=== PATIENT | male | born 1975 | race African-American/Black ===

== ENCOUNTER 2019-10-25 16:29 | Emergency (ER) | payer OTHER ==
[2019-10-25 18:05] LABS: Albumin 3.9 g/dL (3.4-5.0); Bilirubin Total 0.4 mg/dL (0.2-1.0); Protein, Total 8.1 g/dL (6.4-8.2)
[2019-10-25 18:19] LABS: Potassium 2.6 mmol/L (3.5-5.1)
--- NOTE | 2019-10-25 18:22 | EDPHYS ---
Physician Documentation [facility] Name: Ana Paula Oviedo Age: 44 yrs Sex: Male : 1975 Arrival Date: 10/25/2019 Time: 16:34 Bed 20 Private MD: ED Physician Maren Marshall HPI: 10/25 16:51 This 44 yrs old Black Male presents to ER via Ambulatory with complaints of High Blood ma2 Pressure. 16:51 The patient has elevated blood pressure and discovered this at home. Onset: The ma2 symptoms/episode began/occurred gradually, 1 week(s) ago. Associated signs and symptoms: Pertinent negatives: dizziness, headache, lightheadedness, nausea. Severity of symptoms: At its worst the blood pressure was moderate, in the emergency department the blood pressure is unchanged. The patient has experienced similar episodes in the past. has htn, does not take his meds, went to pcp for regular check up no symptoms, sbp was 210, so advised to come here. However, before coming here, he went home and took his bp meds, now sbp 170, no sympotm s. Historical: - Allergies: 16:46 No Known Allergies; sv - PMHx: 16:46 Hypertension; Schizophrenia; sv - PSHx: 16:46 None; sv - Social history:: Patient/guardian denies using alcohol, street drugs, The patient lives with family. - Family history:: not pertinent. ROS: 16:51 Constitutional: Negative for fever, chills, and weight loss. ma2 16:51 All other systems are negative. Exam: 16:51 Constitutional: This is a well developed, well nourished patient who is awake, alert, ma2 and in no acute distress. Head/Face: Normocephalic, atraumatic. Eyes: Pupils equal round and reactive to light, extra-ocular motions intact. Lids and lashes normal. Conjunctiva and sclera are non-icteric and not injected. Cornea within normal limits. Periorbital areas with no swelling, redness, or edema. ENT: Nares patent. No nasal discharge, no septal abnormalities noted. Tympanic membranes are normal and external auditory canals are clear. Oropharynx with no redness, swelling, or masses, exudates, or evidence of obstruction, uvula midline. Mucous membranes moist. Neck: Trachea midline, no thyromegaly or masses palpated, and no cervical lymphadenopathy. Supple, full range of motion without nuchal rigidity, or vertebral point tenderness. No Meningismus. Chest/axilla: Normal chest wall appearance and motion. Nontender with no deformity. No lesions are appreciated. Cardiovascular: Regular rate and rhythm with a normal S1 and S2. No gallops, murmurs, or rubs. Normal PMI, no JVD. No pulse deficits. Respiratory: Lungs have equal breath sounds bilaterally, clear to auscultation and percussion. No rales, rhonchi or wheezes noted. No increased work of breathing, no retractions or nasal flaring. Abdomen/GI: Soft, non-tender, with normal bowel sounds. No distension or tympany. No guarding or rebound. No evidence of tenderness throughout. Skin: Warm, dry with normal turgor. Normal color with no rashes, no lesions, and no evidence of cellulitis. MS/ Extremity: Pulses equal, no cyanosis. Neurovascular intact. Full, normal range of motion. Neuro: Awake and alert, GCS 15, oriented to person, place, time, and situation. Cranial nerves II-XII grossly intact. Motor strength 5/5 in all extremities. Sensory grossly intact. Cerebellar exam normal. Normal gait. Vital Signs: 16:46 BP 174 / 99; Pulse 85; Resp 16; Temp 98.4; Pulse Ox 100% ; Weight 97.07 kg; Height 6 sv ft. 2 in. (187.96 cm); Pain 0/10; 16:46 Body Mass Index 27.48 (97.07 kg, 187.96 cm) sv MDM: 16:47 Patient medically screened. ma2 16:51 Differential diagnosis: hypertensive crisis, Malignant HTN. Data reviewed: vital signs, ma2 nurses notes. Counseling: I had a detailed discussion with the patient and/or guardian regarding: the historical points, exam findings, and any diagnostic results supporting the discharge/admit diagnosis, the presence of at least one elevated blood pressure reading (>120/80) during this emergency department visit, the need for outpatient follow up. Response to treatment: the patient's symptoms have markedly improved after treatment, map is already reduced to target 30% off 200, now at 170, . 10/25 16:51 Order name: [facility]; Complete Time: 18:19 ma2 Administered Medications: No medications were administered Disposition: 10/25/19 18:21 Discharged to Home. Impression: Essential (primary) hypertension, Hypokalemia. - Condition is Stable. - Discharge Instructions: Hypokalemia. - Prescriptions for Potassium Chloride 10 mEq Oral Tablet - take 1 tablet by ORAL route every 12 hours; 30 tablet. - Medication Reconciliation Form, Thank You Letter, Antibiotic Education, Prescription Opioid Use form. - Follow up: Private Physician; When: Tomorrow; Reason: Continuance of care. Signatures: Dispatcher [employer] Analy Lawler RN RN Navneet Polk RN RN sg Alzahri, Mohammad, MD MD ma2 Corrections: (The following items were deleted from the chart) 18:43 18:21 10/25/2019 18:21 Discharged to Home. Impression: Essential (primary) sg hypertension; Hypokalemia. Condition is Stable. Forms are Medication Reconciliation Form, Thank You Letter, Antibiotic Education, Prescription Opioid Use. Follow up: Private Physician; When: Tomorrow; Reason: Continuance of care. ma2
--- NOTE | 2019-10-25 18:22 | ER ---
Nurse's Notes [facility] Name: Ana Paula Oviedo Age: 44 yrs Sex: Male : 1975 Arrival Date: 10/25/2019 Time: 16:34 Bed 20 Private MD: Diagnosis: Essential (primary) hypertension;Hypokalemia Presentation: 10/25 16:44 Presenting complaint: Patient states: sent by PCP for HTN. States he has a hx of HTN. sv Denies SOB, dizziness, headache, CP. Transition of care: patient was not received from another setting of care. Onset of symptoms was October 25, 2019. Care prior to arrival: None. 16:44 Method Of Arrival: Ambulatory sv 16:47 Acuity: ALIRIO 4 sv Historical: - Allergies: 16:46 No Known Allergies; sv - PMHx: 16:46 Hypertension; Schizophrenia; sv - PSHx: 16:46 None; sv - Social history:: Patient/guardian denies using alcohol, street drugs, The patient lives with family. - Family history:: not pertinent. Screenin:00 Abuse screen: Denies threats or abuse. Denies injuries from another. Nutritional sg screening: No deficits noted. Tuberculosis screening: No symptoms or risk factors identified. Never had TB. Fall Risk None identified. Assessment: 17:00 General: Appears in no apparent distress. well groomed, well developed, well nourished, sg Behavior is calm, cooperative, appropriate for age. Pain: Denies pain. Neuro: Level of Consciousness is awake, alert, obeys commands, Oriented to person, place, time, Moves all extremities. Gait is steady, Speech is normal, Facial symmetry appears normal. Cardiovascular: Capillary refill is brisk in bilateral fingers Patient's skin is warm and dry. Chest pain is denied. Respiratory: Airway is patent Respiratory effort is even, unlabored, Respiratory pattern is regular, symmetrical. GI: Abdomen is round non-distended, Reports tolerance of fluids, tolerance of food. : No signs and/or symptoms were reported regarding the genitourinary system. EENT: No signs and/or symptoms were reported regarding the EENT system. Derm: Skin is intact, is healthy with good turgor, Skin is dry, Skin is normal, Skin temperature is warm. Musculoskeletal: Circulation, motion, and sensation intact. Range of motion: intact in all extremities. Vital Signs: 16:46 BP 174 / 99; Pulse 85; Resp 16; Temp 98.4; Pulse Ox 100% ; Weight 97.07 kg; Height 6 sv ft. 2 in. (187.96 cm); Pain 0/10; 16:46 Body Mass Index 27.48 (97.07 kg, 187.96 cm) sv ED Course: 16:34 Patient arrived in ED. mr 16:44 Arm band placed on. sv 16:47 Maren Marshall MD is Attending Physician. ma2 16:47 Triage completed. sv 17:00 No provider procedures requiring assistance completed. sg 17:31 Navneet Maher, RN is Primary Nurse. sg Administered Medications: No medications were administered Outcome: 18:21 Discharge ordered by . ma2 18:43 Patient left the ED. sg Signatures: Analy Lynch RN RN Navneet Maher, RN RN Emilie Barone mr Maren Marshall MD MD ma2 Corrections: (The following items were deleted from the chart) 16:47 16:46 Pulse 85bpm; Resp 16bpm; Pulse Ox 100%; Temp 98.4F; 97.07 kg; Height 6 ft. 2 in.; sv BMI: 27.4; Pain 0/10; sv
[2019-10-26 08:28] VITALS: BP 174/99; TEMP 98.4; O2SAT 100
== END 2019-10-25 18:43 | disposition home or self-care (01) ==
LOC: ER 16:29
DX: I10 Essential (primary) hypertension (principal); E87.6 Hypokalemia
CPT/HCPCS: 36415; 80053; 99281

== ENCOUNTER 2021-02-12 13:52 | Emergency (ER) | payer OTHER ==
--- OUTSIDE RECORDS SUMMARY | 2021-02-12 13:54 | XMS REPORT | Continuity of Care Document ---
:1975 Author Organization [facility] t Address [address] [place] [address] Care Team Providers Name Role Phone Lab, Fam Pob I Attending Clinician Unavailable Doctor Unassigned, Name Attending Clinician Unavailable Problems This patient has no known problems. Allergies, Adverse Reactions, Alerts This patient has no known allergies or adverse reactions. Medications This patient has no known medications. Procedures This patient has no known procedures. Encounters Start End Encounter Admission Attending Care Care Encounter Source Date/Time Date/Time Type Type Clinicians Facility Department ID 2020-05-31 2020-05-31 Laboratory Lab, [facility] [id number] 13:07:33 13:27:33 Only Fam Pob I Health [id number] [place] [id number] [place] [id number] [address] 2020-05-31 2020-05-31 Letter Doctor JUN [id number] 00:00:00 00:00:00 (Out) Unassigned, DANILO [id number] [place] [facility] [id number] [id number] Results This patient has no known results.
[2021-02-12 14:51] LABS: Absolute Lymphocytes (CBC) 2.5 K/uL (0.7-4.9); Basophils % 1.4 % (0-1.3); Hematocrit 37.8 % (39.6-49.0); Lymphocytes % 36.9 % (15.3-44.8); MPV 8.6 fL (7.6-11.3); RBC Red Blood Cell Count 4.63 M/uL (4.33-5.43)
[2021-02-12 14:58] LABS: Protime INR 1.06
--- NOTE | 2021-02-12 14:58 | RAD REPORT ---
EXAM DESCRIPTION: CT - Head Brain Wo Cont - 02/12/2021 2:42 pm CLINICAL HISTORY: elevated bp, [facility] COMPARISON: <Comparisons> TECHNIQUE: Axial 5 mm thick images of the head were obtained without IV contrast. All CT scans are performed using dose optimization technique as appropriate and may include automated exposure control or mA/KV adjustment according to patient size. FINDINGS: No intracranial hemorrhage, mass, edema or shift of mid-line structures. No acute infarcti on changes seen. No abnormal extra-axial fluid collections. Ventricles are normal. Physiologic calcif ications are present. There is a very minimal amount of soft tissue in the deep subcutaneous scalp le ft parietal convexity. Minimal hematoma is possible but no trauma history is indicated. This is possi ana cristina scarring from prior injury. Underlying bone is intact and this is not likely of any long-term sig nificance. Mastoid air cells and visualized portions of the paranasal sinuses are clear. No acute bony findings. IMPRESSION: As detailed above, no acute or significant CT Head finding identifiable.
[2021-02-12 15:18] LABS: ALT/SGPT 24 U/L (12-78); AST/SGOT 17 U/L (15-37); Albumin 3.8 g/dL (3.4-5.0); Alkaline Phosphatase 136 U/L (45-117); BUN Blood Urea Nitrogen 13 mg/dL (7-18); Bicarbonate 31 mmol/L (21-32); Bilirubin Direct 0.1 mg/dL (0-0.2); Bilirubin Total 0.5 mg/dL (0.2-1.0); Glucose Level 87 mg/dL (74-106); Magnesium 2.1 mg/dL (1.8-2.4); NT PRO-BNP 155 pg/mL (<125); Potassium 3.2 mmol/L (3.5-5.1); Protein, Total 7.7 g/dL (6.4-8.2); Sodium Level 142 mmol/L (136-145); Troponin (Emerg Dept Use Only) 0.02 ng/mL (0.0-0.045)
[2021-02-12] MEDS ORDERED: AMLODIPINE 10 MG TAB ONE (15:22)
[2021-02-12] MEDS ORDERED: HYDRALAZINE HCL 20 MG/ML VIAL ONE (17:24)
[2021-02-12] MEDS ORDERED: cloNIDine HCL 0.1 MG TAB ONE (19:07)
--- NOTE | 2021-02-12 20:05 | EDPHYS ---
Physician Documentation [facility] Name: Ana Paula Oviedo Age: 45 yrs Sex: Male : 1975 Arrival Date: 02/12/2021 Time: 13:55 Bed 17 Private MD: ED Physician Jayy Pablo HPI: 02/12 14:28 This 45 yrs old Black Male presents to ER via Ambulatory with complaints of High Blood jmm Pressure. 14:28 Onset: The symptoms/episode began/occurred today. Modifying factors: The symptoms are jmm aggravated by. Associated signs and symptoms: Pertinent positives: headache. The patient has not experienced similar symptoms in the past. Patient sent from clinic due to elevated blood pressure. complains of headache. denies chest pain, shortness of breath. Historical: - Allergies: 14:04 No Known Allergies; tw2 - Home Meds: 14:04 lisinopril-hydrochlorothiazide 20-25 mg oral tab 1 tab once daily [Active]; trazodone tw2 100 mg Oral tab 2 tabs 1 time daily [Active]; sertraline 50 mg oral tab 1 tab once daily [Active]; Wellbutrin XL 150 mg Oral Tb24 1 tab once daily [Active]; Invega 117 mg/0.75 ml IM once a month oral tr24 [Active]; amlodipine 10 mg tab 1 tab once daily [Active]; atorvastatin 40 mg oral tab 1 tab once daily [Active]; lisinopril 20 mg Oral tab 1 tab once daily [Active]; - PMHx: 14:04 Hypertension; Schizophrenia; Hyperlipidemia; Diabetes - IDDM; Depression; Anxiety; tw2 - Immunization history:: Adult Immunizations. - Social history:: Smoking status: Patient denies any tobacco usage or history of. ROS: 14:28 Constitutional: Negative for fever, chills, and weight loss, Cardiovascular: Negative jmm for chest pain, palpitations, and edema, Respiratory: Negative for shortness of breath, cough, wheezing, and pleuritic chest pain. 14:28 Neuro: Positive for headache. 14:28 All other systems are negative. Exam: 14:28 Constitutional: This is a well developed, well nourished patient who is awake, alert, jmm and in no acute distress. Head/Face: atraumatic. Eyes: EOMI, no conjunctival erythema appreciated ENT: Moist Mucus Membranes Neck: Trachea midline, Supple Chest/axilla: Normal chest wall appearance and motion. Cardiovascular: Regular rate and rhythm. No edema appreciated Respiratory: Normal respirations, no respiratory distress appreciated Abdomen/GI: Non distended, soft Back: Normal ROM Skin: General appearance color normal MS/ Extremity: Moves all extremities, no obvious deformities appreciated, no edema noted to the lower extremities Neuro: Awake and alert, normal gait Psych: Behavior is normal, Mood is normal, Patient is cooperative and pleasant Vital Signs: 13:58 BP 188 / 99; Pulse 70; Resp 17; Temp 97.9(TE); Pulse Ox 99% on R/A; Weight 113.85 kg tw2 (R); Height 6 ft. 2 in. (187.96 cm); 14:40 BP 195 / 110; Pulse 78; Resp 18; Pulse Ox 100% ; kg 18:06 BP 199 / 103; Pulse 63; Resp 18; Pulse Ox 100% ; tr6 18:45 BP 197 / 97; Pulse 66; Resp 18; Pulse Ox 100% ; tr6 19:04 BP 190 / 102; Pulse 61; Resp 18; Pulse Ox 97% ; tr6 20:26 BP 156 / 86; Pulse 71; Resp 16; Pulse Ox 99% on R/A; jm8 13:58 Body Mass Index 32.23 (113.85 kg, 187.96 cm) tw2 MDM: 14:28 Patient medically screened. [facility] 20:03 Data reviewed: vital signs, nurses notes. Counseling: I had a detailed discussion with [facility] the patient and/or guardian regarding: the historical points, exam findings, and any diagnostic results supporting the discharge/admit diagnosis, lab results, the need for outpatient follow up, to return to the emergency department if symptoms worsen or persist or if there are any questions or concerns that arise at home. 02/12 14:28 Order name: Basic Metabolic Panel [facility] 02/12 14:28 Order name: CBC with Diff [facility] 02/12 14:28 Order name: LFT's; Complete Time: 15:19 [facility] 02/12 14:28 Order name: Magnesium; Complete Time: 15:19 [facility] 02/12 14:28 Order name: NT PRO-BNP; Complete Time: 15:19 [facility] 02/12 14:28 Order name: PT-INR; Complete Time: 15:00 [facility] 02/12 14:28 Order name: Troponin (emerg Dept Use Only); Complete Time: 15:19 [facility] 02/12 14:28 Order name: CT Head Brain wo Cont; Complete Time: 15:00 [facility] 02/12 14:29 Order name: Basic Metabolic Panel; Complete Time: 15:19 [facility] 02/12 14:29 Order name: CBC with Automated Diff; Complete Time: 14:55 [facility] 02/12 14:28 Order name: EKG; Complete Time: 14:29 [facility] 02/12 14:28 Order name: Cardiac monitoring; Complete Time: 14:30 [facility] 02/12 14:28 Order name: EKG - Nurse/Tech; Complete Time: 15:30 [facility] 02/12 14:28 Order name: IV Saline Lock; Complete Time: 14:30 [facility] 02/12 14:28 Order name: Labs collected and sent; Complete Time: 14:41 [facility] 02/12 14:28 Order name: O2 Per Protocol; Complete Time: 14:41 [facility] 02/12 14:28 Order name: O2 Sat Monitoring; Complete Time: 14:42 [facility] Administered Medications: 15:05 Drug: amLODIPine 10 mg Route: PO; kg 16:37 Follow up: Response: No adverse reaction kg 17:07 Drug: hydrALAZINE 10 mg Route: IV; Rate: calculated rate; Site: right antecubital; tr6 17:53 CANCELLED (Duplicate Order): cloNIDine 0.1 mg PO once [facility] 18:54 Drug: cloNIDine 0.1 mg Route: PO; tr6 Disposition: 02/13 19:06 Co-signature as Attending Physician, Jayy Pablo MD. rn Disposition: 02/12/21 20:04 Discharged to Home. Impression: Elevated Blood Pressure. - Condition is Stable. - Discharge Instructions: Hypertension. - Medication Reconciliation Form, Thank You Letter, Antibiotic Education, Prescription Opioid Use form. - Follow up: Private Physician; When: 2 - 3 days; Reason: Recheck today's complaints, Continuance of care, Re-evaluation by your physician. Signatures: Dispatcher [employer] EDMS Dru Montez PA PA m Jayy Pablo MD MD rn Wise, Tara, RN RN 2 Aba Barreto RN RN jm8 Nemo Ponce RN RN tr6 Latoya Bryan kg Corrections: (The following items were deleted from the chart) 02/12 17:53 17:52 cloNIDine 0.1 mg PO once ordered. anatoliy cope 20:27 20:04 02/12/2021 20:04 Discharged to Home. Impression: Elevated Blood Pressure. jm8 Condition is Stable. Forms are Medication Reconciliation Form, Thank You Letter, Antibiotic Education, Prescription Opioid Use. Follow up: Private Physician; When: 2 - 3 days; Reason: Recheck today's complaints, Continuance of care, Re-evaluation by your physician. anatoliy
--- NOTE | 2021-02-12 20:05 | ER ---
Nurse's Notes [facility] Name: Ana Paula Oviedo Age: 45 yrs Sex: Male : 1975 Arrival Date: 02/12/2021 Time: 13:55 Bed 17 Private MD: Diagnosis: Elevated Blood Pressure Presentation: 02/12 13:58 Chief complaint: Patient states: i guess last night i got a headache, like a light tw2 headache. [facility] feeling and they told me my blood pressure was high. Coronavirus screen: At this time, the client does not indicate any symptoms associated with coronavirus-19. Ebola Screen: Patient denies travel to an Ebola-affected area in the 21 days before illness onset. Initial Sepsis Screen: Does the patient meet any 2 criteria? No. Patient's initial sepsis screen is negative. Does the patient have a suspected source of infection? No. Patient's initial sepsis screen is negative. Risk Assessment: Do you want to hurt yourself or someone else? Patient reports no desire to harm self or others. Onset of symptoms was February 12, 2021. 13:58 Method Of Arrival: Ambulatory tw2 13:58 Acuity: ALIRIO 3 tw2 Triage Assessment: 14:05 General: Appears in no apparent distress. well groomed, Behavior is calm, cooperative, tw2 appropriate for age. Pain: Complains of pain in left parietal area. Neuro: Reports headache. Historical: - Allergies: 14:04 No Known Allergies; tw2 - Home Meds: 14:04 lisinopril-hydrochlorothiazide 20-25 mg oral tab 1 tab once daily [Active]; trazodone tw2 100 mg Oral tab 2 tabs 1 time daily [Active]; sertraline 50 mg oral tab 1 tab once daily [Active]; Wellbutrin XL 150 mg Oral Tb24 1 tab once daily [Active]; Invega 117 mg/0.75 ml IM once a month oral tr24 [Active]; amlodipine 10 mg tab 1 tab once daily [Active]; atorvastatin 40 mg oral tab 1 tab once daily [Active]; lisinopril 20 mg Oral tab 1 tab once daily [Active]; - PMHx: 14:04 Hypertension; Schizophrenia; Hyperlipidemia; Diabetes - IDDM; Depression; Anxiety; tw2 - Immunization history:: Adult Immunizations. - Social history:: Smoking status: Patient denies any tobacco usage or history of. Screenin:41 Abuse screen: Denies threats or abuse. Denies injuries from another. Nutritional kg screening: No deficits noted. Tuberculosis screening: No symptoms or risk factors identified. Fall Risk None identified. Assessment: 14:42 Reassessment: pt transported to Ct via wheelchair. kg Vital Signs: 13:58 BP 188 / 99; Pulse 70; Resp 17; Temp 97.9(TE); Pulse Ox 99% on R/A; Weight 113.85 kg tw2 (R); Height 6 ft. 2 in. (187.96 cm); 14:40 BP 195 / 110; Pulse 78; Resp 18; Pulse Ox 100% ; kg 18:06 BP 199 / 103; Pulse 63; Resp 18; Pulse Ox 100% ; tr6 18:45 BP 197 / 97; Pulse 66; Resp 18; Pulse Ox 100% ; tr6 19:04 BP 190 / 102; Pulse 61; Resp 18; Pulse Ox 97% ; tr6 20:26 BP 156 / 86; Pulse 71; Resp 16; Pulse Ox 99% on R/A; jm8 13:58 Body Mass Index 32.23 (113.85 kg, 187.96 cm) tw2 ED Course: 13:55 Patient arrived in ED. mr 14:00 Triage completed. tw2 14:05 Arm band placed on. tw2 14:14 Dru Montez PA is PHCP. jmm 14:14 Jayy Pablo MD is Attending Physician. jmm 14:20 Latoya Bryan is Primary Nurse. kg 14:41 CT Head Brain wo Cont In Process Unspecified. EDMS 14:41 Patient has correct armband on for positive identification. Bed in low position. Call kg light in reach. Side rails up X 1. 15:06 No provider procedures requiring assistance completed. kg 20:26 IV discontinued, intact, bleeding controlled. jm8 Administered Medications: 15:05 Drug: amLODIPine 10 mg Route: PO; kg 16:37 Follow up: Response: No adverse reaction kg 17:07 Drug: hydrALAZINE 10 mg Route: IV; Rate: calculated rate; Site: right antecubital; tr6 17:53 CANCELLED (Duplicate Order): cloNIDine 0.1 mg PO once jmm 18:54 Drug: cloNIDine 0.1 mg Route: PO; tr6 Outcome: 20:04 Discharge ordered by . anatoliy 20:27 Discharged to home ambulatory. flaquita 20:27 Condition: good 20:27 Discharge instructions given to patient, Instructed on discharge instructions, follow up and referral plans. medication usage, Demonstrated understanding of instructions, follow-up care, medications. 20:27 Patient left the ED. flaquita Signatures: Dispatcher [employer] EDMS Dru Montez PA PA jmm Rivera, Mary mr Sadie Tomlin, RN RN tw2 Aba Barreto RN RN jm8 Nemo Ponce RN RN tr6 Latoya Bryan kg
[2021-02-12 20:39] VITALS: BP 156/86; O2SAT 99
[2021-02-12 20:50] VITALS: TEMP 98.2
--- NOTE | 2021-02-13 12:53 | EKG ---
Test Date: 2021-02-12 Test Time: 15:14:52 [employer] Tank: FERNANDO MEASUREMENT RESULTS: Intervals: Rate: 58 MD: 202 QRSD: 92 QT: 452 QTc: 443 [place]: P: 67 MD: 202 QRS: 36 T: 60 INTERPRETIVE STATEMENTS: Sinus bradycardia Possible Left atrial enlargement Borderline ECG No previous ECG available for comparison Electronically Signed On 02-13-21 12:51:43 CDT by Sebastien Daily
== END 2021-02-12 20:27 | disposition home or self-care (01) ==
LOC: ER 13:52
DX: I10 Essential (primary) hypertension (principal); E78.5 Hyperlipidemia, unspecified; E11.9 Type 2 diabetes mellitus without complications; F41.8 Other specified anxiety disorders
CPT/HCPCS: 93005; 85025; 80048; 36415; 83735; 85610; 80076; 84484; 83880; 70450; J0360; 96374; 99283

== ENCOUNTER 2023-03-29 10:32 | Emergency (ER) | payer OTHER ==
--- OUTSIDE RECORDS SUMMARY | 2023-03-29 10:46 | XMS REPORT | Continuity of Care Document ---
:1975 Author Organization [facility] t Address [address] [place] [address] [place] [id number] Care Team Providers Name Role Phone PCP, PATIENT DOES NOT HAVE A Primary Care Physician Unavaila ble Doctor Unassigned, [place] Attending Clinician Unavailable LUZ LE Attending Clinician Unavailable Zach Moffett DO Attending Clinician Luz Le MD Attending Clinician ELISEO MACK Attending Clinician Unavailable Eliseo Mack NP Attending Clinician Zoe DUNLAP Attending Clinician Unavailable Zoe Johnson Attending Clinician ADDIE PAT Attending Clinician Unavailable JANIE WERNER Attending Clinician Unavailable Janie Werner MD Attending Clinician Addie Boles Attending Clinician GARY CLARKE Attending Clinician Unavailable Gary Kraus Attending Clinician Nurse, Adc Pob Immunization Attending Clinician Unavailable Moustapha Vela DO Attending Clinician MOUSTAPHA VELA Attending Clinician Unavailable KRISTINA OSUNA Attending Clinician Unavailable Lab, Adc Fam Pob I Attending Clinician Unavailable Wilmer_A_AH Attending Clinician Unavailable Zoe DUNLAP Admitting Clinician Unavailable Wilmer_A_AH Admitting Clinician Unavailable Payers Payer Name Policy Type Policy Number Effective Date Expiration Date Sophie LOZANO [id number] 2013 00:00:00 [employer] [place] - [id number] [employer] (MEDICARE REPLACEMENT/ADVANTAG E - HMO) Problems Condition Condition Condition Status Onset Resolution Last Treating Co mments Source Name Details Category Date Date Treatment Clinician Date No known No known Disease Unive rs active active ity of problems problems [facility] Allergies, Adverse Reactions, Alerts Allergy Allergy Status Severity Reaction(s) Onset Inactive Treating Comm ents Source Name Type Date Date Clinician NO KNOWN Drug Active Univers ALLERGIE Class ity of S [facility] Social History Social Habit Start Date Stop Date Quantity Comments Source Exposure to 2022-04-04 2022-04-14 Not sure [facility]-CoV2 00:00:00 16:35:00 [facility] (event) [place] Tobacco use and 2021-11-06 2021-11-06 Smokeless tobacco Un iversity of exposure 00:00:00 00:00:00 non-user [facility] Sex Ass[birth year] At [birth year] Univers[facility] y of 00:00:00 00:00:00 [facility] Smoking Status Start Date Stop Date Source Never smoked tobacco [facility] Medications Ordered Filled Start Stop Current Ordering Indication Dosage Frequency Signature Comments Components Source Medication Medication Date Date Medication? Clinician (SIG) Name Name AMLODIPINE No BESYLATE 10 9-15 MG TABS 00:00: 00 &lt 2021-0 No 10 8-10 00:00: 00 TAKE 1 2021-0 No 500 TABLET BY 8-10 MOUTH TWICE 00:00: DAILY WITH 00 MEALS &lt 2021-0 No 50 8-10 00:00: 00 &lt 2021-0 No 500 8-10 00:00: 00 &lt 2021-0 No 1000 8-10 00:00: 00 &lt 2021-0 No 40 8-10 00:00: 00 TAKE 1 AND 2021-0 No 500 1/2 TABLETS 8-10 BY MOUTH 00:00: TWICE DAILY 00 WITH MEALS FOR 14 DAYS Dose 2022-0 No 117 Unknown 8-10 00:00: 00 &lt 2022-0 No 10 8-10 00:00: 00 Dose 2022-0 No 40 Unknown 8-10 00:00: 00 &lt 2022-0 No 20 8-10 00:00: 00 &lt 2022-0 No 100 8-10 00:00: 00 &lt 2022-0 No 50 8-10 00:00: 00 TAKE 1 AND 2022-0 No 500 1/2 TABLETS 8-10 BY MOUTH 00:00: TWICE DAILY 00 WITH MEALS FOR 14 DAYS Dose 2022-0 No 20 Unknown 8-10 00:00: 00 &lt 2022-0 No 10 8-10 00:00: 00 TAKE 1 2022-0 No 500 TABLET BY 8-10 MOUTH TWICE 00:00: DAILY WITH 00 MEALS &lt 2022-0 No 50 8-10 00:00: 00 &lt 2022-0 No 500 8-10 00:00: 00 &lt 2022-0 No 1000 8-10 00:00: 00 &lt 2022-0 No 40 8-10 00:00: 00 TAKE 1 AND 2022-0 No 500 1/2 TABLETS 8-10 BY MOUTH 00:00: TWICE DAILY 00 WITH MEALS FOR 14 DAYS Dose 2022-0 No 117 Unknown 8-10 00:00: 00 &lt 2022-0 No 10 8-10 00:00: 00 Dose 2022-0 No 40 Unknown 8-10 00:00: 00 &lt 2022-0 No 20 8-10 00:00: 00 &lt 2022-0 No 100 8-10 00:00: 00 &lt 2022-0 No 50 8-10 00:00: 00 TAKE 1 AND 2022-0 No 500 1/2 TABLETS 8-10 BY MOUTH 00:00: TWICE DAILY 00 WITH MEALS FOR 14 DAYS Dose 2022-0 No 20 Unknown 8 00:00: 00 &lt 2022-0 No 117 8 00:00: 00 &lt 2022-0 No 40 8 00:00: 00 &lt 2022-0 No 117 8 00:00: 00 &lt 2022-0 No 40 8 00:00: 00 &lt 2022-0 No 20 04-29 00:00: 00 &lt 2022-0 No 10 04-29 00:00: 00 &lt 2022-0 No 500 04-29 00:00: 00 &lt 2022-0 No 50 04-29 00:00: 00 &lt 2022-0 No 500 04-29 00:00: 00 &lt 2022-0 No 20 04-29 00:00: 00 &lt 2022-0 No 10 04-29 00:00: 00 &lt 2022-0 No 500 04-29 00:00: 00 &lt 2022-0 No 50 04-29 00:00: 00 &lt 2022-0 No 500 04-29 00:00: 00 &lt 2022-0 No 20 04-29 00:00: 00 &lt 2022-0 No 10 04-29 00:00: 00 &lt 2022-0 No 500 04-29 00:00: 00 &lt 2022-0 No 50 04-29 00:00: 00 &lt 2022-0 No 500 04-29 00:00: 00 &lt 2022-0 No 50 7 00:00: 00 &lt 2022-0 No 500 7 00:00: 00 &lt 2022-0 No 50 7 00:00: 00 &lt 2022-0 No 500 7 00:00: 00 &lt 2022-0 No 50 7 00:00: 00 &lt 2022-0 No 500 7 00:00: 00 &lt 2022-0 No 100 7-20 00:00: 00 &lt 2022-0 No 25 7-20 00:00: 00 &lt 2022-0 No 100 7-20 00:00: 00 &lt 2022-0 No 25 7-20 00:00: 00 &lt 2022-0 No 100 7- 00:00: 00 &lt 2022-0 No 25 7-20 00:00: 00 insulin 2021-0 2021- No 10U 10 Units, Univ ers regular 04-15 Subcutaneo ity o f human 01:42: 01:45 , [facility], [place] (HUMULIN R) 00 :00 1 dose, On Me dical injection Mon Branch 10 Units 04/14/22 at 2044, Routine insulin 2021-0 2022- No 5U 5 Units, Unive rs regular 7-12 07-12 Subcutaneo ity o f human 00:45: 00:47 us, ONCE, [place] (HUMULIN R) 00 :00 1 dose, On Me dical injection 5 Mon Branch Units 04/14/22 at 2000, Routine &lt 2021-0 No 150 7-12 00:00: 00 &lt 2021-0 No 150 7-12 00:00: 00 &lt 2021-0 No 150 7-12 00:00: 00 insulin 2021-0 2021- No 9U 9 Units, Unive rs regular 7- 07-11 Subcutaneo ity o f human 23:30: 22:25 us, ONCE, [place] (HUMULIN R) 00 :00 1 dose, On Me dical injection 9 Mon Branch Units 04/14/22 at 1830, Routine glipiZIDE 0 Yes [id number] 10mg Take 1 Un rustam 10 mg 7-11 tablet by ity of tablet 00:00: mouth in [place] 00 the Medical morning. Branch glipiZIDE 0 Yes [id number] 10mg Take 1 Un rustam 10 mg 7-11 tablet by ity of tablet 00:00: mouth in [place] 00 the Medical morning. Branch glipiZIDE 2021-0 Yes [id number] 10mg Take 1 Un rustam 10 mg 7-11 tablet by ity of tablet 00:00: mouth in [place] 00 the Medical morning. Branch &lt 2021-0 No 7-11 00:00: 00 &lt 2022-0 No 7-11 00:00: 00 Dose 2-0 No 20 Unknown 7-11 00:00: 00 &lt 2-0 No 500 7-11 00:00: 00 &lt 2-0 No 7-11 00:00: 00 &lt 2-0 No 7-11 00:00: 00 Dose 2-0 No 20 Unknown 7-11 00:00: 00 &lt 2-0 No 500 7-11 00:00: 00 &lt 2022-0 No 7-11 00:00: 00 &lt 2022-0 No 7-11 00:00: 00 Dose 2-0 No 20 Unknown 7-11 00:00: 00 &lt 2021-0 No 500 7-11 00:00: 00 &lt 2022-0 No 04-14 00:00: 00 &lt 2-0 No 04-14 00:00: 00 Dose 2-0 No 20 Unknown 04-14 00:00: 00 &lt 2-0 No 500 04-14 00:00: 00 metFORMIN 2021- No [id number] 1000mg Take 1 Univers 1,000 mg 04-14 tablet by ity o f tablet 00:00: 04:59 mouth in [place] 00 :00 the Medical morning Branch and 1 tablet in the evening. Take with meals. Do all this for 30 days. insulin 2021-2021- No .1U/kg 11.52 [facility] regular 04-12-09 Units (0.1 ity o f human 07:45: 06:47 Units/kg [place] (HUMULIN R) 00 :00 ?115.2 Medica l injection kg), Branch 11.52 Units Subcutaneo us, ONCE, 1 dose, On 04/12/22 at 0245, Routine NaCl 0.9% 2021- No 500mL at 999 Univ ers (NS) bolus 04-12-09 mL/hr, 500 it y of infusion 06:45: 08:49 mL, IV [place] 500 mL 00 :00 Infusion, Medical ONCE, 1 Branch dose, On 04/12/22 at 0145, STAT insulin 2021- No .1U/kg 11.52 [facility] regular 04-12-09 Units (0.1 ity o f human 05:30: 05:04 Units/kg [place] (HUMULIN R) 00 :00 ?115.2 Medica l injection kg), Branch 11.52 Units Subcutaneo us, ONCE, 1 dose, On 04/12/22 at 0030, Routine NaCl 0.9% 2021- No 1000mL at 999 Uni vers (NS) bolus 04-12 07-09 mL/hr, ity of infusion 05:30: 06:22 1,000 mL, [place] 1,000 mL 00 :00 IV Medical Infusion, Branch ONCE, 1 dose, On 04/12/22 at 0030, LAURE metFORMIN 2021- No [id number] 750mg Take 1.5 Univers 500 mg 04-12 tablets by ity of tablet 00:00: 04:59 mouth 2 [place] 00 :00 (two) Medical times Branch daily with meals for 14 days. metFORMIN 2021-0 2- No [id number] 750mg Take 1.5 Univers 500 mg 04-12 tablets by ity of tablet 00:00: 00:00 mouth 2 [place] 00 :00 (two) Medical times Branch daily with meals for 14 days. chlorthalid 2022-0 No 1mg one 50 mg 6-23 tablet 00:00: 00 lisinopril 2022-0 No 1mg 20 mg 6-23 tablet 00:00: 00 &lt 2022-0 No 6-23 00:00: 00 chlorthalid 2022-0 No 1mg one 50 mg 6-23 tablet 00:00: 00 lisinopril 2022-0 No 1mg 20 mg 6-23 tablet 00:00: 00 &lt 2022-0 No 6-23 00:00: 00 chlorthalid 2022-0 No 1mg one 50 mg 6-23 tablet 00:00: 00 lisinopril 2022-0 No 1mg 20 mg 6-23 tablet 00:00: 00 &lt 2022-0 No 6-23 00:00: 00 chlorthalid 2022-0 No 1mg one 50 mg 6-23 tablet 00:00: 00 lisinopril 2022-0 No 1mg 20 mg 6-23 tablet 00:00: 00 &lt 2022-0 No 6-23 00:00: 00 &lt 2022-0 No 6-22 00:00: 00 &lt 2022-0 No 6-22 00:00: 00 &lt 2022-0 No 6-22 00:00: 00 &lt 2022-0 No 6-22 00:00: 00 atorvastati 2022-0 No 1mg n 40 mg 5-02 tablet 00:00: 00 metformin 2022-0 No 1mg 500 mg 5-02 tablet 00:00: 00 atorvastati 2022-0 No 1mg n 40 mg 5-02 tablet 00:00: 00 metformin 2022-0 No 1mg 500 mg 5-02 tablet 00:00: 00 atorvastati 2022-0 No 1mg n 40 mg 5-02 tablet 00:00: 00 metformin 2021-0 No 1mg 500 mg 5-02 tablet 00:00: 00 atorvastati 2021-0 No 1mg n 40 mg 5-02 tablet 00:00: 00 metformin 2021-0 No 1mg 500 mg 5-02 tablet 00:00: 00 amLODIPine 2021- No 5mg 5 mg, Unive rs (NORVASC) 02-02 Oral, ity of tablet 5 mg 03:21: 03:26 [place]CE[place] dose, On Medical Sat Branch 02/01/22 at 2230, Routine hydroCHLORO 2021- No 25mg 25 mg, Uni vers thiazide 02-02 Oral, ity of (ESIDRIX) 03:21: 03:25 ONCE, 1 [place] tablet 25 00 :00 dose, On Medica l mg Sat Branch 02/01/22 at 2230, Routine lisinopriL 2021- No 20mg 20 mg, Univ ers (PRINIVIL,Z 02-02 Oral, ity of ESTRIL) 03:20: 03:25 ONCE, 1 [place] tablet 20 00 :00 dose, On Medica l mg Sat Branch 02/01/22 at 2230, Routine methocarbam 2021- No 500mg 500 mg, U nivers oL 02-02 Oral, ity of (ROBAXIN) 03:00: 02:07 ONCE, 1 [place] tablet 500 00 :00 dose, On Medic al mg Sat Branch 02/01/22 at 2200, Routine HYDROcodone 2021- No 1{tbl} 1 tablet, Univers -acetaminop 02-02 Oral, ity of [place] (NORCO) 03:00: 02:07 [place]CE[place] 10-325 mg 00 :00 dose, On Medica l tablet 1 Sat Branch tablet 02/01/22 at 2200, Routine naproxen Yes [id number] 500mg Take 1 U nivers (NAPROSYN) 4-30 tablet by ity of 500 mg 00:00: mouth 2 [place] tablet 00 (two) Medical times Branch daily with meals. methocarbam Yes [id number] 500mg Take 1 Univers oL 500 mg 4-30 tablet by ity o f tablet 00:00: mouth 4 (four) Medical times Branch daily. naproxen 2022-0 Yes [id number] 500mg Take 1 U nivers (NAPROSYN) 4-30 tablet by ity of 500 mg 00:00: mouth 2 [place] tablet 00 (two) Medical times Branch daily with meals. methocarbam 2022-0 Yes [id number] 500mg Take 1 Univers oL 500 mg 4-30 tablet by ity o f tablet 00:00: mouth 4 [place] 00 (four) Medical times Branch daily. naproxen 2022-0 Yes [id number] 500mg Take 1 U nivers (NAPROSYN) 4-30 tablet by ity of 500 mg 00:00: mouth 2 [place] tablet 00 (two) Medical times Branch daily with meals. methocarbam 2-0 Yes [id number] 500mg Take 1 Univers oL 500 mg 4-30 tablet by ity o f tablet 00:00: mouth 4 (four) Medical times Branch daily. naproxen 2-0 Yes [id number] 500mg Take 1 U nivers (NAPROSYN) 4-30 tablet by ity of 500 mg 00:00: mouth 2 [place] tablet 00 (two) Medical times Branch daily with meals. methocarbam 2-0 Yes [id number] 500mg Take 1 Univers oL 500 mg 4-30 tablet by ity o f tablet 00:00: mouth 4 (four) Medical times Branch daily. Dose 2-0 No Unknown 4-20 00:00: 00 Dose 2022-0 No Unknown 4-20 00:00: 00 Dose 2-0 No Unknown 4-20 00:00: 00 Dose 2-0 No Unknown 4-20 00:00: 00 amlodipine 2-0 No 1mg 10 mg 4-19 tablet 00:00: 00 Dose 2-0 No Unknown 4-19 00:00: 00 Dose 2-0 No Unknown 4-19 00:00: 00 amlodipine 2022-0 No 1mg 10 mg 4-19 tablet 00:00: 00 Dose 2-0 No Unknown 4-19 00:00: 00 Dose 2-0 No Unknown 4-19 00:00: 00 amlodipine 2022-0 No 1mg 10 mg 4-19 tablet 00:00: 00 Dose 2022-0 No Unknown 4-19 00:00: 00 Dose 2022-0 No Unknown 4-19 00:00: 00 amlodipine 2022-0 No 1mg 10 mg 4-19 tablet 00:00: 00 Dose 2022-0 No Unknown 4-19 00:00: 00 Dose 2022-0 No Unknown 4-19 00:00: 00 sertraline 2022-0 No 1mg 50 mg 3-16 tablet 00:00: 00 trazodone 2022-0 No 2mg 100 mg 3-16 tablet 00:00: 00 Dose 2022-0 No Unknown 3-16 00:00: 00 lisinopril 2022-0 No 1mg 20 mg 3-16 tablet 00:00: 00 Dose 2022-0 No Unknown 3-16 00:00: 00 Dose 2022-0 No Unknown 3-16 00:00: 00 Dose 2022-0 No Unknown 3-16 00:00: 00 sertraline 2022-0 No 1mg 50 mg 3-16 tablet 00:00: 00 trazodone 2022-0 No 2mg 100 mg 3-16 tablet 00:00: 00 Dose 2022-0 No Unknown 3-16 00:00: 00 lisinopril 2022-0 No 1mg 20 mg 3-16 tablet 00:00: 00 Dose 2022-0 No Unknown 3-16 00:00: 00 Dose 2022-0 No Unknown 3-16 00:00: 00 Dose 2022-0 No Unknown 3-16 00:00: 00 sertraline 2022-0 No 1mg 50 mg 3-16 tablet 00:00: 00 trazodone 2022-0 No 2mg 100 mg 3-16 tablet 00:00: 00 Dose 2022-0 No Unknown 3-16 00:00: 00 lisinopril 2022-0 No 1mg 20 mg 3-16 tablet 00:00: 00 Dose 2022-0 No Unknown 3-16 00:00: 00 Dose 2022-0 No Unknown 3-16 00:00: 00 Dose 2022-0 No Unknown 3-16 00:00: 00 sertraline 2022-0 No 1mg 50 mg 3-16 tablet 00:00: 00 trazodone 2022-0 No 2mg 100 mg 3-16 tablet 00:00: 00 Dose 2-0 No Unknown 3-16 00:00: 00 lisinopril 2-0 No 1mg 20 mg 3-16 tablet 00:00: 00 Dose 2021-0 No Unknown 3-16 00:00: 00 Dose 2021-0 No Unknown 3-16 00:00: 00 Dose 2021-0 No Unknown 3-16 00:00: 00 Dose 2021-0 No Unknown 2-03 00:00: 00 Dose 2021-0 No Unknown 2-03 00:00: 00 Invega 2021-0 No mg/0.75 [place] 2-03 mL 117 mg/0.75 00:00: mL 00 intramuscul ar syringe Dose 2021-0 No Unknown 2-03 00:00: 00 Dose 2021-0 No Unknown 2-03 00:00: 00 Invega 2021-0 No mg/0.75 [place] 2-03 mL 117 mg/0.75 00:00: 00 intramuscul ar syringe Dose 2021-0 No Unknown 2-03 00:00: 00 Dose 2021-0 No Unknown 2-03 00:00: 00 Invega 2021-0 No mg/0.75 [place] 2-03 mL 117 mg/0.75 00:00: 00 intramuscul ar syringe Dose 2021-0 No Unknown 2-03 00:00: 00 Dose 2021-0 No Unknown 2-03 00:00: 00 Invega 2021-0 No mg/0.75 [place] 2-03 mL 117 mg/0.75 00:00: 00 intramuscul ar syringe INVEGA 2021-0 Yes Univers SUSTENNA 1-17 ity of 117 mg/0.75 00:00: [place] mL syringe 00 Medical Branch SERTraline 0 Yes Univers 50 mg 1-17 ity of tablet 00:00: [place] [address] Medical Branch traZODone 0 Yes Univers 100 mg 1-17 ity of tablet 00:00: [place] [address] Medical Branch INVEGA 2021-0 Yes Univers SUSTENNA 1-17 ity of 117 mg/0.75 00:00: [place] mL syringe Medical Branch SERTraline 0 Yes Univers 50 mg 1-17 ity of tablet 00:00: [place] Medical Branch traZODone 0 Yes Univers 100 mg 1-17 ity of tablet 00:00: [place] [address] Medical Branch INVEGA 0 Yes Univers SUSTENNA 1-17 ity of 117 mg/0.75 00:00: [place] mL syringe Medical Branch SERTraline 0 Yes Univers 50 mg 1-17 ity of tablet 00:00: [place] Medical Branch traZODone 2021-0 Yes Univers 100 mg 1-17 ity of tablet 00:00: [place] [address] Medical Branch INVEGA 0 Yes Univers SUSTENNA 1-17 ity of 117 mg/0.75 00:00: [place] mL syringe Medical Branch SERTraline Yes Univers 50 mg 1-17 ity of tablet 00:00: [place] Medical Branch traZODone Yes Univers 100 mg 1-17 ity of tablet 00:00: [place] [address] Medical Branch INVEGA Yes Univers SUSTENNA 1-17 ity of 117 mg/0.75 00:00: [place] mL syringe Medical Branch SERTraline 2021- Yes Univers 50 mg 1-17 ity of tablet 00:00: [place] [address] Medical Branch traZODone Yes Univers 100 mg 1-17 ity of tablet 00:00: [place] [address] Medical Branch INVEGA Yes Univers SUSTENNA 1-17 ity of 117 mg/0.75 00:00: [place] mL syringe Medical Branch SERTraline 0 Yes Univers 50 mg 1-17 ity of tablet 00:00: [place] Medical Branch traZODone 2021-0 Yes Univers 100 mg 1-17 ity of tablet 00:00: [place] [address] Medical Branch INVEGA Yes Univers SUSTENNA 1-17 ity of 117 mg/0.75 00:00: [place] mL syringe Medical Branch SERTraline 2021-0 Yes Univers 50 mg 1-17 ity of tablet 00:00: [place] Medical Branch traZODone 2021-0 Yes Univers 100 mg 1-17 ity of tablet 00:00: [place] [address] Medical Branch INVEGA 2021-0 Yes Univers SUSTENNA 1-17 ity of 117 mg/0.75 00:00: [place] mL syringe Medical Branch SERTraline 2021-0 Yes Univers 50 mg 1-17 ity of tablet 00:00: [place] [address] Medical Branch traZODone 2021-0 Yes Univers 100 mg 1-17 ity of tablet 00:00: [place] [address] Medical Branch INVEGA 2021-0 Yes Univers SUSTENNA 1-17 ity of 117 mg/0.75 00:00: [place] mL syringe Medical Branch SERTraline 2021-0 Yes Univers 50 mg 1-17 ity of tablet 00:00: [place] [address] Medical Branch traZODone 2021-0 Yes Univers 100 mg 1-17 ity of tablet 00:00: [place] [address] Medical Branch INVEGA 2021-0 Yes Univers SUSTENNA 1-17 ity of 117 mg/0.75 00:00: [facility] syringe Medical Branch SERTraline 2021-0 Yes Univers 50 mg 1-17 ity of tablet 00:00: [place] [address] Medical Branch traZODone 2021-0 Yes Univers 100 mg 1-17 ity of tablet 00:00: [place] [address] Medical Branch INVEGA 2021-0 Yes Univers SUSTENNA 1-17 ity of 117 mg/0.75 00:00: [facility] syringe Medical Branch SERTraline 2021-0 Yes Univers 50 mg 1-17 ity of tablet 00:00: [place] [address] Medical Branch traZODone 2021-0 Yes Univers 100 mg 1-17 ity of tablet 00:00: [place] [address] Medical Branch trazodone 2021-0 No 2mg 100 mg 1-04 tablet 00:00: 00 sertraline 2-0 No 1mg 50 mg 1-04 tablet 00:00: 00 Inve[place] 2-0 No mg/0.75 [place] 1-04 mL 117 mg/0.75 00:00: 00 intramuscul ar syringe trazodone 2-0 No 2mg 100 mg 1-04 tablet 00:00: 00 sertraline 2-0 No 1mg 50 mg 1-04 tablet 00:00: 00 [place] 2-0 No mg/0.75 [place] 1-04 mL 117 mg/0.75 00:00: 00 intramuscul ar syringe trazodone 2-0 No 2mg 100 mg 1-04 tablet 00:00: 00 sertraline 2-0 No 1mg 50 mg 1-04 tablet 00:00: 00 [place] 2-0 No mg/0.75 [place] 1-04 mL 117 mg/0.75 00:00: mL 00 intramuscul ar syringe trazodone 0 No 2mg 100 mg 1-04 tablet 00:00: 00 sertraline 2021-0 No 1mg 50 mg 1-04 tablet 00:00: 00 Invega 0 No mg/0.75 [place] 1-04 mL 117 mg/0.75 00:00: mL 00 intramuscul ar syringe trazodone 2020-10 No 2mg 100 mg 2-01 tablet 00:00: 00 sertraline 2020-10 No 1mg 50 mg 2-01 tablet 00:00: 00 Inve[place] 2020-10 No mg/0.75 [place] 2-01 mL 117 mg/0.75 00:00: mL 00 intramuscul ar syringe trazodone 2020-10 No 2mg 100 mg 2-01 tablet 00:00: 00 sertraline 2020-10 No 1mg 50 mg 2-01 tablet 00:00: 00 Invega 2020-10 No mg/0.75 [place] 2-01 mL 117 mg/0.75 00:00: mL 00 intramuscul ar syringe trazodone 2020-10 No 2mg 100 mg 2-01 tablet 00:00: 00 sertraline 2020-10 No 1mg 50 mg 2-01 tablet 00:00: 00 Invega 2020-10 No mg/0.75 [place] 2-01 mL 117 mg/0.75 00:00: mL 00 intramuscul ar syringe trazodone 2020-10 No 2mg 100 mg 2-01 tablet 00:00: 00 sertraline 2020-10 No 1mg 50 mg 2-01 tablet 00:00: 00 Invega 2020-10 No mg/0.75 [place] 2-01 mL 117 mg/0.75 00:00: mL 00 intramuscul ar syringe metoprolol 2020-10 No 1mg succinate 1-24 ER 50 mg 00:00: tablet,exte 00 nded release 24 hr Dose 2020-10 No Unknown 1-24 00:00: 00 Dose 2020-10 No Unknown 1-24 00:00: 00 Dose 2020-10 No Unknown 1-24 00:00: 00 metoprolol 2021-1 No 1mg succinate 1-24 ER 50 mg 00:00: tablet,exte 00 nded release 24 hr Dose 2020- No Unknown 1-24 00:00: 00 Dose 2020- No Unknown 1-24 00:00: 00 Dose 2020- No Unknown 1-24 00:00: 00 metoprolol 2020- No 1mg succinate 1-24 ER 50 mg 00:00: tablet,exte 00 nded release 24 hr Dose 2020- No Unknown 1-24 00:00: 00 Dose 2020- No Unknown 1-24 00:00: 00 Dose 2020- No Unknown 1-24 00:00: 00 metoprolol 2020- No 1mg succinate 1-24 ER 50 mg 00:00: tablet,exte 00 nded release 24 hr Dose 2020-10 No Unknown 1-24 00:00: 00 Dose 2020- No Unknown 1- 00:00: 00 Dose 2020- No Unknown 1-24 00:00: 00 atorvastati 2020- No 1mg n 40 mg 1-18 tablet 00:00: 00 atorvastati 2020-10 No 1mg n 40 mg 1-18 tablet 00:00: 00 atorvastati 2020-1 No 1mg n 40 mg 1-18 tablet 00:00: 00 atorvastati 2020-10 No 1mg n 40 mg 1-18 tablet 00:00: 00 lisinopril 2020- No 1mg 20 1-12 mg-hydrochl 00:00: orothiazide 00 25 mg tablet lisinopril 2020- No 1mg 20 mg 1-12 tablet 00:00: 00 metformin 2020-1 No 1mg 500 mg 1-12 tablet 00:00: 00 lisinopril 2020-1 No 1mg 20 1-12 mg-hydrochl 00:00: orothiazide 00 25 mg tablet lisinopril 2020-1 No 1mg 20 mg 1-12 tablet 00:00: 00 metformin 2020-1 No 1mg 500 mg 1-12 tablet 00:00: 00 lisinopril 2020- No 1mg 20 1-12 mg-hydrochl 00:00: orothiazide 00 25 mg tablet lisinopril 2020- No 1mg 20 mg 1-12 tablet 00:00: 00 metformin 2020-1 No 1mg 500 mg 1-12 tablet 00:00: 00 lisinopril 2020- No 1mg 20 1-12 mg-hydrochl 00:00: orothiazide 00 25 mg tablet lisinopril 2020- No 1mg 20 mg 1-12 tablet 00:00: 00 metformin 2020-1 No 1mg 500 mg 1-12 tablet 00:00: 00 lisinopriL- 2020-10 Yes Univer s hydrochloro 1-12 ity of thiazide 00:00: [place] 20-25 mg 00 Medical per tablet Branch metFORMIN 2020- Yes Univers 500 mg 1-12 ity of tablet 00:00: [place] [facility] Branch lisinopriL- 2020-10 Yes Univer s hydrochloro 1-12 ity of thiazide 00:00: [place] 20-25 mg 00 Medical per tablet Branch metFORMIN 2020- Yes Univers 500 mg 1-12 ity of tablet 00:00: [place] [facility] Branch lisinopriL- 2020-10 Yes Univer s hydrochloro 1-12 ity of thiazide 00:00: [place] 20-25 mg 00 Medical per tablet Branch metFORMIN 2020- Yes Univers 500 mg 1-12 ity of tablet 00:00: [place] [facility] Branch lisinopriL- 2020-10 Yes Univer s hydrochloro 1-12 ity of thiazide 00:00: [place] 20-25 mg 00 Medical per tablet Branch metFORMIN 2020- Yes Univers 500 mg 1-12 ity of tablet 00:00: [place] [facility] Branch lisinopriL- 2020-10 Yes Univer s hydrochloro 1-12 ity of thiazide 00:00: [place] 20-25 mg 00 Medical per tablet Branch metFORMIN 2020- Yes Univers 500 mg 1-12 ity of tablet 00:00: [place] Medical Branch lisinopriL- 2020-10 Yes Univer s hydrochloro 1-12 ity of thiazide 00:00: [place] 20-25 mg 00 Medical per tablet Branch metFORMIN 2020- Yes Univers 500 mg 1-12 ity of tablet 00:00: [place] [facility] Branch lisinopriL- 2020-10 Yes Univer s hydrochloro 1-12 ity of thiazide 00:00: [place] 20-25 mg 00 Medical per tablet Branch metFORMIN 2020-10 Yes Univers 500 mg 1-12 ity of tablet 00:00: [place] 00 Medical Branch lisinopriL- 2020-10 Yes Univer s hydrochloro 1-12 ity of thiazide 00:00: [place] 20-25 mg 00 Medical per tablet Branch metFORMIN 2020- Yes Univers 500 mg 1-12 ity of tablet 00:00: [place] 00 Medical Branch lisinopriL- 2020-10 Yes Univer s hydrochloro 1-12 ity of thiazide 00:00: [place] 20-25 mg 00 Medical per tablet Branch lisinopriL- 2020-10 Yes Univer s hydrochloro 1-12 ity of thiazide 00:00: [place] 20-25 mg 00 Medical per tablet Branch lisinopriL- 2020-10 Yes Univer s hydrochloro 1-12 ity of thiazide 00:00: [place] 20-25 mg 00 Medical per tablet Branch metFORMIN 2020-102- No [facility] 500 mg 1-12 07-11 ity of tablet 00:00: 00:00 [place] 00 :00 [facility] sertraline 2020-10 No 1mg 50 mg 1-02 tablet 00:00: 00 Wellbutrin 2020-10 No 1mg XL 150 mg 1-02 24 hr 00:00: tablet, 00 extended release trazodone 2020-10 No 2mg 100 mg 1-02 tablet 00:00: 00 [place] 2020-10 No mg/0.75 [place] 1-02 mL 117 mg/0.75 00:00: mL 00 intramuscul ar syringe sertraline 2020-10 No 1mg 50 mg 1-02 tablet 00:00: 00 Wellbutrin 2020-10 No 1mg XL 150 mg 1-02 24 hr 00:00: tablet, 00 extended release trazodone 2020-10 No 2mg 100 mg 1-02 tablet 00:00: 00 [place] 2020-10 No mg/0.75 [place] 1-02 mL 117 mg/0.75 00:00: mL 00 intramuscul ar syringe sertraline 2020-10 No 1mg 50 mg 1-02 tablet 00:00: 00 Wellbutrin 2020-10 No 1mg XL 150 mg 1-02 24 hr 00:00: tablet, 00 extended release trazodone 2020-10 No 2mg 100 mg 1-02 tablet 00:00: 00 [place] 2020-10 No mg/0.75 [place] 1-02 mL 117 mg/0.75 00:00: mL 00 intramuscul ar syringe sertraline 2020-10 No 1mg 50 mg 1-02 tablet 00:00: 00 Wellbutrin 2020-10 No 1mg XL 150 mg 1-02 24 hr 00:00: tablet, 00 extended release trazodone 2020-10 No 2mg 100 mg 1-02 tablet 00:00: 00 [place] 2020-10 No mg/0.75 [place] 1-02 mL 117 mg/0.75 00:00: mL 00 intramuscul ar syringe trazodone 2020-10 No 2mg 100 mg 0-08 tablet 00:00: 00 Wellbutrin 2020-10 No 1mg XL 150 mg 0-08 24 hr 00:00: tablet, 00 extended release sertraline 2020-10 No 1mg 50 mg 0-08 tablet 00:00: 00 Invega 2020-10 No mg/0.75 [facility] 0-08 mL 117 mg/0.75 00:00: mL 00 intramuscul ar syringe trazodone 2020-10 No 2mg 100 mg 0-08 tablet 00:00: 00 Wellbutrin 2020-10 No 1mg XL 150 mg 0-08 24 hr 00:00: tablet, 00 extended release sertraline 2020-10 No 1mg 50 mg 0-08 tablet 00:00: 00 Invega 2020-10 No mg/0.75 [facility] 0-08 mL 117 mg/0.75 00:00: mL 00 intramuscul ar syringe trazodone 2020-10 No 2mg 100 mg 0-08 tablet 00:00: 00 Wellbutrin 2020-10 No 1mg XL 150 mg 0-08 24 hr 00:00: tablet, 00 extended release sertraline 2020-10 No 1mg 50 mg 0-08 tablet 00:00: 00 Invega 2020-10 No mg/0.75 [facility] 0-08 mL 117 mg/0.75 00:00: mL 00 intramuscul ar syringe trazodone 2020-10 No 2mg 100 mg 0-08 tablet 00:00: 00 Wellbutrin 2020-10 No 1mg XL 150 mg 0-08 24 hr 00:00: tablet, 00 extended release sertraline 2020-1 No 1mg 50 mg 0-08 tablet 00:00: 00 Invega 1-1 No mg/0.75 [facility] 0-08 mL 117 mg/0.75 00:00: mL 00 intramuscul ar syringe lisinopril 1-0 No 1mg 20 8-24 mg-hydrochl 00:00: orothiazide 00 12.5 mg tablet Dose 1-0 No Unknown 8-24 00:00: 00 amlodipine 1-0 No 1mg 10 mg 8-24 tablet 00:00: 00 lisinopril 1-0 No 1mg 20 8-24 mg-hydrochl 00:00: orothiazide 00 12.5 mg tablet Dose 1-0 No Unknown 8-24 00:00: 00 amlodipine 1-0 No 1mg 10 mg 8-24 tablet 00:00: 00 lisinopril 1-0 No 1mg 20 8-24 mg-hydrochl 00:00: orothiazide 00 12.5 mg tablet Dose 1-0 No Unknown 8-24 00:00: 00 amlodipine 1-0 No 1mg 10 mg 8-24 tablet 00:00: 00 lisinopril 1-0 No 1mg 20 8-24 mg-hydrochl 00:00: orothiazide 00 12.5 mg tablet Dose 1-0 No Unknown 8-24 00:00: 00 amlodipine 1-0 No 1mg 10 mg 8-24 tablet 00:00: 00 sertraline 1-0 No 1mg 50 mg 8-17 tablet 00:00: 00 Wellbutrin 1-0 No 1mg XL 150 mg 8-17 24 hr 00:00: tablet, 00 extended release trazodone 1-0 No 2mg 100 mg 8-17 tablet 00:00: 00 Invega 1-0 No mg/0.75 [facility] 8-17 mL 117 mg/0.75 00:00: mL 00 intramuscul ar syringe sertraline 1-0 No 1mg 50 mg 8-17 tablet 00:00: 00 Wellbutrin 1-0 No 1mg XL 150 mg 8-17 24 hr 00:00: tablet, 00 extended release trazodone 1-0 No 2mg 100 mg 8-17 tablet 00:00: 00 Invega 1-0 No mg/0.75 [facility] 8-17 mL 117 mg/0.75 00:00: mL 00 intramuscul ar syringe sertraline 1-0 No 1mg 50 mg 8-17 tablet 00:00: 00 Wellbutrin 1-0 No 1mg XL 150 mg 8-17 24 hr 00:00: tablet, 00 extended release trazodone 1-0 No 2mg 100 mg 8-17 tablet 00:00: 00 Invega 1-0 No mg/0.75 [facility] 8-17 mL 117 mg/0.75 00:00: mL 00 intramuscul ar syringe sertraline 1-0 No 1mg 50 mg 8-17 tablet 00:00: 00 Wellbutrin 1-0 No 1mg XL 150 mg 8-17 24 hr 00:00: tablet, 00 extended release trazodone 1-0 No 2mg 100 mg 8-17 tablet 00:00: 00 Invega 1-0 No mg/0.75 [facility] 8-17 mL 117 mg/0.75 00:00: mL 00 intramuscul ar syringe trazodone 1-0 No 2mg 100 mg 7-21 tablet 00:00: 00 Wellbutrin 1-0 No 1mg XL 150 mg 7-21 24 hr 00:00: tablet, 00 extended release sertraline 1-0 No 1mg 50 mg 7-21 tablet 00:00: 00 Viagra 50 1-0 No 1mg mg tablet 7-21 00:00: 00 Invega 1-0 No mg/0.75 [facility] 7-21 mL 117 mg/0.75 00:00: mL 00 intramuscul ar syringe trazodone 1-0 No 2mg 100 mg 7-21 tablet 00:00: 00 Wellbutrin 1-0 No 1mg XL 150 mg 7-21 24 hr 00:00: tablet, 00 extended release sertraline 1-0 No 1mg 50 mg 7-21 tablet 00:00: 00 Viagra 50 2021-0 No 1mg mg tablet 7-21 00:00: 00 Invega 2021-0 No mg/0.75 [facility] 7-21 mL 117 mg/0.75 00:00: mL 00 intramuscul ar syringe trazodone 1-0 No 2mg 100 mg 7-21 tablet 00:00: 00 Wellbutrin 1-0 No 1mg XL 150 mg 7-21 24 hr 00:00: tablet, 00 extended release sertraline 2021-0 No 1mg 50 mg 7-21 tablet 00:00: 00 Viagra 50 1-0 No 1mg mg tablet 7-21 00:00: 00 Invega 2021-0 No mg/0.75 [facility] 7-21 mL 117 mg/0.75 00:00: mL 00 intramuscul ar syringe trazodone 1-0 No 2mg 100 mg 7-21 tablet 00:00: 00 Wellbutrin 1-0 No 1mg XL 150 mg 7-21 24 hr 00:00: tablet, 00 extended release sertraline 1-0 No 1mg 50 mg 7-21 tablet 00:00: 00 Viagra 50 1-0 No 1mg mg tablet 7 00:00: 00 Invega 2021-0 No mg/0.75 [facility] 7-21 mL 117 mg/0.75 00:00: mL 00 intramuscul ar syringe Augmentin 1-0 No 1mg 875 mg-125 7-09 mg tablet 00:00: 00 Augmentin 2021-0 No 1mg 875 mg-125 7-09 mg tablet 00:00: 00 Augmentin 2021-0 No 1mg 875 mg-125 7-09 mg tablet 00:00: 00 Augmentin 2021-0 No 1mg 875 mg-125 7-09 mg tablet 00:00: 00 sertraline 2021-0 No 1mg 50 mg 6-23 tablet 00:00: 00 trazodone 2021-0 No 2mg 100 mg 6-23 tablet 00:00: 00 Wellbutrin 2021-0 No 1mg XL 150 mg 6-23 24 hr 00:00: tablet, 00 extended release Invega 2021-0 No mg/0.75 [facility] 6-23 mL 117 mg/0.75 00:00: mL 00 intramuscul ar syringe sertraline 2021-0 No 1mg 50 mg 6-23 tablet 00:00: 00 trazodone 2021-0 No 2mg 100 mg 6-23 tablet 00:00: 00 Wellbutrin 1-0 No 1mg XL 150 mg 6-23 24 hr 00:00: tablet, 00 extended release Invega 1-0 No mg/0.75 [facility] 6-23 mL 117 mg/0.75 00:00: mL 00 intramuscul ar syringe sertraline 1-0 No 1mg 50 mg 6-23 tablet 00:00: 00 trazodone 1-0 No 2mg 100 mg 6-23 tablet 00:00: 00 Wellbutrin 1-0 No 1mg XL 150 mg 6-23 24 hr 00:00: tablet, 00 extended release Invega 1-0 No mg/0.75 [facility] 6-23 mL 117 mg/0.75 00:00: mL 00 intramuscul ar syringe sertraline 2020-0 No 1mg 50 mg 6-23 tablet 00:00: 00 trazodone 1-0 No 2mg 100 mg 6-23 tablet 00:00: 00 Wellbutrin 1-0 No 1mg XL 150 mg 6-23 24 hr 00:00: tablet, 00 extended release Invega 1-0 No mg/0.75 [facility] 6-23 mL 117 mg/0.75 00:00: mL 00 intramuscul ar syringe sertraline 1-0 No 1mg 50 mg 6-01 tablet 00:00: 00 trazodone 1-0 No 2mg 100 mg 6-01 tablet 00:00: 00 Wellbutrin 1-0 No 1mg XL 150 mg 6-01 24 hr 00:00: tablet, 00 extended release Invega 1-0 No mg/0.75 [facility] 6-01 mL 117 mg/0.75 00:00: mL 00 intramuscul ar syringe sertraline 1-0 No 1mg 50 mg 6-01 tablet 00:00: 00 trazodone 1-0 No 2mg 100 mg 6-01 tablet 00:00: 00 Wellbutrin 1-0 No 1mg XL 150 mg 6-01 24 hr 00:00: tablet, 00 extended release Invega 1-0 No mg/0.75 [facility] 6-01 mL 117 mg/0.75 00:00: mL 00 intramuscul ar syringe sertraline 1-0 No 1mg 50 mg 6-01 tablet 00:00: 00 trazodone 2021-0 No 2mg 100 mg 6-01 tablet 00:00: 00 Wellbutrin 2021-0 No 1mg XL 150 mg 6- 24 hr 00:00: tablet, 00 extended release Invega 2021-0 No mg/0.75 [facility] 6-01 mL 117 mg/0.75 00:00: mL 00 intramuscul ar syringe sertraline 2021-0 No 1mg 50 mg 6-01 tablet 00:00: 00 trazodone 2021-0 No 2mg 100 mg 6-01 tablet 00:00: 00 Wellbutrin 2021-0 No 1mg XL 150 mg 6- 24 hr 00:00: tablet, 00 extended release Invega 1-0 No mg/0.75 [facility] 6-01 mL 117 mg/0.75 00:00: mL 00 intramuscul ar syringe amlodipine 1-0 No 1mg 10 mg 5-25 tablet 00:00: 00 lisinopril 2021-0 No 1mg 20 5-25 mg-hydrochl 00:00: orothiazide 00 12.5 mg tablet lisinopril 2021-0 No 1mg 20 mg 5-25 tablet 00:00: 00 amlodipine 2021-0 No 1mg 10 mg 5-25 tablet 00:00: 00 lisinopril 2021-0 No 1mg 20 5-25 mg-hydrochl 00:00: orothiazide 00 12.5 mg tablet lisinopril 2021-0 No 1mg 20 mg 5-25 tablet 00:00: 00 amlodipine 2021-0 No 1mg 10 mg 5-25 tablet 00:00: 00 lisinopril 2021-0 No 1mg 20 5-25 mg-hydrochl 00:00: orothiazide 00 12.5 mg tablet lisinopril 2021-0 No 1mg 20 mg 5-25 tablet 00:00: 00 amlodipine 2021-0 No 1mg 10 mg 5-25 tablet 00:00: 00 lisinopril 2021-0 No 1mg 20 5-25 mg-hydrochl 00:00: orothiazide 00 12.5 mg tablet lisinopril 2021-0 No 1mg 20 mg 5-25 tablet 00:00: 00 metformin 2021-0 No 1mg 500 mg 5-15 tablet 00:00: 00 metformin 2021-0 No 1mg 500 mg 5-15 tablet 00:00: 00 metformin 2021-0 No 1mg 500 mg 5-15 tablet 00:00: 00 metformin 2021-0 No 1mg 500 mg 5-15 tablet 00:00: 00 Wellbutrin 2021-0 No 1mg XL 150 mg 5-14 24 hr 00:00: tablet, 00 extended release trazodone 2021-0 No 2mg 100 mg 5-14 tablet 00:00: 00 sertraline 2021-0 No 1mg 50 mg 5-14 tablet 00:00: 00 amlodipine 2021-0 No 1mg 10 mg 5-14 tablet 00:00: 00 lisinopril 2021-0 No 1mg 20 5-14 mg-hydrochl 00:00: orothiazide 00 12.5 mg tablet lisinopril 1-0 No 1mg 20 mg 5-14 tablet 00:00: 00 Invega 2021-0 No mg/0.75 [facility] 5-14 mL 117 mg/0.75 00:00: mL 00 intramuscul ar syringe Wellbutrin 1-0 No 1mg XL 150 mg 5-14 24 hr 00:00: tablet, 00 extended release trazodone 1-0 No 2mg 100 mg 5-14 tablet 00:00: 00 sertraline 2021-0 No 1mg 50 mg 5-14 tablet 00:00: 00 amlodipine 2021-0 No 1mg 10 mg 5-14 tablet 00:00: 00 lisinopril 2021-0 No 1mg 20 5-14 mg-hydrochl 00:00: orothiazide 00 12.5 mg tablet lisinopril 2021-0 No 1mg 20 mg 5-14 tablet 00:00: 00 Invega 2021-0 No mg/0.75 [facility] 5-14 mL 117 mg/0.75 00:00: mL 00 intramuscul ar syringe Wellbutrin 2021-0 No 1mg XL 150 mg 5-14 24 hr 00:00: tablet, 00 extended release trazodone 2021-0 No 2mg 100 mg 5-14 tablet 00:00: 00 sertraline 2021-0 No 1mg 50 mg 5-14 tablet 00:00: 00 amlodipine 2021-0 No 1mg 10 mg 5-14 tablet 00:00: 00 lisinopril 2021-0 No 1mg 20 5-14 mg-hydrochl 00:00: orothiazide 00 12.5 mg tablet lisinopril 2021-0 No 1mg 20 mg 5-14 tablet 00:00: 00 Invega 2021-0 No mg/0.75 [facility] 5-14 mL 117 mg/0.75 00:00: mL 00 intramuscul ar syringe Wellbutrin 1-0 No 1mg XL 150 mg 5-14 24 hr 00:00: tablet, 00 extended release trazodone 2021-0 No 2mg 100 mg 5-14 tablet 00:00: 00 sertraline 2021-0 No 1mg 50 mg 5-14 tablet 00:00: 00 amlodipine 2021-0 No 1mg 10 mg 5-14 tablet 00:00: 00 lisinopril 2021-0 No 1mg 20 5-14 mg-hydrochl 00:00: orothiazide 00 12.5 mg tablet lisinopril 2021-0 No 1mg 20 mg 5-14 tablet 00:00: 00 Invega 2021-0 No mg/0.75 [facility] 5-14 mL 117 mg/0.75 00:00: mL 00 intramuscul ar syringe lisinopril 2021-0 No 1mg 20 5-11 mg-hydrochl 00:00: orothiazide 00 12.5 mg tablet lisinopril 2021-0 No 1mg 20 5-11 mg-hydrochl 00:00: orothiazide 00 25 mg tablet lisinopril 2021-0 No 1mg 20 5-11 mg-hydrochl 00:00: orothiazide 00 12.5 mg tablet lisinopril 2021-0 No 1mg 20 5-11 mg-hydrochl 00:00: orothiazide 00 25 mg tablet lisinopril 2021-0 No 1mg 20 5-11 mg-hydrochl 00:00: orothiazide 00 12.5 mg tablet lisinopril 2021-0 No 1mg 20 5-11 mg-hydrochl 00:00: orothiazide 00 25 mg tablet lisinopril 2021-0 No 1mg 20 5-11 mg-hydrochl 00:00: orothiazide 00 12.5 mg tablet lisinopril 1-0 No 1mg 20 5-11 mg-hydrochl 00:00: orothiazide 00 25 mg tablet trazodone 1-0 No 2mg 100 mg 4-16 tablet 00:00: 00 sertraline 1-0 No 1mg 50 mg 4-16 tablet 00:00: 00 Wellbutrin 1-0 No 1mg XL 150 mg 4-16 24 hr 00:00: tablet, 00 extended release Invega 1-0 No mg/0.75 [facility] 4-16 mL 117 mg/0.75 00:00: mL 00 intramuscul ar syringe trazodone 1-0 No 2mg 100 mg 4-16 tablet 00:00: 00 sertraline 1-0 No 1mg 50 mg 4-16 tablet 00:00: 00 Wellbutrin 1-0 No 1mg XL 150 mg 4-16 24 hr 00:00: tablet, 00 extended release Invega 1-0 No mg/0.75 [facility] 4-16 mL 117 mg/0.75 00:00: mL 00 intramuscul ar syringe trazodone 1-0 No 2mg 100 mg 4-16 tablet 00:00: 00 sertraline 1-0 No 1mg 50 mg 4-16 tablet 00:00: 00 Wellbutrin 1-0 No 1mg XL 150 mg 4-16 24 hr 00:00: tablet, 00 extended release Invega 1-0 No mg/0.75 [facility] 4-16 mL 117 mg/0.75 00:00: mL 00 intramuscul ar syringe trazodone 1-0 No 2mg 100 mg 4-16 tablet 00:00: 00 sertraline 1-0 No 1mg 50 mg 4-16 tablet 00:00: 00 Wellbutrin 1-0 No 1mg XL 150 mg 4-16 24 hr 00:00: tablet, 00 extended release Invega 1-0 No mg/0.75 [facility] 4-16 mL 117 mg/0.75 00:00: mL 00 intramuscul ar syringe trazodone 1-0 No 2mg 100 mg 3-19 tablet 00:00: 00 Wellbutrin 1-0 No 1mg XL 150 mg 3-19 24 hr 00:00: tablet, 00 extended release sertraline 1-0 No 1mg 50 mg 3-19 tablet 00:00: 00 Invega 1-0 No mg/0.75 [facility] 3-19 mL 117 mg/0.75 00:00: mL 00 intramuscul ar syringe trazodone 1-0 No 2mg 100 mg 3-19 tablet 00:00: 00 Wellbutrin 1-0 No 1mg XL 150 mg 3-19 24 hr 00:00: tablet, 00 extended release sertraline 1-0 No 1mg 50 mg 3-19 tablet 00:00: 00 Invega 1-0 No mg/0.75 [facility] 3-19 mL 117 mg/0.75 00:00: mL 00 intramuscul ar syringe trazodone 1-0 No 2mg 100 mg 3-19 tablet 00:00: 00 Wellbutrin 1-0 No 1mg XL 150 mg 3-19 24 hr 00:00: tablet, 00 extended release sertraline 1-0 No 1mg 50 mg 3-19 tablet 00:00: 00 Invega 1-0 No mg/0.75 [facility] 3-19 mL 117 mg/0.75 00:00: mL 00 intramuscul ar syringe trazodone 1-0 No 2mg 100 mg 3-19 tablet 00:00: 00 Wellbutrin 1-0 No 1mg XL 150 mg 3-19 24 hr 00:00: tablet, 00 extended release sertraline 1-0 No 1mg 50 mg 3-19 tablet 00:00: 00 Invega 1-0 No mg/0.75 [facility] 3-19 mL 117 mg/0.75 00:00: mL 00 intramuscul ar syringe azithromyci 1-0 No 2mg n 500 mg 3-01 tablet 00:00: 00 azithromyci 2021-0 No 2mg n 500 mg 3-01 tablet 00:00: 00 azithromyci 2021-0 No 2mg n 500 mg 3-01 tablet 00:00: 00 azithromyci 2021-0 No 2mg n 500 mg 3-01 tablet 00:00: 00 sertraline 1-0 No 1mg 50 mg 2-26 tablet 00:00: 00 trazodone 2021-0 No 2mg 100 mg 2-26 tablet 00:00: 00 Wellbutrin 1-0 No 1mg XL 150 mg 2-26 24 hr 00:00: tablet, 00 extended release Invega 1-0 No mg/0.75 [facility] 2-26 mL 117 mg/0.75 00:00: mL 00 intramuscul ar syringe sertraline 1-0 No 1mg 50 mg 2-26 tablet 00:00: 00 trazodone 2021-0 No 2mg 100 mg 2-26 tablet 00:00: 00 Wellbutrin 1-0 No 1mg XL 150 mg 2-26 24 hr 00:00: tablet, 00 extended release Invega 1-0 No mg/0.75 [facility] 2-26 mL 117 mg/0.75 00:00: mL 00 intramuscul ar syringe sertraline 1-0 No 1mg 50 mg 2-26 tablet 00:00: 00 trazodone 1-0 No 2mg 100 mg 2-26 tablet 00:00: 00 Wellbutrin 1-0 No 1mg XL 150 mg 2-26 24 hr 00:00: tablet, 00 extended release Invega 1-0 No mg/0.75 [facility] 2-26 mL 117 mg/0.75 00:00: mL 00 intramuscul ar syringe sertraline 1-0 No 1mg 50 mg 2-26 tablet 00:00: 00 trazodone 1-0 No 2mg 100 mg 2-26 tablet 00:00: 00 Wellbutrin 1-0 No 1mg XL 150 mg 2-26 24 hr 00:00: tablet, 00 extended release Invega 1-0 No mg/0.75 [facility] 2-26 mL 117 mg/0.75 00:00: mL 00 intramuscul ar syringe Cialis 2.5 1-0 No 1mg mg tablet 2-06 00:00: 00 Cialis 2.5 2021-0 No 1mg mg tablet 2- 00:00: 00 Cialis 2.5 1-0 No 1mg mg tablet 2-06 00:00: 00 Cialis 2.5 2021-0 No 1mg mg tablet 2-06 00:00: 00 trazodone 2021-0 No 2mg 100 mg 2-05 tablet 00:00: 00 trazodone 1-0 No 2mg 100 mg 2-05 tablet 00:00: 00 sertraline 1-0 No 1mg 50 mg 2-05 tablet 00:00: 00 sertraline 2021-0 No 1mg 50 mg 2-05 tablet 00:00: 00 Wellbutrin 1-0 No 1mg XL 150 mg 2-05 24 hr 00:00: tablet, 00 extended release Invega 1-0 No mg/0.75 [facility] 2-05 mL 117 mg/0.75 00:00: mL 00 intramuscul ar syringe Wellbutrin 1-0 No 1mg XL 150 mg 2-05 24 hr 00:00: tablet, 00 extended release Invega 1-0 No mg/0.75 [facility] 2-05 mL 117 mg/0.75 00:00: mL 00 intramuscul ar syringe trazodone 1-0 No 2mg 100 mg 2-05 tablet 00:00: 00 sertraline 1-0 No 1mg 50 mg 2-05 tablet 00:00: 00 Wellbutrin 1-0 No 1mg XL 150 mg 2-05 24 hr 00:00: tablet, 00 extended release Invega 1-0 No mg/0.75 [facility] 2-05 mL 117 mg/0.75 00:00: mL 00 intramuscul ar syringe trazodone 1-0 No 2mg 100 mg 2-05 tablet 00:00: 00 sertraline 1-0 No 1mg 50 mg 2-05 tablet 00:00: 00 Wellbutrin 1-0 No 1mg XL 150 mg 2-05 24 hr 00:00: tablet, 00 extended release Invega 1-0 No mg/0.75 [facility] 2-05 mL 117 mg/0.75 00:00: mL 00 intramuscul ar syringe trazodone 1-0 No 2mg 100 mg 1-05 tablet 00:00: 00 sertraline 2021-0 No 1mg 50 mg 1-05 tablet 00:00: 00 Wellbutrin 1-0 No 1mg XL 150 mg 1-05 24 hr 00:00: tablet, 00 extended release Invega 1-0 No mg/0.75 [facility] 1-05 mL 117 mg/0.75 00:00: mL 00 intramuscul ar syringe trazodone 1-0 No 2mg 100 mg 1-05 tablet 00:00: 00 sertraline 1-0 No 1mg 50 mg 1-05 tablet 00:00: 00 Wellbutrin 1-0 No 1mg XL 150 mg 1-05 24 hr 00:00: tablet, 00 extended release Invega 1-0 No mg/0.75 [facility] 1-05 mL 117 mg/0.75 00:00: mL 00 intramuscul ar syringe trazodone 1-0 No 2mg 100 mg 1-05 tablet 00:00: 00 sertraline 1-0 No 1mg 50 mg 1-05 tablet 00:00: 00 Wellbutrin 1-0 No 1mg XL 150 mg 1-05 24 hr 00:00: tablet, 00 extended release Invega 1-0 No mg/0.75 [facility] 1-05 mL 117 mg/0.75 00:00: mL 00 intramuscul ar syringe trazodone 1-0 No 2mg 100 mg 1-05 tablet 00:00: 00 sertraline 1-0 No 1mg 50 mg 1-05 tablet 00:00: 00 Wellbutrin 1-0 No 1mg XL 150 mg 1-05 24 hr 00:00: tablet, 00 extended release Invega 1-0 No mg/0.75 [facility] 1-05 mL 117 mg/0.75 00:00: mL 00 intramuscul ar syringe lisinopril 2019-1 No 1mg 20 2-16 mg-hydrochl 00:00: orothiazide 00 12.5 mg tablet amlodipine 2019-1 No 1mg 10 mg 2-16 tablet 00:00: 00 atorvastati 2019-1 No 1mg n 40 mg 2-16 tablet 00:00: 00 lisinopril 2020-1 No 1mg 20 mg 2-16 tablet 00:00: 00 lisinopril 2020-1 No 1mg 20 2-16 mg-hydrochl 00:00: orothiazide 00 12.5 mg tablet amlodipine 2019-1 No 1mg 10 mg 2-16 tablet 00:00: 00 atorvastati 2019-1 No 1mg n 40 mg 2-16 tablet 00:00: 00 lisinopril 2019-1 No 1mg 20 mg 2-16 tablet 00:00: 00 lisinopril 2019- No 1mg 20 2-16 mg-hydrochl 00:00: orothiazide 00 12.5 mg tablet amlodipine 2019- No 1mg 10 mg 2-16 tablet 00:00: 00 atorvastati 2019- No 1mg n 40 mg 2-16 tablet 00:00: 00 lisinopril 2019- No 1mg 20 mg 2-16 tablet 00:00: 00 lisinopril 2019- No 1mg 20 2-16 mg-hydrochl 00:00: orothiazide 00 12.5 mg tablet amlodipine 2019- No 1mg 10 mg 2-16 tablet 00:00: 00 atorvastati 2019- No 1mg n 40 mg 2-16 tablet 00:00: 00 lisinopril 2019- No 1mg 20 mg 2-16 tablet 00:00: 00 sertraline 2019- No 1mg 50 mg 1-23 tablet 00:00: 00 trazodone 2019- No 2mg 100 mg 1-23 tablet 00:00: 00 Wellbutrin 2019- No 1mg XL 150 mg 1-23 24 hr 00:00: tablet, 00 extended release Invega 2019- No mg/0.75 [facility] 1-23 mL 117 mg/0.75 00:00: mL 00 intramuscul ar syringe sertraline 2019- No 1mg 50 mg 1-23 tablet 00:00: 00 trazodone 2019- No 2mg 100 mg 1-23 tablet 00:00: 00 Wellbutrin 2019- No 1mg XL 150 mg 1-23 24 hr 00:00: tablet, 00 extended release Invega 2019- No mg/0.75 [facility] 1-23 mL 117 mg/0.75 00:00: mL 00 intramuscul ar syringe sertraline 2019- No 1mg 50 mg 1-23 tablet 00:00: 00 trazodone 2019- No 2mg 100 mg 1-23 tablet 00:00: 00 Wellbutrin 2019- No 1mg XL 150 mg 1-23 24 hr 00:00: tablet, 00 extended release Invega 2019- No mg/0.75 [facility] 1-23 mL 117 mg/0.75 00:00: mL 00 intramuscul ar syringe sertraline 2019- No 1mg 50 mg 1-23 tablet 00:00: 00 trazodone 2019- No 2mg 100 mg 1-23 tablet 00:00: 00 Wellbutrin 2019- No 1mg XL 150 mg 1-23 24 hr 00:00: tablet, 00 extended release Invega 2019-10 No mg/0.75 [facility] 1-23 mL 117 mg/0.75 00:00: mL 00 intramuscul ar syringe Wellbutrin 2019-10 No 1mg XL 150 mg 0-23 24 hr 00:00: tablet, 00 extended release sertraline 2019- No 1mg 50 mg 0-23 tablet 00:00: 00 trazodone 2019- No 2mg 100 mg 0-23 tablet 00:00: 00 Invega 2019- No mg/0.75 [facility] 0-23 mL 117 mg/0.75 00:00: mL 00 intramuscul ar syringe Wellbutrin 2019-10 No 1mg XL 150 mg 0-23 24 hr 00:00: tablet, 00 extended release sertraline 2019-10 No 1mg 50 mg 0-23 tablet 00:00: 00 trazodone 2019- No 2mg 100 mg 0-23 tablet 00:00: 00 Invega 2019- No mg/0.75 [facility] 0-23 mL 117 mg/0.75 00:00: mL 00 intramuscul ar syringe Wellbutrin 2019-10 No 1mg XL 150 mg 0-23 24 hr 00:00: tablet, 00 extended release sertraline 2019-10 No 1mg 50 mg 0-23 tablet 00:00: 00 trazodone 2019- No 2mg 100 mg 0-23 tablet 00:00: 00 Invega 2019- No mg/0.75 [facility] 0-23 mL 117 mg/0.75 00:00: mL 00 intramuscul ar syringe Wellbutrin 2019- No 1mg XL 150 mg 0-23 24 hr 00:00: tablet, 00 extended release sertraline 2019- No 1mg 50 mg 0-23 tablet 00:00: 00 trazodone 2019- No 2mg 100 mg 0-23 tablet 00:00: 00 Invega 2019- No mg/0.75 [facility] 0-23 mL 117 mg/0.75 00:00: mL 00 intramuscul ar syringe sertraline 2020-0 No 1mg 50 mg 9-28 tablet 00:00: 00 trazodone 2020-0 No 2mg 100 mg 9-28 tablet 00:00: 00 Wellbutrin 2020-0 No 1mg XL 150 mg 9-28 24 hr 00:00: tablet, 00 extended release Invega 2020-0 No mg/0.75 [facility] 9-28 mL 117 mg/0.75 00:00: mL 00 intramuscul ar syringe sertraline 2020-0 No 1mg 50 mg 9-28 tablet 00:00: 00 trazodone 2020-0 No 2mg 100 mg 9-28 tablet 00:00: 00 Wellbutrin 2020-0 No 1mg XL 150 mg 9-28 24 hr 00:00: tablet, 00 extended release Invega 2020-0 No mg/0.75 [facility] 9-28 mL 117 mg/0.75 00:00: mL 00 intramuscul ar syringe sertraline 2020-0 No 1mg 50 mg 9-28 tablet 00:00: 00 trazodone 2020-0 No 2mg 100 mg 9-28 tablet 00:00: 00 Wellbutrin 2020-0 No 1mg XL 150 mg 9-28 24 hr 00:00: tablet, 00 extended release Invega 2020-0 No mg/0.75 [facility] 9-28 mL 117 mg/0.75 00:00: mL 00 intramuscul ar syringe sertraline 2020-0 No 1mg 50 mg 9-28 tablet 00:00: 00 trazodone 2020-0 No 2mg 100 mg 9-28 tablet 00:00: 00 Wellbutrin 2020-0 No 1mg XL 150 mg 9-28 24 hr 00:00: tablet, 00 extended release Invega 2020-0 No mg/0.75 [facility] 9-28 mL 117 mg/0.75 00:00: mL 00 intramuscul ar syringe sertraline 2020-0 No 1mg 50 mg 9-14 tablet 00:00: 00 trazodone 2020-0 No 2mg 100 mg 9-14 tablet 00:00: 00 Wellbutrin 2020-0 No 1mg XL 150 mg 9-14 24 hr 00:00: tablet, 00 extended release Invega 2020-0 No mg/0.75 [facility] 9-14 mL 117 mg/0.75 00:00: mL 00 intramuscul ar syringe sertraline 2020-0 No 1mg 50 mg 9-14 tablet 00:00: 00 trazodone 2020-0 No 2mg 100 mg 9-14 tablet 00:00: 00 Wellbutrin 2020-0 No 1mg XL 150 mg 9-14 24 hr 00:00: tablet, 00 extended release Invega 2020-0 No mg/0.75 [facility] 9-14 mL 117 mg/0.75 00:00: mL 00 intramuscul ar syringe sertraline 2020-0 No 1mg 50 mg 9-14 tablet 00:00: 00 trazodone 2020-0 No 2mg 100 mg 9-14 tablet 00:00: 00 Wellbutrin 2020-0 No 1mg XL 150 mg 9-14 24 hr 00:00: tablet, 00 extended release Invega 2020-0 No mg/0.75 [facility] 9-14 mL 117 mg/0.75 00:00: mL 00 intramuscul ar syringe sertraline 2020-0 No 1mg 50 mg 9-14 tablet 00:00: 00 trazodone 2020-0 No 2mg 100 mg 9-14 tablet 00:00: 00 Wellbutrin 2020-0 No 1mg XL 150 mg 9-14 24 hr 00:00: tablet, 00 extended release Invega 2020-0 No mg/0.75 Sustenna 9-14 mL 117 mg/0.75 00:00: mL 00 intramuscul ar syringe sertraline 2020-0 No 1mg 50 mg 8-29 tablet 00:00: 00 trazodone 2020-0 No 2mg 100 mg 8-29 tablet 00:00: 00 Invega 2020-0 No mg/0.75 Sustenna 8-29 mL 117 mg/0.75 00:00: mL 00 intramuscul ar syringe sertraline 2020-0 No 1mg 50 mg 8-29 tablet 00:00: 00 trazodone 2020-0 No 2mg 100 mg 8-29 tablet 00:00: 00 Invega 2020-0 No mg/0.75 Sustenna 8-29 mL 117 mg/0.75 00:00: mL 00 intramuscul ar syringe sertraline 2020-0 No 1mg 50 mg 8-29 tablet 00:00: 00 trazodone 2020-0 No 2mg 100 mg 8-29 tablet 00:00: 00 Invega 2020-0 No mg/0.75 Sustenna 8-29 mL 117 mg/0.75 00:00: mL 00 intramuscul ar syringe sertraline 2020-0 No 1mg 50 mg 8-29 tablet 00:00: 00 trazodone 2020-0 No 2mg 100 mg 8-29 tablet 00:00: 00 Invega 2020-0 No mg/0.75 Sustenna 8-29 mL 117 mg/0.75 00:00: mL 00 intramuscul ar syringe hydroxyzine 2020-0 No 1mg HCl 25 mg 8-12 tablet 00:00: 00 lisinopril 2020-0 No 1mg 20 8-12 mg-hydrochl 00:00: orothiazide 00 12.5 mg tablet lisinopril 2020-0 No 1mg 20 mg 8-12 tablet 00:00: 00 atorvastati 2020-0 No 1mg n 40 mg 8-12 tablet 00:00: 00 amlodipine 2020-0 No 1mg 10 mg 8-12 tablet 00:00: 00 hydroxyzine 2020-0 No 1mg HCl 25 mg 8-12 tablet 00:00: 00 lisinopril 2020-0 No 1mg 20 8-12 mg-hydrochl 00:00: orothiazide 00 12.5 mg tablet lisinopril 2020-0 No 1mg 20 mg 8-12 tablet 00:00: 00 atorvastati 2020-0 No 1mg n 40 mg 8-12 tablet 00:00: 00 amlodipine 2020-0 No 1mg 10 mg 8-12 tablet 00:00: 00 hydroxyzine 2020-0 No 1mg HCl 25 mg 8-12 tablet 00:00: 00 lisinopril 2020-0 No 1mg 20 8-12 mg-hydrochl 00:00: orothiazide 00 12.5 mg tablet lisinopril 2020-0 No 1mg 20 mg 8-12 tablet 00:00: 00 atorvastati 2020-0 No 1mg n 40 mg 8-12 tablet 00:00: 00 amlodipine 2020-0 No 1mg 10 mg 8-12 tablet 00:00: 00 hydroxyzine 2020-0 No 1mg HCl 25 mg 8-12 tablet 00:00: 00 lisinopril 2020-0 No 1mg 20 8-12 mg-hydrochl 00:00: orothiazide 00 12.5 mg tablet lisinopril 2020-0 No 1mg 20 mg 8-12 tablet 00:00: 00 atorvastati 2020-0 No 1mg n 40 mg 8-12 tablet 00:00: 00 amlodipine 2020-0 No 1mg 10 mg 8-12 tablet 00:00: 00 atorvastati 2020-0 No 1mg n 40 mg 6-29 tablet 00:00: 00 amlodipine 2020-0 No 1mg 10 mg 6-29 tablet 00:00: 00 lisinopril 2020-0 No 1mg 20 6-29 mg-hydrochl 00:00: orothiazide 00 12.5 mg tablet lisinopril 2020-0 No 1mg 20 mg 6-29 tablet 00:00: 00 hydroxyzine 2020-0 No 1mg HCl 25 mg 6-29 tablet 00:00: 00 atorvastati 2020-0 No 1mg n 40 mg 6-29 tablet 00:00: 00 amlodipine 2020-0 No 1mg 10 mg 6-29 tablet 00:00: 00 lisinopril 2020-0 No 1mg 20 6-29 mg-hydrochl 00:00: orothiazide 00 12.5 mg tablet lisinopril 2020-0 No 1mg 20 mg 6-29 tablet 00:00: 00 hydroxyzine 2020-0 No 1mg HCl 25 mg 6-29 tablet 00:00: 00 atorvastati 2020-0 No 1mg n 40 mg 6-29 tablet 00:00: 00 amlodipine 2020-0 No 1mg 10 mg 6-29 tablet 00:00: 00 lisinopril 2020-0 No 1mg 20 6-29 mg-hydrochl 00:00: orothiazide 00 12.5 mg tablet lisinopril 2020-0 No 1mg 20 mg 6-29 tablet 00:00: 00 hydroxyzine 2020-0 No 1mg HCl 25 mg 6-29 tablet 00:00: 00 atorvastati 2020-0 No 1mg n 40 mg 6-29 tablet 00:00: 00 amlodipine 2020-0 No 1mg 10 mg 6-29 tablet 00:00: 00 lisinopril 2020-0 No 1mg 20 6-29 mg-hydrochl 00:00: orothiazide 00 12.5 mg tablet lisinopril 2020-0 No 1mg 20 mg 6-29 tablet 00:00: 00 hydroxyzine 2020-0 No 1mg HCl 25 mg 6-29 tablet 00:00: 00 atorvastati 2020-0 No 1mg n 40 mg 4-21 tablet 00:00: 00 amlodipine 2020-0 No 1mg 10 mg 4-21 tablet 00:00: 00 lisinopril 2020-0 No 1mg 20 mg 4-21 tablet 00:00: 00 lisinopril 2020-0 No 1mg 20 4-21 mg-hydrochl 00:00: orothiazide 00 12.5 mg tablet hydroxyzine 2020-0 No 1mg HCl 25 mg 4-21 tablet 00:00: 00 atorvastati 2020-0 No 1mg n 40 mg 4-21 tablet 00:00: 00 amlodipine 2020-0 No 1mg 10 mg 4-21 tablet 00:00: 00 lisinopril 2020-0 No 1mg 20 mg 4-21 tablet 00:00: 00 lisinopril 2020-0 No 1mg 20 4-21 mg-hydrochl 00:00: orothiazide 00 12.5 mg tablet hydroxyzine 2020-0 No 1mg HCl 25 mg 4-21 tablet 00:00: 00 atorvastati 2020-0 No 1mg n 40 mg 4-21 tablet 00:00: 00 amlodipine 2020-0 No 1mg 10 mg 4-21 tablet 00:00: 00 lisinopril 2020-0 No 1mg 20 mg 4-21 tablet 00:00: 00 lisinopril 2020-0 No 1mg 20 4-21 mg-hydrochl 00:00: orothiazide 00 12.5 mg tablet hydroxyzine 2020-0 No 1mg HCl 25 mg 4-21 tablet 00:00: 00 atorvastati 2020-0 No 1mg n 40 mg 4-21 tablet 00:00: 00 amlodipine 2020-0 No 1mg 10 mg 4-21 tablet 00:00: 00 lisinopril 2020-0 No 1mg 20 mg 4-21 tablet 00:00: 00 lisinopril 2020-0 No 1mg 20 4-21 mg-hydrochl 00:00: orothiazide 00 12.5 mg tablet hydroxyzine 2020-0 No 1mg HCl 25 mg 4-21 tablet 00:00: 00 lisinopril 2020-0 No 1mg 40 mg 2-24 tablet 00:00: 00 sertraline 2020-0 No 1mg 50 mg 2-24 tablet 00:00: 00 trazodone 2020-0 No 2mg 100 mg 2-24 tablet 00:00: 00 Invega 2020-0 No mg/0.75 Sustenna 2-24 mL 117 mg/0.75 00:00: mL 00 intramuscul ar syringe lisinopril 2020-0 No 1mg 40 mg 2-24 tablet 00:00: 00 sertraline 2020-0 No 1mg 50 mg 2-24 tablet 00:00: 00 trazodone 2020-0 No 2mg 100 mg 2-24 tablet 00:00: 00 Invega 2020-0 No mg/0.75 Sustenna 2-24 mL 117 mg/0.75 00:00: mL 00 intramuscul ar syringe lisinopril 2020-0 No 1mg 40 mg 2-24 tablet 00:00: 00 sertraline 2020-0 No 1mg 50 mg 2-24 tablet 00:00: 00 lisinopril 2020-0 No 1mg 40 mg 2-24 tablet 00:00: 00 sertraline 2020-0 No 1mg 50 mg 2-24 tablet 00:00: 00 trazodone 2020-0 No 2mg 100 mg 2-24 tablet 00:00: 00 Invega 2020-0 No mg/0.75 Sustenna 2-24 mL 117 mg/0.75 00:00: mL 00 intramuscul ar syringe trazodone 2020-0 No 2mg 100 mg 2-24 tablet 00:00: 00 Invega 2020-0 No mg/0.75 Sustenna 2-24 mL 117 mg/0.75 00:00: mL 00 intramuscul ar syringe atorvastati 2020-0 No 1mg n 40 mg 2-05 tablet 00:00: 00 amlodipine 2020-0 No 1mg 10 mg 2-05 tablet 00:00: 00 hydroxyzine 2020-0 No 1mg HCl 25 mg 2-05 tablet 00:00: 00 atorvastati 2020-0 No 1mg n 40 mg 2-05 tablet 00:00: 00 amlodipine 2020-0 No 1mg 10 mg 2-05 tablet 00:00: 00 hydroxyzine 2020-0 No 1mg HCl 25 mg 2-05 tablet 00:00: 00 atorvastati 2020-0 No 1mg n 40 mg 2-05 tablet 00:00: 00 amlodipine 2020-0 No 1mg 10 mg 2-05 tablet 00:00: 00 hydroxyzine 2020-0 No 1mg HCl 25 mg 2-05 tablet 00:00: 00 atorvastati 2020-0 No 1mg n 40 mg 2-05 tablet 00:00: 00 amlodipine 2020-0 No 1mg 10 mg 2-05 tablet 00:00: 00 hydroxyzine 2020-0 No 1mg HCl 25 mg 2-05 tablet 00:00: 00 trazodone 2020-0 No 2mg 100 mg 1-21 tablet 00:00: 00 sertraline 2020-0 No 1mg 50 mg 1-21 tablet 00:00: 00 Invega 2020-0 No mg/0.75 Sustenna 1-21 mL 117 mg/0.75 00:00: mL 00 intramuscul ar syringe trazodone 2020-0 No 2mg 100 mg 1-21 tablet 00:00: 00 sertraline 2020-0 No 1mg 50 mg 1-21 tablet 00:00: 00 Invega 2020-0 No mg/0.75 Sust[place] 1-21 mL 117 mg/0.75 00:00: mL 00 intramuscul ar syringe trazodone 2020-0 No 2mg 100 mg 1-21 tablet 00:00: 00 sertraline 2020-0 No 1mg 50 mg 1-21 tablet 00:00: 00 Invega 2020-0 No mg/0.75 S[place] 1-21 mL 117 mg/0.75 00:00: mL 00 intramuscul ar syringe trazodone 2020-0 No 2mg 100 mg 1-21 tablet 00:00: 00 sertraline 2020-0 No 1mg 50 mg 1-21 tablet 00:00: 00 Invega 2020-0 No mg/0.75 [place] 1-21 mL 117 mg/0.75 00:00: mL 00 intramuscul ar syringe Zeasorb AF 2019-1 No % 2 % topical 2-04 powder 00:00: 00 Zeasorb AF 2019-1 No % 2 % topical 2-04 powder 00:00: 00 Zeasorb AF 2019-1 No % 2 % topical 2-04 powder 00:00: 00 Zeasorb AF 2019-1 No % 2 % topical 2-04 powder 00:00: 00 clotrimazol 2019-1 No 1% e 1 % 2-03 topical 00:00: cream 00 clotrimazol 2018- No 1% e 1 % 2-03 topical 00:00: cream 00 clotrimazol 2018- No 1% e 1 % 2-03 topical 00:00: cream 00 clotrimazol 2018- No 1% e 1 % 2-03 topical 00:00: cream 00 Wellbutrin 2018- No 1mg XL 150 mg 1-26 24 hr 00:00: tablet, 00 extended release trazodone 2018- No 2mg 100 mg 1-26 tablet 00:00: 00 sertraline 2018- No 1mg 50 mg 1-26 tablet 00:00: 00 Wellbutrin 2018- No 1mg XL 150 mg 1-26 24 hr 00:00: tablet, 00 extended release trazodone 2018- No 2mg 100 mg 1-26 tablet 00:00: 00 sertraline 2018- No 1mg 50 mg 1-26 tablet 00:00: 00 Wellbutrin 2018- No 1mg XL 150 mg 1-26 24 hr 00:00: tablet, 00 extended release trazodone 2018- No 2mg 100 mg 1-26 tablet 00:00: 00 sertraline 2018- No 1mg 50 mg 1-26 tablet 00:00: 00 Wellbutrin 2018- No 1mg XL 150 mg 1-26 24 hr 00:00: tablet, 00 extended release trazodone 2018- No 2mg 100 mg 1-26 tablet 00:00: 00 sertraline 2018- No 1mg 50 mg 1-26 tablet 00:00: 00 atorvastati 2018- No 1mg n 40 mg 1-11 tablet 00:00: 00 amlodipine 2018- No 1mg 10 mg 1-11 tablet 00:00: 00 atorvastati 2018- No 1mg n 40 mg 1-11 tablet 00:00: 00 atorvastati 2018- No 1mg n 40 mg 1-11 tablet 00:00: 00 amlodipine 2018- No 1mg 10 mg 1-11 tablet 00:00: 00 atorvastati 2018- No 1mg n 40 mg 1-11 tablet 00:00: 00 atorvastati 2018- No 1mg n 40 mg 1-11 tablet 00:00: 00 amlodipine 2018- No 1mg 10 mg 1-11 tablet 00:00: 00 atorvastati 2018- No 1mg n 40 mg 1-11 tablet 00:00: 00 atorvastati 2018- No 1mg n 40 mg 1-11 tablet 00:00: 00 amlodipine 2018- No 1mg 10 mg 1-11 tablet 00:00: 00 atorvastati 2018- No 1mg n 40 mg 1-11 tablet 00:00: 00 sertraline 2018- No 1mg 50 mg 1-01 tablet 00:00: 00 trazodone 2018- No 2mg 100 mg 1-01 tablet 00:00: 00 Wellbutrin 2018- No 1mg XL 150 mg 1-01 24 hr 00:00: tablet, 00 extended release sertraline 2018- No 1mg 50 mg 1-01 tablet 00:00: 00 trazodone 2018- No 2mg 100 mg 1-01 tablet 00:00: 00 Wellbutrin 2018- No 1mg XL 150 mg 1-01 24 hr 00:00: tablet, 00 extended release sertraline 2018- No 1mg 50 mg 1- tablet 00:00: 00 trazodone 2018- No 2mg 100 mg 1-01 tablet 00:00: 00 Wellbutrin 2018- No 1mg XL 150 mg 1-01 24 hr 00:00: tablet, 00 extended release sertraline 2018- No 1mg 50 mg 1-01 tablet 00:00: 00 trazodone 2018- No 2mg 100 mg 1-01 tablet 00:00: 00 Wellbutrin 2018- No 1mg XL 150 mg 1-01 24 hr 00:00: tablet, 00 extended release Wellbutrin 2018-0 No 1mg XL 150 mg 9-24 24 hr 00:00: tablet, 00 extended release sertraline 2018-0 No 1mg 50 mg 9-24 tablet 00:00: 00 trazodone 2018-0 No 2mg 100 mg 9-24 tablet 00:00: 00 Wellbutrin 2018-0 No 1mg XL 150 mg 9-24 24 hr 00:00: tablet, 00 extended release sertraline 2018-0 No 1mg 50 mg 9-24 tablet 00:00: 00 trazodone 2018-0 No 2mg 100 mg 9-24 tablet 00:00: 00 Wellbutrin 2019-0 No 1mg XL 150 mg 9-24 24 hr 00:00: tablet, 00 extended release sertraline 2019-0 No 1mg 50 mg 9-24 tablet 00:00: 00 trazodone 2019-0 No 2mg 100 mg 9-24 tablet 00:00: 00 Wellbutrin 2019-0 No 1mg XL 150 mg 9-24 24 hr 00:00: tablet, 00 extended release sertraline 2019-0 No 1mg 50 mg 9-24 tablet 00:00: 00 trazodone 2019-0 No 2mg 100 mg 9-24 tablet 00:00: 00 Invega 6 mg 2019-0 No 1mg tablet,exte 9-10 nded 00:00: release 00 sertraline 2019-0 No 1mg 50 mg 9-10 tablet 00:00: 00 trazodone 2019-0 No 2mg 100 mg 9-10 tablet 00:00: 00 Wellbutrin 2019-0 No 1mg XL 150 mg 9-10 24 hr 00:00: tablet, 00 extended release hydroxyzine 2019-0 No 1mg HCl 25 mg 9-10 tablet 00:00: 00 Invega 6 mg 2019-0 No 1mg tablet,exte 9-10 nded 00:00: release 00 sertraline 2019-0 No 1mg 50 mg 9-10 tablet 00:00: 00 trazodone 2019-0 No 2mg 100 mg 9-10 tablet 00:00: 00 Wellbutrin 2019-0 No 1mg XL 150 mg 9-10 24 hr 00:00: tablet, 00 extended release hydroxyzine 2019-0 No 1mg HCl 25 mg 9-10 tablet 00:00: 00 Invega 6 mg 2019-0 No 1mg tablet,exte 9-10 nded 00:00: release 00 sertraline 2019-0 No 1mg 50 mg 9-10 tablet 00:00: 00 trazodone 2019-0 No 2mg 100 mg 9-10 tablet 00:00: 00 Wellbutrin 2019-0 No 1mg XL 150 mg 9-10 24 hr 00:00: tablet, 00 extended release hydroxyzine 2019-0 No 1mg HCl 25 mg 9-10 tablet 00:00: 00 Invega 6 mg 2019-0 No 1mg tablet,exte 9-10 nded 00:00: release 00 sertraline 2019-0 No 1mg 50 mg 9-10 tablet 00:00: 00 trazodone 2019-0 No 2mg 100 mg 9-10 tablet 00:00: 00 Wellbutrin 2019-0 No 1mg XL 150 mg 9-10 24 hr 00:00: tablet, 00 extended release hydroxyzine 2019-0 No 1mg HCl 25 mg 9-10 tablet 00:00: 00 clotrimazol 2019-0 No 1% e 1 % 5-08 topical 00:00: cream 00 bupropion 2019-0 No 1mg HCl SR 150 5-08 mg 00:00: tablet,12 00 hr sustained-r elease trazodone 2019-0 No 2mg 100 mg 5-08 tablet 00:00: 00 amlodipine 2019-0 No 1mg 10 mg 5-08 tablet 00:00: 00 sertraline 2019-0 No 1mg 50 mg 5-08 tablet 00:00: 00 hydroxyzine 2019-0 No 1mg HCl 25 mg 5-08 tablet 00:00: 00 lisinopril 2019-0 No 1mg 20 5-08 mg-hydrochl 00:00: orothiazide 00 12.5 mg tablet clotrimazol 2019-0 No 1% e 1 % 5-08 topical 00:00: cream 00 bupropion 2019-0 No 1mg HCl SR 150 5-08 mg 00:00: tablet,12 00 hr sustained-r elease trazodone 2019-0 No 2mg 100 mg 5-08 tablet 00:00: 00 amlodipine 2019-0 No 1mg 10 mg 5-08 tablet 00:00: 00 sertraline 2019-0 No 1mg 50 mg 5-08 tablet 00:00: 00 hydroxyzine 2019-0 No 1mg HCl 25 mg 5-08 tablet 00:00: 00 lisinopril 2019-0 No 1mg 20 5-08 mg-hydrochl 00:00: orothiazide 00 12.5 mg tablet clotrimazol 2019-0 No 1% e 1 % 5-08 topical 00:00: cream 00 bupropion 2019-0 No 1mg HCl SR 150 5-08 mg 00:00: tablet,12 00 hr sustained-r elease trazodone 2019-0 No 2mg 100 mg 5-08 tablet 00:00: 00 amlodipine 2019-0 No 1mg 10 mg 5-08 tablet 00:00: 00 sertraline 2019-0 No 1mg 50 mg 5-08 tablet 00:00: 00 hydroxyzine 2019-0 No 1mg HCl 25 mg 5-08 tablet 00:00: 00 lisinopril 2019-0 No 1mg 20 5-08 mg-hydrochl 00:00: orothiazide 00 12.5 mg tablet clotrimazol 2019-0 No 1% e 1 % 5-08 topical 00:00: cream 00 bupropion 2019-0 No 1mg HCl SR 150 5-08 mg 00:00: tablet,12 00 hr sustained-r elease trazodone 2019-0 No 2mg 100 mg 5-08 tablet 00:00: 00 amlodipine 2019-0 No 1mg 10 mg 5-08 tablet 00:00: 00 sertraline 2019-0 No 1mg 50 mg 5-08 tablet 00:00: 00 hydroxyzine 2019-0 No 1mg HCl 25 mg 5-08 tablet 00:00: 00 lisinopril 2019-0 No 1mg 20 5-08 mg-hydrochl 00:00: orothiazide 00 12.5 mg tablet hydroxyzine 2019-0 No 1mg HCl 25 mg 5-07 tablet 00:00: 00 hydroxyzine 2019-0 No 1mg HCl 25 mg 5-07 tablet 00:00: 00 hydroxyzine 2019-0 No 1mg HCl 25 mg 5-07 tablet 00:00: 00 hydroxyzine 2019-0 No 1mg HCl 25 mg 5-07 tablet 00:00: 00 amlodipine 2019-0 No 1mg 10 mg 4-29 tablet 00:00: 00 sertraline 2019-0 No 1mg 50 mg 4-29 tablet 00:00: 00 trazodone 2019-0 No 2mg 100 mg 4-29 tablet 00:00: 00 bupropion 2019-0 No 1mg HCl SR 150 4-29 mg 00:00: tablet,12 00 hr sustained-r elease lisinopril 2019-0 No 1mg 20 4-29 mg-hydrochl 00:00: orothiazide 00 12.5 mg tablet hydroxyzine 2019-0 No 1mg pamoate 25 4-29 mg capsule 00:00: 00 amlodipine 2019-0 No 1mg 10 mg 4-29 tablet 00:00: 00 sertraline 2019-0 No 1mg 50 mg 4-29 tablet 00:00: 00 amlodipine 2019-0 No 1mg 10 mg 4-29 tablet 00:00: 00 sertraline 2019-0 No 1mg 50 mg 4-29 tablet 00:00: 00 trazodone 2019-0 No 2mg 100 mg 4-29 tablet 00:00: 00 bupropion 2019-0 No 1mg HCl SR 150 4-29 mg 00:00: tablet,12 00 hr sustained-r elease lisinopril 2019-0 No 1mg 20 4-29 mg-hydrochl 00:00: orothiazide 00 12.5 mg tablet hydroxyzine 2019-0 No 1mg pamoate 25 4-29 mg capsule 00:00: 00 trazodone 2019-0 No 2mg 100 mg 4-29 tablet 00:00: 00 bupropion 2019-0 No 1mg HCl SR 150 4-29 mg 00:00: tablet,12 00 hr sustained-r elease lisinopril 2019-0 No 1mg 20 4-29 mg-hydrochl 00:00: orothiazide 00 12.5 mg tablet hydroxyzine 2019-0 No 1mg pamoate 25 4-29 mg capsule 00:00: 00 amlodipine 2019-0 No 1mg 10 mg 4-29 tablet 00:00: 00 sertraline 2019-0 No 1mg 50 mg 4-29 tablet 00:00: 00 trazodone 2019-0 No 2mg 100 mg 4-29 tablet 00:00: 00 bupropion 2019-0 No 1mg HCl SR 150 4-29 mg 00:00: tablet,12 00 hr sustained-r elease lisinopril 2019-0 No 1mg 20 4-29 mg-hydrochl 00:00: orothiazide 00 12.5 mg tablet hydroxyzine 2019-0 No 1mg pamoate 25 4-29 mg capsule 00:00: 00 bupropion 2019-0 No 1mg HCl SR 150 3-04 mg 00:00: tablet,12 00 hr sustained-r elease trazodone 2019-0 No 2mg 100 mg 3-04 tablet 00:00: 00 amlodipine 2019-0 No 1mg 10 mg 3-04 tablet 00:00: 00 sertraline 2019-0 No 1mg 50 mg 3-04 tablet 00:00: 00 lisinopril 2019-0 No 1mg 20 3-04 mg-hydrochl 00:00: orothiazide 00 12.5 mg tablet metformin 2019-0 No 1mg 1,000 mg 3-04 tablet 00:00: 00 hydroxyzine 2019-0 No 1mg pamoate 25 3-04 mg capsule 00:00: 00 bupropion 2019-0 No 1mg HCl SR 150 3-04 mg 00:00: tablet,12 00 hr sustained-r elease trazodone 2019-0 No 2mg 100 mg 3-04 tablet 00:00: 00 amlodipine 2019-0 No 1mg 10 mg 3-04 tablet 00:00: 00 sertraline 2019-0 No 1mg 50 mg 3-04 tablet 00:00: 00 lisinopril 2019-0 No 1mg 20 3-04 mg-hydrochl 00:00: orothiazide 00 12.5 mg tablet metformin 2019-0 No 1mg 1,000 mg 3-04 tablet 00:00: 00 hydroxyzine 2019-0 No 1mg pamoate 25 3-04 mg capsule 00:00: 00 bupropion 2019-0 No 1mg HCl SR 150 3-04 mg 00:00: tablet,12 00 hr sustained-r elease trazodone 2019-0 No 2mg 100 mg 3-04 tablet 00:00: 00 amlodipine 2019-0 No 1mg 10 mg 3-04 tablet 00:00: 00 sertraline 2019-0 No 1mg 50 mg 3-04 tablet 00:00: 00 lisinopril 2019-0 No 1mg 20 3-04 mg-hydrochl 00:00: orothiazide 00 12.5 mg tablet metformin 2019-0 No 1mg 1,000 mg 3-04 tablet 00:00: 00 hydroxyzine 2019-0 No 1mg pamoate 25 3-04 mg capsule 00:00: 00 bupropion 2019-0 No 1mg HCl SR 150 3-04 mg 00:00: tablet,12 00 hr sustained-r elease trazodone 2019-0 No 2mg 100 mg 3-04 tablet 00:00: 00 amlodipine 2019-0 No 1mg 10 mg 3-04 tablet 00:00: 00 sertraline 2019-0 No 1mg 50 mg 3-04 tablet 00:00: 00 lisinopril 2019-0 No 1mg 20 3-04 mg-hydrochl 00:00: orothiazide 00 12.5 mg tablet metformin 2019-0 No 1mg 1,000 mg 3-04 tablet 00:00: 00 hydroxyzine 2019-0 No 1mg pamoate 25 3-04 mg capsule 00:00: 00 metformin 2019-0 No 1mg 1,000 mg 1-02 tablet 00:00: 00 metformin 2019-0 No 1mg 1,000 mg 1-02 tablet 00:00: 00 metformin 2019-0 No 1mg 1,000 mg 1-02 tablet 00:00: 00 metformin 2019-0 No 1mg 1,000 mg 1-02 tablet 00:00: 00 bupropion 2018-1 No 1mg HCl SR 150 2-31 mg 00:00: tablet,12 00 hr sustained-r elease clonazepam 2017-1 No 1mg 0.5 mg 2-31 tablet 00:00: 00 sertraline 2018-1 No 1mg 50 mg 2-31 tablet 00:00: 00 simvastatin 2018-1 No 1mg 20 mg 2-31 tablet 00:00: 00 amlodipine 2018-1 No 1mg 10 mg 2-31 tablet 00:00: 00 amlodipine 2018-1 No 1mg 10 mg 2-31 tablet 00:00: 00 simvastatin 2018-1 No 1mg 20 mg 2-31 tablet 00:00: 00 bupropion 2018-1 No 1mg HCl SR 150 2-31 mg 00:00: tablet,12 00 hr sustained-r elease trazodone 2017-1 No 2mg 100 mg 2-31 tablet 00:00: 00 sertraline 2018-1 No 1mg 50 mg 2-31 tablet 00:00: 00 lisinopril 2017-1 No 1mg 20 2-31 mg-hydrochl 00:00: orothiazide 00 12.5 mg tablet trazodone 2017-1 No 1mg 100 mg 2-31 tablet 00:00: 00 lisinopril 2018-1 No 1mg 20 2-31 mg-hydrochl 00:00: orothiazide 00 12.5 mg tablet hydroxyzine 2017-1 No 1mg pamoate 25 2-31 mg capsule 00:00: 00 hydroxyzine 2017-1 No 1mg pamoate 25 2-31 mg capsule 00:00: 00 bupropion 2017-1 No 1mg HCl SR 150 2-31 mg 00:00: tablet,12 00 hr sustained-r elease clonazepam 2017- No 1mg 0.5 mg 2-31 tablet 00:00: 00 sertraline 2017- No 1mg 50 mg 2-31 tablet 00:00: 00 simvastatin 2017- No 1mg 20 mg 2-31 tablet 00:00: 00 amlodipine 2017- No 1mg 10 mg 2-31 tablet 00:00: 00 amlodipine 2017- No 1mg 10 mg 2-31 tablet 00:00: 00 simvastatin 2017- No 1mg 20 mg 2-31 tablet 00:00: 00 bupropion 2017- No 1mg HCl SR 150 2-31 mg 00:00: tablet,12 00 hr sustained-r elease trazodone 2017- No 2mg 100 mg 2-31 tablet 00:00: 00 sertraline 2017- No 1mg 50 mg 2-31 tablet 00:00: 00 lisinopril 2017- No 1mg 20 2-31 mg-hydrochl 00:00: orothiazide 00 12.5 mg tablet trazodone 2017- No 1mg 100 mg 2-31 tablet 00:00: 00 lisinopril 2017- No 1mg 20 2-31 mg-hydrochl 00:00: orothiazide 00 12.5 mg tablet hydroxyzine 2017- No 1mg pamoate 25 2-31 mg capsule 00:00: 00 hydroxyzine 2017- No 1mg pamoate 25 2-31 mg capsule 00:00: 00 bupropion 2017- No 1mg HCl SR 150 2-31 mg 00:00: tablet,12 00 hr sustained-r elease clonazepam 2017- No 1mg 0.5 mg 2-31 tablet 00:00: 00 sertraline 2017- No 1mg 50 mg 2-31 tablet 00:00: 00 simvastatin 2017- No 1mg 20 mg 2-31 tablet 00:00: 00 amlodipine 2017- No 1mg 10 mg 2-31 tablet 00:00: 00 amlodipine 2017- No 1mg 10 mg 2-31 tablet 00:00: 00 simvastatin 2017- No 1mg 20 mg 2-31 tablet 00:00: 00 bupropion 2017- No 1mg HCl SR 150 2-31 mg 00:00: tablet,12 00 hr sustained-r elease trazodone 2017- No 2mg 100 mg 2-31 tablet 00:00: 00 sertraline 2018- No 1mg 50 mg 2-31 tablet 00:00: 00 lisinopril 2017- No 1mg 20 2-31 mg-hydrochl 00:00: orothiazide 00 12.5 mg tablet trazodone 2017- No 1mg 100 mg 2-31 tablet 00:00: 00 lisinopril 2017- No 1mg 20 2-31 mg-hydrochl 00:00: orothiazide 00 12.5 mg tablet hydroxyzine 2017- No 1mg pamoate 25 2-31 mg capsule 00:00: 00 hydroxyzine 2017- No 1mg pamoate 25 2-31 mg capsule 00:00: 00 bupropion 2017- No 1mg HCl SR 150 2-31 mg 00:00: tablet,12 00 hr sustained-r elease clonazepam 2017- No 1mg 0.5 mg 2-31 tablet 00:00: 00 sertraline 2017- No 1mg 50 mg 2-31 tablet 00:00: 00 simvastatin 2017- No 1mg 20 mg 2-31 tablet 00:00: 00 amlodipine 2017- No 1mg 10 mg 2-31 tablet 00:00: 00 amlodipine 2017- No 1mg 10 mg 2-31 tablet 00:00: 00 simvastatin 2017-1 No 1mg 20 mg 2-31 tablet 00:00: 00 bupropion 2017- No 1mg HCl SR 150 2-31 mg 00:00: tablet,12 00 hr sustained-r elease trazodone 2017- No 2mg 100 mg 2-31 tablet 00:00: 00 sertraline 2017- No 1mg 50 mg 2-31 tablet 00:00: 00 lisinopril 2017- No 1mg 20 2-31 mg-hydrochl 00:00: orothiazide 00 12.5 mg tablet trazodone 2017- No 1mg 100 mg 2-31 tablet 00:00: 00 lisinopril 2017- No 1mg 20 2-31 mg-hydrochl 00:00: orothiazide 00 12.5 mg tablet hydroxyzine 2017-10 No 1mg pamoate 25 2-31 mg capsule 00:00: 00 hydroxyzine 2017-1 No 1mg pamoate 25 2-31 mg capsule 00:00: 00 lisinopril 2016-0 No 2mg 20 6-08 mg-hydrochl 00:00: orothiazide 00 12.5 mg tablet metformin 2016-0 No 1mg 500 mg 6-08 tablet 00:00: 00 simvastatin 2016-0 No 1mg 20 mg 6-08 tablet 00:00: 00 lisinopril 2016-0 No 2mg 20 6-08 mg-hydrochl 00:00: orothiazide 00 12.5 mg tablet metformin 2016-0 No 1mg 500 mg 6-08 tablet 00:00: 00 simvastatin 2016-0 No 1mg 20 mg 6-08 tablet 00:00: 00 lisinopril 2016-0 No 2mg 20 6-08 mg-hydrochl 00:00: orothiazide 00 12.5 mg tablet metformin 2016-0 No 1mg 500 mg 6-08 tablet 00:00: 00 simvastatin 2016-0 No 1mg 20 mg 6-08 tablet 00:00: 00 lisinopril 2016-0 No 2mg 20 6-08 mg-hydrochl 00:00: orothiazide 00 12.5 mg tablet metformin 2016-0 No 1mg 500 mg 6-08 tablet 00:00: 00 simvastatin 2016-0 No 1mg 20 mg 6-08 tablet 00:00: 00 lisinopril 2014-1 No 2mg 20 1-12 mg-hydrochl 00:00: orothiazide 00 12.5 mg tablet lisinopril 2014-1 No 2mg 20 1-12 mg-hydrochl 00:00: orothiazide 00 12.5 mg tablet lisinopril 2014-1 No 2mg 20 1-12 mg-hydrochl 00:00: orothiazide 00 12.5 mg tablet lisinopril 2014-1 No 2mg 20 1-12 mg-hydrochl 00:00: orothiazide 00 12.5 mg tablet naproxen 2015-0 No 1mg 500 mg 8-11 tablet 00:00: 00 naproxen 2015-0 No 1mg 500 mg 8-11 tablet 00:00: 00 naproxen 2015-0 No 1mg 500 mg 8-11 tablet 00:00: 00 naproxen 2014-0 No 1mg 500 mg 8-11 tablet 00:00: 00 predniSONE 2015-0 2022- No 40mg Take 2 [facility] (DELTASONE) 05-14 Tabs by [facility] of 20 mg 00:00: 00:00 mouth [place] tablet 00 :00 every Medical morning. [facility] traMADOL 2014-2021- No 50mg Take 1 Tab Un rustam (ULTRAM) 50 05-14 by mouth [facility] of mg tablet 00:00: 00:00 every 6 [place] 00 :[place] (six) Medical hours as [facility] needed for Pain unrelieved by non-narcot ic analgesics . simvastatin 2015-0 No 1mg 20 mg 8-07 tablet 00:00: 00 simvastatin 2015-0 No 1mg 20 mg 8-07 tablet 00:00: 00 simvastatin 2015-0 No 1mg 20 mg 8-07 tablet 00:00: 00 simvastatin 2015-0 No 1mg 20 mg 8-07 tablet 00:00: 00 amlodipine 2015-0 No 1mg 10 mg 7-29 tablet 00:00: 00 lisinopril 2014-0 No 2mg 20 7-29 mg-hydrochl 00:00: orothiazide 00 12.5 mg tablet amlodipine 2014-0 No 1mg 10 mg 7-29 tablet 00:00: 00 lisinopril 2014-0 No 2mg 20 7-29 mg-hydrochl 00:00: orothiazide 00 12.5 mg tablet amlodipine 2014-0 No 1mg 10 mg 7-29 tablet 00:00: 00 lisinopril 2014-0 No 2mg 20 7-29 mg-hydrochl 00:00: orothiazide 00 12.5 mg tablet amlodipine 2014-0 No 1mg 10 mg 7-29 tablet 00:00: 00 lisinopril 2014-0 No 2mg 20 7-29 mg-hydrochl 00:00: orothiazide 00 12.5 mg tablet lisinopril 2014-0 No 2mg 20 7-28 mg-hydrochl 00:00: orothiazide 00 12.5 mg tablet amlodipine 2015-0 No 1mg 10 mg 7-28 tablet 00:00: 00 lisinopril 2014-0 No 2mg 20 7-28 mg-hydrochl 00:00: orothiazide 00 12.5 mg tablet amlodipine 2014-0 No 1mg 10 mg 7-28 tablet 00:00: 00 lisinopril 2014-0 No 2mg 20 7-28 mg-hydrochl 00:00: orothiazide 00 12.5 mg tablet amlodipine 2015-0 No 1mg 10 mg 7-28 tablet 00:00: 00 lisinopril 2015-0 No 2mg 20 7-28 mg-hydrochl 00:00: orothiazide 00 12.5 mg tablet amlodipine 2015-0 No 1mg 10 mg 7-28 tablet 00:00: 00 bupropion 2015-0 No 1mg HCl XL 300 3-05 mg 24 hr 00:00: tablet, 00 extended release trazodone 2015-0 No 2mg 100 mg 3-05 tablet 00:00: 00 bupropion 2015-0 No 1mg HCl XL 300 3-05 mg 24 hr 00:00: tablet, 00 extended release trazodone 2015-0 No 2mg 100 mg 3-05 tablet 00:00: 00 bupropion 2015-0 No 1mg HCl XL 300 3-05 mg 24 hr 00:00: tablet, 00 extended release trazodone 2014-0 No 2mg 100 mg 3-05 tablet 00:00: 00 bupropion 2015-0 No 1mg HCl XL 300 3-05 mg 24 hr 00:00: tablet, 00 extended release trazodone 2015-0 No 2mg 100 mg 3-05 tablet 00:00: 00 lisinopril 2015-0 No 2mg 20 2-13 mg-hydrochl 00:00: orothiazide 00 12.5 mg tablet lisinopril 2015-0 No 2mg 20 2-13 mg-hydrochl 00:00: orothiazide 00 12.5 mg tablet cetirizine 2014-0 No 1mg 10 mg 2-13 tablet 00:00: 00 trazodone 2015-0 No 1mg 100 mg 2-13 tablet 00:00: 00 trazodone 2015-0 No 2mg 100 mg 2-13 tablet 00:00: 00 lisinopril 2015-0 No 2mg 20 2-13 mg-hydrochl 00:00: orothiazide 00 12.5 mg tablet lisinopril 2014-0 No 2mg 20 2-13 mg-hydrochl 00:00: orothiazide 00 12.5 mg tablet lisinopril 2014-0 No 2mg 20 2-13 mg-hydrochl 00:00: orothiazide 00 12.5 mg tablet lisinopril 2015-0 No 2mg 20 2-13 mg-hydrochl 00:00: orothiazide 00 12.5 mg tablet cetirizine 2015-0 No 1mg 10 mg 2-13 tablet 00:00: 00 trazodone 2015-0 No 1mg 100 mg 2-13 tablet 00:00: 00 trazodone 2015-0 No 2mg 100 mg 2-13 tablet 00:00: 00 cetirizine 2015-0 No 1mg 10 mg 2-13 tablet 00:00: 00 trazodone 2015-0 No 1mg 100 mg 2-13 tablet 00:00: 00 trazodone 2015-0 No 2mg 100 mg 2-13 tablet 00:00: 00 lisinopril 2015-0 No 2mg 20 2-13 mg-hydrochl 00:00: orothiazide 00 12.5 mg tablet lisinopril 2015-0 No 2mg 20 2-13 mg-hydrochl 00:00: orothiazide 00 12.5 mg tablet cetirizine 2015-0 No 1mg 10 mg 2-13 tablet 00:00: 00 trazodone 2015-0 No 1mg 100 mg 2-13 tablet 00:00: 00 trazodone 2015-0 No 2mg 100 mg 2-13 tablet 00:00: 00 Immunizations Ordered Filled Immunization Date Status Comments [facility] e Immunization Name Name SARS-COV-2 COVID-19 2021-10-09 Completed [facility] of [facility]/J&J VACCINE 00:00:00 [facility] SARS-COV-2 COVID-19 2021-10-09 Completed [facility]ive rs[facility] of NEVAEH/J&J VACCINE 00:00:00 [facility] SARS-COV-2 COVID-19 2021-10-09 Completed Unive rsity of NEVAEH/J&J VACCINE 00:00:00 [facility] SARS-COV-2 COVID-19 2021-10-09 Completed Unive rs[facility] of NEVAEH/J&J VACCINE 00:00:00 [facility] SARS-COV-2 COVID-19 2021-10-09 Completed [facility]ive rs[facility] of NEVAE[facility]/J&J VACCINE 00:00:00 [facility] SARS-COV-2 COVID-19 2021-10-09 Completed [facility]ive rs[facility] of NEVAEH/J&J VACCINE 00:00:00 [facility] SARS-COV-2 COVID-19 2021-10-09 Completed [facility]ive rs[facility] of NEVAEH/J&J VACCINE 00:00:00 [facility] SARS-COV-2 COVID-19 2021-10-09 Completed [facility]ive rsity of NEVAEH/J&J VACCINE 00:00:00 [facility] SARS-COV-2 COVID-19 2021-10-09 Completed Unive rs[facility] of NEVAEH/J&J VACCINE 00:00:00 [facility] SARS-COV-2 COVID-19 2021-10-09 Completed [facility] of NEVAEH/J&J VACCINE 00:00:00 [facility] SARS-COV-2 COVID-19 2021-10-09 Completed Unive rsity of NEVAEH/J&J VACCINE 00:00:00 [facility] Influenza, 2020-09-19 Completed seasonal, inj 00:00:00 Influenza, 2020-09-19 Completed seasonal, inj 00:00:00 Influenza, 2020-09-19 Completed seasonal, inj 00:00:00 Influenza, 2020-09-19 Completed seasonal, inj 00:00:00 Influenza, 2019-11-16 Completed seasonal, inj 00:00:00 Influenza, 2019-11-16 Completed seasonal, inj 00:00:00 Influenza, 2019-11-16 Completed seasonal, inj 00:00:00 Influenza, 2019-11-16 Completed seasonal, inj 00:00:00 Vital Signs Vital Name Observation Time Observation Value Comments Source Systolic blood 2022-04-15 02:00:00 132 mm[Hg] Univer sity of pressure [facility] Diastolic blood 2022-04-15 02:00:00 73 mm[Hg] Unive rsity of pressure [facility] Heart rate 2022-04-15 02:00:00 76 /min [facility] Respiratory rate 2022-04-15 02:00:00 16 /min [facility] Oxygen saturation in 2022-04-15 02:00:00 98 /min [facility] Arterial blood by [facility] Pulse oximetry [place] Body temperature 2022-04-14 21:43:00 36.94 Britany [facility] Body height 2022-04-14 21:42:00 188 cm [facility] Body weight 2022-04-14 21:42:00 116.121 kg [facility] BMI 2022-04-14 21:42:00 32.87 kg/m2 [facility] Systolic blood 2022-04-12 08:00:00 155 mm[Hg] Univer [facility] Diastolic blood 2022-04-12 08:00:00 97 mm[Hg] Unive rsity of [facility] Heart rate 2022-04-12 08:00:00 91 /min [facility] Respiratory rate 2022-04-12 08:00:00 17 /min [facility] Oxygen saturation in 2022-04-12 08:00:00 98 /min [facility] Arterial blood by [employer] Pulse oximetry [facility] Body temperature 2022-04-12 03:54:00 36.61 Britany [facility] Body height 2022-04-12 03:54:00 188 cm [facility] Body weight 2022-04-12 03:54:00 115.214 kg [facility] BMI 2022-04-12 03:54:00 32.61 kg/m2 [facility] Body temperature 2022-02-02 04:35:00 35.89 Britany [facility] Systolic blood 2022-02-02 04:00:00 153 mm[Hg] [facility] Diastolic blood 2022-02-02 04:00:00 84 mm[Hg] Unive rsity of [facility] Heart rate 2022-02-02 04:00:00 55 /min [facility] Respiratory rate 2022-02-02 04:00:00 12 /min [facility] Oxygen saturation in 2022-02-02 04:00:00 92 /min [facility] Arterial blood by [employer] Pulse oximetry [facility] Body height 2022-02-02 02:11:06 188 cm [facility] Body weight 2022-02-02 02:11:06 117.935 kg [facility] BMI 2022-02-02 02:11:06 33.38 kg/m2 [facility] Systolic blood 2021-11-06 14:41:00 168 mm[Hg] Univer sity of pressure [facility] Diastolic blood 2021-11-06 14:41:00 91 mm[Hg] Unive rsity of pressure [facility] Heart rate 2021-11-06 14:41:00 76 /min Universi ty of [facility] Body temperature 2021-11-06 14:40:00 36.17 Britany [facility] rate 2021-11-06 14:40:00 16 /min [facility] Body height 2021-11-06 14:40:00 188 cm Universi ty of [facility] Body weight 2021-11-06 14:40:00 118.207 kg Universi ty [facility] BMI 2021-11-06 14:40:00 33.46 kg/m2 Universi [facility] Oxygen saturation in 2021-11-06 14:40:00 97 /min University Arterial blood by [facility] Pulse oximetry [facility] BP Systolic 2022-09-09 14:25:00 183 mm[Hg] BP Diastolic 2022-09-09 14:25:00 96 mm[Hg] Weight Measured 2022-09-09 14:25:00 259.60 pounds Height Measured 2022-09-09 14:25:00 73.32 inches Body Temperature 2022-09-09 14:25:00 97.50 degrees Heart Rate 2022-09-09 14:25:00 72.00 /min Respiratory Rate 2022-09-09 14:25:00 25.00 /min BP Systolic 2022-09-09 14:07:00 183 mm[Hg] BP Diastolic 2022-09-09 14:07:00 96 mm[Hg] Weight Measured 2022-09-09 14:07:00 259.60 pounds Height Measured 2022-09-09 14:07:00 73.32 inches Body Temperature 2022-09-09 14:07:00 97.50 degrees Heart Rate 2022-09-09 14:07:00 72.00 /min Respiratory Rate 2022-09-09 14:07:00 25.00 /min BP Systolic 2022-05-14 08:32:00 122 mm[Hg] BP Diastolic 2022-05-14 08:32:00 74 mm[Hg] Weight Measured 2022-05-14 08:32:00 251.00 pounds Height Measured 2022-05-14 08:32:00 73.32 inches Body Temperature 2022-05-14 08:32:00 97.70 degrees Heart Rate 2022-05-14 08:32:00 86.00 /min Respiratory Rate 2022-05-14 08:32:00 24.00 /min BP Systolic 2022-04-29 11:57:00 110 mm[Hg] BP Diastolic 2022-04-29 11:57:00 72 mm[Hg] Weight Measured 2022-04-29 11:57:00 251.40 pounds Height Measured 2022-04-29 11:57:00 73.32 inches Body Temperature 2022-04-29 11:57:00 97.80 degrees Heart Rate 2022-04-29 11:57:00 91.00 /min Respiratory Rate 2022-04-29 11:57:00 21.00 /min BP Systolic 2022-04-14 15:38:00 115 mm[Hg] BP Diastolic 2022-04-14 15:38:00 72 mm[Hg] Weight Measured 2022-04-14 15:38:00 252.40 pounds Height Measured 2022-04-14 15:38:00 73.32 inches Body Temperature 2022-04-14 15:38:00 98.10 degrees Heart Rate 2022-04-14 15:38:00 82.00 /min Respiratory Rate 2022-04-14 15:38:00 18.00 /min BP Systolic 2022-03-27 12:04:00 137 mm[Hg] BP Diastolic 2022-03-27 12:04:00 87 mm[Hg] Weight Measured 2022-03-27 12:04:00 255.80 pounds Height Measured 2022-03-27 12:04:00 73.32 inches Body Temperature 2022-03-27 12:04:00 98.30 degrees Heart Rate 2022-03-27 12:04:00 94.00 /min Respiratory Rate 2022-03-27 12:04:00 18.00 /min BP Systolic 2022-02-03 09:10:00 169 mm[Hg] BP Diastolic 2022-02-03 09:10:00 107 mm[Hg] Weight Measured 2022-02-03 09:10:00 260.60 pounds Height Measured 2022-02-03 09:10:00 73.32 inches Body Temperature 2022-02-03 09:10:00 97.50 degrees Heart Rate 2022-02-03 09:10:00 70.00 /min Respiratory Rate 2022-02-03 09:10:00 BP Systolic 2022-01-21 15:58:00 182 mm[Hg] BP Diastolic 2022-01-21 15:58:00 113 mm[Hg] Weight Measured 2022-01-21 15:58:00 260.40 pounds Height Measured 2022-01-21 15:58:00 73.32 inches Body Temperature 2022-01-21 15:58:00 98.20 degrees Heart Rate 2022-01-21 15:58:00 80.00 /min Respiratory Rate 2022-01-21 15:58:00 16.00 /min BP Systolic 2021-08-28 09:46:00 189 mm[Hg] BP Diastolic 2021-08-28 09:46:00 115 mm[Hg] Weight Measured 2021-08-28 09:46:00 262.40 pounds Height Measured 2021-08-28 09:46:00 73.32 inches Body Temperature 2021-08-28 09:46:00 98.30 degrees Heart Rate 2021-08-28 09:46:00 89.00 /min Respiratory Rate 2021-08-28 09:46:00 16.00 /min BP Systolic 2021-08-16 08:31:00 182 mm[Hg] BP Diastolic 2021-08-16 08:31:00 114 mm[Hg] Weight Measured 2021-08-16 08:31:00 261.80 pounds Height Measured 2021-08-16 08:31:00 73.32 inches Body Temperature 2021-08-16 08:31:00 98.40 degrees Heart Rate 2021-08-16 08:31:00 76.00 /min Respiratory Rate 2021-08-16 08:31:00 BP Systolic 2021-05-28 13:21:00 128 mm[Hg] BP Diastolic 2021-05-28 13:21:00 86 mm[Hg] Weight Measured 2021-05-28 13:21:00 Height Measured 2021-05-28 13:21:00 Body Temperature 2021-05-28 13:21:00 Heart Rate 2021-05-28 13:21:00 Respiratory Rate 2021-05-28 13:21:00 BP Systolic 2021-04-24 16:09:00 160 mm[Hg] BP Diastolic 2021-04-24 16:09:00 91 mm[Hg] Weight Measured 2021-04-24 16:09:00 255.20 pounds Height Measured 2021-04-24 16:09:00 73.32 inches Body Temperature 2021-04-24 16:09:00 Heart Rate 2021-04-24 16:09:00 70.00 /min Respiratory Rate 2021-04-24 16:09:00 21.00 /min BP Systolic 2021-04-24 11:42:00 172 mm[Hg] BP Diastolic 2021-04-24 11:42:00 84 mm[Hg] Weight Measured 2021-04-24 11:42:00 255.60 pounds Height Measured 2021-04-24 11:42:00 73.32 inches Body Temperature 2021-04-24 11:42:00 98.70 degrees Heart Rate 2021-04-24 11:42:00 68.00 /min Respiratory Rate 2021-04-24 11:42:00 BP Systolic 2021-04-12 16:55:00 153 mm[Hg] BP Diastolic 2021-04-12 16:55:00 82 mm[Hg] Weight Measured 2021-04-12 16:55:00 258.60 pounds Height Measured 2021-04-12 16:55:00 73.32 inches Body Temperature 2021-04-12 16:55:00 98.90 degrees Heart Rate 2021-04-12 16:55:00 76.00 /min Respiratory Rate 2021-04-12 16:55:00 21.00 /min Procedures Procedure Date / Time Performing Clinician Source Performed AUTHORIZATION FOR RELEASE 2022-08-12 06:01:00 Doctor Unassigned, [facility] REFERRAL- 2022-05-15 05:01:00 [facility]RESPONSE [facility] POCT GLUCOSE (AUTOMATED) 2022-04-15 02:32:00 [facility] 2022-04-15 01:39:00 [facility] POCT GLUCOSE (AUTOMATED) 2022-04-15 00:42:00 [facility]SE (AUTOMATED) 2022-04-14 23:21:00 [facility] (AUTOMATED) 2022-04-14 21:42:00 Doctor Ximena, [facility] CONSENT/REFUSAL FOR 2022-04-14 21:35:48 Doctor Ximena [facility] PO[facility]UCOSE (AUTOMATED) 2022-04-12 07:46:00 Eliseo Mack iversity [facility] POCT GLUCOSE (AUTOMATED) 2022-04-12 06:20:00 Eliseo Mack iversity [facility] POCT GLUCOSE (AUTOMATED) 2022-04-12 05:03:00 [facility] COMP. METABOLIC PANEL 2022-04-12 04:45:00 Eliseo Mack [facility] ([id number]) [facility] CBC WITH DIFF 2022-04-12 04:45:00 Eliseo Mack [facility] GLYCOSYLATED HEMOGLOBIN 2022-04-12 04:45:00 Eliseo Mack [facility] (A1C) [facility] URINALYSIS 2022-04-12 04:45:00 Eliseo Mack [facility] ACUTE CARE VENOUS BLOOD 2022-04-12 04:44:00 Eliseo Mack [facility] GAS [facility] POCT GLUCOSE (AUTOMATED) 2022-04-12 03:59:00 [facility] NOTICE OF PRIVACY 2022-04-12 03:38:19 Doctor Ximena, [facility] PRACTICES [facility] [place] CONSENT/REFUSAL FOR 2022-04-12 03:37:44 Doctor Ximena [facility] AUTHORIZATION FOR RELEASE 2022-03-12 05:01:00 Doctor Unassigned, [facility] OF PHI [facility] [place] MEDICATION CORRESPONDENCE 2022-02-14 05:01:00 Doctor Unassigned, [facility] Name Medical [place] XR LUMBAR SPINE 2 VW 2022-02-02 03:04:02 Zoe Dunlap [facility] XR SPINE THORACIC 2 VW 2022-02-02 03:04:[address] [facility] XR CERVICAL SPINE 3 VW 2022-02-02 03:04:02 Zoe Dunlap [facility] POCT URINALYSIS AUTO 2021-11-06 14:39:00 Addie Pat [facility] Ekg 2018-10-04 00:00:00 Plan of Care Planned Activity Planned Date Details Comments Source Goal Plan of Care Note [code = 83926-8] Goal Plan of Care Note [code = 27725-4] Goal Plan of Care Note [code = 10760-4] Goal Plan of Care Note [code = 46680-0] Goal Plan of Care Note [code = 85644-5] Goal Plan of Care Note [code = 22058-9] Goal Plan of Care Note [code = 42321-8] Goal Plan of Care Note [code = 08331-3] Goal Plan of Care Note [code = 59518-3] Goal Plan of Care Note [code = 86780-1] Goal Plan of Care Note [code = 32704-1] Goal Plan of Care Note [code = 15358-1] Goal Plan of Care Note [code = 80349-7] Goal Plan of Care Note [code = 41409-3] Goal Plan of Care Note [code = 85941-3] Goal Plan of Care Note [code = 86701-7] Goal Plan of Care Note [code = 85996-2] Goal Plan of Care Note [code = 64494-2] Goal Plan of Care Note [code = 11969-8] Goal Plan of Care Note [code = 28386-4] Goal Plan of Care Note [code = 39326-0] Goal Plan of Care Note [code = 93599-3] Goal Plan of Care Note [code = 40849-3] Goal Plan of Care Note [code = 17489-6] Goal Plan of Care Note [code = 47169-4] Goal Plan of Care Note [code = 56275-7] Goal Plan of Care Note [code = 94932-0] Goal Plan of Care Note [code = 85945-6] Goal Plan of Care Note [code = 55187-6] Goal Plan of Care Note [code = 29465-3] Goal Plan of Care Note [code = 87886-9] Goal Plan of Care Note [code = 58026-0] Goal Plan of Care Note [code = 11724-0] Goal Plan of Care Note [code = 65526-2] Goal Plan of Care Note [code = 56213-9] Goal Plan of Care Note [code = 68872-7] Goal Plan of Care Note [code = 85642-9] Goal Plan of Care Note [code = 99872-5] Goal Plan of Care Note [code = 46290-0] Goal Plan of Care Note [code = 72079-1] Goal Plan of Care Note [code = 12213-5] Goal Plan of Care Note [code = 01840-3] Goal Plan of Care Note [code = 19011-9] Goal Plan of Care Note [code = 66177-9] Goal Plan of Care Note [code = 59471-6] Goal Plan of Care Note [code = 02154-5] Goal Plan of Care Note [code = 45211-2] Goal Plan of Care Note [code = 82754-5] Goal Plan of Care Note [code = 91416-4] Goal Plan of Care Note [code = 95650-9] Goal Plan of Care Note [code = 12587-9] Goal Plan of Care Note [code = 17012-2] Goal Plan of Care Note [code = 42665-8] Goal Plan of Care Note [code = 81451-4] Goal Plan of Care Note [code = 55770-1] Goal Plan of Care Note [code = 62550-9] Goal Plan of Care Note [code = 41992-2] Goal Plan of Care Note [code = 64447-7] Goal Plan of Care Note [code = 52278-1] Goal Plan of Care Note [code = 91313-0] Goal Plan of Care Note [code = 00953-9] Goal Plan of Care Note [code = 23553-8] Goal Plan of Care Note [code = 94420-5] Goal Plan of Care Note [code = 38071-0] Goal Plan of Care Note [code = 72867-9] Goal Plan of Care Note [code = 44723-8] Goal Plan of Care Note [code = 96850-7] Goal Plan of Care Note [code = 85883-5] Goal Plan of Care Note [code = 47798-4] Goal Plan of Care Note [code = 71854-1] Goal Plan of Care Note [code = 61001-2] Goal Plan of Care Note [code = 89455-3] Goal Plan of Care Note [code = 65899-3] Goal Plan of Care Note [code = 00369-3] Goal Plan of Care Note [code = 73464-0] Goal Plan of Care Note [code = 00483-9] Goal Plan of Care Note [code = 33394-5] Goal Plan of Care Note [code = 09775-0] Goal Plan of Care Note [code = 43329-0] Goal Plan of Care Note [code = 46052-5] Goal Plan of Care Note [code = 48110-8] Goal Plan of Care Note [code = 68396-0] Goal Plan of Care Note [code = 49393-8] Goal Plan of Care Note [code = 56870-3] Goal Plan of Care Note [code = 65420-9] Goal Plan of Care Note [code = 40241-2] Goal Plan of Care Note [code = 02189-5] Goal Plan of Care Note [code = 04353-0] Goal Plan of Care Note [code = 68186-5] Goal Plan of Care Note [code = 07159-9] Goal Plan of Care Note [code = 54767-3] Goal Plan of Care Note [code = 06332-4] Goal Plan of Care Note [code = 99424-4] Goal Plan of Care Note [code = 46512-6] Goal Plan of Care Note [code = 35598-8] Goal Plan of Care Note [code = 75355-2] Goal Plan of Care Note [code = 75716-3] Goal Plan of Care Note [code = 66979-0] Goal Plan of Care Note [code = 11937-8] Goal Plan of Care Note [code = 02598-6] Goal Plan of Care Note [code = 35823-2] Goal Plan of Care Note [code = 74078-4] Goal Plan of Care Note [code = 06099-1] Goal Plan of Care Note [code = 49087-2] Goal Plan of Care Note [code = 53217-5] Goal Plan of Care Note [code = 75445-2] Goal Plan of Care Note [code = 06522-9] Goal Plan of Care Note [code = 73129-5] Goal Plan of Care Note [code = 26695-7] Goal Plan of Care Note [code = 69291-3] Goal Plan of Care Note [code = 30438-1] Goal Plan of Care Note [code = 20311-6] Goal Plan of Care Note [code = 73772-9] Goal Plan of Care Note [code = 15690-0] Goal Plan of Care Note [code = 34308-5] Goal Plan of Care Note [code = 30099-5] Goal Plan of Care Note [code = 13477-8] Goal Plan of Care Note [code = 95133-8] Goal Plan of Care Note [code = 66119-9] Goal Plan of Care Note [code = 51367-1] Goal Plan of Care Note [code = 35776-5] Goal Plan of Care Note [code = 88799-3] Goal Plan of Care Note [code = 68046-6] Goal Plan of Care Note [code = 87636-2] Goal Plan of Care Note [code = 26078-1] Goal Plan of Care Note [code = 06451-9] Goal Plan of Care Note [code = 42771-4] Goal Plan of Care Note [code = 77637-5] Goal Plan of Care Note [code = 05641-9] Goal Plan of Care Note [code = 36672-0] Goal Plan of Care Note [code = 98002-3] Goal Plan of Care Note [code = 26516-2] Goal Plan of Care Note [code = 86919-5] Goal Plan of Care Note [code = 78700-5] Goal Plan of Care Note [code = 92854-9] Goal Plan of Care Note [code = 14177-0] Goal Plan of Care Note [code = 08393-6] Goal Plan of Care Note [code = 56461-3] Goal Plan of Care Note [code = 65499-0] Goal Plan of Care Note [code = 70533-6] Goal Plan of Care Note [code = 98045-5] Goal Plan of Care Note [code = 02876-3] Goal Plan of Care Note [code = 70523-3] Goal Plan of Care Note [code = 51416-9] Goal Plan of Care Note [code = 51566-3] Goal Plan of Care Note [code = 89736-0] Goal Plan of Care Note [code = 86463-4] Goal Plan of Care Note [code = 14868-5] Goal Plan of Care Note [code = 98267-7] Goal Plan of Care Note [code = 86714-2] Goal Plan of Care Note [code = 20430-7] Goal Plan of Care Note [code = 55214-2] Goal Plan of Care Note [code = 07151-1] Goal Plan of Care Note [code = 18566-2] Goal Plan of Care Note [code = 91439-0] Goal Plan of Care Note [code = 81410-0] Encounters Start End Encounter Admission Attending Care Care Encounter Source Date/Time Date/Time Type Type Clinicians Facility Department ID 2022-11-05 2022-11-05 Outpatient [facility] [id number] Sanjeev 10:35:42 10:35:42 0201 [facility] 2022-10-22 2022-10-22 Outpatient [facility] [id number] Sanjeev 16:38:30 16:38:30 0118 [facility] 2022-09-10 2022-09-10 Outpatient [facility] [id number] Sanjeev 13:24:47 13:24:47 1207 [facility] 2022-09-09 2022-09-09 Outpatient [facility] [id number] Sanjeev 14:06:35 14:06:35 1206 [facility] 2022-09-09 2022-09-09 Outpatient [id number] 00:00:00 00:00:00 Visit h57v-8c5r 47f-4f0a-b -n7f8-435 3u2-305li6 dt7h9axv8 d1afc2 2022-08-12 2022-08-12 [facility] 1.2.840.114 [id number] Univers 00:00:00 00:00:00 Only Unassigned, DANILO 350.1.13.10 ity of [facility] [id number] [place] as [id number] [address] 2022-05-15 2022-05-15 Orders Doctor JUN 1.2.840.114 [id number] Univers 00:00:00 00:00:00 Only Unassigned, DANILO 350.1.13.10 ity of [facility] 4.2.7.2.686 [place] [id number] [address] 2022-05-14 2022-05-14 Outpatient [id number] 00:00:00 00:00:00 Visit [id number] 432-4211-b -c66b-89x 52d-01ce8e s4tb1r549 y5h041 2022-04-29 2022-04-29 Outpatient [id number] 00:00:00 00:00:00 Visit 72q7-5y94 8b8-6d39-2 -4ot6-43s de8-81ac8a r7if29l8s b72a2d 2022-04-14 2022-04-14 Emergency X DONAL [facility] ERT [id number] Univers 16:43:00 21:51:00 LUZ frank [facility] 2022-04-14 2022-04-14 Emergency Zach Moffett [facility] 1.2.840. 114 [id number] Univers 16:43:00 21:51:00 Luz Le 350.1.13.10 ity [facility] 4.2.7.2.686 [place] [facility] [id number] [place] [id number] Branch 2022-04-14 2022-04-14 Outpatient [id number] 00:00:00 00:00:00 Visit hk9h-3h0g i8l-8z1j-j -vi9n-6q9 v2a-5f56p2 [id number] 10cf84 2022-04-11 2022-04-12 Emergency X MARTINA [facility] ERT [id number] Univers 23:02:00 03:55:00 ELISEO ity [facility] 2022-04-11 2022-04-12 Emergency MartinaRUST [id number] Univers 23:02:00 03:55:00 Eliseo COKER 350.1.13.10 ity of [place] 4.2.7.2.[address] [facility] [id number] [address] 2022-03-12 2022-03-12 Orders Doctor BARAHONA 1.2.840.114 [id number] Univers 00:00:00 00:00:00 Only Unassigned, DANILO 350.1.13.10 [place]y of [place] [facility] 4.2.7.2.686 [place] [id number] [address] 2022-02-14 2022-02-14 Orders Doctor BARAHONA 1.2.840.114 [id number] Univers 00:00:00 00:00:00 Only Unassigned, DANILO 350.1.13.10 [place]y of [place] [facility] 4.2.7.2.686 [place] [id number] [address] 2022-02-01 2022-02-01 Emergency X FABI K [facility] ERT [id number] Univers 21:02:00 23:47:00 ity [facility] 2022-02-01 2022-02-01 Emergency FabiZoe [facility] 1.2.840.114 [id number] Univers 21:02:00 23:47:00 Juany COKER 350.1.13.10 i ty of [place] 4.2.7.2.[address] [facility] [id number] 2021-12-04 2021-12-04 Outpatient R BI [facility] [id number] Univers 00:00:00 00:00:00 ADDIE [facility] 2021-12-02 2021-12-02 [facility] [id number] Univers 15:30:00 15:30:00 JANIE iteddie [facility] 2021-11-28 2021-11-28 Outpatient [facility] [id number] Univers 14:30:00 14:30:00 JANIE ity [facility] 2021-11-28 2021-11-28 Letter Doctor JUN 1.2.840.114 [id number] Univers 00:00:00 00:00:00 (Out) Unassigned, DANILO 350.1.13.10 [facility] 4.2.7.2.686 [place] [phone] [address] 2021-11-20 2021-11-20 Telephone JosegabibeckyRUST 1.2.840.114 [id number] Univers 00:00:00 00:00:00 Janie JOHN PAUL 350.1.13.10 i ty [facility] 4.2.7.[place] [phone] Nd dic[address] 2021-11-11 2021-11-11 Telephone BiRUST [id number] [id number] Univers 00:00:00 00:00:00 Addie COKER 350.1.13.10 it[place].2.[place] [id number] Nd dic[address] 2021-11-06 2021-11-06 [facility] [id number] Univers 08:00:00 08:53:05 ADDIE frank [facility] 2021-11-06 2021-11-06 [facility] [id number] Univers 08:00:00 08:53:05 ADDIE iteddie [facility] 2021-11-06 2021-11-06 Office BiRUST 1.2.840.114 [id number] Univers 08:00:00 08:53:05 Visit Addie COKER 350.1.13.10 ity [id number] [phone] [place] [address] 2021-10-29 2021-10-29 [facility] [id number] Univers 09:30:00 09:30:00 ADDIE iteddie [facility] 2021-10-29 2021-10-29 Outpatient Russell PAT [facility] [id number] Univers 09:30:00 09:30:00 ADDIE stevensoneddie [facility] 2021-10-26 2021-10-26 Emergency X TRICIA, [facility] ERT [id number] Univers 18:10:00 20:26:00 IRISMIGUEL frank [facility] 2021-10-26 2021-10-26 Emergency Osmarmercy [facility] [id number] Univers 18:10:00 20:26:00 Gary COKER [id number] ity [facility] [id number] [phone] [address] 2021-10-09 2021-10-09 Imm/Inj Nurse, [facility] Pob Immunization [facility] [id number] Univers 13:00:00 13:00:00 Visit Moustapha Vela [id number] .[id number] [phone] N[place] dical NAL [address] 2021-10-09 2021-10-09 Outpatient Russell [facility] [id number] 13:00:00 12:43:20 MOUSTAPHA frank [facility] 2021-10-09 2021-10-09 Outpatient Russell [facility] [id number] 13:00:00 12:43:20 MOUSTAPHA frank [facility] 2020-06-01 2020-06-01 Outpatient Russell [facility]SUNA [facility] [id number] 09:00:00 09:00:00 KRISTINA frank [facility] 2020-05-31 2020-05-31 Laboratory Lab, [facility] [id number] 13:07:33 13:27:33 Only Fam Pob I Health [id number] [place] 4.2.7.2.686 Professio [phone] [address]al [address] 2020-05-31 2020-05-31 Outpatient Russell [facility] [id number] [address] 13:20:00 13:20:00 KRISTINA stevensony of [facility] 2020-05-31 2020-05-31 Letter Doctor JUN [id number] 00:00:00 00:00:00 (Out) Unassigned, DANILO 350.1.13.10 [place] [facility] 4.2.7.2.686 [phone] [id number] 2020-01-04 2020-01-04 Outpatient Agatha-Mbayo [facility]FP [facility] [id number] [facility] 12:51:00 12:51:00 _A_AH 97885 Family Practic e 2020-01-04 2020-01-04 Outpatient Agatha-Mbayo VFP [facility] [phone] [facility] 12:51:00 12:51:00 _A_AH 12299 Family Practic e Results Test Description Test Time Test Comments Results Result Comments Source POCT GLUCOSE (AUTOMATED) 2022-04-15 02:34:32 Test Item Value Reference Range Interpretation Comme nts POCT GLU (test code = 1880256792) 380 mg/dL 70-110 H Lab Interpretation (test code = 01284-8) Abnormal General acute hospital GLUCOSE (AUTOMATED)2022-04-15 01:41:12 Test Item Value Reference Range Interpretation Comments POCT GLU (test code = 3522486936) 421 mg/dL 70-110 H Lab Interpretation (test code = Abnormal 07385-0) General acute hospital GLUCOSE (AUTOMATED)2022-04-15 00:44:10 Test Item Value Reference Range Interpretation Comments POCT GLU (test code = 7711314650) 412 mg/dL 70-110 H Lab Interpretation (test code = Abnormal 03973-2) General acute hospital GLUCOSE (AUTOMATED)2022-04-14 23:23:25 Test Item Value Reference Range Interpretation Comments POCT GLU (test code = 4377979843) 506 mg/dL 70-110 HH Lab Interpretation (test code = Abnormal 34271-7) General acute hospital GLUCOSE (AUTOMATED)2022-04-14 21:45:07 Test Item Value Reference Range Interpretation Comments POCT GLU (test code = 2567425831) 545 mg/dL 70-110 HH Lab Interpretation (test code = Abnormal 93043-9) General acute hospital GLUCOSE (AUTOMATED)2022-04-12 07:49:02 Test Item Value Reference Range Interpretation Comments POCT GLU (test code = 0558089190) 376 mg/dL 70-110 H Lab Interpretation (test code = Abnormal 49908-6) General acute hospital GLUCOSE (AUTOMATED)2022-04-12 06:22:59 Test Item Value Reference Range Interpretation Comments POCT GLU (test code = 7671445788) 445 mg/dL 70-110 H Lab Interpretation (test code = Abnormal 74743-0) General acute hospital GLUCOSE (AUTOMATED)2022-04-12 05:08:47 Test Item Value Reference Range Interpretation Comments POCT GLU (test code = 9557524551) 506 mg/dL 70-110 HH Lab Interpretation (test code = Abnormal 22572-2) [facility]12 05:08:27 Test Item Value Reference Range Interpretation Comments HGB A1C (test code = 13.6 % 4.0-5.7 H 4548-4) RANJITH (test code = RANJITH) Reference RangesNormal: <5.7%Prediabetes: 5.7 - 6.4%Diabetes: > 6.5% Lab Interpretation (test Abnormal code = 39380-9) [facility] (03637)2022-04-12 05:08:01 Test Item Value Reference Range Interpretation Comments NA (test code = 126 mmol/L 135-145 L 9195162805) K (test code = 3.7 mmol/L 3.5-5.0 9899576669) CL (test code = 79 mmol/L 98-108 L 7415630232) CO2 TOTAL (test code = 31 mmol/L 23-31 1895301682) AGAP (test code = 2-16 6601130621) BUN (test code = 20 mg/dL 7-23 7015416653) GLUCOSE (test code = 575 mg/dL 70-110 HH 9990466831) CREATININE (test code = 1.15 mg/dL 0.60-1.25 1547964159) TOTAL BILI (test code = 1.0 mg/dL 0.1-1.8 3179090538) CALCIUM (test code = 11.0 mg/dL 8.6-10.6 H 4833904682) T PROTEIN (test code = 7.9 g/dL 6.3-8.2 4424969661) ALBUMIN (test code = 4.7 g/dL 3.5-5.0 1651922410) ALK PHOS (test code = 286 U/L 34-122 H 3661552854) ALTv (test code = 40 U/L 5-50 1742-6) AST(SGOT) (test code = 45 U/L 13-40 H 9223590196) eGFR (test code = mL/min/1.73m2 4918430406) RANJITH (test code = RANJITH) Association of Glomerular Filtration Rate (GFR) and Staging of Kidney Disease* + --+ --+ ------+| GFR (mL/min/1.73 m2) ?| With Kidney Damage ?| ?Without Kidney Damage+ --------+ --------+ +| ?>90 ?| ?Stage one ?| ? Normal ?+ ---+ ---+ -------+| ?60-89 ?| ?Stage two ?| ? Decreased GFR ? + --+ --+ ------+| ?30-59 ?| ?Stage three ?| ? Stage three ? + --+ --+ ------+| ?15-29 ?| ?Stage four ? | ? Stage four ?+ ---+ ---+ -------+| ?<15 (or dialysis) ? ?| ?Stage five ? | ? Stage five ?+ ---+ ---+ -------+ *Each stage assumes the associated GFR level has been in effect for at least three months. ?Stages 1 to 5, with or without kidney disease, indicate chronic kidney disease. Notes: Determination of stages one and two (with eGFR >59mL/min/1.73 m2) requires estimation of kidney damage for at least three months as defined by structural or functional abnormalities of the kidney, manifested by either:Pathological abnormalities or Markers of kidney damage (including abnormalities in the composition of the blood or urine or abnormalities in imaging tests). Lab Interpretation Abnormal (test code = 37499-3) [facility] WITH [id number] 04:52:23 Test Item Value Reference Range Interpretation Comments WBC (test code = See_Comment [Automated 2190-2) message] The sy stem which generated this result transmitted reference range : 4.20 - 10.70 10*3/?L. The reference range was not used to interpret this result as normal/abnormal . RBC (test code = See_Comment [Automated 789-8) message] The sy stem which generated this result transmitted reference range : 4.26 - 5.52 10*6/?L. The reference range was not used to interpret this result as normal/abnormal . HGB (test code = 14.6 g/dL 12.2-16.4 718-7) HCT (test code = 43.0 % 38.4-49.3 4544-3) MCV (test code = 78.6 fL 81.7-95.6 L 787-2) MCH (test code = 26.7 pg 26.1-32.7 785-6) MCHC (test code = 34.0 g/dL 31.2-35.0 786-4) RDW-SD (test code = 39.4 fL 38.5-51.6 42858-6) RDW-CV (test code = 13.9 % 12.1-15.4 788-0) PLT (test code = See_Comment [Automated 777-3) message] The sy stem which generated this result transmitted reference range : 150 - 328 10*3/ ?L. The reference r red was not used to interpret this result as normal/abnormal . MPV (test code = 10.4 fL 9.8-13.0 97831-8) NRBC/100 WBC (test See_Comment [Automat ed code = 1105485561) message] The system which generated this result transmitted reference range : 0.0 - 10.0 /100 WBCs. The refer ence range was not u sed to interpret th is result as normal/abnormal . NRBC x10^3 (test code <0.01 See_Comment [Auto mated = 3543086145) message] The s ystem which generated this result transmitted reference range : 10*3/?L. The reference range was not used to interpret this result as normal/abnormal . GRAN MAT (NEUT) % 47.8 % (test code = 770-8) IMM GRAN % (test code 0.20 % = 6049841986) LYMPH % (test code = 41.8 % 736-9) MONO % (test code = 9.5 % 5905-5) EOS % (test code = 0.5 % 713-8) BASO % (test code = 0.2 % 706-2) GRAN MAT x10^3(ANC) 4.06 10*3/uL 1.99-6.95 (test code = 2776001177) IMM GRAN x10^3 (test <0.03 0.00-0.06 code = 8894454103) LYMPH x10^3 (test code 3.56 10*3/uL 1.09-3.23 H = 731-0) MONO x10^3 (test code 0.81 10*3/uL 0.36-1.02 = 742-7) EOS x10^3 (test code = 0.04 10*3/uL 0.06-0.53 L 711-2) BASO x10^3 (test code <0.03 0.01-0.09 = 704-7) Lab Interpretation Abnormal (test code = 26927-5) [facility] 04:04:52 Test Item Value Reference Range Interpretation Comments POCT GLU (test code = 4124667819) 560 mg/dL 70-110 HH Lab Interpretation (test code = Abnormal 44407-2) [facility] [id number] 04:06:50 Test Item Value Reference Range Interpretation Comments CHOLESTEROL (test 269 MG/DL <200 H code = 2210) TRIGLYCERIDES (test 237 MG/DL <150 H code = 2232) HDL CHOLESTEROL (test 49 MG/DL >39 code = 2220) CALC LDL CHOL (test 176 MG/DL <100 H NOTE: C ALCULATED LDL code = 2237) IS BASED ON JESSICA-CHAVEZ METHOD WHICHINCLUDES ADJUSTABLE TRIGLYCERIDE:VL DL CHOLESTEROL RAT IO.THIS FACTOR VARIES B Y MEASURED TRIGLY CERIDE AND NON-HDLCHOL ESTEROL CONCENTRATIONS WITH INCREASED CALCU LATED LDL SEENIN HIGH ER TRIGLYCERIDE OR LOWER NON-HDL SPECIME NS. FOR MOREINFORMATION , SEE CLIENT ANNOUNCE MENT AT [email or web address] RISK RATIO LDL/HDL 3.59 RATIO <3.55 H (test code = 2238) COMPREHENSIVE METABOLIC [id number] 04:06:50 Test Item Value Reference Range Interpretation Comments GLUCOSE (test code = 173 MG/DL 70-99 H 2216) BUN (test code = 14 MG/DL 6-20 2207) CREATININE (test 1.09 MG/DL 0.80-1.40 code = 221) eGFR (2020 CKD-EPI) 84 >60 (test code = 30309) ML/MIN/1.73 CALC BUN/CREAT (test 13 RATIO 6-28 code = 2235) SODIUM (test code = 139 MEQ/L 014-910 0233) POTASSIUM (test code 3.6 MEQ/L 3.5-5.4 = 2227) CHLORIDE (test code 92 MEQ/L 95-107 L = 2214) CARBON DIOXIDE (test 34 MEQ/L 19-31 H code = 220) CALCIUM (test code = 10.1 MG/DL 8.5-10.5 2208) PROTEIN, TOTAL (test 7.9 G/DL 6.1-8.3 code = 2228) ALBUMIN (test code = 4.7 G/DL 3.5-5.2 2200) CALC GLOBULIN (test 3.2 G/DL 1.9-3.7 code = 2240) CALC A/G RATIO (test 1.5 RATIO 1.0-2.6 code = 223) BILIRUBIN, TOTAL 0.4 MG/DL See_Comment [Automated message] (test code = 220) The syste m which generated this result transmitted ref erence range: <=1.2. T he reference range was not used to int erpret this result as normal/abnormal . ALKALINE PHOSPHATASE 186 U/L 40-118 H (test code = 2203) AST (test code = 17 U/L 9-50 2217) ALT (test code = 17 U/L 5-50 UNLESS OT HERWISE 2218) INDICATED, ALL TESTING PERFORM [facility], [place] [address] [place], [place] [id number] [place] [address] DIRECTOR: Jimena RODRÍGUEZIA NUMBER [id number] CAP ACCREDITATION N O. [id number] HEMOGLOBIN [id number] 03:47:07 Test Item Value Reference Range Interpretation Comments HEMOGLOBIN A1c (test 9.3 % 4.2-5.6 H AMERIC AN DIABETES code = 66192) ASSOCIATION IDELINES FOR HGB A1C: PREDIABETES/INC REASED RISK . . . . . . . 5.7 -6.4% DIAGNOSIS OF DI ABETES . . . . . . . . . >=6 .5% WITH CONFIRMATION OR APPROPRIATE SYMPTOMS NOTE: ASSAY MAY BE AFFECTED BY HEMOGLOBINOPATH IES (SICKLE CELL ANEMIA, S- C DISEASE, OTHERS) OR LEYDI FICIALLY LOWERED BY DECR EASED RED CELL SURVIVAL ( HEMOLYTIC ANEMIAS, BLOOD LOSS, ETC.). CONSIDER ALTERN ATE TESTING OR LABORATORY C ONSULTATION. HEMOGLOBIN [id number] 00:00:00 Test Item Value Reference Range Interpretation Comments HEMOGLOBIN A1c (test code = 17204) 9.3 % HEMOGLOBIN [id number] 00:00:00 Test Item Value Reference Range Interpretation Comments HEMOGLOBIN A1c (test code = 53929) 9.3 % HEMOGLOBIN [id number] 00:00:00 Test Item Value Reference Range Interpretation Comments HEMOGLOBIN A1c (test code = 66929) 9.3 % LIPID [id number] 00:00:00 Test Item Value Reference Range Interpretation Comments CHOLESTEROL (test code = 2210) 269 MG/DL TRIGLYCERIDES (test code = 2232) 237 MG/DL HDL CHOLESTEROL (test code = 2220) 49 MG/DL CALC LDL CHOL (test code = 2237) 176 MG/DL RISK RATIO LDL/HDL (test code = 3.59 RATIO 2238) LIPID [id number] 00:00:00 Test Item Value Reference Range Interpretation Comments CHOLESTEROL (test code = 2210) 269 MG/DL TRIGLYCERIDES (test code = 2232) 237 MG/DL HDL CHOLESTEROL (test code = 2220) 49 MG/DL CALC LDL CHOL (test code = 2237) 176 MG/DL RISK RATIO LDL/HDL (test code = 3.59 RATIO 2238) COMPREHENSIVE METABOLIC [id number] 00:00:00 Test Item Value Reference Range Interpretation Comments GLUCOSE (test code = 2217) 173 MG/DL BUN (test code = 2208) 14 MG/DL CREATININE (test code = 2214) 1.09 MG/DL eGFR (2020 CKD-EPI) (test code 84 ML/MIN/1.73 = 67368) CALC BUN/CREAT (test code = 13 RATIO 2235) SODIUM (test code = 2231) 139 MEQ/L POTASSIUM (test code = 2228) 3.6 MEQ/L CHLORIDE (test code = 2215) 92 MEQ/L CARBON DIOXIDE (test code = 34 MEQ/L 220) CALCIUM (test code = 2209) 10.1 MG/DL PROTEIN, TOTAL (test code = 7.9 G/DL 2228) ALBUMIN (test code = 2201) 4.7 G/DL CALC GLOBULIN (test code = 3.2 G/DL 2240) CALC A/G RATIO (test code = 1.5 RATIO 2234) BILIRUBIN, TOTAL (test code = 0.4 MG/DL 2206) ALKALINE PHOSPHATASE (test 186 U/L code = 2204) AST (test code = 2218) 17 U/L ALT (test code = 2219) 17 U/L COMPREHENSIVE METABOLIC [id number] 00:00:00 Test Item Value Reference Range Interpretation Comments GLUCOSE (test code = 2217) 173 MG/DL BUN (test code = 2208) 14 MG/DL CREATININE (test code = 2214) 1.09 MG/DL eGFR (2020 CKD-EPI) (test code 84 ML/MIN/1.73 = 71185) CALC BUN/CREAT (test code = 13 RATIO 2235) SODIUM (test code = 2231) 139 MEQ/L POTASSIUM (test code = 2228) 3.6 MEQ/L CHLORIDE (test code = 2215) 92 MEQ/L CARBON DIOXIDE (test code = 34 MEQ/L 6) CALCIUM (test code = 2209) 10.1 MG/DL PROTEIN, TOTAL (test code = 7.9 G/DL 2228) ALBUMIN (test code = 2201) 4.7 G/DL CALC GLOBULIN (test code = 3.2 G/DL 2240) CALC A/G RATIO (test code = 1.5 RATIO 2234) BILIRUBIN, TOTAL (test code = 0.4 MG/DL 2206) ALKALINE PHOSPHATASE (test 186 U/L code = 2204) AST (test code = 2218) 17 U/L ALT (test code = 2219) 17 U/L HEMOGLOBIN [id number] 00:00:00 Test Item Value Reference Range Interpretation Comments HEMOGLOBIN A1c (test code = 12710) 9.3 % HEMOGLOBIN [id number] 00:00:00 Test Item Value Reference Range Interpretation Comments HEMOGLOBIN A1c (test code = 16414) 9.3 % HEMOGLOBIN [id number] 00:00:00 Test Item Value Reference Range Interpretation Comments HEMOGLOBIN A1c (test code = 82323) 9.3 % LIPID [id number] 00:00:00 Test Item Value Reference Range Interpretation Comments CHOLESTEROL (test code = 2210) 269 MG/DL TRIGLYCERIDES (test code = 2232) 237 MG/DL HDL CHOLESTEROL (test code = 2220) 49 MG/DL CALC LDL CHOL (test code = 2237) 176 MG/DL RISK RATIO LDL/HDL (test code = 3.59 RATIO 2238) LIPID [id number] 00:00:00 Test Item Value Reference Range Interpretation Comments CHOLESTEROL (test code = 2210) 269 MG/DL TRIGLYCERIDES (test code = 2232) 237 MG/DL HDL CHOLESTEROL (test code = 2220) 49 MG/DL CALC LDL CHOL (test code = 2237) 176 MG/DL RISK RATIO LDL/HDL (test code = 3.59 RATIO 2238) COMPREHENSIVE METABOLIC [id number] 00:00:00 Test Item Value Reference Range Interpretation Comments GLUCOSE (test code = 2217) 173 MG/DL BUN (test code = 2208) 14 MG/DL CREATININE (test code = 2214) 1.09 MG/DL eGFR (2020 CKD-EPI) (test code 84 ML/MIN/1.73 = 05425) CALC BUN/CREAT (test code = 13 RATIO 2235) SODIUM (test code = 2231) 139 MEQ/L POTASSIUM (test code = 2228) 3.6 MEQ/L CHLORIDE (test code = 2215) 92 MEQ/L CARBON DIOXIDE (test code = 34 MEQ/L 2205) CALCIUM (test code = 2209) 10.1 MG/DL PROTEIN, TOTAL (test code = 7.9 G/DL 2228) ALBUMIN (test code = 2201) 4.7 G/DL CALC GLOBULIN (test code = 3.2 G/DL 2240) CALC A/G RATIO (test code = 1.5 RATIO 2234) BILIRUBIN, TOTAL (test code = 0.4 MG/DL 2206) ALKALINE PHOSPHATASE (test 186 U/L code = 2204) AST (test code = 2218) 17 U/L ALT (test code = 2219) 17 U/L COMPREHENSIVE METABOLIC [id number] 00:00:00 Test Item Value Reference Range Interpretation Comments GLUCOSE (test code = 2217) 173 MG/DL BUN (test code = 2208) 14 MG/DL CREATININE (test code = 2214) 1.09 MG/DL eGFR (2020 CKD-EPI) (test code 84 ML/MIN/1.73 = 37132) CALC BUN/CREAT (test code = 13 RATIO 2235) SODIUM (test code = 2231) 139 MEQ/L POTASSIUM (test code = 2228) 3.6 MEQ/L CHLORIDE (test code = 2215) 92 MEQ/L CARBON DIOXIDE (test code = 34 MEQ/L 2205) CALCIUM (test code = 2209) 10.1 MG/DL PROTEIN, TOTAL (test code = 7.9 G/DL 2228) ALBUMIN (test code = 2201) 4.7 G/DL CALC GLOBULIN (test code = 3.2 G/DL 2239) CALC A/G RATIO (test code = 1.5 RATIO 2233) BILIRUBIN, TOTAL (test code = 0.4 MG/DL 2206) ALKALINE PHOSPHATASE (test 186 U/L code = 2204) AST (test code = 2218) 17 U/L ALT (test code = 2219) 17 U/L HEMOGLOBIN [id number] 00:00:00 Test Item Value Reference Range Interpretation Comments HEMOGLOBIN A1c (test code = 11753) 9.3 % HEMOGLOBIN [id number] 00:00:00 Test Item Value Reference Range Interpretation Comments HEMOGLOBIN A1c (test code = 34450) 9.3 % LIPID [id number] 00:00:00 Test Item Value Reference Range Interpretation Comments CHOLESTEROL (test code = 2210) 269 MG/DL TRIGLYCERIDES (test code = 2232) 237 MG/DL HDL CHOLESTEROL (test code = 2220) 49 MG/DL CALC LDL CHOL (test code = 2237) 176 MG/DL RISK RATIO LDL/HDL (test code = 3.59 RATIO 2238) COMPREHENSIVE METABOLIC [id number] 00:00:00 Test Item Value Reference Range Interpretation Comments GLUCOSE (test code = 2217) 173 MG/DL BUN (test code = 2208) 14 MG/DL CREATININE (test code = 2214) 1.09 MG/DL eGFR (2020 CKD-EPI) (test code 84 ML/MIN/1.73 = 94095) CALC BUN/CREAT (test code = 13 RATIO 2235) SODIUM (test code = 2231) 139 MEQ/L POTASSIUM (test code = 2228) 3.6 MEQ/L CHLORIDE (test code = 2215) 92 MEQ/L CARBON DIOXIDE (test code = 34 MEQ/L 220) CALCIUM (test code = 2209) 10.1 MG/DL PROTEIN, TOTAL (test code = 7.9 G/DL 2228) ALBUMIN (test code = 2201) 4.7 G/DL CALC GLOBULIN (test code = 3.2 G/DL 2239) CALC A/G RATIO (test code = 1.5 RATIO 2233) BILIRUBIN, TOTAL (test code = 0.4 MG/DL 2206) ALKALINE PHOSPHATASE (test 186 U/L code = 2204) AST (test code = 2218) 17 U/L ALT (test code = 2219) 17 U/L HEMOGLOBIN [id number] 00:00:00 Test Item Value Reference Range Interpretation Comments HEMOGLOBIN A1c (test code = 17557) 9.3 % HEMOGLOBIN [id number] 00:00:00 Test Item Value Reference Range Interpretation Comments HEMOGLOBIN A1c (test code = 79644) 9.3 % LIPID [id number] 00:00:00 Test Item Value Reference Range Interpretation Comments CHOLESTEROL (test code = 2210) 269 MG/DL TRIGLYCERIDES (test code = 2232) 237 MG/DL HDL CHOLESTEROL (test code = 2220) 49 MG/DL CALC LDL CHOL (test code = 2237) 176 MG/DL RISK RATIO LDL/HDL (test code = 3.59 RATIO 2238) COMPREHENSIVE METABOLIC [id number] 00:00:00 Test Item Value Reference Range Interpretation Comments GLUCOSE (test code = 2217) 173 MG/DL BUN (test code = 2208) 14 MG/DL CREATININE (test code = 2214) 1.09 MG/DL eGFR (2020 CKD-EPI) (test code 84 ML/MIN/1.73 = 46395) CALC BUN/CREAT (test code = 13 RATIO 2235) SODIUM (test code = 2231) 139 MEQ/L POTASSIUM (test code = 2228) 3.6 MEQ/L CHLORIDE (test code = 2215) 92 MEQ/L CARBON DIOXIDE (test code = 34 MEQ/L 2205) CALCIUM (test code = 2209) 10.1 MG/DL PROTEIN, TOTAL (test code = 7.9 G/DL 2228) ALBUMIN (test code = 2201) 4.7 G/DL CALC GLOBULIN (test code = 3.2 G/DL 0) CALC A/G RATIO (test code = 1.5 RATIO 2234) BILIRUBIN, TOTAL (test code = 0.4 MG/DL 2206) ALKALINE PHOSPHATASE (test 186 U/L code = 2204) AST (test code = 2218) 17 U/L ALT (test code = 2219) 17 U/L POCT URINALYSIS, [id number] 14:39:00 Test Item Value Reference Range Interpretation Comments POCT U SP GRAV (test code = 1.030 mg/dl 1.005-1.025 A 3255) POCT PH U (test code = 3254) 6.0 mg/dl 5-8 POCT U LEUK EST (test code = Negative Negative - Negative 3263) POCT U NIT (test code = 3262) Negative Negative - Negative POCT U PROT (test code = Negative - Negative 3259) POCT U GLU (test code = 3256) Negative Negative - Negative POCT U KETONE (test code = Negative Negative - Negative 3258) POCT U UROBILI (test code = 1.0 mg/dl 0.2-1 3260) POCT U BILI (test code = Negative Negative - Negative 3261) POCT U BLD (test code = 3257) Negative Negative - Negative POCT U COLOR (test code = Yellow 3266) POCT U APPEAR (test code = Clear 3267) Lab Interpretation (test code Abnormal = 81496-1) [facility] [id number] 00:00:00 Test Item Value Reference Range Interpretation Comments GLUCOSE (test code = 2217) 154 MG/DL BUN (test code = 2208) 12 MG/DL CREATININE (test code = 2214) 1.01 MG/DL eGFR AMER. (test code 101 ML/MIN/1.73 = 20741) eGFR NON- AMER. (test 88 ML/MIN/1.73 code = 90907) CALC BUN/CREAT (test code = 12 RATIO 2235) SODIUM (test code = 2231) 143 MEQ/L POTASSIUM (test code = 2228) 3.8 MEQ/L CHLORIDE (test code = 2215) 103 MEQ/L CARBON DIOXIDE (test code = 29 MEQ/L 2206) CALCIUM (test code = 2209) 9.8 MG/DL PROTEIN, TOTAL (test code = 7.4 G/DL 2228) ALBUMIN (test code = 2201) 4.5 G/DL CALC GLOBULIN (test code = 2.9 G/DL 2240) CALC A/G RATIO (test code = 1.6 RATIO 2234) BILIRUBIN, TOTAL (test code = 0.3 MG/DL 2206) ALKALINE PHOSPHATASE (test 155 U/L code = 2204) AST (test code = 2218) 16 U/L ALT (test code = 2219) 14 U/L COMPREHENSIVE METABOLIC [id number] 00:00:00 Test Item Value Reference Range Interpretation Comments GLUCOSE (test code = 2217) 154 MG/DL BUN (test code = 2208) 12 MG/DL CREATININE (test code = 2214) 1.01 MG/DL eGFR AMER. (test code 101 ML/MIN/1.73 = 37983) eGFR NON- AMER. (test 88 ML/MIN/1.73 code = 83429) CALC BUN/CREAT (test code = 12 RATIO 2235) SODIUM (test code = 2231) 143 MEQ/L POTASSIUM (test code = 2228) 3.8 MEQ/L CHLORIDE (test code = 2215) 103 MEQ/L CARBON DIOXIDE (test code = 29 MEQ/L 2205) CALCIUM (test code = 2209) 9.8 MG/DL PROTEIN, TOTAL (test code = 7.4 G/DL 2228) ALBUMIN (test code = 2201) 4.5 G/DL CALC GLOBULIN (test code = 2.9 G/DL 2240) CALC A/G RATIO (test code = 1.6 RATIO 2234) BILIRUBIN, TOTAL (test code = 0.3 MG/DL 2206) ALKALINE PHOSPHATASE (test 155 U/L code = 2204) AST (test code = 2218) 16 U/L ALT (test code = 2219) 14 U/L LIPID [id number] 00:00:00 Test Item Value Reference Range Interpretation Comments CHOLESTEROL (test code = 2210) 250 MG/DL TRIGLYCERIDES (test code = 2232) 156 MG/DL HDL CHOLESTEROL (test code = 2220) 48 MG/DL CALC LDL CHOL (test code = 2237) 172 MG/DL RISK RATIO LDL/HDL (test code = 3.58 RATIO 2238) LIPID [id number] 00:00:00 Test Item Value Reference Range Interpretation Comments CHOLESTEROL (test code = 2210) 250 MG/DL TRIGLYCERIDES (test code = 2232) 156 MG/DL HDL CHOLESTEROL (test code = 2220) 48 MG/DL CALC LDL CHOL (test code = 2237) 172 MG/DL RISK RATIO LDL/HDL (test code = 3.58 RATIO 2238) HEMOGLOBIN [id number] 00:00:00 Test Item Value Reference Range Interpretation Comments HEMOGLOBIN A1c (test code = 80526) 7.6 % HEMOGLOBIN [id number] 00:00:00 Test Item Value Reference Range Interpretation Comments HEMOGLOBIN A1c (test code = 70609) 7.6 % HEMOGLOBIN [id number] 00:00:00 Test Item Value Reference Range Interpretation Comments HEMOGLOBIN A1c (test code = 28324) 7.6 % COMPREHENSIVE METABOLIC [id number] 00:00:00 Test Item Value Reference Range Interpretation Comments GLUCOSE (test code = 2217) 154 MG/DL BUN (test code = 2208) 12 MG/DL CREATININE (test code = 2214) 1.01 MG/DL eGFR AMER. (test code 101 ML/MIN/1.73 = 57488) eGFR NON- AMER. (test 88 ML/MIN/1.73 code = 24998) CALC BUN/CREAT (test code = 12 RATIO 2235) SODIUM (test code = 2231) 143 MEQ/L POTASSIUM (test code = 2228) 3.8 MEQ/L CHLORIDE (test code = 2215) 103 MEQ/L CARBON DIOXIDE (test code = 29 MEQ/L 2205) CALCIUM (test code = 2209) 9.8 MG/DL PROTEIN, TOTAL (test code = 7.4 G/DL 2228) ALBUMIN (test code = 2201) 4.5 G/DL CALC GLOBULIN (test code = 2.9 G/DL 2239) CALC A/G RATIO (test code = 1.6 RATIO 2234) BILIRUBIN, TOTAL (test code = 0.3 MG/DL 2206) ALKALINE PHOSPHATASE (test 155 U/L code = 2204) AST (test code = 2218) 16 U/L ALT (test code = 2219) 14 U/L COMPREHENSIVE METABOLIC [id number] 00:00:00 Test Item Value Reference Range Interpretation Comments GLUCOSE (test code = 2217) 154 MG/DL BUN (test code = 2208) 12 MG/DL CREATININE (test code = 2214) 1.01 MG/DL eGFR AMER. (test code 101 ML/MIN/1.73 = 83191) eGFR NON- AMER. (test 88 ML/MIN/1.73 code = 00207) CALC BUN/CREAT (test code = 12 RATIO 2235) SODIUM (test code = 2231) 143 MEQ/L POTASSIUM (test code = 2228) 3.8 MEQ/L CHLORIDE (test code = 2215) 103 MEQ/L CARBON DIOXIDE (test code = 29 MEQ/L 2205) CALCIUM (test code = 2209) 9.8 MG/DL PROTEIN, TOTAL (test code = 7.4 G/DL 2228) ALBUMIN (test code = 2201) 4.5 G/DL CALC GLOBULIN (test code = 2.9 G/DL 224) CALC A/G RATIO (test code = 1.6 RATIO 2234) BILIRUBIN, TOTAL (test code = 0.3 MG/DL 2206) ALKALINE PHOSPHATASE (test 155 U/L code = 2204) AST (test code = 2218) 16 U/L ALT (test code = 2219) 14 U/L LIPID [id number] 00:00:00 Test Item Value Reference Range Interpretation Comments CHOLESTEROL (test code = 2210) 250 MG/DL TRIGLYCERIDES (test code = 2232) 156 MG/DL HDL CHOLESTEROL (test code = 2220) 48 MG/DL CALC LDL CHOL (test code = 2237) 172 MG/DL RISK RATIO LDL/HDL (test code = 3.58 RATIO 2238) LIPID [id number] 00:00:00 Test Item Value Reference Range Interpretation Comments CHOLESTEROL (test code = 2210) 250 MG/DL TRIGLYCERIDES (test code = 2232) 156 MG/DL HDL CHOLESTEROL (test code = 2220) 48 MG/DL CALC LDL CHOL (test code = 2237) 172 MG/DL RISK RATIO LDL/HDL (test code = 3.58 RATIO 2238) HEMOGLOBIN [id number] 00:00:00 Test Item Value Reference Range Interpretation Comments HEMOGLOBIN A1c (test code = 15789) 7.6 % HEMOGLOBIN [id number] 00:00:00 Test Item Value Reference Range Interpretation Comments HEMOGLOBIN A1c (test code = 75168) 7.6 % HEMOGLOBIN [id number] 00:00:00 Test Item Value Reference Range Interpretation Comments HEMOGLOBIN A1c (test code = 32433) 7.6 % COMPREHENSIVE METABOLIC [id number] 00:00:00 Test Item Value Reference Range Interpretation Comments GLUCOSE (test code = 2217) 154 MG/DL BUN (test code = 2208) 12 MG/DL CREATININE (test code = 2214) 1.01 MG/DL eGFR AMER. (test code 101 ML/MIN/1.73 = 15816) eGFR NON- AMER. (test 88 ML/MIN/1.73 code = 77523) CALC BUN/CREAT (test code = 12 RATIO 2235) SODIUM (test code = 2231) 143 MEQ/L POTASSIUM (test code = 2228) 3.8 MEQ/L CHLORIDE (test code = 2215) 103 MEQ/L CARBON DIOXIDE (test code = 29 MEQ/L 2205) CALCIUM (test code = 2209) 9.8 MG/DL PROTEIN, TOTAL (test code = 7.4 G/DL 2228) ALBUMIN (test code = 2201) 4.5 G/DL CALC GLOBULIN (test code = 2.9 G/DL 2240) CALC A/G RATIO (test code = 1.6 RATIO 4) BILIRUBIN, TOTAL (test code = 0.3 MG/DL 2206) ALKALINE PHOSPHATASE (test 155 U/L code = 2204) AST (test code = 2218) 16 U/L ALT (test code = 2219) 14 U/L LIPID [id number] 00:00:00 Test Item Value Reference Range Interpretation Comments CHOLESTEROL (test code = 2210) 250 MG/DL TRIGLYCERIDES (test code = 2232) 156 MG/DL HDL CHOLESTEROL (test code = 2220) 48 MG/DL CALC LDL CHOL (test code = 2237) 172 MG/DL RISK RATIO LDL/HDL (test code = 3.58 RATIO 2238) HEMOGLOBIN [id number] 00:00:00 Test Item Value Reference Range Interpretation Comments HEMOGLOBIN A1c (test code = 59474) 7.6 % HEMOGLOBIN [id number] 00:00:00 Test Item Value Reference Range Interpretation Comments HEMOGLOBIN A1c (test code = 50735) 7.6 % COMPREHENSIVE METABOLIC [id number] 00:00:00 Test Item Value Reference Range Interpretation Comments GLUCOSE (test code = 2217) 154 MG/DL BUN (test code = 2208) 12 MG/DL CREATININE (test code = 2214) 1.01 MG/DL eGFR AMER. (test code 101 ML/MIN/1.73 = 49850) eGFR NON- AMER. (test 88 ML/MIN/1.73 code = 85688) CALC BUN/CREAT (test code = 12 RATIO 2235) SODIUM (test code = 2231) 143 MEQ/L POTASSIUM (test code = 2228) 3.8 MEQ/L CHLORIDE (test code = 2215) 103 MEQ/L CARBON DIOXIDE (test code = 29 MEQ/L 2205) CALCIUM (test code = 2209) 9.8 MG/DL PROTEIN, TOTAL (test code = 7.4 G/DL 2228) ALBUMIN (test code = 2201) 4.5 G/DL CALC GLOBULIN (test code = 2.9 G/DL 2240) CALC A/G RATIO (test code = 1.6 RATIO 2234) BILIRUBIN, TOTAL (test code = 0.3 MG/DL 2206) ALKALINE PHOSPHATASE (test 155 U/L code = 2204) AST (test code = 2218) 16 U/L ALT (test code = 2219) 14 U/L LIPID [id number] 00:00:00 Test Item Value Reference Range Interpretation Comments CHOLESTEROL (test code = 2210) 250 MG/DL TRIGLYCERIDES (test code = 2232) 156 MG/DL HDL CHOLESTEROL (test code = 2220) 48 MG/DL CALC LDL CHOL (test code = 2237) 172 MG/DL RISK RATIO LDL/HDL (test code = 3.58 RATIO 2238) HEMOGLOBIN [id number] 00:00:00 Test Item Value Reference Range Interpretation Comments HEMOGLOBIN A1c (test code = 06342) 7.6 % HEMOGLOBIN [id number] 00:00:00 Test Item Value Reference Range Interpretation Comments HEMOGLOBIN A1c (test code = 46207) 7.6 % FSH + LH [id number] 00:00:00 Test Item Value Reference Range Interpretation Comments FOLLICLE STIM HORMONE (test code = 3.5 IU/L 2700) LUTEINIZING HORMONE (test code = 4.8 IU/L 2776) FSH + LH [id number] 00:00:00 Test Item Value Reference Range Interpretation Comments FOLLICLE STIM HORMONE (test code = 3.5 IU/L 2700) LUTEINIZING HORMONE (test code = 4.8 IU/L 2776) PSA, [id number] 00:00:00 Test Item Value Reference Range Interpretation Comments PSA, TOTAL (test code = 2606) 0.49 NG/ML PSA, [id number] 00:00:00 Test Item Value Reference Range Interpretation Comments PSA, TOTAL (test code = 2606) 0.49 NG/ML PSA, [id number] 00:00:00 Test Item Value Reference Range Interpretation Comments PSA, TOTAL (test code = 2606) 0.49 NG/ML [id number] 00:00:00 Test Item Value Reference Range Interpretation Comments TESTOSTERONE (test code = 2830) 380 NG/DL [id number] 00:00:00 Test Item Value Reference Range Interpretation Comments TESTOSTERONE (test code = 2830) 380 NG/DL FSH + LH [id number] 00:00:00 Test Item Value Reference Range Interpretation Comments FOLLICLE STIM HORMONE (test code = 3.5 IU/L 2700) LUTEINIZING HORMONE (test code = 4.8 IU/L 2776) FSH + LH [id number] 00:00:00 Test Item Value Reference Range Interpretation Comments FOLLICLE STIM HORMONE (test code = 3.5 IU/L 2700) LUTEINIZING HORMONE (test code = 4.8 IU/L 2776) PSA, [id number] 00:00:00 Test Item Value Reference Range Interpretation Comments PSA, TOTAL (test code = 2606) 0.49 NG/ML PSA, [id number] 00:00:00 Test Item Value Reference Range Interpretation Comments PSA, TOTAL (test code = 2606) 0.49 NG/ML PSA, [id number] 00:00:00 Test Item Value Reference Range Interpretation Comments PSA, TOTAL (test code = 2606) 0.49 NG/ML [id number] 00:00:00 Test Item Value Reference Range Interpretation Comments TESTOSTERONE (test code = 2830) 380 NG/DL [id number] 00:00:00 Test Item Value Reference Range Interpretation Comments TESTOSTERONE (test code = 2830) 380 NG/DL FSH + LH [id number] 00:00:00 Test Item Value Reference Range Interpretation Comments FOLLICLE STIM HORMONE (test code = 3.5 IU/L 2700) LUTEINIZING HORMONE (test code = 4.8 IU/L 2776) PSA, [id number] 00:00:00 Test Item Value Reference Range Interpretation Comments PSA, TOTAL (test code = 2606) 0.49 NG/ML PSA, [id number] 00:00:00 Test Item Value Reference Range Interpretation Comments PSA, TOTAL (test code = 2606) 0.49 NG/ML [id number] 00:00:00 Test Item Value Reference Range Interpretation Comments TESTOSTERONE (test code = 2830) 380 NG/DL FSH + LH [id number] 00:00:00 Test Item Value Reference Range Interpretation Comments FOLLICLE STIM HORMONE (test code = 3.5 IU/L 2700) LUTEINIZING HORMONE (test code = 4.8 IU/L 2776) PSA, [id number] 00:00:00 Test Item Value Reference Range Interpretation Comments PSA, TOTAL (test code = 2606) 0.49 NG/ML PSA, [id number] 00:00:00 Test Item Value Reference Range Interpretation Comments PSA, TOTAL (test code = 2606) 0.49 NG/ML [id number] 00:00:00 Test Item Value Reference Range Interpretation Comments TESTOSTERONE (test code = 2830) 380 NG/DL [id number] 00:00:00 Test Item Value Reference Range Interpretation Comments TESTOSTERONE (test code = 2830) 139 NG/DL [id number] 00:00:00 Test Item Value Reference Range Interpretation Comments TESTOSTERONE (test code = 2830) 139 NG/DL CBC W/AUTO [id number] 00:00:00 Test Item Value Reference Range Interpretation Comments WBC (test code = 1001) 7.5 K/UL RBC (test code = 1002) 4.78 M/UL HEMOGLOBIN (test code = 1003) 12.8 G/DL HEMATOCRIT (test code = 1004) 37.8 % MCV (test code = 1005) 79.1 fL MCH (test code = 1006) 26.8 PG MCHC (test code = 1007) 33.9 G/DL RDW (test code = 1038) 14.6 % NEUTROPHILS (test code = 1008) 44.6 % LYMPHOCYTES (test code = 1010) 46.5 % MONOCYTES (test code = 1011) 7.0 % EOSINOPHILS (test code = 1012) 1.1 % BASOPHILS (test code = 1013) 0.3 % IMMATURE GRANULOCYTES (test 0.5 % code = 1036) NUCLEATED RBCS (test code = 0.0 /100WBC'S 1065) PLATELET COUNT (test code = 277 K/UL 1015) ABSOLUTE NEUTROPHILS (test code 3.35 K/UL = 1066) ABSOLUTE LYMPHOCYTES (test code 3.50 K/UL = 1067) ABSOLUTE MONOCYTES (test code = 0.53 K/UL 1068) ABSOLUTE EOSINOPHILS (test code 0.08 K/UL = 1040) ABSOLUTE BASOPHILS (test code = 0.02 K/UL 1069) ABS IMMATURE GRANULOCYTES (test 0.04 K/UL code = 1020) ABS NUCLEATED RBCS (test code = 0.00 K/UL 90436) CBC W/AUTO [id number] 00:00:00 Test Item Value Reference Range Interpretation Comments WBC (test code = 1001) 7.5 K/UL RBC (test code = 1002) 4.78 M/UL HEMOGLOBIN (test code = 1003) 12.8 G/DL HEMATOCRIT (test code = 1004) 37.8 % MCV (test code = 1005) 79.1 fL MCH (test code = 1006) 26.8 PG MCHC (test code = 1007) 33.9 G/DL RDW (test code = 1038) 14.6 % NEUTROPHILS (test code = 1008) 44.6 % LYMPHOCYTES (test code = 1010) 46.5 % MONOCYTES (test code = 1011) 7.0 % EOSINOPHILS (test code = 1012) 1.1 % BASOPHILS (test code = 1013) 0.3 % IMMATURE GRANULOCYTES (test 0.5 % code = 1036) NUCLEATED RBCS (test code = 0.0 /100WBC'S 1065) PLATELET COUNT (test code = 277 K/UL 1015) ABSOLUTE NEUTROPHILS (test code 3.35 K/UL = 1066) ABSOLUTE LYMPHOCYTES (test code 3.50 K/UL = 1067) ABSOLUTE MONOCYTES (test code = 0.53 K/UL 1068) ABSOLUTE EOSINOPHILS (test code 0.08 K/UL = 1040) ABSOLUTE BASOPHILS (test code = 0.02 K/UL 1069) ABS IMMATURE GRANULOCYTES (test 0.04 K/UL code = 1020) ABS NUCLEATED RBCS (test code = 0.00 K/UL 12113) CBC W/AUTO [id number] 00:00:00 Test Item Value Reference Range Interpretation Comments WBC (test code = 1001) 7.5 K/UL RBC (test code = 1002) 4.78 M/UL HEMOGLOBIN (test code = 1003) 12.8 G/DL HEMATOCRIT (test code = 1004) 37.8 % MCV (test code = 1005) 79.1 fL MCH (test code = 1006) 26.8 PG MCHC (test code = 1007) 33.9 G/DL RDW (test code = 1038) 14.6 % NEUTROPHILS (test code = 1008) 44.6 % LYMPHOCYTES (test code = 1010) 46.5 % MONOCYTES (test code = 1011) 7.0 % EOSINOPHILS (test code = 1012) 1.1 % BASOPHILS (test code = 1013) 0.3 % IMMATURE GRANULOCYTES (test 0.5 % code = 1036) NUCLEATED RBCS (test code = 0.0 /100WBC'S 1065) PLATELET COUNT (test code = 277 K/UL 1015) ABSOLUTE NEUTROPHILS (test code 3.35 K/UL = 1066) ABSOLUTE LYMPHOCYTES (test code 3.50 K/UL = 1067) ABSOLUTE MONOCYTES (test code = 0.53 K/UL 1068) ABSOLUTE EOSINOPHILS (test code 0.08 K/UL = 1040) ABSOLUTE BASOPHILS (test code = 0.02 K/UL 1069) ABS IMMATURE GRANULOCYTES (test 0.04 K/UL code = 1020) ABS NUCLEATED RBCS (test code = 0.00 K/UL 92098) [id number] 00:00:00 Test Item Value Reference Range Interpretation Comments TSH, THIRD GENERATION (test code 1.640 UIU/ML = 2821) [id number] 00:00:00 Test Item Value Reference Range Interpretation Comments TSH, THIRD GENERATION (test code 1.640 UIU/ML = 2821) [id number] 00:00:00 Test Item Value Reference Range Interpretation Comments TSH, THIRD GENERATION (test code 1.640 UIU/ML = 2821) [id number] 00:00:00 Test Item Value Reference Range Interpretation Comments PROLACTIN (test code = 2800) 20.1 NG/ML [id number] 00:00:00 Test Item Value Reference Range Interpretation Comments PROLACTIN (test code = 2800) 20.1 NG/ML [id number] 00:00:00 Test Item Value Reference Range Interpretation Comments TESTOSTERONE (test code = 2830) 139 NG/DL [id number] 00:00:00 Test Item Value Reference Range Interpretation Comments TESTOSTERONE (test code = 2830) 139 NG/DL CBC W/AUTO [id number] 00:00:00 Test Item Value Reference Range Interpretation Comments WBC (test code = 1001) 7.5 K/UL RBC (test code = 1002) 4.78 M/UL HEMOGLOBIN (test code = 1003) 12.8 G/DL HEMATOCRIT (test code = 1004) 37.8 % MCV (test code = 1005) 79.1 fL MCH (test code = 1006) 26.8 PG MCHC (test code = 1007) 33.9 G/DL RDW (test code = 1038) 14.6 % NEUTROPHILS (test code = 1008) 44.6 % LYMPHOCYTES (test code = 1010) 46.5 % MONOCYTES (test code = 1011) 7.0 % EOSINOPHILS (test code = 1012) 1.1 % BASOPHILS (test code = 1013) 0.3 % IMMATURE GRANULOCYTES (test 0.5 % code = 1036) NUCLEATED RBCS (test code = 0.0 /100WBC'S 1065) PLATELET COUNT (test code = 277 K/UL 1015) ABSOLUTE NEUTROPHILS (test code 3.35 K/UL = 1066) ABSOLUTE LYMPHOCYTES (test code 3.50 K/UL = 1067) ABSOLUTE MONOCYTES (test code = 0.53 K/UL 1068) ABSOLUTE EOSINOPHILS (test code 0.08 K/UL = 1040) ABSOLUTE BASOPHILS (test code = 0.02 K/UL 1069) ABS IMMATURE GRANULOCYTES (test 0.04 K/UL code = 1020) ABS NUCLEATED RBCS (test code = 0.00 K/UL 85119) CBC W/AUTO [id number] 00:00:00 Test Item Value Reference Range Interpretation Comments WBC (test code = 1001) 7.5 K/UL RBC (test code = 1002) 4.78 M/UL HEMOGLOBIN (test code = 1003) 12.8 G/DL HEMATOCRIT (test code = 1004) 37.8 % MCV (test code = 1005) 79.1 fL MCH (test code = 1006) 26.8 PG MCHC (test code = 1007) 33.9 G/DL RDW (test code = 1038) 14.6 % NEUTROPHILS (test code = 1008) 44.6 % LYMPHOCYTES (test code = 1010) 46.5 % MONOCYTES (test code = 1011) 7.0 % EOSINOPHILS (test code = 1012) 1.1 % BASOPHILS (test code = 1013) 0.3 % IMMATURE GRANULOCYTES (test 0.5 % code = 1036) NUCLEATED RBCS (test code = 0.0 /100WBC'S 1065) PLATELET COUNT (test code = 277 K/UL 1015) ABSOLUTE NEUTROPHILS (test code 3.35 K/UL = 1066) ABSOLUTE LYMPHOCYTES (test code 3.50 K/UL = 1067) ABSOLUTE MONOCYTES (test code = 0.53 K/UL 1068) ABSOLUTE EOSINOPHILS (test code 0.08 K/UL = 1040) ABSOLUTE BASOPHILS (test code = 0.02 K/UL 1069) ABS IMMATURE GRANULOCYTES (test 0.04 K/UL code = 1020) ABS NUCLEATED RBCS (test code = 0.00 K/UL 27202) CBC W/AUTO [id number] 00:00:00 Test Item Value Reference Range Interpretation Comments WBC (test code = 1001) 7.5 K/UL RBC (test code = 1002) 4.78 M/UL HEMOGLOBIN (test code = 1003) 12.8 G/DL HEMATOCRIT (test code = 1004) 37.8 % MCV (test code = 1005) 79.1 fL MCH (test code = 1006) 26.8 PG MCHC (test code = 1007) 33.9 G/DL RDW (test code = 1038) 14.6 % NEUTROPHILS (test code = 1008) 44.6 % LYMPHOCYTES (test code = 1010) 46.5 % MONOCYTES (test code = 1011) 7.0 % EOSINOPHILS (test code = 1012) 1.1 % BASOPHILS (test code = 1013) 0.3 % IMMATURE GRANULOCYTES (test 0.5 % code = 1036) NUCLEATED RBCS (test code = 0.0 /100WBC'S 1065) PLATELET COUNT (test code = 277 K/UL 1015) ABSOLUTE NEUTROPHILS (test code 3.35 K/UL = 1066) ABSOLUTE LYMPHOCYTES (test code 3.50 K/UL = 1067) ABSOLUTE MONOCYTES (test code = 0.53 K/UL 1068) ABSOLUTE EOSINOPHILS (test code 0.08 K/UL = 1040) ABSOLUTE BASOPHILS (test code = 0.02 K/UL 1069) ABS IMMATURE GRANULOCYTES (test 0.04 K/UL code = 1020) ABS NUCLEATED RBCS (test code = 0.00 K/UL 90278) [id number] 00:00:00 Test Item Value Reference Range Interpretation Comments TSH, THIRD GENERATION (test code 1.640 UIU/ML = 2821) [id number] 00:00:00 Test Item Value Reference Range Interpretation Comments TSH, THIRD GENERATION (test code 1.640 UIU/ML = 2821) [id number] 00:00:00 Test Item Value Reference Range Interpretation Comments TSH, THIRD GENERATION (test code 1.640 UIU/ML = 2821) [id number] 00:00:00 Test Item Value Reference Range Interpretation Comments PROLACTIN (test code = 2800) 20.1 NG/ML [id number] 00:00:00 Test Item Value Reference Range Interpretation Comments PROLACTIN (test code = 2800) 20.1 NG/ML [id number] 00:00:00 Test Item Value Reference Range Interpretation Comments TESTOSTERONE (test code = 2830) 139 NG/DL CBC W/AUTO [id number] 00:00:00 Test Item Value Reference Range Interpretation Comments WBC (test code = 1001) 7.5 K/UL RBC (test code = 1002) 4.78 M/UL HEMOGLOBIN (test code = 1003) 12.8 G/DL HEMATOCRIT (test code = 1004) 37.8 % MCV (test code = 1005) 79.1 fL MCH (test code = 1006) 26.8 PG MCHC (test code = 1007) 33.9 G/DL RDW (test code = 1038) 14.6 % NEUTROPHILS (test code = 1008) 44.6 % LYMPHOCYTES (test code = 1010) 46.5 % MONOCYTES (test code = 1011) 7.0 % EOSINOPHILS (test code = 1012) 1.1 % BASOPHILS (test code = 1013) 0.3 % IMMATURE GRANULOCYTES (test 0.5 % code = 1036) NUCLEATED RBCS (test code = 0.0 /100WBC'S 1065) PLATELET COUNT (test code = 277 K/UL 1015) ABSOLUTE NEUTROPHILS (test code 3.35 K/UL = 1066) ABSOLUTE LYMPHOCYTES (test code 3.50 K/UL = 1067) ABSOLUTE MONOCYTES (test code = 0.53 K/UL 1068) ABSOLUTE EOSINOPHILS (test code 0.08 K/UL = 1040) ABSOLUTE BASOPHILS (test code = 0.02 K/UL 1069) ABS IMMATURE GRANULOCYTES (test 0.04 K/UL code = 1020) ABS NUCLEATED RBCS (test code = 0.00 K/UL 17695) CBC W/AUTO [id number] 00:00:00 Test Item Value Reference Range Interpretation Comments WBC (test code = 1001) 7.5 K/UL RBC (test code = 1002) 4.78 M/UL HEMOGLOBIN (test code = 1003) 12.8 G/DL HEMATOCRIT (test code = 1004) 37.8 % MCV (test code = 1005) 79.1 fL MCH (test code = 1006) 26.8 PG MCHC (test code = 1007) 33.9 G/DL RDW (test code = 1038) 14.6 % NEUTROPHILS (test code = 1008) 44.6 % LYMPHOCYTES (test code = 1010) 46.5 % MONOCYTES (test code = 1011) 7.0 % EOSINOPHILS (test code = 1012) 1.1 % BASOPHILS (test code = 1013) 0.3 % IMMATURE GRANULOCYTES (test 0.5 % code = 1036) NUCLEATED RBCS (test code = 0.0 /100WBC'S 1065) PLATELET COUNT (test code = 277 K/UL 1015) ABSOLUTE NEUTROPHILS (test code 3.35 K/UL = 1066) ABSOLUTE LYMPHOCYTES (test code 3.50 K/UL = 1067) ABSOLUTE MONOCYTES (test code = 0.53 K/UL 1068) ABSOLUTE EOSINOPHILS (test code 0.08 K/UL = 1040) ABSOLUTE BASOPHILS (test code = 0.02 K/UL 1069) ABS IMMATURE GRANULOCYTES (test 0.04 K/UL code = 1020) ABS NUCLEATED RBCS (test code = 0.00 K/UL 61371) [id number] 00:00:00 Test Item Value Reference Range Interpretation Comments TSH, THIRD GENERATION (test code 1.640 UIU/ML = 2821) [id number] 00:00:00 Test Item Value Reference Range Interpretation Comments TSH, THIRD GENERATION (test code 1.640 UIU/ML = 2821) [id number] 00:00:00 Test Item Value Reference Range Interpretation Comments PROLACTIN (test code = 2800) 20.1 NG/ML [id number] 00:00:00 Test Item Value Reference Range Interpretation Comments TESTOSTERONE (test code = 2830) 139 NG/DL CBC W/AUTO [id number] 00:00:00 Test Item Value Reference Range Interpretation Comments WBC (test code = 1001) 7.5 K/UL RBC (test code = 1002) 4.78 M/UL HEMOGLOBIN (test code = 1003) 12.8 G/DL HEMATOCRIT (test code = 1004) 37.8 % MCV (test code = 1005) 79.1 fL MCH (test code = 1006) 26.8 PG MCHC (test code = 1007) 33.9 G/DL RDW (test code = 1038) 14.6 % NEUTROPHILS (test code = 1008) 44.6 % LYMPHOCYTES (test code = 1010) 46.5 % MONOCYTES (test code = 1011) 7.0 % EOSINOPHILS (test code = 1012) 1.1 % BASOPHILS (test code = 1013) 0.3 % IMMATURE GRANULOCYTES (test 0.5 % code = 1036) NUCLEATED RBCS (test code = 0.0 /100WBC'S 1065) PLATELET COUNT (test code = 277 K/UL 1015) ABSOLUTE NEUTROPHILS (test code 3.35 K/UL = 1066) ABSOLUTE LYMPHOCYTES (test code 3.50 K/UL = 1067) ABSOLUTE MONOCYTES (test code = 0.53 K/UL 1068) ABSOLUTE EOSINOPHILS (test code 0.08 K/UL = 1040) ABSOLUTE BASOPHILS (test code = 0.02 K/UL 1069) ABS IMMATURE GRANULOCYTES (test 0.04 K/UL code = 1020) ABS NUCLEATED RBCS (test code = 0.00 K/UL 39670) CBC W/AUTO [id number] 00:00:00 Test Item Value Reference Range Interpretation Comments WBC (test code = 1001) 7.5 K/UL RBC (test code = 1002) 4.78 M/UL HEMOGLOBIN (test code = 1003) 12.8 G/DL HEMATOCRIT (test code = 1004) 37.8 % MCV (test code = 1005) 79.1 fL MCH (test code = 1006) 26.8 PG MCHC (test code = 1007) 33.9 G/DL RDW (test code = 1038) 14.6 % NEUTROPHILS (test code = 1008) 44.6 % LYMPHOCYTES (test code = 1010) 46.5 % MONOCYTES (test code = 1011) 7.0 % EOSINOPHILS (test code = 1012) 1.1 % BASOPHILS (test code = 1013) 0.3 % IMMATURE GRANULOCYTES (test 0.5 % code = 1036) NUCLEATED RBCS (test code = 0.0 /100WBC'S 1065) PLATELET COUNT (test code = 277 K/UL 1015) ABSOLUTE NEUTROPHILS (test code 3.35 K/UL = 1066) ABSOLUTE LYMPHOCYTES (test code 3.50 K/UL = 1067) ABSOLUTE MONOCYTES (test code = 0.53 K/UL 1068) ABSOLUTE EOSINOPHILS (test code 0.08 K/UL = 1040) ABSOLUTE BASOPHILS (test code = 0.02 K/UL 1069) ABS IMMATURE GRANULOCYTES (test 0.04 K/UL code = 1020) ABS NUCLEATED RBCS (test code = 0.00 K/UL 27488) [id number] 00:00:00 Test Item Value Reference Range Interpretation Comments TSH, THIRD GENERATION (test code 1.640 UIU/ML = 2821) [id number] 00:00:00 Test Item Value Reference Range Interpretation Comments TSH, THIRD GENERATION (test code 1.640 UIU/ML = 2821) [id number] 00:00:00 Test Item Value Reference Range Interpretation Comments PROLACTIN (test code = 2800) 20.1 NG/ML GC, AMPLIFIED, [id number] 00:00:00 Test Item Value Reference Range Interpretation Comments GONORRHEA, NAAT (test code = 90150) NEGATIVE GC, AMPLIFIED, [id number] 00:00:00 Test Item Value Reference Range Interpretation Comments GONORRHEA, NAAT (test code = 60503) NEGATIVE GC, AMPLIFIED, [id number] 00:00:00 Test Item Value Reference Range Interpretation Comments GONORRHEA, NAAT (test code = 86987) NEGATIVE GC, AMPLIFIED, [id number] 00:00:00 Test Item Value Reference Range Interpretation Comments GONORRHEA, NAAT (test code = 66415) NEGATIVE GC, AMPLIFIED, [id number] 00:00:00 Test Item Value Reference Range Interpretation Comments GONORRHEA, NAAT (test code = 68560) NEGATIVE GC, AMPLIFIED, [id number] 00:00:00 Test Item Value Reference Range Interpretation Comments GONORRHEA, NAAT (test code = 46927) NEGATIVE HEMOGLOBIN [id number] 00:00:00 Test Item Value Reference Range Interpretation Comments HEMOGLOBIN A1c (test code = 74934) 6.2 % HEMOGLOBIN [id number] 00:00:00 Test Item Value Reference Range Interpretation Comments HEMOGLOBIN A1c (test code = 13282) 6.2 % HEMOGLOBIN [id number] 00:00:00 Test Item Value Reference Range Interpretation Comments HEMOGLOBIN A1c (test code = 01400) 6.2 % HEMOGLOBIN [id number] 00:00:00 Test Item Value Reference Range Interpretation Comments HEMOGLOBIN A1c (test code = 49652) 6.2 % HEMOGLOBIN [id number] 00:00:00 Test Item Value Reference Range Interpretation Comments HEMOGLOBIN A1c (test code = 40433) 6.2 % HEMOGLOBIN [id number] 00:00:00 Test Item Value Reference Range Interpretation Comments HEMOGLOBIN A1c (test code = 27537) 6.2 % HEMOGLOBIN [id number] 00:00:00 Test Item Value Reference Range Interpretation Comments HEMOGLOBIN A1c (test code = 19204) 6.2 % HEMOGLOBIN [id number] 00:00:00 Test Item Value Reference Range Interpretation Comments HEMOGLOBIN A1c (test code = 37348) 6.2 % HEMOGLOBIN [id number] 00:00:00 Test Item Value Reference Range Interpretation Comments HEMOGLOBIN A1c (test code = 10712) 6.2 % HEMOGLOBIN [id number] 00:00:00 Test Item Value Reference Range Interpretation Comments HEMOGLOBIN A1c (test code = 87940) 6.2 % CULTURE, URINE [ADDED]2020-12-01 00:00:00 Test Item Value Reference Range Interpretation Comments CULTURE, URINE (test SPECIMEN NUMBER: code = 84923) [id number] CULTURE, URINE [ADDED]2020-12-01 00:00:00 Test Item Value Reference Range Interpretation Comments CULTURE, URINE (test SPECIMEN NUMBER: code = 90697) [id number] CULTURE, URINE [ADDED]2020-12-01 00:00:00 Test Item Value Reference Range Interpretation Comments CULTURE, URINE (test SPECIMEN NUMBER: code = 79743) [id number] CULTURE, URINE [ADDED]2020-12-01 00:00:00 Test Item Value Reference Range Interpretation Comments CULTURE, URINE (test SPECIMEN NUMBER: code = 36427) [id number] CULTURE, URINE [ADDED]2020-12-01 00:00:00 Test Item Value Reference Range Interpretation Comments CULTURE, URINE (test SPECIMEN NUMBER: code = 88614) [id number] CULTURE, URINE [ADDED]2020-12-01 00:00:00 Test Item Value Reference Range Interpretation Comments CULTURE, URINE (test SPECIMEN NUMBER: code = 71461) [id number] GC AND CHLAMYDIA, AMPLIFIED, [id number] 00:00:00 Test Item Value Reference Range Interpretation Comments GONORRHEA, NAAT (test code = 21890) POSITIVE CHLAMYDIA, NAAT (test code = 21166) NEGATIVE GC AND CHLAMYDIA, AMPLIFIED, [id number] 00:00:00 Test Item Value Reference Range Interpretation Comments GONORRHEA, NAAT (test code = 12235) POSITIVE CHLAMYDIA, NAAT (test code = 33147) NEGATIVE HIV AB/AG COMBO RFLX [id number] 00:00:00 Test Item Value Reference Range Interpretation Comments HIV 1/2 4TH GEN, RFLX CONF (test NON-REACTIVE code = 3514) HIV AB/AG COMBO RFLX [id number] 00:00:00 Test Item Value Reference Range Interpretation Comments HIV 1/2 4TH GEN, RFLX CONF (test NON-REACTIVE code = 3514) RPR REFLEX TO [id number] 00:00:00 Test Item Value Reference Range Interpretation Comments RPR (test code = 60703) NON-REACTIVE RPR TITER (test code = 3500) NOT INDIC. TITER RPR REFLEX TO [id number] 00:00:00 Test Item Value Reference Range Interpretation Comments RPR (test code = 88178) NON-REACTIVE RPR TITER (test code = 3500) NOT INDIC. TITER HEPATITIS PROFILE (A,B,C)2020-11-30 00:00:00 Test Item Value Reference Range Interpretation Comments HEPATITIS A TOTAL AB (test code NON-REACTIVE = 2725) HEPATITIS B SURF AG (test code = NON-REACTIVE 2739) HEP B CORE TOTAL AB (test code = NON-REACTIVE 2729) HEPATITIS B SURFACE AB (test NON-REACTIVE code = 2737) HEPATITIS C ANTIBODY (test code NON-REACTIVE = 4675) INTERPRETATION HEPATITIS A: (NOTE) (test code = 2552) INTERPRETATION HEPATITIS B: (NOTE) (test code = 77361) INTERPRETATION HEPATITIS C: (NOTE) (test code = 42558) HEPATITIS PROFILE (A,B,C)2020-11-30 00:00:00 Test Item Value Reference Range Interpretation Comments HEPATITIS A TOTAL AB (test code NON-REACTIVE = 2725) HEPATITIS B SURF AG (test code = NON-REACTIVE 2739) HEP B CORE TOTAL AB (test code = NON-REACTIVE 2729) HEPATITIS B SURFACE AB (test NON-REACTIVE code = 2737) HEPATITIS C ANTIBODY (test code NON-REACTIVE = 4675) INTERPRETATION HEPATITIS A: (NOTE) (test code = 2552) INTERPRETATION HEPATITIS B: (NOTE) (test code = 50083) INTERPRETATION HEPATITIS C: (NOTE) (test code = 61218) GC AND CHLAMYDIA, AMPLIFIED, [id number] 00:00:00 Test Item Value Reference Range Interpretation Comments GONORRHEA, NAAT (test code = 01115) POSITIVE CHLAMYDIA, NAAT (test code = 89917) NEGATIVE GC AND CHLAMYDIA, AMPLIFIED, [id number] 00:00:00 Test Item Value Reference Range Interpretation Comments GONORRHEA, NAAT (test code = 39348) POSITIVE CHLAMYDIA, NAAT (test code = 95929) NEGATIVE HIV AB/AG COMBO RFLX [id number] 00:00:00 Test Item Value Reference Range Interpretation Comments HIV 1/2 4TH GEN, RFLX CONF (test NON-REACTIVE code = 3514) HIV AB/AG COMBO RFLX [id number] 00:00:00 Test Item Value Reference Range Interpretation Comments HIV 1/2 4TH GEN, RFLX CONF (test NON-REACTIVE code = 3514) RPR REFLEX TO [id number] 00:00:00 Test Item Value Reference Range Interpretation Comments RPR (test code = 90304) NON-REACTIVE RPR TITER (test code = 3500) NOT INDIC. TITER RPR REFLEX TO [id number] 00:00:00 Test Item Value Reference Range Interpretation Comments RPR (test code = 74340) NON-REACTIVE RPR TITER (test code = 3500) NOT INDIC. TITER HEPATITIS PROFILE (A,B,C)2020-11-30 00:00:00 Test Item Value Reference Range Interpretation Comments HEPATITIS A TOTAL AB (test code NON-REACTIVE = 2725) HEPATITIS B SURF AG (test code = NON-REACTIVE 2739) HEP B CORE TOTAL AB (test code = NON-REACTIVE 2729) HEPATITIS B SURFACE AB (test NON-REACTIVE code = 2737) HEPATITIS C ANTIBODY (test code NON-REACTIVE = 4675) INTERPRETATION HEPATITIS A: (NOTE) (test code = 2552) INTERPRETATION HEPATITIS B: (NOTE) (test code = 72755) INTERPRETATION HEPATITIS C: (NOTE) (test code = 04347) HEPATITIS PROFILE (A,B,C)2020-11-30 00:00:00 Test Item Value Reference Range Interpretation Comments HEPATITIS A TOTAL AB (test code NON-REACTIVE = 2725) HEPATITIS B SURF AG (test code = NON-REACTIVE 2739) HEP B CORE TOTAL AB (test code = NON-REACTIVE 2729) HEPATITIS B SURFACE AB (test NON-REACTIVE code = 2737) HEPATITIS C ANTIBODY (test code NON-REACTIVE = 4675) INTERPRETATION HEPATITIS A: (NOTE) (test code = 2552) INTERPRETATION HEPATITIS B: (NOTE) (test code = 30698) INTERPRETATION HEPATITIS C: (NOTE) (test code = 21861) GC AND CHLAMYDIA, AMPLIFIED, [id number] 00:00:00 Test Item Value Reference Range Interpretation Comments GONORRHEA, NAAT (test code = 93312) POSITIVE CHLAMYDIA, NAAT (test code = 41147) NEGATIVE HIV AB/AG COMBO RFLX [id number] 00:00:00 Test Item Value Reference Range Interpretation Comments HIV 1/2 4TH GEN, RFLX CONF (test NON-REACTIVE code = 3514) RPR REFLEX TO [id number] 00:00:00 Test Item Value Reference Range Interpretation Comments RPR (test code = 89218) NON-REACTIVE RPR TITER (test code = 3500) NOT INDIC. TITER HEPATITIS PROFILE (A,B,C)2020-11-30 00:00:00 Test Item Value Reference Range Interpretation Comments HEPATITIS A TOTAL AB (test code NON-REACTIVE = 2725) HEPATITIS B SURF AG (test code = NON-REACTIVE 2739) HEP B CORE TOTAL AB (test code = NON-REACTIVE 2729) HEPATITIS B SURFACE AB (test NON-REACTIVE code = 2737) HEPATITIS C ANTIBODY (test code NON-REACTIVE = 4675) INTERPRETATION HEPATITIS A: (NOTE) (test code = 2552) INTERPRETATION HEPATITIS B: (NOTE) (test code = 06399) INTERPRETATION HEPATITIS C: (NOTE) (test code = 52288) GC AND CHLAMYDIA, AMPLIFIED, [id number] 00:00:00 Test Item Value Reference Range Interpretation Comments GONORRHEA, NAAT (test code = 30855) POSITIVE CHLAMYDIA, NAAT (test code = 83123) NEGATIVE HIV AB/AG COMBO RFLX [id number] 00:00:00 Test Item Value Reference Range Interpretation Comments HIV 1/2 4TH GEN, RFLX CONF (test NON-REACTIVE code = 3514) RPR REFLEX TO [id number] 00:00:00 Test Item Value Reference Range Interpretation Comments RPR (test code = 46991) NON-REACTIVE RPR TITER (test code = 3500) NOT INDIC. TITER HEPATITIS PROFILE (A,B,C)2020-11-30 00:00:00 Test Item Value Reference Range Interpretation Comments HEPATITIS A TOTAL AB (test code NON-REACTIVE = 2725) HEPATITIS B SURF AG (test code = NON-REACTIVE 2739) HEP B CORE TOTAL AB (test code = NON-REACTIVE 2729) HEPATITIS B SURFACE AB (test NON-REACTIVE code = 2737) HEPATITIS C ANTIBODY (test code NON-REACTIVE = 4675) INTERPRETATION HEPATITIS A: (NOTE) (test code = 2552) INTERPRETATION HEPATITIS B: (NOTE) (test code = 80580) INTERPRETATION HEPATITIS C: (NOTE) (test code = 16970) COMPREHENSIVE METABOLIC [id number] 00:00:00 Test Item Value Reference Range Interpretation Comments GLUCOSE (test code = 2217) 99 MG/DL BUN (test code = 2208) 14 MG/DL CREATININE (test code = 2214) 1.10 MG/DL eGFR AMER. (test code 92 ML/MIN/1.73 = 67394) eGFR NON- AMER. (test 80 ML/MIN/1.73 code = 38408) CALC BUN/CREAT (test code = 13 RATIO 2235) SODIUM (test code = 2231) 145 MEQ/L POTASSIUM (test code = 2228) 3.2 MEQ/L CHLORIDE (test code = 2215) 100 MEQ/L CARBON DIOXIDE (test code = 33 MEQ/L 2206) CALCIUM (test code = 2209) 10.1 MG/DL PROTEIN, TOTAL (test code = 7.5 G/DL 2228) ALBUMIN (test code = 2201) 4.7 G/DL CALC GLOBULIN (test code = 2.8 G/DL 2240) CALC A/G RATIO (test code = 1.7 RATIO 2234) BILIRUBIN, TOTAL (test code = 0.6 MG/DL 2206) ALKALINE PHOSPHATASE (test 131 U/L code = 2204) AST (test code = 2218) 21 U/L ALT (test code = 2219) 21 U/L COMPREHENSIVE METABOLIC [id number] 00:00:00 Test Item Value Reference Range Interpretation Comments GLUCOSE (test code = 2217) 99 MG/DL BUN (test code = 2208) 14 MG/DL CREATININE (test code = 2214) 1.10 MG/DL eGFR AMER. (test code 92 ML/MIN/1.73 = 05385) eGFR NON- AMER. (test 80 ML/MIN/1.73 code = 74670) CALC BUN/CREAT (test code = 13 RATIO 2235) SODIUM (test code = 2231) 145 MEQ/L POTASSIUM (test code = 2228) 3.2 MEQ/L CHLORIDE (test code = 2215) 100 MEQ/L CARBON DIOXIDE (test code = 33 MEQ/L 2206) CALCIUM (test code = 2209) 10.1 MG/DL PROTEIN, TOTAL (test code = 7.5 G/DL 2228) ALBUMIN (test code = 2201) 4.7 G/DL CALC GLOBULIN (test code = 2.8 G/DL 2239) CALC A/G RATIO (test code = 1.7 RATIO 2234) BILIRUBIN, TOTAL (test code = 0.6 MG/DL 2206) ALKALINE PHOSPHATASE (test 131 U/L code = 2204) AST (test code = 2218) 21 U/L ALT (test code = 2219) 21 U/L LIPID [id number] 00:00:00 Test Item Value Reference Range Interpretation Comments CHOLESTEROL (test code = 2210) 138 MG/DL TRIGLYCERIDES (test code = 2232) 93 MG/DL HDL CHOLESTEROL (test code = 2220) 48 MG/DL CALC LDL CHOL (test code = 2237) 72 MG/DL RISK RATIO LDL/HDL (test code = 1.50 RATIO 2238) LIPID [id number] 00:00:00 Test Item Value Reference Range Interpretation Comments CHOLESTEROL (test code = 2210) 138 MG/DL TRIGLYCERIDES (test code = 2232) 93 MG/DL HDL CHOLESTEROL (test code = 2220) 48 MG/DL CALC LDL CHOL (test code = 2237) 72 MG/DL RISK RATIO LDL/HDL (test code = 1.50 RATIO 2238) HEMOGLOBIN [id number] 00:00:00 Test Item Value Reference Range Interpretation Comments HEMOGLOBIN A1c (test code = 06011) 5.5 % HEMOGLOBIN [id number] 00:00:00 Test Item Value Reference Range Interpretation Comments HEMOGLOBIN A1c (test code = 55690) 5.5 % HEMOGLOBIN [id number] 00:00:00 Test Item Value Reference Range Interpretation Comments HEMOGLOBIN A1c (test code = 90897) 5.5 % COMPREHENSIVE METABOLIC [id number] 00:00:00 Test Item Value Reference Range Interpretation Comments GLUCOSE (test code = 2217) 99 MG/DL BUN (test code = 2208) 14 MG/DL CREATININE (test code = 2214) 1.10 MG/DL eGFR AMER. (test code 92 ML/MIN/1.73 = 72011) eGFR NON- AMER. (test 80 ML/MIN/1.73 code = 80579) CALC BUN/CREAT (test code = 13 RATIO 2235) SODIUM (test code = 2231) 145 MEQ/L POTASSIUM (test code = 2228) 3.2 MEQ/L CHLORIDE (test code = 2215) 100 MEQ/L CARBON DIOXIDE (test code = 33 MEQ/L 220) CALCIUM (test code = 2209) 10.1 MG/DL PROTEIN, TOTAL (test code = 7.5 G/DL 2229) ALBUMIN (test code = 2201) 4.7 G/DL CALC GLOBULIN (test code = 2.8 G/DL 2240) CALC A/G RATIO (test code = 1.7 RATIO 2234) BILIRUBIN, TOTAL (test code = 0.6 MG/DL 2206) ALKALINE PHOSPHATASE (test 131 U/L code = 2204) AST (test code = 2218) 21 U/L ALT (test code = 2219) 21 U/L COMPREHENSIVE METABOLIC [id number] 00:00:00 Test Item Value Reference Range Interpretation Comments GLUCOSE (test code = 2217) 99 MG/DL BUN (test code = 2208) 14 MG/DL CREATININE (test code = 2214) 1.10 MG/DL eGFR AMER. (test code 92 ML/MIN/1.73 = 98386) eGFR NON- AMER. (test 80 ML/MIN/1.73 code = 29719) CALC BUN/CREAT (test code = 13 RATIO 2235) SODIUM (test code = 2231) 145 MEQ/L POTASSIUM (test code = 2228) 3.2 MEQ/L CHLORIDE (test code = 2215) 100 MEQ/L CARBON DIOXIDE (test code = 33 MEQ/L 2205) CALCIUM (test code = 2209) 10.1 MG/DL PROTEIN, TOTAL (test code = 7.5 G/DL 2229) ALBUMIN (test code = 2201) 4.7 G/DL CALC GLOBULIN (test code = 2.8 G/DL 2240) CALC A/G RATIO (test code = 1.7 RATIO 2234) BILIRUBIN, TOTAL (test code = 0.6 MG/DL 2206) ALKALINE PHOSPHATASE (test 131 U/L code = 2204) AST (test code = 2218) 21 U/L ALT (test code = 2219) 21 U/L LIPID [id number] 00:00:00 Test Item Value Reference Range Interpretation Comments CHOLESTEROL (test code = 2210) 138 MG/DL TRIGLYCERIDES (test code = 2232) 93 MG/DL HDL CHOLESTEROL (test code = 2220) 48 MG/DL CALC LDL CHOL (test code = 2237) 72 MG/DL RISK RATIO LDL/HDL (test code = 1.50 RATIO 2238) LIPID [id number] 00:00:00 Test Item Value Reference Range Interpretation Comments CHOLESTEROL (test code = 2210) 138 MG/DL TRIGLYCERIDES (test code = 2232) 93 MG/DL HDL CHOLESTEROL (test code = 2220) 48 MG/DL CALC LDL CHOL (test code = 2237) 72 MG/DL RISK RATIO LDL/HDL (test code = 1.50 RATIO 2238) HEMOGLOBIN [id number] 00:00:00 Test Item Value Reference Range Interpretation Comments HEMOGLOBIN A1c (test code = 59487) 5.5 % HEMOGLOBIN [id number] 00:00:00 Test Item Value Reference Range Interpretation Comments HEMOGLOBIN A1c (test code = 21325) 5.5 % HEMOGLOBIN [id number] 00:00:00 Test Item Value Reference Range Interpretation Comments HEMOGLOBIN A1c (test code = 23792) 5.5 % COMPREHENSIVE METABOLIC [id number] 00:00:00 Test Item Value Reference Range Interpretation Comments GLUCOSE (test code = 7) 99 MG/DL BUN (test code = 2208) 14 MG/DL CREATININE (test code = 2214) 1.10 MG/DL eGFR AMER. (test code 92 ML/MIN/1.73 = 99106) eGFR NON- AMER. (test 80 ML/MIN/1.73 code = 29030) CALC BUN/CREAT (test code = 13 RATIO 2235) SODIUM (test code = 2231) 145 MEQ/L POTASSIUM (test code = 2228) 3.2 MEQ/L CHLORIDE (test code = 2215) 100 MEQ/L CARBON DIOXIDE (test code = 33 MEQ/L 2205) CALCIUM (test code = 2209) 10.1 MG/DL PROTEIN, TOTAL (test code = 7.5 G/DL 2228) ALBUMIN (test code = 220) 4.7 G/DL CALC GLOBULIN (test code = 2.8 G/DL 2239) CALC A/G RATIO (test code = 1.7 RATIO 4) BILIRUBIN, TOTAL (test code = 0.6 MG/DL 2206) ALKALINE PHOSPHATASE (test 131 U/L code = 2204) AST (test code = 2218) 21 U/L ALT (test code = 2219) 21 U/L LIPID [id number] 00:00:00 Test Item Value Reference Range Interpretation Comments CHOLESTEROL (test code = 2210) 138 MG/DL TRIGLYCERIDES (test code = 2232) 93 MG/DL HDL CHOLESTEROL (test code = 2220) 48 MG/DL CALC LDL CHOL (test code = 2237) 72 MG/DL RISK RATIO LDL/HDL (test code = 1.50 RATIO 2238) HEMOGLOBIN [id number] 00:00:00 Test Item Value Reference Range Interpretation Comments HEMOGLOBIN A1c (test code = 09372) 5.5 % HEMOGLOBIN [id number] 00:00:00 Test Item Value Reference Range Interpretation Comments HEMOGLOBIN A1c (test code = 27381) 5.5 % COMPREHENSIVE METABOLIC [id number] 00:00:00 Test Item Value Reference Range Interpretation Comments GLUCOSE (test code = 2217) 99 MG/DL BUN (test code = 2208) 14 MG/DL CREATININE (test code = 2214) 1.10 MG/DL eGFR AMER. (test code 92 ML/MIN/1.73 = 96382) eGFR NON- AMER. (test 80 ML/MIN/1.73 code = 60199) CALC BUN/CREAT (test code = 13 RATIO 2235) SODIUM (test code = 2231) 145 MEQ/L POTASSIUM (test code = 2228) 3.2 MEQ/L CHLORIDE (test code = 2215) 100 MEQ/L CARBON DIOXIDE (test code = 33 MEQ/L 2205) CALCIUM (test code = 2209) 10.1 MG/DL PROTEIN, TOTAL (test code = 7.5 G/DL 2228) ALBUMIN (test code = 2201) 4.7 G/DL CALC GLOBULIN (test code = 2.8 G/DL 2239) CALC A/G RATIO (test code = 1.7 RATIO 2234) BILIRUBIN, TOTAL (test code = 0.6 MG/DL 2206) ALKALINE PHOSPHATASE (test 131 U/L code = 2204) AST (test code = 2218) 21 U/L ALT (test code = 2219) 21 U/L LIPID [id number] 00:00:00 Test Item Value Reference Range Interpretation Comments CHOLESTEROL (test code = 2210) 138 MG/DL TRIGLYCERIDES (test code = 2232) 93 MG/DL HDL CHOLESTEROL (test code = 2220) 48 MG/DL CALC LDL CHOL (test code = 2237) 72 MG/DL RISK RATIO LDL/HDL (test code = 1.50 RATIO 2238) HEMOGLOBIN [id number] 00:00:00 Test Item Value Reference Range Interpretation Comments HEMOGLOBIN A1c (test code = 54260) 5.5 % HEMOGLOBIN [id number] 00:00:00 Test Item Value Reference Range Interpretation Comments HEMOGLOBIN A1c (test code = 40157) 5.5 % LIPID [id number] 00:00:00 Test Item Value Reference Range Interpretation Comments CHOLESTEROL (test code = 2210) 209 MG/DL TRIGLYCERIDES (test code = 2232) 212 MG/DL HDL CHOLESTEROL (test code = 2220) 47 MG/DL CALC LDL CHOL (test code = 2237) 120 MG/DL RISK RATIO LDL/HDL (test code = 2.54 RATIO 2238) LIPID [id number] 00:00:00 Test Item Value Reference Range Interpretation Comments CHOLESTEROL (test code = 2210) 209 MG/DL TRIGLYCERIDES (test code = 2232) 212 MG/DL HDL CHOLESTEROL (test code = 2220) 47 MG/DL CALC LDL CHOL (test code = 2237) 120 MG/DL RISK RATIO LDL/HDL (test code = 2.54 RATIO 2238) HEMOGLOBIN [id number] 00:00:00 Test Item Value Reference Range Interpretation Comments HEMOGLOBIN A1c (test code = 05344) 5.9 % HEMOGLOBIN [id number] 00:00:00 Test Item Value Reference Range Interpretation Comments HEMOGLOBIN A1c (test code = 56409) 5.9 % HEMOGLOBIN [id number] 00:00:00 Test Item Value Reference Range Interpretation Comments HEMOGLOBIN A1c (test code = 28317) 5.9 % COMPREHENSIVE METABOLIC [id number] 00:00:00 Test Item Value Reference Range Interpretation Comments GLUCOSE (test code = 2217) 83 MG/DL BUN (test code = 2208) 12 MG/DL CREATININE (test code = 2214) 1.03 MG/DL eGFR AMER. (test code 100 ML/MIN/1.73 = 99552) eGFR NON- AMER. (test 87 ML/MIN/1.73 code = 79409) CALC BUN/CREAT (test code = 12 RATIO 2235) SODIUM (test code = 2231) 142 MEQ/L POTASSIUM (test code = 2228) 3.6 MEQ/L CHLORIDE (test code = 2215) 98 MEQ/L CARBON DIOXIDE (test code = 31 MEQ/L 2206) CALCIUM (test code = 2209) 10.1 MG/DL PROTEIN, TOTAL (test code = 7.7 G/DL 222) ALBUMIN (test code = 2201) 4.6 G/DL CALC GLOBULIN (test code = 3.1 G/DL 2240) CALC A/G RATIO (test code = 1.5 RATIO 2234) BILIRUBIN, TOTAL (test code = 0.3 MG/DL 2206) ALKALINE PHOSPHATASE (test 133 U/L code = 220) AST (test code = 2218) 17 U/L ALT (test code = 2219) 11 U/L COMPREHENSIVE METABOLIC [id number] 00:00:00 Test Item Value Reference Range Interpretation Comments GLUCOSE (test code = 2217) 83 MG/DL BUN (test code = 2208) 12 MG/DL CREATININE (test code = 2214) 1.03 MG/DL eGFR AMER. (test code 100 ML/MIN/1.73 = 44535) eGFR NON- AMER. (test 87 ML/MIN/1.73 code = 62783) CALC BUN/CREAT (test code = 12 RATIO 2235) SODIUM (test code = 2231) 142 MEQ/L POTASSIUM (test code = 2228) 3.6 MEQ/L CHLORIDE (test code = 2215) 98 MEQ/L CARBON DIOXIDE (test code = 31 MEQ/L 2206) CALCIUM (test code = 2209) 10.1 MG/DL PROTEIN, TOTAL (test code = 7.7 G/DL 2229) ALBUMIN (test code = 2201) 4.6 G/DL CALC GLOBULIN (test code = 3.1 G/DL 2240) CALC A/G RATIO (test code = 1.5 RATIO 2234) BILIRUBIN, TOTAL (test code = 0.3 MG/DL 2206) ALKALINE PHOSPHATASE (test 133 U/L code = 2204) AST (test code = 2218) 17 U/L ALT (test code = 2219) 11 U/L MICROALBUMIN/CREATININE, RANDOM AND [id number] 00:00:00 Test Item Value Reference Range Interpretation Comments CREATININE, URINE, CONC. (test 113.2 MG/DL code = 2072) ALBUMIN, URINE, RANDOM (test code 0.3 MG/DL = 35131) CALC ALBUMIN/CREAT, RND (test 3 MG/G code = 53413) MICROALBUMIN/CREATININE, RANDOM AND [id number] 00:00:00 Test Item Value Reference Range Interpretation Comments CREATININE, URINE, CONC. (test 113.2 MG/DL code = 2072) ALBUMIN, URINE, RANDOM (test code 0.3 MG/DL = 53484) CALC ALBUMIN/CREAT, RND (test 3 MG/G code = 53918) LIPID [id number] 00:00:00 Test Item Value Reference Range Interpretation Comments CHOLESTEROL (test code = 2210) 209 MG/DL TRIGLYCERIDES (test code = 2232) 212 MG/DL HDL CHOLESTEROL (test code = 2220) 47 MG/DL CALC LDL CHOL (test code = 2237) 120 MG/DL RISK RATIO LDL/HDL (test code = 2.54 RATIO 2238) LIPID [id number] 00:00:00 Test Item Value Reference Range Interpretation Comments CHOLESTEROL (test code = 2210) 209 MG/DL TRIGLYCERIDES (test code = 2232) 212 MG/DL HDL CHOLESTEROL (test code = 2220) 47 MG/DL CALC LDL CHOL (test code = 2237) 120 MG/DL RISK RATIO LDL/HDL (test code = 2.54 RATIO 2238) HEMOGLOBIN [id number] 00:00:00 Test Item Value Reference Range Interpretation Comments HEMOGLOBIN A1c (test code = 65135) 5.9 % HEMOGLOBIN [id number] 00:00:00 Test Item Value Reference Range Interpretation Comments HEMOGLOBIN A1c (test code = 93245) 5.9 % HEMOGLOBIN [id number] 00:00:00 Test Item Value Reference Range Interpretation Comments HEMOGLOBIN A1c (test code = 54692) 5.9 % COMPREHENSIVE METABOLIC [id number] 00:00:00 Test Item Value Reference Range Interpretation Comments GLUCOSE (test code = 2217) 83 MG/DL BUN (test code = 2208) 12 MG/DL CREATININE (test code = 2214) 1.03 MG/DL eGFR AMER. (test code 100 ML/MIN/1.73 = 94846) eGFR NON- AMER. (test 87 ML/MIN/1.73 code = 14048) CALC BUN/CREAT (test code = 12 RATIO 2235) SODIUM (test code = 2231) 142 MEQ/L POTASSIUM (test code = 2228) 3.6 MEQ/L CHLORIDE (test code = 2215) 98 MEQ/L CARBON DIOXIDE (test code = 31 MEQ/L 2206) CALCIUM (test code = 2209) 10.1 MG/DL PROTEIN, TOTAL (test code = 7.7 G/DL 2228) ALBUMIN (test code = 2201) 4.6 G/DL CALC GLOBULIN (test code = 3.1 G/DL 2240) CALC A/G RATIO (test code = 1.5 RATIO 2234) BILIRUBIN, TOTAL (test code = 0.3 MG/DL 2206) ALKALINE PHOSPHATASE (test 133 U/L code = 2204) AST (test code = 2218) 17 U/L ALT (test code = 2219) 11 U/L COMPREHENSIVE METABOLIC [id number] 00:00:00 Test Item Value Reference Range Interpretation Comments GLUCOSE (test code = 2217) 83 MG/DL BUN (test code = 2208) 12 MG/DL CREATININE (test code = 2214) 1.03 MG/DL eGFR AMER. (test code 100 ML/MIN/1.73 = 88964) eGFR NON- AMER. (test 87 ML/MIN/1.73 code = 17841) CALC BUN/CREAT (test code = 12 RATIO 2235) SODIUM (test code = 2231) 142 MEQ/L POTASSIUM (test code = 2228) 3.6 MEQ/L CHLORIDE (test code = 2215) 98 MEQ/L CARBON DIOXIDE (test code = 31 MEQ/L 2206) CALCIUM (test code = 2209) 10.1 MG/DL PROTEIN, TOTAL (test code = 7.7 G/DL 9) ALBUMIN (test code = 2201) 4.6 G/DL CALC GLOBULIN (test code = 3.1 G/DL 2240) CALC A/G RATIO (test code = 1.5 RATIO 2234) BILIRUBIN, TOTAL (test code = 0.3 MG/DL 2207) ALKALINE PHOSPHATASE (test 133 U/L code = 2204) AST (test code = 2218) 17 U/L ALT (test code = 2219) 11 U/L MICROALBUMIN/CREATININE, RANDOM AND [id number] 00:00:00 Test Item Value Reference Range Interpretation Comments CREATININE, URINE, CONC. (test 113.2 MG/DL code = 2072) ALBUMIN, URINE, RANDOM (test code 0.3 MG/DL = 43715) CALC ALBUMIN/CREAT, RND (test 3 MG/G code = 28899) MICROALBUMIN/CREATININE, RANDOM AND [id number] 00:00:00 Test Item Value Reference Range Interpretation Comments CREATININE, URINE, CONC. (test 113.2 MG/DL code = 2072) ALBUMIN, URINE, RANDOM (test code 0.3 MG/DL = 79806) CALC ALBUMIN/CREAT, RND (test 3 MG/G code = 04553) LIPID [id number] 00:00:00 Test Item Value Reference Range Interpretation Comments CHOLESTEROL (test code = 2210) 209 MG/DL TRIGLYCERIDES (test code = 2232) 212 MG/DL HDL CHOLESTEROL (test code = 2220) 47 MG/DL CALC LDL CHOL (test code = 2237) 120 MG/DL RISK RATIO LDL/HDL (test code = 2.54 RATIO 2238) HEMOGLOBIN [id number] 00:00:00 Test Item Value Reference Range Interpretation Comments HEMOGLOBIN A1c (test code = 85047) 5.9 % HEMOGLOBIN [id number] 00:00:00 Test Item Value Reference Range Interpretation Comments HEMOGLOBIN A1c (test code = 49816) 5.9 % COMPREHENSIVE METABOLIC [id number] 00:00:00 Test Item Value Reference Range Interpretation Comments GLUCOSE (test code = 2217) 83 MG/DL BUN (test code = 2208) 12 MG/DL CREATININE (test code = 2214) 1.03 MG/DL eGFR AMER. (test code 100 ML/MIN/1.73 = 23588) eGFR NON- AMER. (test 87 ML/MIN/1.73 code = 77035) CALC BUN/CREAT (test code = 12 RATIO 2235) SODIUM (test code = 2231) 142 MEQ/L POTASSIUM (test code = 2228) 3.6 MEQ/L CHLORIDE (test code = 2215) 98 MEQ/L CARBON DIOXIDE (test code = 31 MEQ/L 2205) CALCIUM (test code = 2209) 10.1 MG/DL PROTEIN, TOTAL (test code = 7.7 G/DL 2228) ALBUMIN (test code = 2201) 4.6 G/DL CALC GLOBULIN (test code = 3.1 G/DL 2239) CALC A/G RATIO (test code = 1.5 RATIO 223) BILIRUBIN, TOTAL (test code = 0.3 MG/DL 2206) ALKALINE PHOSPHATASE (test 133 U/L code = 2204) AST (test code = 2218) 17 U/L ALT (test code = 2219) 11 U/L MICROALBUMIN/CREATININE, RANDOM AND [id number] 00:00:00 Test Item Value Reference Range Interpretation Comments CREATININE, URINE, CONC. (test 113.2 MG/DL code = 207) ALBUMIN, URINE, RANDOM (test code 0.3 MG/DL = 37087) CALC ALBUMIN/CREAT, RND (test 3 MG/G code = 50962) LIPID [id number] 00:00:00 Test Item Value Reference Range Interpretation Comments CHOLESTEROL (test code = 2210) 209 MG/DL TRIGLYCERIDES (test code = 2232) 212 MG/DL HDL CHOLESTEROL (test code = 2220) 47 MG/DL CALC LDL CHOL (test code = 2237) 120 MG/DL RISK RATIO LDL/HDL (test code = 2.54 RATIO 2238) HEMOGLOBIN [id number] 00:00:00 Test Item Value Reference Range Interpretation Comments HEMOGLOBIN A1c (test code = 96005) 5.9 % HEMOGLOBIN [id number] 00:00:00 Test Item Value Reference Range Interpretation Comments HEMOGLOBIN A1c (test code = 43748) 5.9 % COMPREHENSIVE METABOLIC [id number] 00:00:00 Test Item Value Reference Range Interpretation Comments GLUCOSE (test code = 2217) 83 MG/DL BUN (test code = 2208) 12 MG/DL CREATININE (test code = 2214) 1.03 MG/DL eGFR AMER. (test code 100 ML/MIN/1.73 = 56319) eGFR NON- AMER. (test 87 ML/MIN/1.73 code = 29455) CALC BUN/CREAT (test code = 12 RATIO 2235) SODIUM (test code = 2231) 142 MEQ/L POTASSIUM (test code = 2228) 3.6 MEQ/L CHLORIDE (test code = 2215) 98 MEQ/L CARBON DIOXIDE (test code = 31 MEQ/L 2205) CALCIUM (test code = 2209) 10.1 MG/DL PROTEIN, TOTAL (test code = 7.7 G/DL 2228) ALBUMIN (test code = 2201) 4.6 G/DL CALC GLOBULIN (test code = 3.1 G/DL 2239) CALC A/G RATIO (test code = 1.5 RATIO 2233) BILIRUBIN, TOTAL (test code = 0.3 MG/DL 2206) ALKALINE PHOSPHATASE (test 133 U/L code = 220) AST (test code = 2218) 17 U/L ALT (test code = 2219) 11 U/L MICROALBUMIN/CREATININE, RANDOM AND [id number] 00:00:00 Test Item Value Reference Range Interpretation Comments CREATININE, URINE, CONC. (test 113.2 MG/DL code = 207) ALBUMIN, URINE, RANDOM (test code 0.3 MG/DL = 63574) CALC ALBUMIN/CREAT, RND (test 3 MG/G code = 05400) HEMOGLOBIN [id number] 00:00:00 Test Item Value Reference Range Interpretation Comments HEMOGLOBIN A1c (test code = 27403) 5.7 % HEMOGLOBIN [id number] 00:00:00 Test Item Value Reference Range Interpretation Comments HEMOGLOBIN A1c (test code = 96982) 5.7 % HEMOGLOBIN [id number] 00:00:00 Test Item Value Reference Range Interpretation Comments HEMOGLOBIN A1c (test code = 67247) 5.7 % HEMOGLOBIN [id number] 00:00:00 Test Item Value Reference Range Interpretation Comments HEMOGLOBIN A1c (test code = 67849) 5.7 % HEMOGLOBIN [id number] 00:00:00 Test Item Value Reference Range Interpretation Comments HEMOGLOBIN A1c (test code = 65073) 5.7 % HEMOGLOBIN [id number] 00:00:00 Test Item Value Reference Range Interpretation Comments HEMOGLOBIN A1c (test code = 75488) 5.7 % HEMOGLOBIN [id number] 00:00:00 Test Item Value Reference Range Interpretation Comments HEMOGLOBIN A1c (test code = 01333) 5.7 % HEMOGLOBIN [id number] 00:00:00 Test Item Value Reference Range Interpretation Comments HEMOGLOBIN A1c (test code = 62219) 5.7 % HEMOGLOBIN [id number] 00:00:00 Test Item Value Reference Range Interpretation Comments HEMOGLOBIN A1c (test code = 17714) 5.7 % HEMOGLOBIN [id number] 00:00:00 Test Item Value Reference Range Interpretation Comments HEMOGLOBIN A1c (test code = 46185) 5.7 % CBC W/AUTO [id number] 00:00:00 Test Item Value Reference Range Interpretation Comments WBC (test code = 1001) 6.0 K/UL RBC (test code = 1002) 5.02 M/UL HEMOGLOBIN (test code = 1003) 13.7 G/DL HEMATOCRIT (test code = 1004) 42.4 % MCV (test code = 1005) 84.5 fL MCH (test code = 1006) 27.3 PG MCHC (test code = 1007) 32.3 G/DL RDW (test code = 1038) 13.9 % NEUTROPHILS (test code = 1008) 37.9 % LYMPHOCYTES (test code = 1010) 51.7 % MONOCYTES (test code = 1011) 8.8 % EOSINOPHILS (test code = 1012) 1.3 % BASOPHILS (test code = 1013) 0.3 % PLATELET COUNT (test code = 1015) 231 K/UL CBC W/AUTO [id number] 00:00:00 Test Item Value Reference Range Interpretation Comments WBC (test code = 1001) 6.0 K/UL RBC (test code = 1002) 5.02 M/UL HEMOGLOBIN (test code = 1003) 13.7 G/DL HEMATOCRIT (test code = 1004) 42.4 % MCV (test code = 1005) 84.5 fL MCH (test code = 1006) 27.3 PG MCHC (test code = 1007) 32.3 G/DL RDW (test code = 1038) 13.9 % NEUTROPHILS (test code = 1008) 37.9 % LYMPHOCYTES (test code = 1010) 51.7 % MONOCYTES (test code = 1011) 8.8 % EOSINOPHILS (test code = 1012) 1.3 % BASOPHILS (test code = 1013) 0.3 % PLATELET COUNT (test code = 1015) 231 K/UL CBC W/AUTO [id number] 00:00:00 Test Item Value Reference Range Interpretation Comments WBC (test code = 1001) 6.0 K/UL RBC (test code = 1002) 5.02 M/UL HEMOGLOBIN (test code = 1003) 13.7 G/DL HEMATOCRIT (test code = 1004) 42.4 % MCV (test code = 1005) 84.5 fL MCH (test code = 1006) 27.3 PG MCHC (test code = 1007) 32.3 G/DL RDW (test code = 1038) 13.9 % NEUTROPHILS (test code = 1008) 37.9 % LYMPHOCYTES (test code = 1010) 51.7 % MONOCYTES (test code = 1011) 8.8 % EOSINOPHILS (test code = 1012) 1.3 % BASOPHILS (test code = 1013) 0.3 % PLATELET COUNT (test code = 1015) 231 K/UL LIPID [id number] 00:00:00 Test Item Value Reference Range Interpretation Comments CHOLESTEROL (test code = 2210) 242 MG/DL TRIGLYCERIDES (test code = 2232) 91 MG/DL HDL CHOLESTEROL (test code = 2220) 66 MG/DL CALC LDL CHOL (test code = 2237) 158 MG/DL RISK RATIO LDL/HDL (test code = 2.39 RATIO 2238) LIPID [id number] 00:00:00 Test Item Value Reference Range Interpretation Comments CHOLESTEROL (test code = 2210) 242 MG/DL TRIGLYCERIDES (test code = 2232) 91 MG/DL HDL CHOLESTEROL (test code = 2220) 66 MG/DL CALC LDL CHOL (test code = 2237) 158 MG/DL RISK RATIO LDL/HDL (test code = 2.39 RATIO 2238) MICROALBUMIN/CREATININE, RANDOM AND [id number] 00:00:00 Test Item Value Reference Range Interpretation Comments CREATININE, URINE, CONC. (test 74.8 MG/DL code = 2072) ALBUMIN, URINE, RANDOM (test code <0.2 MG/DL = 43156) CALC ALBUMIN/CREAT, RND (test code <3 MG/G = 84654) MICROALBUMIN/CREATININE, RANDOM AND [id number] 00:00:00 Test Item Value Reference Range Interpretation Comments CREATININE, URINE, CONC. (test 74.8 MG/DL code = 2072) ALBUMIN, URINE, RANDOM (test code <0.2 MG/DL = 48113) CALC ALBUMIN/CREAT, RND (test code <3 MG/G = 84910) COMPREHENSIVE METABOLIC [id number] 00:00:00 Test Item Value Reference Range Interpretation Comments GLUCOSE (test code = 2217) 76 MG/DL BUN (test code = 2208) 16 MG/DL CREATININE (test code = 2214) 1.06 MG/DL eGFR AMER. (test code 98 ML/MIN/1.73 = 42236) eGFR NON- AMER. (test 84 ML/MIN/1.73 code = 60821) CALC BUN/CREAT (test code = 15 RATIO 2235) SODIUM (test code = 2231) 143 MEQ/L POTASSIUM (test code = 2228) 4.1 MEQ/L CHLORIDE (test code = 2215) 98 MEQ/L CARBON DIOXIDE (test code = 33 MEQ/L 2206) CALCIUM (test code = 2209) 10.2 MG/DL PROTEIN, TOTAL (test code = 7.7 G/DL 2228) ALBUMIN (test code = 2201) 4.6 G/DL CALC GLOBULIN (test code = 3.1 G/DL 0) CALC A/G RATIO (test code = 1.5 RATIO 4) BILIRUBIN, TOTAL (test code = 0.7 MG/DL 2206) ALKALINE PHOSPHATASE (test 107 U/L code = 2204) AST (test code = 2218) 22 U/L ALT (test code = 2219) 19 U/L COMPREHENSIVE METABOLIC [id number] 00:00:00 Test Item Value Reference Range Interpretation Comments GLUCOSE (test code = 2217) 76 MG/DL BUN (test code = 2208) 16 MG/DL CREATININE (test code = 2214) 1.06 MG/DL eGFR AMER. (test code 98 ML/MIN/1.73 = 77332) eGFR NON- AMER. (test 84 ML/MIN/1.73 code = 73089) CALC BUN/CREAT (test code = 15 RATIO 2235) SODIUM (test code = 2231) 143 MEQ/L POTASSIUM (test code = 2228) 4.1 MEQ/L CHLORIDE (test code = 2215) 98 MEQ/L CARBON DIOXIDE (test code = 33 MEQ/L 2206) CALCIUM (test code = 2209) 10.2 MG/DL PROTEIN, TOTAL (test code = 7.7 G/DL 2229) ALBUMIN (test code = 2201) 4.6 G/DL CALC GLOBULIN (test code = 3.1 G/DL 2240) CALC A/G RATIO (test code = 1.5 RATIO 2234) BILIRUBIN, TOTAL (test code = 0.7 MG/DL 2206) ALKALINE PHOSPHATASE (test 107 U/L code = 2204) AST (test code = 2218) 22 U/L ALT (test code = 2219) 19 U/L HEMOGLOBIN [id number] 00:00:00 Test Item Value Reference Range Interpretation Comments HEMOGLOBIN A1c (test code = 78092) 5.6 % HEMOGLOBIN [id number] 00:00:00 Test Item Value Reference Range Interpretation Comments HEMOGLOBIN A1c (test code = 67832) 5.6 % HEMOGLOBIN [id number] 00:00:00 Test Item Value Reference Range Interpretation Comments HEMOGLOBIN A1c (test code = 75065) 5.6 % CBC W/AUTO [id number] 00:00:00 Test Item Value Reference Range Interpretation Comments WBC (test code = 1001) 6.0 K/UL RBC (test code = 1002) 5.02 M/UL HEMOGLOBIN (test code = 1003) 13.7 G/DL HEMATOCRIT (test code = 1004) 42.4 % MCV (test code = 1005) 84.5 fL MCH (test code = 1006) 27.3 PG MCHC (test code = 1007) 32.3 G/DL RDW (test code = 1038) 13.9 % NEUTROPHILS (test code = 1008) 37.9 % LYMPHOCYTES (test code = 1010) 51.7 % MONOCYTES (test code = 1011) 8.8 % EOSINOPHILS (test code = 1012) 1.3 % BASOPHILS (test code = 1013) 0.3 % PLATELET COUNT (test code = 1015) 231 K/UL CBC W/AUTO [id number] 00:00:00 Test Item Value Reference Range Interpretation Comments WBC (test code = 1001) 6.0 K/UL RBC (test code = 1002) 5.02 M/UL HEMOGLOBIN (test code = 1003) 13.7 G/DL HEMATOCRIT (test code = 1004) 42.4 % MCV (test code = 1005) 84.5 fL MCH (test code = 1006) 27.3 PG MCHC (test code = 1007) 32.3 G/DL RDW (test code = 1038) 13.9 % NEUTROPHILS (test code = 1008) 37.9 % LYMPHOCYTES (test code = 1010) 51.7 % MONOCYTES (test code = 1011) 8.8 % EOSINOPHILS (test code = 1012) 1.3 % BASOPHILS (test code = 1013) 0.3 % PLATELET COUNT (test code = 1015) 231 K/UL CBC W/AUTO [id number] 00:00:00 Test Item Value Reference Range Interpretation Comments WBC (test code = 1001) 6.0 K/UL RBC (test code = 1002) 5.02 M/UL HEMOGLOBIN (test code = 1003) 13.7 G/DL HEMATOCRIT (test code = 1004) 42.4 % MCV (test code = 1005) 84.5 fL MCH (test code = 1006) 27.3 PG MCHC (test code = 1007) 32.3 G/DL RDW (test code = 1038) 13.9 % NEUTROPHILS (test code = 1008) 37.9 % LYMPHOCYTES (test code = 1010) 51.7 % MONOCYTES (test code = 1011) 8.8 % EOSINOPHILS (test code = 1012) 1.3 % BASOPHILS (test code = 1013) 0.3 % PLATELET COUNT (test code = 1015) 231 K/UL LIPID [id number] 00:00:00 Test Item Value Reference Range Interpretation Comments CHOLESTEROL (test code = 2210) 242 MG/DL TRIGLYCERIDES (test code = 2232) 91 MG/DL HDL CHOLESTEROL (test code = 2220) 66 MG/DL CALC LDL CHOL (test code = 2237) 158 MG/DL RISK RATIO LDL/HDL (test code = 2.39 RATIO 2238) LIPID [id number] 00:00:00 Test Item Value Reference Range Interpretation Comments CHOLESTEROL (test code = 2210) 242 MG/DL TRIGLYCERIDES (test code = 2232) 91 MG/DL HDL CHOLESTEROL (test code = 2220) 66 MG/DL CALC LDL CHOL (test code = 2237) 158 MG/DL RISK RATIO LDL/HDL (test code = 2.39 RATIO 2238) MICROALBUMIN/CREATININE, RANDOM AND [id number] 00:00:00 Test Item Value Reference Range Interpretation Comments CREATININE, URINE, CONC. (test 74.8 MG/DL code = 2072) ALBUMIN, URINE, RANDOM (test code <0.2 MG/DL = 15782) CALC ALBUMIN/CREAT, RND (test code <3 MG/G = 49653) MICROALBUMIN/CREATININE, RANDOM AND [id number] 00:00:00 Test Item Value Reference Range Interpretation Comments CREATININE, URINE, CONC. (test 74.8 MG/DL code = 2072) ALBUMIN, URINE, RANDOM (test code <0.2 MG/DL = 85161) CALC ALBUMIN/CREAT, RND (test code <3 MG/G = 46796) COMPREHENSIVE METABOLIC [id number] 00:00:00 Test Item Value Reference Range Interpretation Comments GLUCOSE (test code = 2217) 76 MG/DL BUN (test code = 2208) 16 MG/DL CREATININE (test code = 2214) 1.06 MG/DL eGFR AMER. (test code 98 ML/MIN/1.73 = 38840) eGFR NON- AMER. (test 84 ML/MIN/1.73 code = 25320) CALC BUN/CREAT (test code = 15 RATIO 2235) SODIUM (test code = 2231) 143 MEQ/L POTASSIUM (test code = 2228) 4.1 MEQ/L CHLORIDE (test code = 2215) 98 MEQ/L CARBON DIOXIDE (test code = 33 MEQ/L 2206) CALCIUM (test code = 2209) 10.2 MG/DL PROTEIN, TOTAL (test code = 7.7 G/DL 2228) ALBUMIN (test code = 2201) 4.6 G/DL CALC GLOBULIN (test code = 3.1 G/DL 2240) CALC A/G RATIO (test code = 1.5 RATIO 2234) BILIRUBIN, TOTAL (test code = 0.7 MG/DL 2206) ALKALINE PHOSPHATASE (test 107 U/L code = 2204) AST (test code = 2218) 22 U/L ALT (test code = 2219) 19 U/L COMPREHENSIVE METABOLIC [id number] 00:00:00 Test Item Value Reference Range Interpretation Comments GLUCOSE (test code = 2217) 76 MG/DL BUN (test code = 2208) 16 MG/DL CREATININE (test code = 2214) 1.06 MG/DL eGFR AMER. (test code 98 ML/MIN/1.73 = 98426) eGFR NON- AMER. (test 84 ML/MIN/1.73 code = 76993) CALC BUN/CREAT (test code = 15 RATIO 2235) SODIUM (test code = 2231) 143 MEQ/L POTASSIUM (test code = 2228) 4.1 MEQ/L CHLORIDE (test code = 2215) 98 MEQ/L CARBON DIOXIDE (test code = 33 MEQ/L 2205) CALCIUM (test code = 2209) 10.2 MG/DL PROTEIN, TOTAL (test code = 7.7 G/DL 2228) ALBUMIN (test code = 2201) 4.6 G/DL CALC GLOBULIN (test code = 3.1 G/DL 2239) CALC A/G RATIO (test code = 1.5 RATIO 2233) BILIRUBIN, TOTAL (test code = 0.7 MG/DL 2206) ALKALINE PHOSPHATASE (test 107 U/L code = 2204) AST (test code = 2218) 22 U/L ALT (test code = 2219) 19 U/L HEMOGLOBIN [id number] 00:00:00 Test Item Value Reference Range Interpretation Comments HEMOGLOBIN A1c (test code = 22962) 5.6 % HEMOGLOBIN [id number] 00:00:00 Test Item Value Reference Range Interpretation Comments HEMOGLOBIN A1c (test code = 59582) 5.6 % HEMOGLOBIN [id number] 00:00:00 Test Item Value Reference Range Interpretation Comments HEMOGLOBIN A1c (test code = 77527) 5.6 % CBC W/AUTO [id number] 00:00:00 Test Item Value Reference Range Interpretation Comments WBC (test code = 1001) 6.0 K/UL RBC (test code = 1002) 5.02 M/UL HEMOGLOBIN (test code = 1003) 13.7 G/DL HEMATOCRIT (test code = 1004) 42.4 % MCV (test code = 1005) 84.5 fL MCH (test code = 1006) 27.3 PG MCHC (test code = 1007) 32.3 G/DL RDW (test code = 1038) 13.9 % NEUTROPHILS (test code = 1008) 37.9 % LYMPHOCYTES (test code = 1010) 51.7 % MONOCYTES (test code = 1011) 8.8 % EOSINOPHILS (test code = 1012) 1.3 % BASOPHILS (test code = 1013) 0.3 % PLATELET COUNT (test code = 1015) 231 K/UL CBC W/AUTO [id number] 00:00:00 Test Item Value Reference Range Interpretation Comments WBC (test code = 1001) 6.0 K/UL RBC (test code = 1002) 5.02 M/UL HEMOGLOBIN (test code = 1003) 13.7 G/DL HEMATOCRIT (test code = 1004) 42.4 % MCV (test code = 1005) 84.5 fL MCH (test code = 1006) 27.3 PG MCHC (test code = 1007) 32.3 G/DL RDW (test code = 1038) 13.9 % NEUTROPHILS (test code = 1008) 37.9 % LYMPHOCYTES (test code = 1010) 51.7 % MONOCYTES (test code = 1011) 8.8 % EOSINOPHILS (test code = 1012) 1.3 % BASOPHILS (test code = 1013) 0.3 % PLATELET COUNT (test code = 1015) 231 K/UL LIPID [id number] 00:00:00 Test Item Value Reference Range Interpretation Comments CHOLESTEROL (test code = 2210) 242 MG/DL TRIGLYCERIDES (test code = 2232) 91 MG/DL HDL CHOLESTEROL (test code = 2220) 66 MG/DL CALC LDL CHOL (test code = 2237) 158 MG/DL RISK RATIO LDL/HDL (test code = 2.39 RATIO 2238) MICROALBUMIN/CREATININE, RANDOM AND [id number] 00:00:00 Test Item Value Reference Range Interpretation Comments CREATININE, URINE, CONC. (test 74.8 MG/DL code = 2072) ALBUMIN, URINE, RANDOM (test code <0.2 MG/DL = 75799) CALC ALBUMIN/CREAT, RND (test code <3 MG/G = 07916) COMPREHENSIVE METABOLIC [id number] 00:00:00 Test Item Value Reference Range Interpretation Comments GLUCOSE (test code = 2217) 76 MG/DL BUN (test code = 2208) 16 MG/DL CREATININE (test code = 2214) 1.06 MG/DL eGFR AMER. (test code 98 ML/MIN/1.73 = 51991) eGFR NON- AMER. (test 84 ML/MIN/1.73 code = 21112) CALC BUN/CREAT (test code = 15 RATIO 2235) SODIUM (test code = 2231) 143 MEQ/L POTASSIUM (test code = 2228) 4.1 MEQ/L CHLORIDE (test code = 2215) 98 MEQ/L CARBON DIOXIDE (test code = 33 MEQ/L 2205) CALCIUM (test code = 2209) 10.2 MG/DL PROTEIN, TOTAL (test code = 7.7 G/DL 2228) ALBUMIN (test code = 2201) 4.6 G/DL CALC GLOBULIN (test code = 3.1 G/DL 2239) CALC A/G RATIO (test code = 1.5 RATIO 2233) BILIRUBIN, TOTAL (test code = 0.7 MG/DL 2206) ALKALINE PHOSPHATASE (test 107 U/L code = 2204) AST (test code = 2218) 22 U/L ALT (test code = 2219) 19 U/L HEMOGLOBIN [id number] 00:00:00 Test Item Value Reference Range Interpretation Comments HEMOGLOBIN A1c (test code = 20069) 5.6 % HEMOGLOBIN [id number] 00:00:00 Test Item Value Reference Range Interpretation Comments HEMOGLOBIN A1c (test code = 09501) 5.6 % CBC W/AUTO [id number] 00:00:00 Test Item Value Reference Range Interpretation Comments WBC (test code = 1001) 6.0 K/UL RBC (test code = 1002) 5.02 M/UL HEMOGLOBIN (test code = 1003) 13.7 G/DL HEMATOCRIT (test code = 1004) 42.4 % MCV (test code = 1005) 84.5 fL MCH (test code = 1006) 27.3 PG MCHC (test code = 1007) 32.3 G/DL RDW (test code = 1038) 13.9 % NEUTROPHILS (test code = 1008) 37.9 % LYMPHOCYTES (test code = 1010) 51.7 % MONOCYTES (test code = 1011) 8.8 % EOSINOPHILS (test code = 1012) 1.3 % BASOPHILS (test code = 1013) 0.3 % PLATELET COUNT (test code = 1015) 231 K/UL CBC W/AUTO [id number] 00:00:00 Test Item Value Reference Range Interpretation Comments WBC (test code = 1001) 6.0 K/UL RBC (test code = 1002) 5.02 M/UL HEMOGLOBIN (test code = 1003) 13.7 G/DL HEMATOCRIT (test code = 1004) 42.4 % MCV (test code = 1005) 84.5 fL MCH (test code = 1006) 27.3 PG MCHC (test code = 1007) 32.3 G/DL RDW (test code = 1038) 13.9 % NEUTROPHILS (test code = 1008) 37.9 % LYMPHOCYTES (test code = 1010) 51.7 % MONOCYTES (test code = 1011) 8.8 % EOSINOPHILS (test code = 1012) 1.3 % BASOPHILS (test code = 1013) 0.3 % PLATELET COUNT (test code = 1015) 231 K/UL LIPID [id number] 00:00:00 Test Item Value Reference Range Interpretation Comments CHOLESTEROL (test code = 2210) 242 MG/DL TRIGLYCERIDES (test code = 2232) 91 MG/DL HDL CHOLESTEROL (test code = 2220) 66 MG/DL CALC LDL CHOL (test code = 2237) 158 MG/DL RISK RATIO LDL/HDL (test code = 2.39 RATIO 2238) MICROALBUMIN/CREATININE, RANDOM AND [id number] 00:00:00 Test Item Value Reference Range Interpretation Comments CREATININE, URINE, CONC. (test 74.8 MG/DL code = 2072) ALBUMIN, URINE, RANDOM (test code <0.2 MG/DL = 40304) CALC ALBUMIN/CREAT, RND (test code <3 MG/G = 33145) COMPREHENSIVE METABOLIC [id number] 00:00:00 Test Item Value Reference Range Interpretation Comments GLUCOSE (test code = 2217) 76 MG/DL BUN (test code = 2208) 16 MG/DL CREATININE (test code = 2214) 1.06 MG/DL eGFR AMER. (test code 98 ML/MIN/1.73 = 75697) eGFR NON- AMER. (test 84 ML/MIN/1.73 code = 11291) CALC BUN/CREAT (test code = 15 RATIO 2235) SODIUM (test code = 2231) 143 MEQ/L POTASSIUM (test code = 2228) 4.1 MEQ/L CHLORIDE (test code = 2215) 98 MEQ/L CARBON DIOXIDE (test code = 33 MEQ/L 2205) CALCIUM (test code = 2209) 10.2 MG/DL PROTEIN, TOTAL (test code = 7.7 G/DL 2228) ALBUMIN (test code = 2201) 4.6 G/DL CALC GLOBULIN (test code = 3.1 G/DL 2240) CALC A/G RATIO (test code = 1.5 RATIO 2234) BILIRUBIN, TOTAL (test code = 0.7 MG/DL 2206) ALKALINE PHOSPHATASE (test 107 U/L code = 2204) AST (test code = 2218) 22 U/L ALT (test code = 2219) 19 U/L HEMOGLOBIN [id number] 00:00:00 Test Item Value Reference Range Interpretation Comments HEMOGLOBIN A1c (test code = 31852) 5.6 % HEMOGLOBIN [id number] 00:00:00 Test Item Value Reference Range Interpretation Comments HEMOGLOBIN A1c (test code = 07733) 5.6 % COMPREHENSIVE METABOLIC [id number] 00:00:00 Test Item Value Reference Range Interpretation Comments GLUCOSE (test code = 2217) 82 MG/DL BUN (test code = 2208) 13 MG/DL CREATININE (test code = 2214) 1.12 MG/DL eGFR AMER. (test code 93 ML/MIN/1.73 = 55429) eGFR NON- AMER. (test 80 ML/MIN/1.73 code = 80897) CALC BUN/CREAT (test code = 12 RATIO 2235) SODIUM (test code = 2231) 145 MEQ/L POTASSIUM (test code = 2228) 3.3 MEQ/L CHLORIDE (test code = 2215) 102 MEQ/L CARBON DIOXIDE (test code = 30 MEQ/L 2205) CALCIUM (test code = 2209) 9.7 MG/DL PROTEIN, TOTAL (test code = 6.7 G/DL 2228) ALBUMIN (test code = 2201) 4.4 G/DL CALC GLOBULIN (test code = 2.3 G/DL 2240) CALC A/G RATIO (test code = 1.9 RATIO 2234) BILIRUBIN, TOTAL (test code = 0.4 MG/DL 2206) ALKALINE PHOSPHATASE (test 90 U/L code = 2204) AST (test code = 2218) 14 U/L ALT (test code = 2219) 6 U/L COMPREHENSIVE METABOLIC [id number] 00:00:00 Test Item Value Reference Range Interpretation Comments GLUCOSE (test code = 2217) 82 MG/DL BUN (test code = 2208) 13 MG/DL CREATININE (test code = 2214) 1.12 MG/DL eGFR AMER. (test code 93 ML/MIN/1.73 = 71485) eGFR NON- AMER. (test 80 ML/MIN/1.73 code = 03815) CALC BUN/CREAT (test code = 12 RATIO 2235) SODIUM (test code = 2231) 145 MEQ/L POTASSIUM (test code = 2228) 3.3 MEQ/L CHLORIDE (test code = 2215) 102 MEQ/L CARBON DIOXIDE (test code = 30 MEQ/L 2205) CALCIUM (test code = 2209) 9.7 MG/DL PROTEIN, TOTAL (test code = 6.7 G/DL 2228) ALBUMIN (test code = 2201) 4.4 G/DL CALC GLOBULIN (test code = 2.3 G/DL 224) CALC A/G RATIO (test code = 1.9 RATIO 2234) BILIRUBIN, TOTAL (test code = 0.4 MG/DL 2206) ALKALINE PHOSPHATASE (test 90 U/L code = 2204) AST (test code = 2218) 14 U/L ALT (test code = 2219) 6 U/L LIPID [id number] 00:00:00 Test Item Value Reference Range Interpretation Comments CHOLESTEROL (test code = 2210) 144 MG/DL TRIGLYCERIDES (test code = 2232) 127 MG/DL HDL CHOLESTEROL (test code = 2220) 44 MG/DL CALC LDL CHOL (test code = 2237) 75 MG/DL RISK RATIO LDL/HDL (test code = 1.70 RATIO 2238) LIPID [id number] 00:00:00 Test Item Value Reference Range Interpretation Comments CHOLESTEROL (test code = 2210) 144 MG/DL TRIGLYCERIDES (test code = 2232) 127 MG/DL HDL CHOLESTEROL (test code = 2220) 44 MG/DL CALC LDL CHOL (test code = 2237) 75 MG/DL RISK RATIO LDL/HDL (test code = 1.70 RATIO 2238) CBC W/AUTO [id number] 00:00:00 Test Item Value Reference Range Interpretation Comments WBC (test code = 1001) 7.1 K/UL RBC (test code = 1002) 4.24 M/UL HEMOGLOBIN (test code = 1003) 11.7 G/DL HEMATOCRIT (test code = 1004) 35.3 % MCV (test code = 1005) 83.3 fL MCH (test code = 1006) 27.6 PG MCHC (test code = 1007) 33.1 G/DL RDW (test code = 1038) 16.0 % NEUTROPHILS (test code = 1008) 56 % LYMPHOCYTES (test code = 1010) 35 % MONOCYTES (test code = 1011) 8 % EOSINOPHILS (test code = 1012) 1 % BASOPHILS (test code = 1013) % PLATELET COUNT (test code = 1015) 241 K/UL CBC W/AUTO [id number] 00:00:00 Test Item Value Reference Range Interpretation Comments WBC (test code = 1001) 7.1 K/UL RBC (test code = 1002) 4.24 M/UL HEMOGLOBIN (test code = 1003) 11.7 G/DL HEMATOCRIT (test code = 1004) 35.3 % MCV (test code = 1005) 83.3 fL MCH (test code = 1006) 27.6 PG MCHC (test code = 1007) 33.1 G/DL RDW (test code = 1038) 16.0 % NEUTROPHILS (test code = 1008) 56 % LYMPHOCYTES (test code = 1010) 35 % MONOCYTES (test code = 1011) 8 % EOSINOPHILS (test code = 1012) 1 % BASOPHILS (test code = 1013) % PLATELET COUNT (test code = 1015) 241 K/UL CBC W/AUTO [id number] 00:00:00 Test Item Value Reference Range Interpretation Comments WBC (test code = 1001) 7.1 K/UL RBC (test code = 1002) 4.24 M/UL HEMOGLOBIN (test code = 1003) 11.7 G/DL HEMATOCRIT (test code = 1004) 35.3 % MCV (test code = 1005) 83.3 fL MCH (test code = 1006) 27.6 PG MCHC (test code = 1007) 33.1 G/DL RDW (test code = 1038) 16.0 % NEUTROPHILS (test code = 1008) 56 % LYMPHOCYTES (test code = 1010) 35 % MONOCYTES (test code = 1011) 8 % EOSINOPHILS (test code = 1012) 1 % BASOPHILS (test code = 1013) % PLATELET COUNT (test code = 1015) 241 K/UL HEMOGLOBIN [id number] 00:00:00 Test Item Value Reference Range Interpretation Comments HEMOGLOBIN A1c (test code = 65602) 6.7 % HEMOGLOBIN [id number] 00:00:00 Test Item Value Reference Range Interpretation Comments HEMOGLOBIN A1c (test code = 46387) 6.7 % HEMOGLOBIN [id number] 00:00:00 Test Item Value Reference Range Interpretation Comments HEMOGLOBIN A1c (test code = 72720) 6.7 % [id number] 00:00:00 Test Item Value Reference Range Interpretation Comments TSH (test code = 2821) 0.8 UIU/ML [id number] 00:00:00 Test Item Value Reference Range Interpretation Comments TSH (test code = 2821) 0.8 UIU/ML [id number] 00:00:00 Test Item Value Reference Range Interpretation Comments TSH (test code = 2821) 0.8 UIU/ML COMPREHENSIVE METABOLIC [id number] 00:00:00 Test Item Value Reference Range Interpretation Comments GLUCOSE (test code = 2217) 82 MG/DL BUN (test code = 2208) 13 MG/DL CREATININE (test code = 2214) 1.12 MG/DL eGFR AMER. (test code 93 ML/MIN/1.73 = 79875) eGFR NON- AMER. (test 80 ML/MIN/1.73 code = 56349) CALC BUN/CREAT (test code = 12 RATIO 2235) SODIUM (test code = 2231) 145 MEQ/L POTASSIUM (test code = 2228) 3.3 MEQ/L CHLORIDE (test code = 2215) 102 MEQ/L CARBON DIOXIDE (test code = 30 MEQ/L 2205) CALCIUM (test code = 2209) 9.7 MG/DL PROTEIN, TOTAL (test code = 6.7 G/DL 2228) ALBUMIN (test code = 2201) 4.4 G/DL CALC GLOBULIN (test code = 2.3 G/DL 0) CALC A/G RATIO (test code = 1.9 RATIO 223) BILIRUBIN, TOTAL (test code = 0.4 MG/DL 2206) ALKALINE PHOSPHATASE (test 90 U/L code = 2204) AST (test code = 2218) 14 U/L ALT (test code = 2219) 6 U/L COMPREHENSIVE METABOLIC [id number] 00:00:00 Test Item Value Reference Range Interpretation Comments GLUCOSE (test code = 2217) 82 MG/DL BUN (test code = 2208) 13 MG/DL CREATININE (test code = 2214) 1.12 MG/DL eGFR AMER. (test code 93 ML/MIN/1.73 = 72213) eGFR NON- AMER. (test 80 ML/MIN/1.73 code = 47798) CALC BUN/CREAT (test code = 12 RATIO 2235) SODIUM (test code = 2231) 145 MEQ/L POTASSIUM (test code = 2228) 3.3 MEQ/L CHLORIDE (test code = 2215) 102 MEQ/L CARBON DIOXIDE (test code = 30 MEQ/L 2205) CALCIUM (test code = 2209) 9.7 MG/DL PROTEIN, TOTAL (test code = 6.7 G/DL 2228) ALBUMIN (test code = 2201) 4.4 G/DL CALC GLOBULIN (test code = 2.3 G/DL 2240) CALC A/G RATIO (test code = 1.9 RATIO 2234) BILIRUBIN, TOTAL (test code = 0.4 MG/DL 2206) ALKALINE PHOSPHATASE (test 90 U/L code = 2204) AST (test code = 2218) 14 U/L ALT (test code = 2219) 6 U/L LIPID [id number] 00:00:00 Test Item Value Reference Range Interpretation Comments CHOLESTEROL (test code = 2210) 144 MG/DL TRIGLYCERIDES (test code = 2232) 127 MG/DL HDL CHOLESTEROL (test code = 2220) 44 MG/DL CALC LDL CHOL (test code = 2237) 75 MG/DL RISK RATIO LDL/HDL (test code = 1.70 RATIO 2238) LIPID [id number] 00:00:00 Test Item Value Reference Range Interpretation Comments CHOLESTEROL (test code = 2210) 144 MG/DL TRIGLYCERIDES (test code = 2232) 127 MG/DL HDL CHOLESTEROL (test code = 2220) 44 MG/DL CALC LDL CHOL (test code = 2237) 75 MG/DL RISK RATIO LDL/HDL (test code = 1.70 RATIO 2238) CBC W/AUTO [id number] 00:00:00 Test Item Value Reference Range Interpretation Comments WBC (test code = 1001) 7.1 K/UL RBC (test code = 1002) 4.24 M/UL HEMOGLOBIN (test code = 1003) 11.7 G/DL HEMATOCRIT (test code = 1004) 35.3 % MCV (test code = 1005) 83.3 fL MCH (test code = 1006) 27.6 PG MCHC (test code = 1007) 33.1 G/DL RDW (test code = 1038) 16.0 % NEUTROPHILS (test code = 1008) 56 % LYMPHOCYTES (test code = 1010) 35 % MONOCYTES (test code = 1011) 8 % EOSINOPHILS (test code = 1012) 1 % BASOPHILS (test code = 1013) % PLATELET COUNT (test code = 1015) 241 K/UL CBC W/AUTO [id number] 00:00:00 Test Item Value Reference Range Interpretation Comments WBC (test code = 1001) 7.1 K/UL RBC (test code = 1002) 4.24 M/UL HEMOGLOBIN (test code = 1003) 11.7 G/DL HEMATOCRIT (test code = 1004) 35.3 % MCV (test code = 1005) 83.3 fL MCH (test code = 1006) 27.6 PG MCHC (test code = 1007) 33.1 G/DL RDW (test code = 1038) 16.0 % NEUTROPHILS (test code = 1008) 56 % LYMPHOCYTES (test code = 1010) 35 % MONOCYTES (test code = 1011) 8 % EOSINOPHILS (test code = 1012) 1 % BASOPHILS (test code = 1013) % PLATELET COUNT (test code = 1015) 241 K/UL CBC W/AUTO [id number] 00:00:00 Test Item Value Reference Range Interpretation Comments WBC (test code = 1001) 7.1 K/UL RBC (test code = 1002) 4.24 M/UL HEMOGLOBIN (test code = 1003) 11.7 G/DL HEMATOCRIT (test code = 1004) 35.3 % MCV (test code = 1005) 83.3 fL MCH (test code = 1006) 27.6 PG MCHC (test code = 1007) 33.1 G/DL RDW (test code = 1038) 16.0 % NEUTROPHILS (test code = 1008) 56 % LYMPHOCYTES (test code = 1010) 35 % MONOCYTES (test code = 1011) 8 % EOSINOPHILS (test code = 1012) 1 % BASOPHILS (test code = 1013) % PLATELET COUNT (test code = 1015) 241 K/UL HEMOGLOBIN [id number] 00:00:00 Test Item Value Reference Range Interpretation Comments HEMOGLOBIN A1c (test code = 10595) 6.7 % HEMOGLOBIN [id number] 00:00:00 Test Item Value Reference Range Interpretation Comments HEMOGLOBIN A1c (test code = 91698) 6.7 % HEMOGLOBIN [id number] 00:00:00 Test Item Value Reference Range Interpretation Comments HEMOGLOBIN A1c (test code = 11764) 6.7 % [id number] 00:00:00 Test Item Value Reference Range Interpretation Comments TSH (test code = 2821) 0.8 UIU/ML [id number] 00:00:00 Test Item Value Reference Range Interpretation Comments TSH (test code = 2821) 0.8 UIU/ML [id number] 00:00:00 Test Item Value Reference Range Interpretation Comments TSH (test code = 2821) 0.8 UIU/ML COMPREHENSIVE METABOLIC [id number] 00:00:00 Test Item Value Reference Range Interpretation Comments GLUCOSE (test code = 2217) 82 MG/DL BUN (test code = 2208) 13 MG/DL CREATININE (test code = 2214) 1.12 MG/DL eGFR AMER. (test code 93 ML/MIN/1.73 = 76785) eGFR NON- AMER. (test 80 ML/MIN/1.73 code = 63285) CALC BUN/CREAT (test code = 12 RATIO 2235) SODIUM (test code = 2231) 145 MEQ/L POTASSIUM (test code = 2228) 3.3 MEQ/L CHLORIDE (test code = 2215) 102 MEQ/L CARBON DIOXIDE (test code = 30 MEQ/L 2205) CALCIUM (test code = 2209) 9.7 MG/DL PROTEIN, TOTAL (test code = 6.7 G/DL 2228) ALBUMIN (test code = 2201) 4.4 G/DL CALC GLOBULIN (test code = 2.3 G/DL 2240) CALC A/G RATIO (test code = 1.9 RATIO 2234) BILIRUBIN, TOTAL (test code = 0.4 MG/DL 7) ALKALINE PHOSPHATASE (test 90 U/L code = 2204) AST (test code = 2218) 14 U/L ALT (test code = 2219) 6 U/L LIPID [id number] 00:00:00 Test Item Value Reference Range Interpretation Comments CHOLESTEROL (test code = 2210) 144 MG/DL TRIGLYCERIDES (test code = 2232) 127 MG/DL HDL CHOLESTEROL (test code = 2220) 44 MG/DL CALC LDL CHOL (test code = 2237) 75 MG/DL RISK RATIO LDL/HDL (test code = 1.70 RATIO 2238) CBC W/AUTO [id number] 00:00:00 Test Item Value Reference Range Interpretation Comments WBC (test code = 1001) 7.1 K/UL RBC (test code = 1002) 4.24 M/UL HEMOGLOBIN (test code = 1003) 11.7 G/DL HEMATOCRIT (test code = 1004) 35.3 % MCV (test code = 1005) 83.3 fL MCH (test code = 1006) 27.6 PG MCHC (test code = 1007) 33.1 G/DL RDW (test code = 1038) 16.0 % NEUTROPHILS (test code = 1008) 56 % LYMPHOCYTES (test code = 1010) 35 % MONOCYTES (test code = 1011) 8 % EOSINOPHILS (test code = 1012) 1 % BASOPHILS (test code = 1013) % PLATELET COUNT (test code = 1015) 241 K/UL CBC W/AUTO [id number] 00:00:00 Test Item Value Reference Range Interpretation Comments WBC (test code = 1001) 7.1 K/UL RBC (test code = 1002) 4.24 M/UL HEMOGLOBIN (test code = 1003) 11.7 G/DL HEMATOCRIT (test code = 1004) 35.3 % MCV (test code = 1005) 83.3 fL MCH (test code = 1006) 27.6 PG MCHC (test code = 1007) 33.1 G/DL RDW (test code = 1038) 16.0 % NEUTROPHILS (test code = 1008) 56 % LYMPHOCYTES (test code = 1010) 35 % MONOCYTES (test code = 1011) 8 % EOSINOPHILS (test code = 1012) 1 % BASOPHILS (test code = 1013) % PLATELET COUNT (test code = 1015) 241 K/UL HEMOGLOBIN [id number] 00:00:00 Test Item Value Reference Range Interpretation Comments HEMOGLOBIN A1c (test code = 96868) 6.7 % HEMOGLOBIN [id number] 00:00:00 Test Item Value Reference Range Interpretation Comments HEMOGLOBIN A1c (test code = 96532) 6.7 % [id number] 00:00:00 Test Item Value Reference Range Interpretation Comments TSH (test code = 2821) 0.8 UIU/ML [id number] 00:00:00 Test Item Value Reference Range Interpretation Comments TSH (test code = 2821) 0.8 UIU/ML COMPREHENSIVE METABOLIC [id number] 00:00:00 Test Item Value Reference Range Interpretation Comments GLUCOSE (test code = 2217) 82 MG/DL BUN (test code = 2208) 13 MG/DL CREATININE (test code = 2214) 1.12 MG/DL eGFR AMER. (test code 93 ML/MIN/1.73 = 03489) eGFR NON- AMER. (test 80 ML/MIN/1.73 code = 59356) CALC BUN/CREAT (test code = 12 RATIO 2235) SODIUM (test code = 2231) 145 MEQ/L POTASSIUM (test code = 2228) 3.3 MEQ/L CHLORIDE (test code = 2215) 102 MEQ/L CARBON DIOXIDE (test code = 30 MEQ/L 2205) CALCIUM (test code = 2209) 9.7 MG/DL PROTEIN, TOTAL (test code = 6.7 G/DL 2228) ALBUMIN (test code = 2201) 4.4 G/DL CALC GLOBULIN (test code = 2.3 G/DL 2240) CALC A/G RATIO (test code = 1.9 RATIO 2234) BILIRUBIN, TOTAL (test code = 0.4 MG/DL 2206) ALKALINE PHOSPHATASE (test 90 U/L code = 2204) AST (test code = 2218) 14 U/L ALT (test code = 2219) 6 U/L LIPID [id number] 00:00:00 Test Item Value Reference Range Interpretation Comments CHOLESTEROL (test code = 2210) 144 MG/DL TRIGLYCERIDES (test code = 2232) 127 MG/DL HDL CHOLESTEROL (test code = 2220) 44 MG/DL CALC LDL CHOL (test code = 2237) 75 MG/DL RISK RATIO LDL/HDL (test code = 1.70 RATIO 2238) CBC W/AUTO [id number] 00:00:00 Test Item Value Reference Range Interpretation Comments WBC (test code = 1001) 7.1 K/UL RBC (test code = 1002) 4.24 M/UL HEMOGLOBIN (test code = 1003) 11.7 G/DL HEMATOCRIT (test code = 1004) 35.3 % MCV (test code = 1005) 83.3 fL MCH (test code = 1006) 27.6 PG MCHC (test code = 1007) 33.1 G/DL RDW (test code = 1038) 16.0 % NEUTROPHILS (test code = 1008) 56 % LYMPHOCYTES (test code = 1010) 35 % MONOCYTES (test code = 1011) 8 % EOSINOPHILS (test code = 1012) 1 % BASOPHILS (test code = 1013) % PLATELET COUNT (test code = 1015) 241 K/UL CBC W/AUTO [id number] 00:00:00 Test Item Value Reference Range Interpretation Comments WBC (test code = 1001) 7.1 K/UL RBC (test code = 1002) 4.24 M/UL HEMOGLOBIN (test code = 1003) 11.7 G/DL HEMATOCRIT (test code = 1004) 35.3 % MCV (test code = 1005) 83.3 fL MCH (test code = 1006) 27.6 PG MCHC (test code = 1007) 33.1 G/DL RDW (test code = 1038) 16.0 % NEUTROPHILS (test code = 1008) 56 % LYMPHOCYTES (test code = 1010) 35 % MONOCYTES (test code = 1011) 8 % EOSINOPHILS (test code = 1012) 1 % BASOPHILS (test code = 1013) % PLATELET COUNT (test code = 1015) 241 K/UL HEMOGLOBIN [id number] 00:00:00 Test Item Value Reference Range Interpretation Comments HEMOGLOBIN A1c (test code = 44192) 6.7 % HEMOGLOBIN [id number] 00:00:00 Test Item Value Reference Range Interpretation Comments HEMOGLOBIN A1c (test code = 27484) 6.7 % [id number] 00:00:00 Test Item Value Reference Range Interpretation Comments TSH (test code = 2821) 0.8 UIU/ML [id number] 00:00:00 Test Item Value Reference Range Interpretation Comments TSH (test code = 2821) 0.8 UIU/ML DRUG SCREEN, [id number] 00:00:00 Test Item Value Reference Range Interpretation Comments AMPHETAMINES (test code = 79907) Negative BARBITURATES (test code = 05391) Negative BENZODIAZEPINES (test code = 02167) Negative COCAINE METABOLITE (test code = Negative 58785) METHADONE (test code = 54031) Negative OPIATES (test code = 512038) Negative PHENCYCLIDINE (test code = 183088) Negative PROPOXYPHENE (test code = 400488) Negative THC (CANNABIS) (test code = 100983) Negative ETHANOL (test code = 044237) Negative DRUG SCREEN, [id number] 00:00:00 Test Item Value Reference Range Interpretation Comments AMPHETAMINES (test code = 23569) Negative BARBITURATES (test code = 33568) Negative BENZODIAZEPINES (test code = 40223) Negative COCAINE METABOLITE (test code = Negative 84656) METHADONE (test code = 65835) Negative OPIATES (test code = 116918) Negative PHENCYCLIDINE (test code = 108640) Negative PROPOXYPHENE (test code = 241923) Negative THC (CANNABIS) (test code = 548761) Negative ETHANOL (test code = 577884) Negative DRUG SCREEN, [id number] 00:00:00 Test Item Value Reference Range Interpretation Comments AMPHETAMINES (test code = 08413) Negative BARBITURATES (test code = 75106) Negative BENZODIAZEPINES (test code = 47306) Negative COCAINE METABOLITE (test code = Negative 68180) METHADONE (test code = 05052) Negative OPIATES (test code = 677607) Negative PHENCYCLIDINE (test code = 113340) Negative PROPOXYPHENE (test code = 756442) Negative THC (CANNABIS) (test code = 604975) Negative ETHANOL (test code = 057400) Negative DRUG SCREEN, [id number] 00:00:00 Test Item Value Reference Range Interpretation Comments AMPHETAMINES (test code = 30072) Negative BARBITURATES (test code = 36564) Negative BENZODIAZEPINES (test code = 45942) Negative COCAINE METABOLITE (test code = Negative 56564) METHADONE (test code = 03092) Negative OPIATES (test code = 126346) Negative PHENCYCLIDINE (test code = 555718) Negative PROPOXYPHENE (test code = 137424) Negative THC (CANNABIS) (test code = 911545) Negative ETHANOL (test code = 779870) Negative DRUG SCREEN, [id number] 00:00:00 Test Item Value Reference Range Interpretation Comments AMPHETAMINES (test code = 78469) Negative BARBITURATES (test code = 45977) Negative BENZODIAZEPINES (test code = 84800) Negative COCAINE METABOLITE (test code = Negative 14771) METHADONE (test code = 67723) Negative OPIATES (test code = 333003) Negative PHENCYCLIDINE (test code = 165698) Negative PROPOXYPHENE (test code = 009893) Negative THC (CANNABIS) (test code = 159549) Negative ETHANOL (test code = 832244) Negative DRUG SCREEN, [id number] 00:00:00 Test Item Value Reference Range Interpretation Comments AMPHETAMINES (test code = 45638) Negative BARBITURATES (test code = 64342) Negative BENZODIAZEPINES (test code = 08456) Negative COCAINE METABOLITE (test code = Negative 49862) METHADONE (test code = 07123) Negative OPIATES (test code = 525826) Negative PHENCYCLIDINE (test code = 559409) Negative PROPOXYPHENE (test code = 410765) Negative THC (CANNABIS) (test code = 988906) Negative ETHANOL (test code = 556124) Negative HEMOGLOBIN [id number] 00:00:00 Test Item Value Reference Range Interpretation Comments HEMOGLOBIN A1c (test code = 21232) 7.0 % HEMOGLOBIN [id number] 00:00:00 Test Item Value Reference Range Interpretation Comments HEMOGLOBIN A1c (test code = 60761) 7.0 % HEMOGLOBIN [id number] 00:00:00 Test Item Value Reference Range Interpretation Comments HEMOGLOBIN A1c (test code = 45491) 7.0 % THYROID II PROFILE (T3U, T4, T7, TSH)[id number] 00:00:00 Test Item Value Reference Range Interpretation Comments T3 UPTAKE (test code = 2817) 29.2 % T4 (THYROXINE) (test code = 2819) 6.0 UG/DL CALCULATED T7 (FTI) (test code = 1.75 2820) TSH (test code = 2821) 0.7 UIU/ML THYROID II PROFILE (T3U, T4, T7, TSH)[id number] 00:00:00 Test Item Value Reference Range Interpretation Comments T3 UPTAKE (test code = 2817) 29.2 % T4 (THYROXINE) (test code = 2819) 6.0 UG/DL CALCULATED T7 (FTI) (test code = 1.75 2820) TSH (test code = 2821) 0.7 UIU/ML COMPREHENSIVE METABOLIC [id number] 00:00:00 Test Item Value Reference Range Interpretation Comments GLUCOSE (test code = 2217) 110 MG/DL BUN (test code = 2208) 19 MG/DL CREATININE (test code = 2214) 1.13 MG/DL eGFR AMER. (test code 92 ML/MIN/1.73 = 21175) eGFR NON- AMER. (test 80 ML/MIN/1.73 code = 08950) CALCULATED BUN/CREAT (test 17 RATIO code = 2235) SODIUM (test code = 2231) 140 MEQ/L POTASSIUM (test code = 2228) 3.7 MEQ/L CHLORIDE (test code = 2215) 102 MEQ/L CARBON DIOXIDE (test code = 30 MEQ/L 2205) CALCIUM (test code = 2209) 9.4 MG/DL PROTEIN, TOTAL (test code = 7.1 G/DL 2228) ALBUMIN (test code = 2201) 4.3 G/DL CALCULATED GLOBULIN (test code 2.8 G/DL = 2240) CALCULATED A/G RATIO (test 1.5 RATIO code = 2234) BILIRUBIN, TOTAL (test code = 0.7 MG/DL 2206) ALKALINE PHOSPHATASE (test 97 U/L code = 2204) SGOT (AST) (test code = 2218) 24 U/L SGPT (ALT) (test code = 2219) 17 U/L COMPREHENSIVE METABOLIC [id number] 00:00:00 Test Item Value Reference Range Interpretation Comments GLUCOSE (test code = 2217) 110 MG/DL BUN (test code = 2208) 19 MG/DL CREATININE (test code = 2214) 1.13 MG/DL eGFR AMER. (test code 92 ML/MIN/1.73 = 26345) eGFR NON- AMER. (test 80 ML/MIN/1.73 code = 22915) CALCULATED BUN/CREAT (test 17 RATIO code = 2235) SODIUM (test code = 2231) 140 MEQ/L POTASSIUM (test code = 2228) 3.7 MEQ/L CHLORIDE (test code = 2215) 102 MEQ/L CARBON DIOXIDE (test code = 30 MEQ/L 2205) CALCIUM (test code = 2209) 9.4 MG/DL PROTEIN, TOTAL (test code = 7.1 G/DL 2228) ALBUMIN (test code = 2201) 4.3 G/DL CALCULATED GLOBULIN (test code 2.8 G/DL = 2240) CALCULATED A/G RATIO (test 1.5 RATIO code = 2234) BILIRUBIN, TOTAL (test code = 0.7 MG/DL 2206) ALKALINE PHOSPHATASE (test 97 U/L code = 2204) SGOT (AST) (test code = 2218) 24 U/L SGPT (ALT) (test code = 2219) 17 U/L LIPID [id number] 00:00:00 Test Item Value Reference Range Interpretation Comments CHOLESTEROL (test code = 2210) 193 MG/DL TRIGLYCERIDES (test code = 2232) 130 MG/DL HDL CHOLESTEROL (test code = 2220) 41 MG/DL CALCULATED LDL CHOL (test code = 126 MG/DL 2237) RISK RATIO LDL/HDL (test code = 3.07 RATIO 2238) LIPID [id number] 00:00:00 Test Item Value Reference Range Interpretation Comments CHOLESTEROL (test code = 2210) 193 MG/DL TRIGLYCERIDES (test code = 2232) 130 MG/DL HDL CHOLESTEROL (test code = 2220) 41 MG/DL CALCULATED LDL CHOL (test code = 126 MG/DL 2237) RISK RATIO LDL/HDL (test code = 3.07 RATIO 2238) CBC W/AUTO [id number] 00:00:00 Test Item Value Reference Range Interpretation Comments WBC (test code = 1001) 4.8 K/UL RBC (test code = 1002) 5.17 M/UL HEMOGLOBIN (test code = 1003) 13.3 G/DL HEMATOCRIT (test code = 1004) 40.5 % MCV (test code = 1005) 78.3 fL MCH (test code = 1006) 25.7 PG MCHC (test code = 1007) 32.8 G/DL RDW (test code = 1038) 16.4 % NEUTROPHILS (test code = 1008) 47 % LYMPHOCYTES (test code = 1010) 46 % MONOCYTES (test code = 1011) 6 % EOSINOPHILS (test code = 1012) 1 % BASOPHILS (test code = 1013) % PLATELET COUNT (test code = 1015) 258 K/UL CBC W/AUTO [id number] 00:00:00 Test Item Value Reference Range Interpretation Comments WBC (test code = 1001) 4.8 K/UL RBC (test code = 1002) 5.17 M/UL HEMOGLOBIN (test code = 1003) 13.3 G/DL HEMATOCRIT (test code = 1004) 40.5 % MCV (test code = 1005) 78.3 fL MCH (test code = 1006) 25.7 PG MCHC (test code = 1007) 32.8 G/DL RDW (test code = 1038) 16.4 % NEUTROPHILS (test code = 1008) 47 % LYMPHOCYTES (test code = 1010) 46 % MONOCYTES (test code = 1011) 6 % EOSINOPHILS (test code = 1012) 1 % BASOPHILS (test code = 1013) % PLATELET COUNT (test code = 1015) 258 K/UL CBC W/AUTO [id number] 00:00:00 Test Item Value Reference Range Interpretation Comments WBC (test code = 1001) 4.8 K/UL RBC (test code = 1002) 5.17 M/UL HEMOGLOBIN (test code = 1003) 13.3 G/DL HEMATOCRIT (test code = 1004) 40.5 % MCV (test code = 1005) 78.3 fL MCH (test code = 1006) 25.7 PG MCHC (test code = 1007) 32.8 G/DL RDW (test code = 1038) 16.4 % NEUTROPHILS (test code = 1008) 47 % LYMPHOCYTES (test code = 1010) 46 % MONOCYTES (test code = 1011) 6 % EOSINOPHILS (test code = 1012) 1 % BASOPHILS (test code = 1013) % PLATELET COUNT (test code = 1015) 258 K/UL HEMOGLOBIN [id number] 00:00:00 Test Item Value Reference Range Interpretation Comments HEMOGLOBIN A1c (test code = 68245) 7.0 % HEMOGLOBIN [id number] 00:00:00 Test Item Value Reference Range Interpretation Comments HEMOGLOBIN A1c (test code = 71452) 7.0 % HEMOGLOBIN [id number] 00:00:00 Test Item Value Reference Range Interpretation Comments HEMOGLOBIN A1c (test code = 91282) 7.0 % THYROID II PROFILE (T3U, T4, T7, TSH)[id number] 00:00:00 Test Item Value Reference Range Interpretation Comments T3 UPTAKE (test code = 2817) 29.2 % T4 (THYROXINE) (test code = 2819) 6.0 UG/DL CALCULATED T7 (FTI) (test code = 1.75 2820) TSH (test code = 2821) 0.7 UIU/ML THYROID II PROFILE (T3U, T4, T7, TSH)[id number] 00:00:00 Test Item Value Reference Range Interpretation Comments T3 UPTAKE (test code = 2817) 29.2 % T4 (THYROXINE) (test code = 2819) 6.0 UG/DL CALCULATED T7 (FTI) (test code = 1.75 2820) TSH (test code = 2821) 0.7 UIU/ML COMPREHENSIVE METABOLIC [id number] 00:00:00 Test Item Value Reference Range Interpretation Comments GLUCOSE (test code = 2217) 110 MG/DL BUN (test code = 2208) 19 MG/DL CREATININE (test code = 2214) 1.13 MG/DL eGFR AMER. (test code 92 ML/MIN/1.73 = 29487) eGFR NON- AMER. (test 80 ML/MIN/1.73 code = 88421) CALCULATED BUN/CREAT (test 17 RATIO code = 2235) SODIUM (test code = 2231) 140 MEQ/L POTASSIUM (test code = 2228) 3.7 MEQ/L CHLORIDE (test code = 2215) 102 MEQ/L CARBON DIOXIDE (test code = 30 MEQ/L 2205) CALCIUM (test code = 2209) 9.4 MG/DL PROTEIN, TOTAL (test code = 7.1 G/DL 2228) ALBUMIN (test code = 2201) 4.3 G/DL CALCULATED GLOBULIN (test code 2.8 G/DL = 2240) CALCULATED A/G RATIO (test 1.5 RATIO code = 2234) BILIRUBIN, TOTAL (test code = 0.7 MG/DL 2206) ALKALINE PHOSPHATASE (test 97 U/L code = 2204) SGOT (AST) (test code = 2218) 24 U/L SGPT (ALT) (test code = 2219) 17 U/L COMPREHENSIVE METABOLIC [id number] 00:00:00 Test Item Value Reference Range Interpretation Comments GLUCOSE (test code = 2217) 110 MG/DL BUN (test code = 2208) 19 MG/DL CREATININE (test code = 2214) 1.13 MG/DL eGFR AMER. (test code 92 ML/MIN/1.73 = 24597) eGFR NON- AMER. (test 80 ML/MIN/1.73 code = 47192) CALCULATED BUN/CREAT (test 17 RATIO code = 2235) SODIUM (test code = 2231) 140 MEQ/L POTASSIUM (test code = 2228) 3.7 MEQ/L CHLORIDE (test code = 2215) 102 MEQ/L CARBON DIOXIDE (test code = 30 MEQ/L 2205) CALCIUM (test code = 2209) 9.4 MG/DL PROTEIN, TOTAL (test code = 7.1 G/DL 2228) ALBUMIN (test code = 2201) 4.3 G/DL CALCULATED GLOBULIN (test code 2.8 G/DL = 2240) CALCULATED A/G RATIO (test 1.5 RATIO code = 2234) BILIRUBIN, TOTAL (test code = 0.7 MG/DL 2206) ALKALINE PHOSPHATASE (test 97 U/L code = 2204) SGOT (AST) (test code = 2218) 24 U/L SGPT (ALT) (test code = 2219) 17 U/L LIPID [id number] 00:00:00 Test Item Value Reference Range Interpretation Comments CHOLESTEROL (test code = 2210) 193 MG/DL TRIGLYCERIDES (test code = 2232) 130 MG/DL HDL CHOLESTEROL (test code = 2220) 41 MG/DL CALCULATED LDL CHOL (test code = 126 MG/DL 2236) RISK RATIO LDL/HDL (test code = 3.07 RATIO 2238) LIPID [id number] 00:00:00 Test Item Value Reference Range Interpretation Comments CHOLESTEROL (test code = 2210) 193 MG/DL TRIGLYCERIDES (test code = 2232) 130 MG/DL HDL CHOLESTEROL (test code = 2220) 41 MG/DL CALCULATED LDL CHOL (test code = 126 MG/DL 2236) RISK RATIO LDL/HDL (test code = 3.07 RATIO 8) CBC W/AUTO [id number] 00:00:00 Test Item Value Reference Range Interpretation Comments WBC (test code = 1001) 4.8 K/UL RBC (test code = 1002) 5.17 M/UL HEMOGLOBIN (test code = 1003) 13.3 G/DL HEMATOCRIT (test code = 1004) 40.5 % MCV (test code = 1005) 78.3 fL MCH (test code = 1006) 25.7 PG MCHC (test code = 1007) 32.8 G/DL RDW (test code = 1038) 16.4 % NEUTROPHILS (test code = 1008) 47 % LYMPHOCYTES (test code = 1010) 46 % MONOCYTES (test code = 1011) 6 % EOSINOPHILS (test code = 1012) 1 % BASOPHILS (test code = 1013) % PLATELET COUNT (test code = 1015) 258 K/UL CBC W/AUTO [id number] 00:00:00 Test Item Value Reference Range Interpretation Comments WBC (test code = 1001) 4.8 K/UL RBC (test code = 1002) 5.17 M/UL HEMOGLOBIN (test code = 1003) 13.3 G/DL HEMATOCRIT (test code = 1004) 40.5 % MCV (test code = 1005) 78.3 fL MCH (test code = 1006) 25.7 PG MCHC (test code = 1007) 32.8 G/DL RDW (test code = 1038) 16.4 % NEUTROPHILS (test code = 1008) 47 % LYMPHOCYTES (test code = 1010) 46 % MONOCYTES (test code = 1011) 6 % EOSINOPHILS (test code = 1012) 1 % BASOPHILS (test code = 1013) % PLATELET COUNT (test code = 1015) 258 K/UL CBC W/AUTO [id number] 00:00:00 Test Item Value Reference Range Interpretation Comments WBC (test code = 1001) 4.8 K/UL RBC (test code = 1002) 5.17 M/UL HEMOGLOBIN (test code = 1003) 13.3 G/DL HEMATOCRIT (test code = 1004) 40.5 % MCV (test code = 1005) 78.3 fL MCH (test code = 1006) 25.7 PG MCHC (test code = 1007) 32.8 G/DL RDW (test code = 1038) 16.4 % NEUTROPHILS (test code = 1008) 47 % LYMPHOCYTES (test code = 1010) 46 % MONOCYTES (test code = 1011) 6 % EOSINOPHILS (test code = 1012) 1 % BASOPHILS (test code = 1013) % PLATELET COUNT (test code = 1015) 258 K/UL HEMOGLOBIN [id number] 00:00:00 Test Item Value Reference Range Interpretation Comments HEMOGLOBIN A1c (test code = 14098) 7.0 % HEMOGLOBIN [id number] 00:00:00 Test Item Value Reference Range Interpretation Comments HEMOGLOBIN A1c (test code = 33617) 7.0 % THYROID II PROFILE (T3U, T4, T7, TSH)[id number] 00:00:00 Test Item Value Reference Range Interpretation Comments T3 UPTAKE (test code = 2817) 29.2 % T4 (THYROXINE) (test code = 2819) 6.0 UG/DL CALCULATED T7 (FTI) (test code = 1.75 2820) TSH (test code = 2821) 0.7 UIU/ML COMPREHENSIVE METABOLIC [id number] 00:00:00 Test Item Value Reference Range Interpretation Comments GLUCOSE (test code = 2217) 110 MG/DL BUN (test code = 2208) 19 MG/DL CREATININE (test code = 2214) 1.13 MG/DL eGFR AMER. (test code 92 ML/MIN/1.73 = 67051) eGFR NON- AMER. (test 80 ML/MIN/1.73 code = 95183) CALCULATED BUN/CREAT (test 17 RATIO code = 2235) SODIUM (test code = 2231) 140 MEQ/L POTASSIUM (test code = 2228) 3.7 MEQ/L CHLORIDE (test code = 2215) 102 MEQ/L CARBON DIOXIDE (test code = 30 MEQ/L 6) CALCIUM (test code = 2209) 9.4 MG/DL PROTEIN, TOTAL (test code = 7.1 G/DL 2228) ALBUMIN (test code = 2201) 4.3 G/DL CALCULATED GLOBULIN (test code 2.8 G/DL = 2240) CALCULATED A/G RATIO (test 1.5 RATIO code = 2234) BILIRUBIN, TOTAL (test code = 0.7 MG/DL 2206) ALKALINE PHOSPHATASE (test 97 U/L code = 2204) SGOT (AST) (test code = 2218) 24 U/L SGPT (ALT) (test code = 2219) 17 U/L LIPID [id number] 00:00:00 Test Item Value Reference Range Interpretation Comments CHOLESTEROL (test code = 2210) 193 MG/DL TRIGLYCERIDES (test code = 2232) 130 MG/DL HDL CHOLESTEROL (test code = 2220) 41 MG/DL CALCULATED LDL CHOL (test code = 126 MG/DL 2236) RISK RATIO LDL/HDL (test code = 3.07 RATIO 2237) CBC W/AUTO [id number] 00:00:00 Test Item Value Reference Range Interpretation Comments WBC (test code = 1001) 4.8 K/UL RBC (test code = 1002) 5.17 M/UL HEMOGLOBIN (test code = 1003) 13.3 G/DL HEMATOCRIT (test code = 1004) 40.5 % MCV (test code = 1005) 78.3 fL MCH (test code = 1006) 25.7 PG MCHC (test code = 1007) 32.8 G/DL RDW (test code = 1038) 16.4 % NEUTROPHILS (test code = 1008) 47 % LYMPHOCYTES (test code = 1010) 46 % MONOCYTES (test code = 1011) 6 % EOSINOPHILS (test code = 1012) 1 % BASOPHILS (test code = 1013) % PLATELET COUNT (test code = 1015) 258 K/UL CBC W/AUTO [id number] 00:00:00 Test Item Value Reference Range Interpretation Comments WBC (test code = 1001) 4.8 K/UL RBC (test code = 1002) 5.17 M/UL HEMOGLOBIN (test code = 1003) 13.3 G/DL HEMATOCRIT (test code = 1004) 40.5 % MCV (test code = 1005) 78.3 fL MCH (test code = 1006) 25.7 PG MCHC (test code = 1007) 32.8 G/DL RDW (test code = 1038) 16.4 % NEUTROPHILS (test code = 1008) 47 % LYMPHOCYTES (test code = 1010) 46 % MONOCYTES (test code = 1011) 6 % EOSINOPHILS (test code = 1012) 1 % BASOPHILS (test code = 1013) % PLATELET COUNT (test code = 1015) 258 K/UL HEMOGLOBIN [id number] 00:00:00 Test Item Value Reference Range Interpretation Comments HEMOGLOBIN A1c (test code = 06329) 7.0 % HEMOGLOBIN [id number] 00:00:00 Test Item Value Reference Range Interpretation Comments HEMOGLOBIN A1c (test code = 46050) 7.0 % THYROID II PROFILE (T3U, T4, T7, TSH)[id number] 00:00:00 Test Item Value Reference Range Interpretation Comments T3 UPTAKE (test code = 2817) 29.2 % T4 (THYROXINE) (test code = 2819) 6.0 UG/DL CALCULATED T7 (FTI) (test code = 1.75 2820) TSH (test code = 2821) 0.7 UIU/ML COMPREHENSIVE METABOLIC [id number] 00:00:00 Test Item Value Reference Range Interpretation Comments GLUCOSE (test code = 2217) 110 MG/DL BUN (test code = 2208) 19 MG/DL CREATININE (test code = 2214) 1.13 MG/DL eGFR AMER. (test code 92 ML/MIN/1.73 = 71802) eGFR NON- AMER. (test 80 ML/MIN/1.73 code = 54599) CALCULATED BUN/CREAT (test 17 RATIO code = 2235) SODIUM (test code = 2231) 140 MEQ/L POTASSIUM (test code = 2228) 3.7 MEQ/L CHLORIDE (test code = 2215) 102 MEQ/L CARBON DIOXIDE (test code = 30 MEQ/L 2205) CALCIUM (test code = 2209) 9.4 MG/DL PROTEIN, TOTAL (test code = 7.1 G/DL 2228) ALBUMIN (test code = 2201) 4.3 G/DL CALCULATED GLOBULIN (test code 2.8 G/DL = 2240) CALCULATED A/G RATIO (test 1.5 RATIO code = 2234) BILIRUBIN, TOTAL (test code = 0.7 MG/DL 2206) ALKALINE PHOSPHATASE (test 97 U/L code = 2204) SGOT (AST) (test code = 2218) 24 U/L SGPT (ALT) (test code = 2219) 17 U/L LIPID [id number] 00:00:00 Test Item Value Reference Range Interpretation Comments CHOLESTEROL (test code = 2210) 193 MG/DL TRIGLYCERIDES (test code = 2232) 130 MG/DL HDL CHOLESTEROL (test code = 2220) 41 MG/DL CALCULATED LDL CHOL (test code = 126 MG/DL 2236) RISK RATIO LDL/HDL (test code = 3.07 RATIO 2238) CBC W/AUTO [id number] 00:00:00 Test Item Value Reference Range Interpretation Comments WBC (test code = 1001) 4.8 K/UL RBC (test code = 1002) 5.17 M/UL HEMOGLOBIN (test code = 1003) 13.3 G/DL HEMATOCRIT (test code = 1004) 40.5 % MCV (test code = 1005) 78.3 fL MCH (test code = 1006) 25.7 PG MCHC (test code = 1007) 32.8 G/DL RDW (test code = 1038) 16.4 % NEUTROPHILS (test code = 1008) 47 % LYMPHOCYTES (test code = 1010) 46 % MONOCYTES (test code = 1011) 6 % EOSINOPHILS (test code = 1012) 1 % BASOPHILS (test code = 1013) % PLATELET COUNT (test code = 1015) 258 K/UL CBC W/AUTO [id number] 00:00:00 Test Item Value Reference Range Interpretation Comments WBC (test code = 1001) 4.8 K/UL RBC (test code = 1002) 5.17 M/UL HEMOGLOBIN (test code = 1003) 13.3 G/DL HEMATOCRIT (test code = 1004) 40.5 % MCV (test code = 1005) 78.3 fL MCH (test code = 1006) 25.7 PG MCHC (test code = 1007) 32.8 G/DL RDW (test code = 1038) 16.4 % NEUTROPHILS (test code = 1008) 47 % LYMPHOCYTES (test code = 1010) 46 % MONOCYTES (test code = 1011) 6 % EOSINOPHILS (test code = 1012) 1 % BASOPHILS (test code = 1013) % PLATELET COUNT (test code = 1015) 258 K/UL COMPREHENSIVE METABOLIC [id number] 00:00:00 Test Item Value Reference Range Interpretation Comments GLUCOSE (test code = 2217) 96 MG/DL BUN (test code = 2208) 14 MG/DL CREATININE (test code = 2214) 1.0 MG/DL eGFR AMER. (test code 99 ML/MIN/1.73 = 95457) eGFR NON- AMER. (test 82 ML/MIN/1.73 code = 46981) CALCULATED BUN/CREAT (test 14 RATIO code = 2235) SODIUM (test code = 2231) 137 MEQ/L POTASSIUM (test code = 2228) 4.1 MEQ/L CHLORIDE (test code = 2215) 105 MEQ/L CARBON DIOXIDE (test code = 25 MEQ/L 2205) CALCIUM (test code = 2209) 9.3 MG/DL PROTEIN, TOTAL (test code = 7.2 G/DL 2228) ALBUMIN (test code = 2201) 4.3 G/DL CALCULATED GLOBULIN (test code 2.9 G/DL = 2240) CALCULATED A/G RATIO (test 1.5 RATIO code = 2234) BILIRUBIN, TOTAL (test code = 0.7 MG/DL 2206) ALKALINE PHOSPHATASE (test 100 U/L code = 2204) SGOT (AST) (test code = 2218) 23 U/L SGPT (ALT) (test code = 2219) 17 U/L COMPREHENSIVE METABOLIC [id number] 00:00:00 Test Item Value Reference Range Interpretation Comments GLUCOSE (test code = 2217) 96 MG/DL BUN (test code = 2208) 14 MG/DL CREATININE (test code = 2214) 1.0 MG/DL eGFR AMER. (test code 99 ML/MIN/1.73 = 83856) eGFR NON- AMER. (test 82 ML/MIN/1.73 code = 32577) CALCULATED BUN/CREAT (test 14 RATIO code = 2235) SODIUM (test code = 2231) 137 MEQ/L POTASSIUM (test code = 2228) 4.1 MEQ/L CHLORIDE (test code = 2215) 105 MEQ/L CARBON DIOXIDE (test code = 25 MEQ/L 220) CALCIUM (test code = 2209) 9.3 MG/DL PROTEIN, TOTAL (test code = 7.2 G/DL 2228) ALBUMIN (test code = 2201) 4.3 G/DL CALCULATED GLOBULIN (test code 2.9 G/DL = 2240) CALCULATED A/G RATIO (test 1.5 RATIO code = 2234) BILIRUBIN, TOTAL (test code = 0.7 MG/DL 2206) ALKALINE PHOSPHATASE (test 100 U/L code = 2204) SGOT (AST) (test code = 2218) 23 U/L SGPT (ALT) (test code = 2219) 17 U/L LIPID [id number] 00:00:00 Test Item Value Reference Range Interpretation Comments CHOLESTEROL (test code = 2210) 254 MG/DL TRIGLYCERIDES (test code = 2232) 246 MG/DL HDL CHOLESTEROL (test code = 2220) 40 MG/DL CALCULATED LDL CHOL (test code = 165 MG/DL 2237) RISK RATIO LDL/HDL (test code = 4.12 RATIO 2238) LIPID [id number] 00:00:00 Test Item Value Reference Range Interpretation Comments CHOLESTEROL (test code = 2210) 254 MG/DL TRIGLYCERIDES (test code = 2232) 246 MG/DL HDL CHOLESTEROL (test code = 2220) 40 MG/DL CALCULATED LDL CHOL (test code = 165 MG/DL 2237) RISK RATIO LDL/HDL (test code = 4.12 RATIO 2238) CBC W/AUTO [id number] 00:00:00 Test Item Value Reference Range Interpretation Comments WBC (test code = 1001) 6.5 K/UL RBC (test code = 1002) 4.80 M/UL HEMOGLOBIN (test code = 1003) 12.9 G/DL HEMATOCRIT (test code = 1004) 39.8 % MCV (test code = 1005) 82.9 fL MCH (test code = 1006) 26.9 PG MCHC (test code = 1007) 32.4 G/DL RDW (test code = 1038) 15.3 % NEUTROPHILS (test code = 1008) 38 % LYMPHOCYTES (test code = 1010) 52 % MONOCYTES (test code = 1011) 8 % EOSINOPHILS (test code = 1012) 2 % BASOPHILS (test code = 1013) % PLATELET COUNT (test code = 1015) 278 K/UL CBC W/AUTO [id number] 00:00:00 Test Item Value Reference Range Interpretation Comments WBC (test code = 1001) 6.5 K/UL RBC (test code = 1002) 4.80 M/UL HEMOGLOBIN (test code = 1003) 12.9 G/DL HEMATOCRIT (test code = 1004) 39.8 % MCV (test code = 1005) 82.9 fL MCH (test code = 1006) 26.9 PG MCHC (test code = 1007) 32.4 G/DL RDW (test code = 1038) 15.3 % NEUTROPHILS (test code = 1008) 38 % LYMPHOCYTES (test code = 1010) 52 % MONOCYTES (test code = 1011) 8 % EOSINOPHILS (test code = 1012) 2 % BASOPHILS (test code = 1013) % PLATELET COUNT (test code = 1015) 278 K/UL CBC W/AUTO [id number] 00:00:00 Test Item Value Reference Range Interpretation Comments WBC (test code = 1001) 6.5 K/UL RBC (test code = 1002) 4.80 M/UL HEMOGLOBIN (test code = 1003) 12.9 G/DL HEMATOCRIT (test code = 1004) 39.8 % MCV (test code = 1005) 82.9 fL MCH (test code = 1006) 26.9 PG MCHC (test code = 1007) 32.4 G/DL RDW (test code = 1038) 15.3 % NEUTROPHILS (test code = 1008) 38 % LYMPHOCYTES (test code = 1010) 52 % MONOCYTES (test code = 1011) 8 % EOSINOPHILS (test code = 1012) 2 % BASOPHILS (test code = 1013) % PLATELET COUNT (test code = 1015) 278 K/UL THYROID II PROFILE (T3U, T4, T7, TSH)2015-05-03 00:00:00 Test Item Value Reference Range Interpretation Comments T3 UPTAKE (test code = 2817) 27.3 % T4 (THYROXINE) (test code = 2819) 5.4 UG/DL CALCULATED T7 (FTI) (test code = 1.47 2820) TSH (test code = 2821) 1.3 UIU/ML THYROID II PROFILE (T3U, T4, T7, TSH)2015-05-03 00:00:00 Test Item Value Reference Range Interpretation Comments T3 UPTAKE (test code = 2817) 27.3 % T4 (THYROXINE) (test code = 2819) 5.4 UG/DL CALCULATED T7 (FTI) (test code = 1.47 2820) TSH (test code = 2821) 1.3 UIU/ML COMPREHENSIVE METABOLIC [id number] 00:00:00 Test Item Value Reference Range Interpretation Comments GLUCOSE (test code = 2217) 96 MG/DL BUN (test code = 2208) 14 MG/DL CREATININE (test code = 2214) 1.0 MG/DL eGFR AMER. (test code 99 ML/MIN/1.73 = 37084) eGFR NON- AMER. (test 82 ML/MIN/1.73 code = 11965) CALCULATED BUN/CREAT (test 14 RATIO code = 2235) SODIUM (test code = 2231) 137 MEQ/L POTASSIUM (test code = 2228) 4.1 MEQ/L CHLORIDE (test code = 2215) 105 MEQ/L CARBON DIOXIDE (test code = 25 MEQ/L 220) CALCIUM (test code = 2209) 9.3 MG/DL PROTEIN, TOTAL (test code = 7.2 G/DL 2228) ALBUMIN (test code = 2201) 4.3 G/DL CALCULATED GLOBULIN (test code 2.9 G/DL = 2240) CALCULATED A/G RATIO (test 1.5 RATIO code = 2234) BILIRUBIN, TOTAL (test code = 0.7 MG/DL 2206) ALKALINE PHOSPHATASE (test 100 U/L code = 2204) SGOT (AST) (test code = 2218) 23 U/L SGPT (ALT) (test code = 2219) 17 U/L COMPREHENSIVE METABOLIC [id number] 00:00:00 Test Item Value Reference Range Interpretation Comments GLUCOSE (test code = 2217) 96 MG/DL BUN (test code = 2208) 14 MG/DL CREATININE (test code = 2214) 1.0 MG/DL eGFR AMER. (test code 99 ML/MIN/1.73 = 39180) eGFR NON- AMER. (test 82 ML/MIN/1.73 code = 14351) CALCULATED BUN/CREAT (test 14 RATIO code = 2235) SODIUM (test code = 2231) 137 MEQ/L POTASSIUM (test code = 2228) 4.1 MEQ/L CHLORIDE (test code = 2215) 105 MEQ/L CARBON DIOXIDE (test code = 25 MEQ/L 2206) CALCIUM (test code = 2209) 9.3 MG/DL PROTEIN, TOTAL (test code = 7.2 G/DL 2228) ALBUMIN (test code = 2201) 4.3 G/DL CALCULATED GLOBULIN (test code 2.9 G/DL = 2240) CALCULATED A/G RATIO (test 1.5 RATIO code = 2234) BILIRUBIN, TOTAL (test code = 0.7 MG/DL 7) ALKALINE PHOSPHATASE (test 100 U/L code = 2204) SGOT (AST) (test code = 2218) 23 U/L SGPT (ALT) (test code = 2219) 17 U/L LIPID [id number] 00:00:00 Test Item Value Reference Range Interpretation Comments CHOLESTEROL (test code = 2210) 254 MG/DL TRIGLYCERIDES (test code = 2232) 246 MG/DL HDL CHOLESTEROL (test code = 2220) 40 MG/DL CALCULATED LDL CHOL (test code = 165 MG/DL 2237) RISK RATIO LDL/HDL (test code = 4.12 RATIO 2238) LIPID [id number] 00:00:00 Test Item Value Reference Range Interpretation Comments CHOLESTEROL (test code = 2210) 254 MG/DL TRIGLYCERIDES (test code = 2232) 246 MG/DL HDL CHOLESTEROL (test code = 2220) 40 MG/DL CALCULATED LDL CHOL (test code = 165 MG/DL 2237) RISK RATIO LDL/HDL (test code = 4.12 RATIO 2238) CBC W/AUTO [id number] 00:00:00 Test Item Value Reference Range Interpretation Comments WBC (test code = 1001) 6.5 K/UL RBC (test code = 1002) 4.80 M/UL HEMOGLOBIN (test code = 1003) 12.9 G/DL HEMATOCRIT (test code = 1004) 39.8 % MCV (test code = 1005) 82.9 fL MCH (test code = 1006) 26.9 PG MCHC (test code = 1007) 32.4 G/DL RDW (test code = 1038) 15.3 % NEUTROPHILS (test code = 1008) 38 % LYMPHOCYTES (test code = 1010) 52 % MONOCYTES (test code = 1011) 8 % EOSINOPHILS (test code = 1012) 2 % BASOPHILS (test code = 1013) % PLATELET COUNT (test code = 1015) 278 K/UL CBC W/AUTO [id number] 00:00:00 Test Item Value Reference Range Interpretation Comments WBC (test code = 1001) 6.5 K/UL RBC (test code = 1002) 4.80 M/UL HEMOGLOBIN (test code = 1003) 12.9 G/DL HEMATOCRIT (test code = 1004) 39.8 % MCV (test code = 1005) 82.9 fL MCH (test code = 1006) 26.9 PG MCHC (test code = 1007) 32.4 G/DL RDW (test code = 1038) 15.3 % NEUTROPHILS (test code = 1008) 38 % LYMPHOCYTES (test code = 1010) 52 % MONOCYTES (test code = 1011) 8 % EOSINOPHILS (test code = 1012) 2 % BASOPHILS (test code = 1013) % PLATELET COUNT (test code = 1015) 278 K/UL CBC W/AUTO [id number] 00:00:00 Test Item Value Reference Range Interpretation Comments WBC (test code = 1001) 6.5 K/UL RBC (test code = 1002) 4.80 M/UL HEMOGLOBIN (test code = 1003) 12.9 G/DL HEMATOCRIT (test code = 1004) 39.8 % MCV (test code = 1005) 82.9 fL MCH (test code = 1006) 26.9 PG MCHC (test code = 1007) 32.4 G/DL RDW (test code = 1038) 15.3 % NEUTROPHILS (test code = 1008) 38 % LYMPHOCYTES (test code = 1010) 52 % MONOCYTES (test code = 1011) 8 % EOSINOPHILS (test code = 1012) 2 % BASOPHILS (test code = 1013) % PLATELET COUNT (test code = 1015) 278 K/UL THYROID II PROFILE (T3U, T4, T7, TSH)2015-05-03 00:00:00 Test Item Value Reference Range Interpretation Comments T3 UPTAKE (test code = 2817) 27.3 % T4 (THYROXINE) (test code = 2819) 5.4 UG/DL CALCULATED T7 (FTI) (test code = 1.47 2820) TSH (test code = 2821) 1.3 UIU/ML THYROID II PROFILE (T3U, T4, T7, TSH)2015-05-03 00:00:00 Test Item Value Reference Range Interpretation Comments T3 UPTAKE (test code = 2817) 27.3 % T4 (THYROXINE) (test code = 2819) 5.4 UG/DL CALCULATED T7 (FTI) (test code = 1.47 2820) TSH (test code = 2821) 1.3 UIU/ML COMPREHENSIVE METABOLIC [id number] 00:00:00 Test Item Value Reference Range Interpretation Comments GLUCOSE (test code = 2217) 96 MG/DL BUN (test code = 2208) 14 MG/DL CREATININE (test code = 2214) 1.0 MG/DL eGFR AMER. (test code 99 ML/MIN/1.73 = 04176) eGFR NON- AMER. (test 82 ML/MIN/1.73 code = 42347) CALCULATED BUN/CREAT (test 14 RATIO code = 2235) SODIUM (test code = 2231) 137 MEQ/L POTASSIUM (test code = 2228) 4.1 MEQ/L CHLORIDE (test code = 2215) 105 MEQ/L CARBON DIOXIDE (test code = 25 MEQ/L 2205) CALCIUM (test code = 2209) 9.3 MG/DL PROTEIN, TOTAL (test code = 7.2 G/DL 2228) ALBUMIN (test code = 2201) 4.3 G/DL CALCULATED GLOBULIN (test code 2.9 G/DL = 2240) CALCULATED A/G RATIO (test 1.5 RATIO code = 2234) BILIRUBIN, TOTAL (test code = 0.7 MG/DL 2206) ALKALINE PHOSPHATASE (test 100 U/L code = 2204) SGOT (AST) (test code = 2218) 23 U/L SGPT (ALT) (test code = 2219) 17 U/L LIPID [id number] 00:00:00 Test Item Value Reference Range Interpretation Comments CHOLESTEROL (test code = 2210) 254 MG/DL TRIGLYCERIDES (test code = 2232) 246 MG/DL HDL CHOLESTEROL (test code = 2220) 40 MG/DL CALCULATED LDL CHOL (test code = 165 MG/DL 2236) RISK RATIO LDL/HDL (test code = 4.12 RATIO 2238) CBC W/AUTO [id number] 00:00:00 Test Item Value Reference Range Interpretation Comments WBC (test code = 1001) 6.5 K/UL RBC (test code = 1002) 4.80 M/UL HEMOGLOBIN (test code = 1003) 12.9 G/DL HEMATOCRIT (test code = 1004) 39.8 % MCV (test code = 1005) 82.9 fL MCH (test code = 1006) 26.9 PG MCHC (test code = 1007) 32.4 G/DL RDW (test code = 1038) 15.3 % NEUTROPHILS (test code = 1008) 38 % LYMPHOCYTES (test code = 1010) 52 % MONOCYTES (test code = 1011) 8 % EOSINOPHILS (test code = 1012) 2 % BASOPHILS (test code = 1013) % PLATELET COUNT (test code = 1015) 278 K/UL CBC W/AUTO [id number] 00:00:00 Test Item Value Reference Range Interpretation Comments WBC (test code = 1001) 6.5 K/UL RBC (test code = 1002) 4.80 M/UL HEMOGLOBIN (test code = 1003) 12.9 G/DL HEMATOCRIT (test code = 1004) 39.8 % MCV (test code = 1005) 82.9 fL MCH (test code = 1006) 26.9 PG MCHC (test code = 1007) 32.4 G/DL RDW (test code = 1038) 15.3 % NEUTROPHILS (test code = 1008) 38 % LYMPHOCYTES (test code = 1010) 52 % MONOCYTES (test code = 1011) 8 % EOSINOPHILS (test code = 1012) 2 % BASOPHILS (test code = 1013) % PLATELET COUNT (test code = 1015) 278 K/UL THYROID II PROFILE (T3U, T4, T7, TSH)2015-05-03 00:00:00 Test Item Value Reference Range Interpretation Comments T3 UPTAKE (test code = 2817) 27.3 % T4 (THYROXINE) (test code = 2819) 5.4 UG/DL CALCULATED T7 (FTI) (test code = 1.47 2820) TSH (test code = 2821) 1.3 UIU/ML COMPREHENSIVE METABOLIC [id number] 00:00:00 Test Item Value Reference Range Interpretation Comments GLUCOSE (test code = 2217) 96 MG/DL BUN (test code = 2208) 14 MG/DL CREATININE (test code = 2214) 1.0 MG/DL eGFR AMER. (test code 99 ML/MIN/1.73 = 78992) eGFR NON- AMER. (test 82 ML/MIN/1.73 code = 88214) CALCULATED BUN/CREAT (test 14 RATIO code = 2235) SODIUM (test code = 2231) 137 MEQ/L POTASSIUM (test code = 2228) 4.1 MEQ/L CHLORIDE (test code = 2215) 105 MEQ/L CARBON DIOXIDE (test code = 25 MEQ/L 2205) CALCIUM (test code = 2209) 9.3 MG/DL PROTEIN, TOTAL (test code = 7.2 G/DL 2228) ALBUMIN (test code = 2201) 4.3 G/DL CALCULATED GLOBULIN (test code 2.9 G/DL = 2240) CALCULATED A/G RATIO (test 1.5 RATIO code = 2234) BILIRUBIN, TOTAL (test code = 0.7 MG/DL 2206) ALKALINE PHOSPHATASE (test 100 U/L code = 2204) SGOT (AST) (test code = 2218) 23 U/L SGPT (ALT) (test code = 2219) 17 U/L LIPID [id number] 00:00:00 Test Item Value Reference Range Interpretation Comments CHOLESTEROL (test code = 2210) 254 MG/DL TRIGLYCERIDES (test code = 2232) 246 MG/DL HDL CHOLESTEROL (test code = 2220) 40 MG/DL CALCULATED LDL CHOL (test code = 165 MG/DL 2236) RISK RATIO LDL/HDL (test code = 4.12 RATIO 8) CBC W/AUTO [id number] 00:00:00 Test Item Value Reference Range Interpretation Comments WBC (test code = 1001) 6.5 K/UL RBC (test code = 1002) 4.80 M/UL HEMOGLOBIN (test code = 1003) 12.9 G/DL HEMATOCRIT (test code = 1004) 39.8 % MCV (test code = 1005) 82.9 fL MCH (test code = 1006) 26.9 PG MCHC (test code = 1007) 32.4 G/DL RDW (test code = 1038) 15.3 % NEUTROPHILS (test code = 1008) 38 % LYMPHOCYTES (test code = 1010) 52 % MONOCYTES (test code = 1011) 8 % EOSINOPHILS (test code = 1012) 2 % BASOPHILS (test code = 1013) % PLATELET COUNT (test code = 1015) 278 K/UL CBC W/AUTO [id number] 00:00:00 Test Item Value Reference Range Interpretation Comments WBC (test code = 1001) 6.5 K/UL RBC (test code = 1002) 4.80 M/UL HEMOGLOBIN (test code = 1003) 12.9 G/DL HEMATOCRIT (test code = 1004) 39.8 % MCV (test code = 1005) 82.9 fL MCH (test code = 1006) 26.9 PG MCHC (test code = 1007) 32.4 G/DL RDW (test code = 1038) 15.3 % NEUTROPHILS (test code = 1008) 38 % LYMPHOCYTES (test code = 1010) 52 % MONOCYTES (test code = 1011) 8 % EOSINOPHILS (test code = 1012) 2 % BASOPHILS (test code = 1013) % PLATELET COUNT (test code = 1015) 278 K/UL THYROID II PROFILE (T3U, T4, T7, TSH)2015-05-03 00:00:00 Test Item Value Reference Range Interpretation Comments T3 UPTAKE (test code = 2817) 27.3 % T4 (THYROXINE) (test code = 2819) 5.4 UG/DL CALCULATED T7 (FTI) (test code = 1.47 0660) TSH (test code = 2821) 1.3 UIU/ML"
[2023-03-29 11:06] LABS: Absolute Lymphocytes (CBC) 2.9 K/uL (0.7-4.9); Lymphocytes % 41.9 % (15.3-44.8); MCV 80.4 fL (80-100); MPV 8.4 fL (7.6-11.3); RBC Red Blood Cell Count 4.98 M/uL (4.33-5.43)
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
[2023-03-29 11:23] LABS: ALT/SGPT 22 U/L (16-61); AST/SGOT 16 U/L (15-37); Albumin 3.7 g/dL (3.4-5.0); Alkaline Phosphatase 176 U/L (45-117); BUN Blood Urea Nitrogen 16 mg/dL (7-18); Bicarbonate 28 mEq/L (21-32); Bilirubin Total 0.5 mg/dL (0.2-1.0); Glomerular Filtration Rate 75 ml/min (=/>90); Glucose Level 228 mg/dL (74-106); Lipase 19 U/L (13-75); Potassium 3.6 mEq/L (3.5-5.1); Protein, Total 7.8 g/dL (6.4-8.2); Sodium Level 136 mEq/L (136-145)
[2023-03-29 11:29] LABS: Bilirubin Direct < 0.1 mg/dL (0-0.2); Bilirubin Indirect, Calculated ND mg/dL (0.2-0.8)
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
[2023-03-29 13:02] LABS: Specific Gravity > 1.030 (1.005-1.030); Urine Bacteria None Seen /HPF (<20); Urine Bilirubin NEGATIVE (Negative); Urine Blood Negative (Negative); Urine Clarity Clear (Clear); Urine Color Colorless (Yellow); Urine Glucose 3+ (Negative); Urine Protein TRACE (Negative); Urine RBC <5 /HPF (None Seen); Urine Urobilinogen Normal (Normal)
[2023-03-29 13:05] LABS: Barbiturates NEGATIVE (NEGATIVE); Benzodiazepines NEGATIVE (NEGATIVE); Cocaine NEGATIVE (NEGATIVE); METHAMPHETAM NEGATIVE (NEGATIVE); Methadone NEGATIVE (NEGATIVE); Opiates POSITIVE (NEGATIVE); Phencyclidine NEGATIVE (NEGATIVE); THC Cannibis NEGATIVE (NEGATIVE)
[2023-03-29 13:58] VITALS: TEMP 98
[2023-03-29 14:02] VITALS: BP 218/112; O2SAT 99
--- NOTE | 2023-03-30 17:13 | EKG ---
Test Date: 2023-03-29 Test Time: 10:44:46 Internal Revenue Agent: RASHI MEASUREMENT RESULTS: Intervals: Rate: 70 NC: 176 QRSD: 90 QT: 394 QTc: 425 [place]: P: 65 NC: 176 QRS: -15 T: 85 INTERPRETIVE STATEMENTS: Normal sinus rhythm Left ventricular hypertrophy with repolarization abnormality Abnormal ECG Compared to ECG 02/12/2021 15:14:52 Left ventricular hypertrophy now present Early repolarization now present Sinus bradycardia no longer present Electronically Signed On 03-30-23 17:10:41 CDT by Kali Post
== END 2023-03-29 13:36 | disposition home or self-care (01) ==
LOC: ER 10:32
DX: R10.812 Left upper quadrant abdominal tenderness (principal); E10.65 Type 1 diabetes mellitus with hyperglycemia; M54.50 Low back pain, unspecified; M54.2 Cervicalgia; I10 Essential (primary) hypertension; V48.6XXA Car passenger injured in noncollision transport accident in traffic accident, initial encounter; F20.9 Schizophrenia, unspecified
CPT/HCPCS: 96361; 93005; 85025; 81001; 80048; 36415; 86900; 86850; 86901; 80076; 83690; 80307; 70450; 72125; 71260; 74177; 71045; 96375; 96374; 99285; Q9967

== ENCOUNTER 2024-04-28 19:29 | Inpatient (IN) | payer OTHER ==
--- OUTSIDE RECORDS SUMMARY | 2024-04-28 19:34 | XMS REPORT | Continuity of Care Document ---
Author Name Unknown Address [address] [place] [address] [facility] Address 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 Name Role Phone KIRSTEN HONGJohn Primary Care Physician Unavailab DEMETRIA Banerjee Attending Clinician Unavailable DENILSON BOOTH Attending Clinician Unavailable KRISTINA PICKETT Attending Clinician Unavailab LUL Espino Attending Clinician Unanikos dunne Doctor Unassigned, Rawlings Attending Clinician U navailable LUZ LE Attending Clinician Unavailable Zach Moffett DO Attending Clinician [phone] Luz Le MD Attending Clinician [phone] ELISEO MACK Attending Clinician Unavailable Eliseo Mack NP Attending Clinician [phone] Zoe DUNLAP Attending Clinician Unavailable Zoe Johnson Attending Clinician [phone] ADDIE PAT Attending Clinician Unavailable JANIE WERNER Attending Clinician Unavailable Janie Werner MD Attending Clinician [phone] Addie Boles Attending Clinician [phone] GARY CLARKE Attending Clinician Unavaila Gary Hood Attending Clinician [phone] Nurse, Adc Pob Immunization Attending Clinician Unavailable Moustapha Vela DO Attending Clinician [phone] MOUSTAPHA VELA Attending Clinician Unavail able KRISTINA OSUNA Attending Clinician Unavailable Lab, Adc Fam Pob I Attending Clinician Unavailab le Agatha-Mbayo_A_AH Attending Clinician Unavailable Zoe DUNLAP Admitting Clinician Unavailable Agatha-Mbayo_A_AH Admitting Clinician Unavailable Payers Payer Name Policy Type Policy Number Effective Date Expirati on Date Source CIGNA II [id number] 2022 00:00:00 C[employer] 2 [id number] 2023 00:00:00 [facility] DUAL COMP HMO D SNP [id number] 2021 00:00:00 [employer]AGE [id number] 2013 00:00:00 [employer] (MEDICARE REPLACEMENT/ADVANTAG E - HMO) [id number] Problems Condition Name Condition Details Condition Category Status Onset Date Resolution Date Last Treatment Date Treating Clinician Comments Source No known active problems No known active problems Disease Univers [facility] Allergies, Adverse Reactions, Alerts Allergy Name Allergy Type Status Severity Reaction(s) Onset Date Inactive Date Treating Clinician Comments Source NO KNOWN ALLERGIE S Drug Class Active Univers [facility] Social History Social Habit Start Date Stop Date Quantity Comments Source [facility] Exposure to SARS-CoV-2 (event) 2022-04-04 00:00:00 2022-04-14 16:35:00 Not sure [facility] History of Social function 2021-11-06 00:00:00 2021-11-06 00:00:00 [facility] Tobacco use and exposure 2021-11-06 00:00:00 2021-11-06 00:00:00 Smokeless tobacco non-user [facility] Sex Assigned At 1975 00:00:00 1975 00:00:00 [facility] Smoking Status Start Date Stop Date Source Never smoked tobacco [facility] Medications Ordered Medication Name Filled Medication Name Start Date Stop Date Current Medication? Ordering Clinician Indication Dosage Frequency Signature (SIG) Comments Components Source insulin regular human (HUMULIN R) injection 10 Units 04-15 01:42: 00 04-15 01:45 :00 No 10U 10 Units, Subcutaneo us, ONCE, 1 dose, On Thu04/14/22 at 2045, Routine [facility] insulin regular human (HUMULIN R) injection 5 Units 04-15 00:45: 00 04-15 00:47 :00 No 5U 5 Units, Subcutaneo us, ONCE, 1 dose, On Thu04/14/22 at 2000, Routine [facility] insulin regular human (HUMULIN R) injection 9 Units 04-14 23:30: 00 04-14 22:25 :00 No 9U 9 Units, Subcutaneo us, ONCE, 1 dose, On Thu04/14/22 at 1830, Routine [facility] glipiZIDE 10 mg tablet 04-14 00:00: 00 Yes [id number] 10mg Take 1 tablet by mouth in the morning. [facility] metFORMIN 1,000 mg tablet 04-14 00:00: 00 05-15 04:59 :00 No [id number] 1000mg Take 1 tablet by mouth in the morning and 1 tablet in the evening. Take with meals. Do all this for 30 days. [facility] insulin regular human (HUMULIN R) injection 11.52 Units 04-12 07:45: 00 04-12 06:47 :00 No .1U/kg 11.52 Units (0.1 Units/kg ?115.2 kg), Subcutaneo us, ONCE, 1 dose, On 04/12/22 at 0245, Routine [facility] NaCl 0.9% (NS) bolus infusion 500 mL 04-12 06:45: 00 04-12 08:49 :00 No 500mL at 999 mL/hr, 500 mL, IV Infusion, ONCE, 1 dose, On 04/12/22 at 0145, STAT [facility] insulin regular human (HUMULIN R) injection 11.52 Units 04-12 05:30: 00 04-12 05:04 :00 No .1U/kg 11.52 Units (0.1 Units/kg ?115.2 kg), Subcutaneo us, ONCE, 1 dose, On 04/12/22 at 0030, Routine [facility] NaCl 0.9% (NS) bolus infusion 1,000 mL 04-12 05:30: 00 04-12 06:22 :00 No 1000mL at 999 mL/hr, 1,000 mL, IV Infusion, ONCE, 1 dose, On 04/12/22 at 0030, LAURE [facility] metFORMIN 500 mg tablet 04-12 00:00: 00 04-27 04:59 :00 No [id number] 750mg Take 1.5 tablets by mouth 2 (two) times daily with meals for 14 days. [facility] amLODIPine (NORVASC) tablet 5 mg 02-02 03:21: 00 02-02 03:26 :00 No 5mg 5 mg, Oral, ONCE, 1 dose, On 02/01/22 at 2230, Routine [facility] hydroCHLORO thiazide (ESIDRIX) tablet 25 mg 02-02 03:21: 00 02-02 03:25 :00 No 25mg 25 mg, Oral, ONCE, 1 dose, On 02/01/22 at 2230, Routine [facility] lisinopriL (PRINIVIL,Z ESTRIL) tablet 20 mg 02-02 03:20: 00 02-02 03:25 :00 No 20mg 20 mg, Oral, ONCE, 1 dose, On 02/01/22 at 2230, Routine [facility] methocarbam oL (ROBAXIN) tablet 500 mg 02-02 03:00: 00 02-02 02:07 :00 No 500mg 500 mg, Oral, ONCE, 1 dose, On 02/01/22 at 2200, Routine [facility] HYDROcodone -acetaminop hen (NORCO) 10-325 mg tablet 1 tablet - 03:00: 00 02-02 02:07 :00 No 1{tbl} 1 tablet, Oral, ONCE, 1 dose, On 02/01/22 at 2200, Routine [facility] naproxen (NAPROSYN) 500 mg tablet 02-01 00:00: 00 Yes [id number] 500mg Take 1 tablet by mouth 2 (two) times daily with meals. [facility] methocarbam oL 500 mg tablet 02-01 00:00: 00 Yes [id number] 500mg Take 1 tablet by mouth 4 (four) times daily. [facility] INVEGA SUSTENNA 117 mg/0.75 mL syringe 10-21 00:00: 00 Yes [facility] SERTraline 50 mg tablet 10-21 00:00: 00 Yes [facility] traZODone 100 mg tablet 10-21 00:00: 00 Yes [facility] lisinopriL- hydrochloro thiazide 20-25 mg per tablet 2020-10 00:00: 00 Yes [facility] metFORMIN 500 mg tablet 2020-10 00:00: 00 04-14 00:00 :00 No [facility] predniSONE (DELTASONE) 20 mg tablet 05-14 00:00: 00 11-06 00:00 :00 No 40mg Take 2 Tabs by mouth every morning. [facility] traMADOL (ULTRAM) 50 mg tablet 05-14 00:00: 00 11-06 00:00 :00 No 50mg Take 1 Tab by mouth every 6 (six) hours as needed for Pain unrelieved by non-narcot ic analgesics . [facility] Immunizations Ordered Immunization Name Filled Immunization Name Date Status Comments Source SARS-COV-2 COVID-19 NEVAEH/J&J VACCINE 2021-10-09 00:00:00 Completed [facility] SARS-COV-2 COVID-19 NEVAEH/J&J VACCINE 2021-10-09 00:00:00 Completed [facility] SARS-COV-2 COVID-19 NEVAEH/J&J VACCINE 2021-10-09 00:00:00 Completed [facility] SARS-COV-2 COVID-19 NEVAEH/J&J VACCINE 2021-10-09 00:00:00 Completed [facility] SARS-COV-2 COVID-19 NEVAEH/J&J VACCINE 2021-10-09 00:00:00 Completed [facility] SARS-COV-2 COVID-19 NEVAEH/J&J VACCINE 2021-10-09 00:00:00 Completed [facility] SARS-COV-2 COVID-19 NEVAEH/J&J VACCINE 2021-10-09 00:00:00 Completed [facility] SARS-COV-2 COVID-19 NEVAEH/J&J VACCINE 2021-10-09 00:00:00 Completed [facility] SARS-COV-2 COVID-19 NEVAEH/J&J VACCINE 2021-10-09 00:00:00 Completed [facility] SARS-COV-2 COVID-19 NEVAEH/J&J VACCINE 2021-10-09 00:00:00 Completed [facility] SARS-COV-2 COVID-19 NEVAEH/J&J VACCINE 2021-10-09 00:00:00 Completed [facility] SARS-COV-2 COVID-19 NEVAEH/J&J VACCINE Unknown Completed [facility] Vital Signs Vital Name Observation Time Observation Value Comments S ource Systolic blood pressure 2022-04-15 02:00:00 132 mm[Hg] [facility] Diastolic blood pressure 2022-04-15 02:00:00 73 mm[Hg] [facility] Heart rate 2022-04-15 02:00:00 76 /[facility] Respiratory rate 2022-04-15 02:00:00 16 /min [facility] Oxygen saturation in Arterial blood by Pulse oximetry 2022-04-15 02:00:00 98 /min [facility] Body temperature 2022-04-14 21:43:00 36.94 Britany [facility] Body height 2022-04-14 21:42:00 188 cm [facility] Body weight 2022-04-14 21:42:00 116.121 kg [facility] BMI 2022-04-14 21:42:00 32.87 kg/m2 [facility] Systolic blood pressure 2022-04-12 08:00:00 155 mm[Hg] [facility] Diastolic blood pressure 2022-04-12 08:00:00 97 mm[Hg] [facility] Heart rate 2022-04-12 08:00:00 91 /min [facility] Respiratory rate 2022-04-12 08:00:00 17 /min [facility] Oxygen saturation in Arterial blood by Pulse oximetry 2022-04-12 08:00:00 98 /min [facility] Body temperature 2022-04-12 03:54:00 36.61 Britany [facility] Body height 2022-04-12 03:54:00 188 cm [facility] Body weight 2022-04-12 03:54:00 115.214 kg [facility] BMI 2022-04-12 03:54:00 32.61 kg/m2 [facility] Body temperature 2022-02-02 04:35:00 35.89 Britany [facility] Systolic blood pressure 2022-02-02 04:00:00 153 mm[Hg] [facility] Diastolic blood pressure 2022-02-02 04:00:00 84 mm[Hg] [facility] Heart rate 2022-02-02 04:00:00 55 /min [facility] Respiratory rate 2022-02-02 04:00:00 12 /min [facility] Oxygen saturation in Arterial blood by Pulse oximetry 2022-02-02 04:00:00 92 /min [facility] Body height 2022-02-02 02:11:06 188 cm [facility] Body weight 2022-02-02 02:11:06 117.935 kg [facility] BMI 2022-02-02 02:11:06 33.38 kg/m2 [facility] Systolic blood pressure 2021-11-06 14:41:00 168 mm[Hg] [facility] Diastolic blood pressure 2021-11-06 14:41:00 91 mm[Hg] [facility] Heart rate 2021-11-06 14:41:00 76 /min [facility] Body temperature 2021-11-06 14:40:00 36.17 Britany [facility] Respiratory rate 2021-11-06 14:40:00 16 /min [facility] Body height 2021-11-06 14:40:00 188 cm [facility] Body weight 2021-11-06 14:40:00 118.207 kg [facility] BMI 2021-11-06 14:40:00 33.46 kg/m2 [facility] Oxygen saturation in Arterial blood by Pulse oximetry 2021-11-06 14:40:00 97 /min [facility] Procedures Procedure Date / Time Performed Performing Clinician Source REFERRAL- REQUEST/RESPONSE 2023-07-03 05:01:00 Doctor Unassigned, Rawlings [facility] AUTHORIZATION FOR RELEASE OF PHI 2022-08-12 06:01:00 Doctor Unassigned, Rawlings [facility] REFERRAL- REQUEST/RESPONSE 2022-05-15 05:01:00 Doctor Unassigned, Rawlings [facility] POCT GLUCOSE (AUTOMATED) 2022-04-15 02:32:00 Armani Moffett [facility] POCT GLUCOSE (AUTOMATED) 2022-04-15 01:39:00 Armani Moffett [facility] POCT GLUCOSE (AUTOMATED) 2022-04-15 00:42:00 Armani Moffett [facility] POCT GLUCOSE (AUTOMATED) 2022-04-14 23:21:00 Armani Moffett [facility] POCT GLUCOSE (AUTOMATED) 2022-04-14 21:42:00 Doc tor Unassigned, Rawlings [facility] CONSENT/REFUSAL FOR DIAGNOSIS AND TREATMENT 2022-04-14 21:35:48 Doctor Unassigned, Rawlings [facility] POCT GLUCOSE (AUTOMATED) 2022-04-12 07:46:00 Armani Mack [facility] POCT GLUCOSE (AUTOMATED) 2022-04-12 06:20:00 Armani Mack [facility] POCT GLUCOSE (AUTOMATED) 2022-04-12 05:03:00 Armani Mack [facility] COMP. METABOLIC PANEL ([id number]) 2022-04-12 04:45:00 Eliseo Mack [facility] CBC WITH DIFF 2022-04-12 04:45:00 Eliseo Mack [facility] GLYCOSYLATED HEMOGLOBIN (A1C) 2022-04-12 04:45:00 Eliseo Mack [facility] URINALYSIS 2022-04-12 04:45:00 Eliseo Mack [facility] ACUTE CARE VENOUS BLOOD GAS 2022-04-12 04:44:00 Eliseo Mack [facility] POCT GLUCOSE (AUTOMATED) 2022-04-12 03:59:00 Armani Mack [facility] NOTICE OF PRIVACY PRACTICES 2022-04-12 03:38:19 Doctor Unassigned, Rawlings [facility] CONSENT/REFUSAL FOR DIAGNOSIS AND TREATMENT 2022-04-12 03:37:44 Doctor Unassigned, Rawlings [facility] AUTHORIZATION FOR RELEASE OF PHI 2022-03-12 05:01:00 Doctor Unassigned, Rawlings [facility] MEDICATION CORRESPONDENCE 2022-02-14 05:01:00 Do ctor Unassigned, Rawlings [facility] XR LUMBAR SPINE 2 VW 2022-02-02 03:04:02 Zoe Dunlap [facility] XR SPINE THORACIC 2 VW 2022-02-02 03:04:02 Zoe Dunlap [facility] XR CERVICAL SPINE 3 VW 2022-02-02 03:04:02 Zoe Dunlap [facility] POCT URINALYSIS AUTO 2021-11-06 14:39:00 Addie Pat [facility] Encounters Start Date/Time End Date/Time Encounter Type Admission Type Attending Clinicians Care Facility Care Department Encounter ID Source 2023-11-13 09:00:00 2023-11-13 09:00:00 Outpatient R DEMETRIA YADAV [facility] [id number] [facility] 2023-10-29 11:00:00 2023-10-29 11:00:00 Outpatient R DEMETRIA YADAV [facility] [id number] [facility] 2023-10-14 13:30:00 2023-10-14 13:30:00 Outpatient EMMYDENILSON EDWARDS SAHNTA WALSH [id number] [facility] 2023-10-13 14:30:00 2023-10-13 14:30:00 Outpatient NIEVES KRISTINA SHANTA WALSH [id number] [facility] 2023-10-07 14:00:00 2023-10-07 14:00:00 Outpatient KRISTINA PICKETT SHANTA WALSH [id number] [facility] 2023-09-30 13:40:00 2023-09-30 13:40:00 [facility] [id number] 2023-09-16 15:20:00 2023-09-16 15:20:00 [facility] [id number] [facility] 2023-08-20 15:20:00 2023-08-20 15:20:00 [facility] [id number] [facility] 2023-08-03 17:27:56 2023-08-03 17:27:56 Outpatient SFA [facility] [id number] Sanjeev Helms 2023-07-23 14:40:00 2023-07-23 14:40:00 [facility] [id number] 2023-07-07 14:30:00 2023-07-07 14:30:00 Outpatient LUL KHAN [facility] [id number] [facility] 2023-07-03 00:00:00 2023-07-03 00:00:00 Orders Only Doctor Unassigned, Rawlings [facility] 1.2.840.114 350.1.13.10 4.2.7.2.686 [id number] [facility] 2023-07-02 17:18:19 2023-07-02 17:18:19 Outpatient [place] [id number] Sanjeev Regalado [place] 2023-05-29 17:30:03 2023-05-29 17:30:03 Outpatient [facility] [id number] Sanjeev Regalado Ter[place] 2023-05-27 17:16:01 2023-05-27 17:16:01 Outpatient [place] [id number] Sanjeev Regalado [place] 2023-05-19 17:23:37 2023-05-19 17:23:37 Outpatient [place] [id number] Sanjeev Regalado [place] 2022-11-05 10:35:42 2022-11-05 10:35:42 Outpatient [place] [id number] Sanjeev Regalado [place] 2022-10-22 16:38:30 2022-10-22 16:38:30 Outpatient [place] [id number] Sanjeev Regalado [place] 2022-09-10 13:24:47 2022-09-10 13:24:47 Outpatient [place] [id number] Sanjeev Regalado [place] 2022-09-09 14:06:35 2022-09-09 14:06:35 Outpatient [place] [id number] Sanjeev Regalado [place] 2022-08-12 00:00:00 2022-08-12 00:00:00 Orders Only Doctor Unassigned, Rawlings [facility] 1.2.840.114 350.1.13.10 4.2.7.2.686 [id number] [facility] 2022-05-15 00:00:00 2022-05-15 00:00:00 Orders Only Doctor Unassigned, Rawlings [facility] 1.2.840.114 350.1.13.10 4.2.7.2.686 [id number] [facility] 2022-04-14 16:43:00 2022-04-14 21:51:00 Emergency X LUZ LE [facility] ERT [id number] [facility] 2022-04-14 16:43:00 2022-04-14 21:51:00 Emergency Zach Moffett Donnell [facility] 1.2.840.114 350.1.13.10 4.2.7.2.686 [id number] [facility] 2022-04-11 23:02:00 2022-04-12 03:55:00 Emergency X ELISEO MACK [facility] ERT [id number] [facility] 2022-04-11 23:02:00 2022-04-12 03:55:00 Emergency Eliseo Mack [facility] 1.2.840.114 350.1.13.10 4.2.7.2.686 [id number] [facility] 2022-03-12 00:00:00 2022-03-12 00:00:00 Orders Only Doctor Unassigned, Rawlings [facility] 1.2.840.114 350.1.13.10 4.2.7.2.686 [id number] [facility] 2022-02-14 00:00:00 2022-02-14 00:00:00 Orders Only Doctor Unassigned, Rawlings [facility] 1.2.840.114 350.1.13.10 4.2.7.2.686 [id number] [facility] 2022-02-01 21:02:00 2022-02-01 23:47:00 Emergency X Zoe DUNLAP [facility] ERT [id number] [facility] 2022-02-01 21:02:00 2022-02-01 23:47:00 Emergency Zoe Dunlap [facility] 1.2.840.114 350.1.13.10 4.2.7.2.686 [id number] [facility] 2021-12-04 00:00:00 2021-12-04 00:00:00 Outpatient R ADDIE PAT [facility] [id number] [facility] 2021-12-02 15:30:00 2021-12-02 15:30:00 [id number] 2021-11-28 14:30:00 2021-11-28 14:30:00 [facility] [id number] [facility] 2021-11-28 00:00:00 2021-11-28 00:00:00 Letter (Out) Doctor Unassigned, Rawlings [facility] 1.2.840.114 350.1.13.10 4.2.7.2.686 [id number] [facility] 2021-11-20 00:00:00 2021-11-20 00:00:00 Telephone Janie Werner [facility] 1.2.840.114 350.1.13.10 4.2.7.2.686 [id number] [facility] 2021-11-11 00:00:00 2021-11-11 00:00:00 Telephone Addie Pat [facility] 1.2.840.114 350.1.13.10 4.2.7.2.686 [id number] [facility] 2021-11-06 08:00:00 2021-11-06 08:53:05 Outpatient R ADDIE PAT [facility] [id number] [facility] 2021-11-06 08:00:00 2021-11-06 08:53:05 Outpatient R ADDIE PAT [facility] [id number] [facility] 2021-11-06 08:00:00 2021-11-06 08:53:05 Office Visit Addie Pat [facility] 1..840.114 350.1.13.10 4.2.7.2.686 [id number] [facility] 2021-10-29 09:30:00 2021-10-29 09:30:00 Outpatient Russell ADDIE PAT [facility] [id number] [facility] 2021-10-29 09:30:00 2021-10-29 09:30:00 Outpatient Russell PATADDIE [facility] [id number] [facility] 2021-10-26 18:10:00 2021-10-26 20:26:00 Emergency X GARY CLARKE [facility] ERT [id number] [facility] 2021-10-26 18:10:00 2021-10-26 20:26:00 Emergency Randi Gary Regalado [facility] 1..840.114 350.1.13.10 4.2.7.2.686 [id number] [facility] 2021-10-09 13:00:00 2021-10-09 13:00:00 Imm/Inj Visit Nurse, Elias Barrera Immunizatio Moustapha Marinelli [facility] 1..840.114 350.1.13.10 4.2.7.2.686 [id number] [facility] 2021-10-09 13:00:00 2021-10-09 12:43:20 Outpatient MOUSTAPHA ROGEL [facility] [id number] [facility] 2021-10-09 13:00:00 2021-10-09 12:43:20 Outpatient MOUSTAPHA ROGEL [facility] [id number] [facility] 2020-06-01 09:00:00 2020-06-01 09:00:00 Outpatient KRISTINA HARRISON [facility] [id number] [facility] 2020-05-31 13:07:33 2020-05-31 13:27:33 Laboratory Only [facility], [facility] [address] 1..840.114 350.1.13.10 4.2.7.2.686 [id number] 2020-05-31 13:20:00 2020-05-31 13:20:00 Outpatient KRISTINA HARRISON [facility] [id number] James ity [facility] 2020-05-31 00:00:00 2020-05-31 00:00:00 Letter (Out) Doctor Unassigned, Rawlings [facility] 1..840.114 350.1.13.10 4.2.7.2.686 [id number] 2020-01-04 12:51:00 2020-01-04 12:51:00 Outpatient Agatha-Mbayo _A_AH VFP VFP [id number] [facility] 2020-01-04 12:51:00 2020-01-04 12:51:00 Outpatient Agatha-Mbayo _A_AH VFP VFP [id number] [facility] Results Test Description Test Time Test Comments Results Result Co mments Source [facility] GLUCOSE (AUTOMATED)2022-04-15 01:41:12* Test Item Value Reference Range Interpretation Comme nts POCT GLU (test code = 5079962302) 421 mg/dL 70-110 H Lab Interpretation (test cod e = 79859-0) Abnormal [facility] GLUCOSE (AUTOMATED)2022-04-15 00:44:10* Test Item Value Reference Range Interpretation Comme nts POCT GLU (test code = 8201856261) 412 mg/dL 70-110 H Lab Interpretation (test cod e = 77371-7) Abnormal [facility] GLUCOSE (AUTOMATED)2022-04-14 23:23:25* Test Item Value Reference Range Interpretation Comme nts POCT GLU (test code = 0214794626) 506 mg/dL 70-110 HH Lab Interpretation (test cod e = 22609-2) Abnormal [facility] GLUCOSE (AUTOMATED)2022-04-14 21:45:07* Test Item Value Reference Range Interpretation Comme nts POCT GLU (test code = 7001648997) 545 mg/dL 70-110 HH Lab Interpretation (test cod e = 10329-5) Abnormal [facility] GLUCOSE (AUTOMATED)2022-04-12 07:49:02* Test Item Value Reference Range Interpretation Comme nts POCT GLU (test code = 7018420794) 376 mg/dL 70-110 H Lab Interpretation (test cod e = 16064-2) Abnormal [facility] GLUCOSE (AUTOMATED)2022-04-12 06:22:59* Test Item Value Reference Range Interpretation Comme nts POCT GLU (test code = 9030031539) 445 mg/dL 70-110 H Lab Interpretation (test cod e = 52704-9) Abnormal [facility] GLUCOSE (AUTOMATED)2022-04-12 05:08:47* Test Item Value Reference Range Interpretation Comme nts POCT GLU (test code = 1560963267) 506 mg/dL 70-110 HH Lab Interpretation (test cod e = 96574-6) [facility]12 05:08:27* Test Item Value Reference Range Interpretation Comme nts HGB A1C (test code = 4548-4) 13.6 % 4.0-5.7 H RANJITH (test code = RANJITH) Reference RangesNormal: <5.7%Prediabetes: 5.7 - 6.4%Diabetes: > 6.5% Lab Interpretation (test code = 46958-8) Abnormal [facility]. METABOLIC PANEL (17471)2022-04-12 05:08:01* Test Item Value Reference Range Interpretation Comme nts NA (test code = 0536077880) 126 mmol/L 135-145 L K (test code = 9643812027) 3.7 mmol/L 3.5-5.0 CL (test code = 4826990357) 79 mmol/L 98-108 L CO2 TOTAL (test code = 6092227387) 31 mmol/L 23-31 AGAP (test code = 6163965677) 2-16 BUN (test code = 2068776359) 20 mg/dL 7-23 GLUCOSE (test code = 1148959535) 575 mg/dL 70-110 HH CREATININE (test code = 4973688648) 1.15 mg/dL 0.60-1.25 TOTAL BILI (test code = 6015914280) 1.0 mg/dL 0.1-1.1 CALCIUM (test code = 4620924404) 11.0 mg/dL 8.6-10.6 H T PROTEIN (test code = 1953932297) 7.9 g/dL 6.3-8.2 ALBUMIN (test code = 3156526015) 4.7 g/dL 3.5-5.0 ALK PHOS (test code = 7564920135) 286 U/L 34-122 H ALTv (test code = 1742-6) 40 U/L 5-50 AST(SGOT) (test code = 0290784233) 45 U/L 13-40 H eGFR (test code = 5517313946) mL/min/1.73m2 RANJITH (test code = RANJITH) Association of [...] or abnormalities in imaging tests). Lab Interpretation (test code = 84399-4) Abnormal [facility] WITH [id number] 04:52:23* Test Item Value Reference Range Interpretation Comme nts WBC (test code = 6690-2) See_Comment [Automated [employer]] The system which generated this result transmitted reference range: 4.20 - 10.70 10*3/?L. The reference range was not used to interpret this result as normal/abnormal. RBC (test code = 789-8) See_Comment [Automated [employer]] The system which generated this result transmitted reference range: 4.26 - 5.52 10*6/?L. The reference range was not used to interpret this result as normal/abnormal. HGB (test code = 718-7) 14.6 g/dL 12.2-16.4 HCT (test code = 4544-3) 43.0 % 38.4-49.3 MCV (test code = 787-2) 78.6 fL 81.7-95.6 L MCH (test code = 785-6) 26.7 pg 26.1-32.7 MCHC (test code = 786-4) 34.0 g/dL 31.2-35.0 RDW-SD (test code = 53636-9) 39.4 fL 38.5-51.6 RDW-CV (test code = 788-0) 13.9 % 12.1-15.4 PLT (test code = 777-3) See_Comment [Automated [employer]] The system which generated this result transmitted reference range: 150 - 328 10*3/?L. The reference range was not used to interpret this result as normal/abnormal. MPV (test code = 85991-3) 10.4 fL 9.8-13.0 NRBC/100 WBC (test code = 9342888696) See_Comment [Automated [employer]] The system which generated this result transmitted reference range: 0.0 - 10.0 /100 WBCs. The reference range was not used to interpret this result as normal/abnormal. NRBC x10^3 (test code = 5565707284) <0.01 See_Comment [Automated [employer]] The system which generated this result transmitted reference range: 10*3/?L. The reference range was not used to interpret this result as normal/abnormal. GRAN MAT (NEUT) % (test code = 770-8) 47.8 % IMM GRAN % (test code = 5719806272) 0.20 % LYMPH % (test code = 736-9) 41.8 % MONO % (test code = 5905-5) 9.5 % EOS % (test code = 713-8) 0.5 % BASO % (test code = 706-2) 0.2 % GRAN MAT x10^3(ANC) (test code = 9217149137) 4.06 10*3/uL 1.99-6.95 IMM GRAN x10^3 (test code = 4583445664) <0.03 0.00-0.06 LYMPH x10^3 (test code = 731-0) 3.56 10*3/uL 1.09-3.23 H MONO x10^3 (test code = 742-7) 0.81 10*3/uL 0.36-1.02 EOS x10^3 (test code = 711-2) 0.04 10*3/uL 0.06-0.53 L BASO x10^3 (test code = 704-7) <0.03 0.01-0.09 Lab Interpretation (test code = 61011-2) [facility] 04:04:52* Test Item Value Reference Range Interpretation Comme nts POCT GLU (test code = 8734960419) 560 mg/dL 70-110 HH Lab Interpretation (test cod e = 16068-7) [facility] [id number] 04:06:50* Test Item Value Reference Range Interpretation Comme nts CHOLESTEROL (test code = 2210) 269 MG/DL <200 H TRIGLYCERIDES (test code = 2232) 237 MG/DL <150 H HDL CHOLESTEROL (test code = 2220) 49 MG/DL >39 CALC LDL CHOL (test code = 2237) 176 MG/DL <100 H NOTE: CALCULATED LDL IS BASED ON JESSICA-CHAVEZ METHOD WHICHINCLUDES ADJUSTABLE TRIGLYCERIDE:VLDL CHOLESTEROL RATIO.THIS FACTOR VARIES BY MEASURED TRIGLYCERIDE AND NON-HDLCHOLESTEROL CONCENTRATIONS WITH INCREASED CALCULATED LDL SEENIN HIGHER TRIGLYCERIDE OR LOWER NON-HDL SPECIMENS. FOR MOREINFORMATION, SEE CLIENT ANNOUNCEMENT AT [email or web address] /[email or web address] RISK RATIO LDL/HDL (test code = 2237) 3.59 RATIO <3.55 H COMPREHENSIVE METABOLIC [id number] 04:06:50* Test Item Value Reference Range Interpretation Comme nts GLUCOSE (test code = 2216) 173 MG/DL 70-99 H BUN (test code = 2207) 14 MG/DL 6-20 CREATININE (test code = 2213) 1.09 MG/DL 0.80-1.40 eGFR (2020 CKD-EPI) (test code = 63922) 84 ML/MIN/1.73 >60 CALC BUN/CREAT (test code = 2234) 13 RATIO 6-28 SODIUM (test code = 2230) 139 MEQ/L 133-146 POTASSIUM (test code = 2227) 3.6 MEQ/L 3.5-5.4 CHLORIDE (test code = 2214) 92 MEQ/L 95-107 L CARBON DIOXIDE (test code = 2205) 34 MEQ/L 19-31 H CALCIUM (test code = 2208) 10.1 MG/DL 8.5-10.5 PROTEIN, TOTAL (test code = 2228) 7.9 G/DL 6.1-8.3 ALBUMIN (test code = 2200) 4.7 G/DL 3.5-5.2 CALC GLOBULIN (test code = 2240) 3.2 G/DL 1.9-3.7 CALC A/G RATIO (test code = 2233) 1.5 RATIO 1.0-2.6 BILIRUBIN, TOTAL (test code = 2206) 0.4 MG/DL See_Comment [Automated me ssage] The system which generated this result transmitted reference range: <=1.2. The reference range was not used to interpret this result as normal/abnormal. ALKALINE PHOSPHATASE (test code = 2203) 186 U/L 40-118 H AST (test code = 2218) 17 U/L 9-50 ALT (test code = 2219) 17 U/L 5-50 UNLESS OTHERWISE INDICATED, ALL TESTING PERFORMED [facility] [address] [place] [id number] [employer]ASH TRUCK DRIVER: GRIFFIN KERN M.D. CLIA NUMBER [id number] [facility] [place]. [id number] HEMOGLOBIN [id number] 03:47:07* Test Item Value Reference Range Interpretation Comme nts HEMOGLOBIN A1c (test code = 80547) 9.3 % 4.2-5.6 H [employer] GUIDELINES FOR HGB A1C: PREDIABETES/INCREASED RISK . . . . . . . 5.7-6.4% DIAGNOSIS OF DIABETES . . . . . . . . . >=6.5% WITH CONFIRMATION OR APPROPRIATE SYMPTOMS NOTE: ASSAY MAY BE AFFECTED BY HEMOGLOBINOPATHIES (SICKLE CELL ANEMIA, S-C DISEASE, OTHERS) OR ARTIFICIALLY LOWERED BY DECREASED RED CELL SURVIVAL (HEMOLYTIC ANEMIAS, BLOOD LOSS, ETC.). CONSIDER ALTERNATE TESTING OR LABORATORY CONSULTATION. POCT URINALYSIS, [id number] 14:39:00* Test Item Value Reference Range Interpretation Comme nts POCT U SP GRAV (test code = 3255) 1.030 mg/dl 1.005-1.025 A POCT PH U (test code = 3254) 6.0 mg/dl 5-8 POCT U LEUK EST (test code = 3263) Negative Negative - Negative POCT U NIT (test code = 3262) Negative Negative - Negati ve POCT U PROT (test code = 3259) Negative - Negative POCT U GLU (test code = 3256) Negative Negative - Negati ve POCT U KETONE (test code = 3258) Negative Negative - Negative POCT U UROBILI (test code = 3260) 1.0 mg/dl 0.2-1 POCT U BILI (test code = 3261) Negative Negative - Negative POCT U BLD (test code = 3257) Negative Negative - Negati ve POCT U COLOR (test code = 3266) Yellow POCT U APPEAR (test code = 3267) Clear Lab Interpretation (test cod e = 63182-6) Abnormal [facility]"
[2024-04-28] MEDS ORDERED: ONDANSETRON 4 MG/2 ML VIAL ONE (20:31)
[2024-04-28] MEDS ORDERED: DOXYCYCLINE 100 MG CAP PO ONE (20:31)
[2024-04-28] MEDS ORDERED: NYSTATIN 100MU/GM CREAM 15GM TOP ONE (20:31)
[2024-04-28] MEDS ORDERED: PIPERACIL/TAZO 3.375 GM VIAL IV ONE (20:32)
[2024-04-28] MEDS ORDERED: MORPHINE 4 MG/ML SYR ONE (20:32)
[2024-04-28] MEDS ORDERED: NA CHLORIDE 0.9% 100 ML ONE (20:32)
[2024-04-28 20:40] LABS: Absolute Eosinophils 0.1 K/uL (0-0.5); Absolute Lymphocytes (CBC) 2.7 K/uL (0.7-4.9); Absolute Monocytes 0.9 K/uL (0.1-1.3); Absolute Neutrophil 6.8 K/uL (1.8-8.0); Basophils % 0.4 % (0-1.3); Eosinophils % 0.9 % (0-4.4); Hematocrit 37.2 % (39.6-49.0); Hemoglobin 12.4 g/dL (13.6-17.9); Lymphocytes % 25.7 % (15.3-44.8); MCH 26.8 pg (27.0-35.0); MCHC 33.4 g/dL (32.0-36.0); MCV 80.4 fL (80-100); MPV 8.7 fL (7.6-11.3); Monocytes % 8.5 % (3.3-12.3); Neutrophils % 64.5 % (41.7-73.7); Nucleated Red Blood Cells % 0.3 % (0-0); Platelets 240 thou/uL (152-406); RBC Red Blood Cell Count 4.63 M/uL (4.33-5.43); Red Cell Distribution Width 14.6 % (12.1-15.2)
[2024-04-28 20:50] LABS: Specific Gravity > 1.030 (1.005-1.030); Urine Bilirubin NEGATIVE (Negative); Urine Blood Negative (Negative); Urine Clarity Clear (Clear); Urine Color Light-Yellow (Yellow); Urine Glucose 4+ (Over) (Negative); Urine Ketones NEGATIVE (Negative); Urine Microscopic Reflex YN NO UMIC; Urine Nitrite NEGATIVE (Negative); Urine Protein NEGATIVE (Negative); Urine Urobilinogen Normal (Normal); Urine pH 5.5 (5.0-7.0)
[2024-04-28 21:10] LABS: Albumin 3.5 g/dL (3.4-5.0); Albumin/Globulin Ratio 0.9 (1.1-1.8); Anion Gap 10.1 mEq/L (5.0-15.0); Bilirubin Total 0.5 mg/dL (0.2-1.0); Potassium 3.1 mEq/L (3.5-5.1); Protein, Total 7.5 g/dL (6.4-8.2)
[2024-04-28 21:15] LABS: Troponin High Sensitivity 141.4 pg/mL (<58.9)
--- NOTE | 2024-04-28 21:16 | RAD REPORT ---
EXAM DESCRIPTION: Gianfranco Single View04/28/2024 9:04 pm CLINICAL HISTORY: cough COMPARISON: 2022 FINDINGS: The lungs appear clear of acute infiltrate. The heart is mildly enlarged IMPRESSION: No acute abnormalities displayed
--- NOTE | 2024-04-28 21:20 | EDPHYS ---
Physician Documentation [facility] Name: Ana Paula Oviedo Age: 49 yrs Sex: Male : 1975 Arrival Date: 04/28/2024 Time: 19:29 Bed 4 Private MD: Andrey Chandler HPI: 04/28 20:18 This 49 yrs old Black Male presents to ER via Ambulatory with complaints of PT STATED vania HE IS HAVING A "UROLOGY PROBLEM" WOULD NOT DISCUSS FURTHER. 20:18 The patient presents with swelling, tenderness, that is moderate. Onset: The vania symptoms/episode began/occurred 3 day(s) ago. Modifying factors: The symptoms are alleviated by remaining still, the symptoms are aggravated by movement, pressure. Associated signs and symptoms: Pertinent positives: abdominal pain. The patient has experienced similar episodes in the past, a few times. Historical: - Allergies: 20:00 No Known Allergies; nj1 - PMHx: 20:00 Hypertension; Diabetes - IDDM; Depression; Anxiety; Hyperlipidemia; Schizophrenia; nj1 - PSHx: 20:00 None; nj1 - Immunization history:: Client reports having NOT received the Covid vaccine. - Infectious Disease History:: Denies. - Social history:: Smoking status: Patient denies any tobacco usage or history of. ROS: 20:19 Constitutional: Negative for fever, chills, and weight loss, Eyes: Negative for injury, vania pain, redness, and discharge, ENT: Negative for injury, pain, and discharge, Neck: Negative for injury, pain, and swelling, Cardiovascular: Negative for chest pain, palpitations, and edema, Respiratory: Negative for shortness of breath, cough, wheezing, and pleuritic chest pain, Abdomen/GI: Negative for abdominal pain, nausea, vomiting, diarrhea, and constipation, Back: Negative for injury and pain, MS/Extremity: Negative for injury and deformity, Neuro: Negative for headache, weakness, numbness, tingling, and seizure, Psych: Negative for depression, anxiety, suicide ideation, homicidal ideation, and hallucinations, Allergy/Immunology: Negative for hives, rash, and allergies, Endocrine: Negative for neck swelling, polydipsia, polyuria, polyphagia, and marked weight changes, Hematologic/Lymphatic: Negative for swollen nodes, abnormal bleeding, and unusual bruising, 20:19 : Positive for penile pain, of the pelvis, uncircumcised , glans infected, Exam: 20:19 Constitutional: This is a well developed, well nourished patient who is awake, alert, vania and in no acute distress. Head/Face: Normocephalic, atraumatic. Eyes: Pupils equal round and reactive to light, extra-ocular motions intact. Lids and lashes normal. Conjunctiva and sclera are non-icteric and not injected. Cornea within normal limits. Periorbital areas with no swelling, redness, or edema. ENT: Nares patent. No nasal discharge, no septal abnormalities noted. Tympanic membranes are normal and external auditory canals are clear. Oropharynx with no redness, swelling, or masses, exudates, or evidence of obstruction, uvula midline. Mucous membranes moist. Neck: Trachea midline, no thyromegaly or masses palpated, and no cervical lymphadenopathy. Supple, full range of motion without nuchal rigidity, or vertebral point tenderness. No Meningismus. Chest/axilla: Normal chest wall appearance and motion. Nontender with no deformity. No lesions are appreciated. Cardiovascular: Regular rate and rhythm with a normal S1 and S2. No gallops, murmurs, or rubs. Normal PMI, no JVD. No pulse deficits. Respiratory: Lungs have equal breath sounds bilaterally, clear to auscultation and percussion. No rales, rhonchi or wheezes noted. No increased work of breathing, no retractions or nasal flaring. Abdomen/GI: Soft, non-tender, with normal bowel sounds. No distension or tympany. No guarding or rebound. No evidence of tenderness throughout. Back: No spinal tenderness. No costovertebral tenderness. Full range of motion. MS/ Extremity: Pulses equal, no cyanosis. Neurovascular intact. Full, normal range of motion. Neuro: Awake and alert, GCS 15, oriented to person, place, time, and situation. Cranial nerves II-XII grossly intact. Motor strength 5/5 in all extremities. Sensory grossly intact. Cerebellar exam normal. Normal gait. Psych: Awake, alert, with orientation to person, place and time. Behavior, mood, and affect are within normal limits. 20:19 : Male external genitalia: swelling, is noted in the right inguinal area, that is moderate, tenderness, is palpated in the right inguinal area, that is moderate, Bladder: is normal, non-distended, non-tender, Sexual behavior: the patient is sexually active, and reports a single partner, 21:11 ECG was reviewed by the Attending Physician. vania Vital Signs: 19:56 BP 226 / 113; Pulse 97; Resp 18; Temp 98.6(O); Pulse Ox 94% ; Weight 112.49 kg; Height nj1 6 ft. 2 in. ; Pain 9/10; 20:10 BP 203 / 104; Pulse 101; Resp 18; Temp 98.3; Pulse Ox 100% on R/A; Pain 9/10; rg5 20:49 BP 194 / 105; Pulse 94; Resp 18; Pulse Ox 100% on R/A; Pain 8/10; rg5 22:30 BP 196 / 96; Pulse 94; Resp 17; Pulse Ox 99% ; vc1 23:30 BP 186 / 112; Pulse 85; Resp 16; Pulse Ox 99% ; vc1 04/29 00:30 BP 186 / 100; Pulse 82; Resp 18; Pulse Ox 97% on R/A; Pain 0/10; rg5 01:30 BP 171 / 97; Pulse 72; Resp 18; Pulse Ox 98% on R/A; rg5 02:28 BP 167 / 91; Pulse 81; Resp 17; Temp 98; Pulse Ox 97% on R/A; rg5 03:30 BP 136 / 66; Pulse 73; Resp 17; Pulse Ox 100% on R/A; Pain 0/10; rg5 04:30 BP 146 / 78; Pulse 71; Resp 18; Pulse Ox 100% on R/A; Pain 0/10; rg5 05:30 BP 150 / 78; Pulse 73; Resp 17; Pulse Ox 100% ; Pain 0/10; rg5 06:10 BP 139 / 65; Pulse 72; Resp 18; Temp 98; Pulse Ox 99% ; Pain 0/10; 5 04/28 19:56 Body Mass Index 31.84 (112.49 kg, 187.96 cm) [facility] 04/28 19:56 Pain Scale: Adult nj1 20:10 Pain Scale: Adult rg5 20:49 Pain Scale: Adult 5 04/29 00:30 Pain Scale: Adult rg5 03:30 Pain Scale: Adult rg5 04:30 Pain Scale: Adult rg5 05:30 Pain Scale: Adult rg5 06:10 Pain Scale: Adult rg5 Jimbo Coma Score: 04/28 20:15 Eye Response: spontaneous(4). Motor Response: obeys commands(6). Verbal Response: rg5 oriented(5). Total: 15. MDM: 20:05 Patient medically screened. [facility] 20:21 Differential diagnosis: abscess, cellulitis, nonspecific abdominal pain, UTI. Data [facility] reviewed: vital signs, nurses notes, lab test result(s), EKG, radiologic studies, CT scan, plain films, ultrasound. Consideration of Admission/Observation Escalation of care including admission/observation considered. I considered the following discharge prescriptions or medication management in the emergency department Medications were administered in the Emergency Department. See MAR. Independent interpretation of the following test(s) in the Emergency Department EKG: See my EKG interpretation above. Test considered but Not performed: MRI: no mri pelvis. Historians other than the Patient: pt well informed. Care significantly affected by the following chronic conditions: Diabetes, Hypertension, Obesity. Counseling: I had a detailed discussion with the patient and/or guardian regarding the historical points, exam findings, and any diagnostic results supporting the discharge/admit diagnosis, the presence of at least one elevated blood pressure reading (>120/80) during this emergency department visit, lab results. 04/28 20:16 Order name: CBC with Diff; Complete Time: 21:04 [facility] 04/28 20:16 Order name: Comprehensive Metabolic Panel; Complete Time: 21:17 [facility] 04/28 20:16 Order name: Troponin HS; Complete Time: 21:17 [facility] 04/28 20:16 Order name: BNP; Complete Time: 21:17 [facility] 04/28 20:16 Order name: Urinalysis w/ reflexes; Complete Time: 21:04 [facility] 04/28 22:32 Order name: CBC with Automated Diff [facility] 04/28 22:32 Order name: CBC with Automated Diff [facility] 04/28 22:32 Order name: Comprehensive Metabolic Panel [facility] 04/28 22:32 Order name: Comprehensive Metabolic Panel [facility] 04/28 22:32 Order name: Urinalysis w/ reflexes [facility] 04/28 22:35 Order name: Lipid Profile [facility] 04/28 22:35 Order name: Hemoglobin A1c [facility] 04/29 00:38 Order name: Glucose, Ancillary Testing [facility] 04/29 05:22 Order name: Lipid Profile [facility] 04/29 09:49 Order name: Glucose, Ancillary Testing [facility] 04/29 10:30 Order name: Troponin High Sensitivity 04/29 11:25 Order name: Troponin High Sensitivity [facility] 04/29 11:45 Order name: Glucose, Ancillary Testing [facility] 04/28 20:16 Order name: US Scrotum Testicles: right mons, ro abscess; Complete Time: 22:06 [facility] 04/28 20:16 Order name: CT Abd/Pelvis - IV Contrast Only: extend through hips; Complete Time: 22:06 [facility] 04/28 20:16 Order name: Chest Single View XRAY; Complete Time: 21:17 [facility] 04/28 22:32 Order name: CONS Physician Consult [facility] 04/28 20:16 Order name: EKG Strip; Complete Time: 23:53 [facility] 04/28 20:17 Order name: Blood Pressure Recheck; Complete Time: 20:46 [facility] EC:11 Rate is 94 beats/min. Rhythm is regular. QRS [place] is Normal. ID interval is normal. QRS vania interval is normal. QT interval is normal. No Q waves. T waves are Normal. No ST changes noted. Clinical impression: LVH and No evidence of ischemia. Interpreted by me. Reviewed by me. Administered Medications: 20:46 Drug: morphine IVP or IV 4 mg IVP once over 4 mins Route: IVP; Infused Over: 4 mins; rg5 Site: right antecubital; 22:23 Follow up: Response: Pain is decreased rg5 20:46 Drug: Ondansetron IVP 4 mg IVP once; over 2 minutes Route: IVP; Site: right antecubital;rg5 22:23 Follow up: Response: No adverse reaction rg5 20:47 Drug: Piperacillin-Tazobactam IVPB 3.375 grams IVPB once over 60 mins; (mix in NS 100 rg5 mL) Route: IVPB; Infused Over: 60 mins; Site: right antecubital; 04/29 02:37 Follow up: IV Status: Completed infusion [facility] 04/28 20:47 Drug: nystatin Topical Ointment 1 application Topical once; glans {Note: foreskin.} rg5 Route: Topical; Site: affected area; 20:47 Drug: Doxycycline PO 200 mg PO once Route: PO; rg5 22:23 Follow up: Response: No adverse reaction rg5 22:00 Drug: Insulin Regular Human IVP 8 units IVP once {Co-Signature: vc1 (Opal Cardoza RN).} Route: IVP; Site: right antecubital; 04/29 02:35 Follow up: Response: No adverse reaction [facility] 04/28 22:22 Drug: Amoxicillin-Clavulanate PO 875 mg PO once Route: PO; [facility] 04/29 02:36 Follow up: Response: No adverse reaction [facility] 04/28 22:22 Drug: Potassium PO Effervescent Tablet 50 mEq PO once; dissolve in 4 ounces of water or rg5 juice Route: PO; 04/29 02:35 Follow up: Response: No adverse reaction [facility] 04/28 22:22 Drug: Aspirin PO Chewable Tablet 162 mg PO once Route: PO; [facility] 04/29 02:35 Follow up: Response: No adverse reaction [facility] 04/28 22:23 Drug: Coreg PO 12.5 mg PO once; administer with food Route: PO; [facility] 04/29 02:36 Follow up: Response: Blood pressure is lowered [facility] 04/28 22:23 Drug: Norvasc PO 10 mg PO once Route: PO; [facility] 04/29 02:36 Follow up: Response: Blood pressure is lowered [facility] 04/28 22:23 Drug: Lisinopril PO 20 mg PO once Route: PO; [facility] 04/29 02:36 Follow up: Response: Blood pressure is lowered [facility] 04/28 22:40 Drug: Insulin Glargine Sub-Q 35 units Sub-Q once {Co-Signature: 1 (Opal Cardoza RN).} Route: Sub-Q; Site: right lower abdomen; 04/29 02:35 Follow up: Response: No adverse reaction [facility] Disposition Summary: 04/28/24 21:24 Hospitalization Ordered Notes: Hospitalization Status: Inpatient Admission vania Provider: Faisal Patiño vania Condition: Fair(04/28/24 21:24) vania Problem: new(04/28/24 21:24) vania Symptoms: have improved(04/28/24 21:24) vania Bed/Room Type: Standard vania Location: Telemetry/MedSurg (Inpatient)(04/29/24 11:27) eb Room Assignment: 218(04/29/24 11:27) eb Diagnosis - Type 1 diabetes mellitus with hyperglycemia(04/28/24 21:24) vania - Essential (primary) hypertension(04/28/24 21:24) vania - Non ST elevation [place] vania - Balanitis vania - Hypokalemia vania - Localized enlarged lymph nodes - LEFT MONS/GROIN(04/28/24 21:24) vania Forms: - Medication Reconciliation Form vania - SBAR form vania - Leadership Thank You Letter vania Signatures: Dispatcher [employer] EDMS Andrey Garcia MD MD cha Botello, Elizabeth eb Villegas, Rebecca rv1 Rosalinda Puente, RN RN nj1 Gregor Barahona RN RN rg5 Opal Cardoza RN vc1 Corrections: (The following items were deleted from the chart) 04/28 20:17 20:17 Abdomen Pelvis W Con+CT.RAD.BRZ ordered. EDMS EDMS 20:17 20:17 Chest Single View+RAD.RAD.BRZ ordered. EDMS EDMS 21:20 21:20 Home vania vania 21:20 21:20 new vania vania 21:20 21:20 have improved vania vania 21:20 21:20 Stable vania vania 21:20 21:20 Balanoposthitis vania vania 21:20 21:20 Candidal balanitis vania vania 21:20 21:20 Essential (primary) hypertension vania vania 21:20 21:20 Type 1 diabetes mellitus with hyperglycemia vania vania 21:20 21:20 Localized enlarged lymph nodes vania vania 21:20 21:20 Enlarged lymph nodes, unspecified vania vania 22:51 21:24 Telemetry/MedSurg (Inpatient) vania rv1 22:51 21:24 vania rv1 04/29 11:27 04/28 22:51 [facility] ER HOLD rv1 eb 04/29 11:27 04/28 22:51 ERHOLD- rv1 eb
--- NOTE | 2024-04-28 21:20 | ER ---
Nurse's Notes [facility] Name: Ana Paula Oviedo Age: 49 yrs Sex: Male : 1975 Arrival Date: 04/28/2024 Time: 19:29 Bed 4 Private MD: Diagnosis: Type 1 diabetes mellitus with hyperglycemia;Essential (primary) hypertension;Non ST elevation [place];Balanitis;Hypokalemia;Localized enlarged lymph nodes-LEFT MONS/GROIN Presentation: 04/28 19:56 Chief complaint: Patient states: Knot on groin, noticed about 3 days ago, has gotten nj1 worse. Penile problem over a year, painful at times when he pulls his foreskin "lines, cuts, like open flesh". Coronavirus screen: Vaccine status: Patient reports receiving the 2nd dose of the covid vaccine. Ebola Screen: Patient denies travel to an Ebola-affected area in the 21 days before illness onset. Initial Sepsis Screen: Does the patient meet any 2 criteria? HR > 90 bpm. No. Patient's initial sepsis screen is negative. Does the patient have a suspected source of infection? No. Patient's initial sepsis screen is negative. Risk Assessment: Do you want to hurt yourself or someone else? Patient reports no desire to harm self or others. 19:56 Method Of Arrival: Ambulatory [facility] 19:56 Acuity: ALIRIO 3 nj1 04/29 02:21 Onset of symptoms was April 28, 2024. rg5 Historical: - Allergies: 04/28 20:00 No Known Allergies; nj1 - PMHx: 20:00 Hypertension; Diabetes - IDDM; Depression; Anxiety; Hyperlipidemia; Schizophrenia; nj1 - PSHx: 20:00 None; nj1 - Immunization history:: Client reports having NOT received the Covid vaccine. - Infectious Disease History:: Denies. - Social history:: Smoking status: Patient denies any tobacco usage or history of. Screenin:15 [facility] ED Fall Risk Assessment (Adult) History of falling in the last 3 months, rg5 including since admission No falls in past 3 months (0 pts) Confusion or Disorientation No (0 pts) Intoxicated or Sedated No (0 pts) Impaired Gait No (0 pts) Mobility Assist Device Used No (0 pt) Altered Elimination No (0 pt) Score/Fall Risk Level 0 - 2 = Low Risk Oriented to surroundings, Maintained a safe environment, Hourly rounding (assess needs \\T\\ fall precautionary measures) done. Abuse screen: Denies threats or abuse. Nutritional screening: No deficits noted. Tuberculosis screening: No symptoms or risk factors identified. Assessment: 20:15 General: Appears in no apparent distress. comfortable, Behavior is calm, cooperative, rg5 appropriate for age. Pain: Complains of pain in groin and foreskin Pain currently is 9 out of 10 on a pain scale. Quality of pain is described as burning, aching, Pain began 2-3 days ago. Neuro: Level of Consciousness is awake, alert, obeys commands, Oriented to person, place, time. Cardiovascular: Denies chest pain, Capillary refill < 3 seconds. Respiratory: Airway is patent Trachea midline Respiratory effort is even, unlabored, Respiratory pattern is regular, symmetrical. GI: Abdomen is round non-distended, Abd is soft and non tender X 4 quads. : Lesions noted Reports burning with urination, pain. EENT: No deficits noted. Derm: Skin is intact, Skin is dry, Skin is pink, warm \\T\\ dry. Musculoskeletal: Range of motion: intact in all extremities. 23:54 Reassessment: Patient appears in no apparent distress at this time. No changes from vc1 previously documented assessment. Patient and/or family updated on plan of care and expected duration. Pain level reassessed. Patient is alert, oriented x 3, equal unlabored respirations, skin warm/dry/pink. 04/29 00:35 Reassessment: Patient and/or family updated on plan of care and expected duration. Pain rg5 level reassessed. Patient is alert, oriented x 3, equal unlabored respirations, skin warm/dry/pink. 01:30 Reassessment: Patient and/or family updated on plan of care and expected duration. Pain rg5 level reassessed. Patient is alert, oriented x 3, equal unlabored respirations, skin warm/dry/pink. 02:30 Reassessment: Patient and/or family updated on plan of care and expected duration. Pain rg5 level reassessed. Patient is alert, oriented x 3, equal unlabored respirations, skin warm/dry/pink. Patient states feeling better. 04:30 Reassessment: No changes from previously documented assessment. rg5 05:30 Reassessment: No changes from previously documented assessment. rg5 06:32 Reassessment: No changes from previously documented assessment. 5 Vital Signs: 04/28 19:56 BP 226 / 113; Pulse 97; Resp 18; Temp 98.6(O); Pulse Ox 94% ; Weight 112.49 kg; Height nj1 6 ft. 2 in. ; Pain 9/10; 20:10 BP 203 / 104; Pulse 101; Resp 18; Temp 98.3; Pulse Ox 100% on R/A; Pain 9/10; rg5 20:49 BP 194 / 105; Pulse 94; Resp 18; Pulse Ox 100% on R/A; Pain 8/10; rg5 22:30 BP 196 / 96; Pulse 94; Resp 17; Pulse Ox 99% ; vc1 23:30 BP 186 / 112; Pulse 85; Resp 16; Pulse Ox 99% ; vc1 04/29 00:30 BP 186 / 100; Pulse 82; Resp 18; Pulse Ox 97% on R/A; Pain 0/10; rg5 01:30 BP 171 / 97; Pulse 72; Resp 18; Pulse Ox 98% on R/A; rg5 02:28 BP 167 / 91; Pulse 81; Resp 17; Temp 98; Pulse Ox 97% on R/A; rg5 03:30 BP 136 / 66; Pulse 73; Resp 17; Pulse Ox 100% on R/A; Pain 0/10; rg5 04:30 BP 146 / 78; Pulse 71; Resp 18; Pulse Ox 100% on R/A; Pain 0/10; rg5 05:30 BP 150 / 78; Pulse 73; Resp 17; Pulse Ox 100% ; Pain 0/10; rg5 06:10 BP 139 / 65; Pulse 72; Resp 18; Temp 98; Pulse Ox 99% ; Pain 0/10; rg5 04/28 19:56 Body Mass Index 31.84 (112.49 kg, 187.96 cm) nj1 04/28 19:56 Pain Scale: Adult nj1 20:10 Pain Scale: Adult rg5 20:49 Pain Scale: Adult rg5 04/29 00:30 Pain Scale: Adult rg5 03:30 Pain Scale: Adult rg5 04:30 Pain Scale: Adult rg5 05:30 Pain Scale: Adult rg5 06:10 Pain Scale: Adult rg5 Jimbo Coma Score: 04/28 20:15 Eye Response: spontaneous(4). Motor Response: obeys commands(6). Verbal Response: rg5 oriented(5). Total: 15. ED Course: 19:34 Patient arrived in ED. jj6 20:00 Triage completed. nj1 20:01 Gregor Barahona, RN is Primary Nurse. rg5 20:01 Arm band placed on right wrist. nj1 20:05 Andrey Garcia MD is Attending Physician. vania 20:15 Placed in gown. Bed in low position. Call light in reach. Side rails up X 1. rg5 20:15 Inserted saline lock: 20 gauge in right antecubital area, using aseptic technique. rg5 Blood collected. Flushed with 10 mL NS. 21:02 US Scrotum Testicles: right mons, ro abscess In Process Unspecified. EDMS 21:05 Chest Single View XRAY In Process Unspecified. EDMS 21:20 Zev Chavez MD is Referral Physician. vania 21:22 Faisal Patiño MD is Hospitalizing Provider. vania 21:39 EKG done, by ED staff, reviewed by Andrey Garcia MD. kmf 21:44 CT Abd/Pelvis - IV Contrast Only: extend through hips In Process Unspecified. EDMS 23:45 Resting quietly. Awaiting bed assignment. rg5 23:51 Provided Education on: Fall safety. vc1 23:51 No provider procedures requiring assistance completed. Patient admitted, IV remains in vc1 place. 04/29 00:00 Door closed. Noise minimized. Warm blanket given. rg5 Administered Medications: 04/28 20:46 Drug: morphine IVP or IV 4 mg IVP once over 4 mins Route: IVP; Infused Over: 4 mins; rg5 Site: right antecubital; 22:23 Follow up: Response: Pain is decreased rg5 20:46 Drug: Ondansetron IVP 4 mg IVP once; over 2 minutes Route: IVP; Site: right antecubital;rg5 22:23 Follow up: Response: No adverse reaction rg5 20:47 Drug: Piperacillin-Tazobactam IVPB 3.375 grams IVPB once over 60 mins; (mix in NS 100 rg5 mL) Route: IVPB; Infused Over: 60 mins; Site: right antecubital; 04/29 02:37 Follow up: IV Status: Completed infusion 04/28 20:47 Drug: nystatin Topical Ointment 1 application Topical once; glans {Note: foreskin.} rg5 Route: Topical; Site: affected area; 20:47 Drug: Doxycycline PO 200 mg PO once Route: PO; rg 22:23 Follow up: Response: No adverse reaction [facility] 22:00 Drug: Insulin Regular Human IVP 8 units IVP once {Co-Signature: 1 (Opal Cardoza RN).} Route: IVP; Site: right antecubital; 04/29 02:35 Follow up: Response: No adverse reaction [facility] 04/28 22:22 Drug: Amoxicillin-Clavulanate PO 875 mg PO once Route: PO; 04/29 02:36 Follow up: Response: No adverse reaction [facility] 04/28 22:22 Drug: Potassium PO Effervescent Tablet 50 mEq PO once; dissolve in 4 ounces of water or rg5 juice Route: PO; 04/29 02:35 Follow up: Response: No adverse reaction [facility] 04/28 22:22 Drug: Aspirin PO Chewable Tablet 162 mg PO once Route: PO; 04/29 02:35 Follow up: Response: No adverse reaction [facility] 04/28 22:23 Drug: Coreg PO 12.5 mg PO once; administer with food Route: PO; 04/29 02:36 Follow up: Response: Blood pressure is lowered [facility] 04/28 22:23 Drug: Norvasc PO 10 mg PO once Route: PO; 04/29 02:36 Follow up: Response: Blood pressure is lowered [facility] 04/28 22:23 Drug: Lisinopril PO 20 mg PO once Route: PO; 04/29 02:36 Follow up: Response: Blood pressure is lowered [facility] 04/28 22:40 Drug: Insulin Glargine Sub-Q 35 units Sub-Q once {Co-Signature: vc1 (Opal Cardoza RN).} Route: Sub-Q; Site: right lower abdomen; 04/29 02:35 Follow up: Response: No adverse reaction [facility] Medication: 04/28 23:51 VIS not applicable for this client. vc1 Outcome: 21:20 Discharge ordered by MD. caro 21:24 Decision to Hospitalize by Provider. vania 23:51 Admitted to ER Hold. Please see [facility] for further documentation. vc1 23:51 Condition: good 23:51 Instructed on the need for admit, 04/29 12:36 Patient left the ED. jr12 Signatures: Dispatcher [employer] Andrey Dwyer MD MD cha Jeffries, Jennifer jj6 Opal Cardoza RN RN vc1 Rosalinda Puente RN RN [facility] Sissy Sol [facility] Shanta August [facility] Gregor Barahona RN RN rg5 Opal Cardoza RN vc1
--- NOTE | 2024-04-28 21:59 | RAD REPORT ---
EXAM DESCRIPTION: CT - Abdomen Pelvis W Contrast - 04/28/2024 9:43 pm CLINICAL HISTORY: Abdominal pain COMPARISON: none. TECHNIQUE: Computed axial tomography of the abdomen pelvis was obtained. 100 cc Isovue-300 was admin istered intravenously. Oral contrast was not requested which limits evaluation of bowel and appendix All CT scans are performed using dose optimization technique as appropriate and may include automated exposure control or mA/KV adjustment according to patient size. FINDINGS: The liver, spleen, pancreas, adrenal and kidneys appear unremarkable. There is no evidence of diverticulitis. Normal appendix Mild right inguinal lymphadenopathy. Stranding with small amount of ill-defined fluid is present within the fat of the upper right inguina l canal Cortical irregularity involves the vertebral endplates of L5 and S1 with subchondral sclerosis IMPRESSION: Stranding with small amount of ill-defined fluid within the fat of the right upper ingui nal canal probably indicating inflammation/infection. No abscess Mild right inguinal lymphadenopathy probably reactive in nature Cortical irregularity involves the vertebral endplates of L5 and S1 with subchondral sclerosis. This could be degenerative in nature. Inflammation can also result this appearance and should be correlate d clinically
--- NOTE | 2024-04-28 21:59 | RAD REPORT ---
EXAM DESCRIPTION: US - Scrotum Testicles - 04/28/2024 9:00 pm CLINICAL HISTORY: Testicular pain COMPARISON: None FINDINGS: Right testicle measures 4 x 2.3 x 3 centimeters. Echotexture is homogeneous. Microlithiasi s present. Normal blood flow Left testicle measures 4.2 x 2.3 x 3.2 centimeters. Echotexture is homogeneous. Normal blood flow. Mi crolithiasis is present The epididymides are normal in size and echotexture. Normal blood flow is seen. Several right inguinal lymph nodes. The largest 2.5 x 2 x 2.3 centimeters. It is relatively hypoechoi c IMPRESSION: Testicular microlithiasis. The patient has a mildly increased risk of testicular cancer. Yearly ultrasound recommended Right inguinal lymphadenopathy. This probably is reactive in nature
[2024-04-28] MEDS ORDERED: carvediloL 6.25 MG TAB ONE (22:14)
[2024-04-28] MEDS ORDERED: AMOX/K CLAV 875 MG TAB ONE (22:14)
[2024-04-28] MEDS ORDERED: AMLODIPINE 10 MG TAB ONE (22:14)
[2024-04-28] MEDS ORDERED: ASPIRIN 81 MG CHEWABLE TABLET ONE (22:14)
[2024-04-28] MEDS ORDERED: lisinopriL 20 MG TAB ONE (22:14)
[2024-04-28] MEDS ORDERED: POTASSIUM 25 MEQ EFFERV TAB ONE (22:15)
[2024-04-28] MEDS ORDERED: ONDANSETRON 4 MG/2 ML VIAL IV PRN (22:23)
[2024-04-28] MEDS ORDERED: INSULIN GLARGINE 100 UNIT/ML SQ ONE (22:26)
[2024-04-28] MEDS ORDERED: INSULIN REGULAR (HUMAN) 100 UNIT/ML ONE (22:27)
[2024-04-28] MEDS ORDERED: D50W 25 GM/50 ML SYRINGE IV PRN (22:32)
[2024-04-28] MEDS ORDERED: GLUCAGON 1 MG/VIAL IM PRN (22:32)
--- NOTE | 2024-04-28 22:38 | P.HP ---
Certification for Inpatient Patient admitted to: Inpatient With expected LOS: >2 Midnights Patient will require the following post-hospital care: None Practitioner: I am a practitioner with admitting privileges, knowledge of patient current condition, hospital course, and medical plan of care. 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 he has been complaining of increasing discharge from his penile area in addition to swelling and discomfort in his right groin not admit to any promiscuous sexual contact or history of urinary tract infection he has diabetes hypertension schizophrenia and depression - Past Medical/Surgical History -: Diabetes -: Hypertension -: Schizophrenia Past Surgical History: Reviewed- Non-Contributory Review of Systems 10-point ROS is otherwise unremarkable Physical Examination - Vital Signs Temperature: 98.3 F Blood Pressure: 203/104 Pulse: 101 Respirations: 18 Pulse Ox (%): 98 - Physical Exam General: Alert, In no apparent distress, Oriented x3, Cachectic Neck: Supple Respiratory: Clear to auscultation bilaterally Gastrointestinal: Normal bowel sounds, Soft and benign Musculoskeletal: No clubbing, No swelling Integumentary: No rashes, No breakdown Neurological: Normal speech Urinary: Other (Patient has obvious discharge of from his penis with right inguinal swelling tenderness) - Studies Laboratory Data (last 24 hrs) 04/28/24 04/28/24 20:25 20:25 WBC 10.50 Hgb 12.4 L Hct 37.2 L Plt Count 240 Sodium 139 Potassium 3.1 L BUN 12 Creatinine 1.31 H Glucose 337 H Total Bilirubin 0.5 AST 18 ALT 20 Alkaline Phosphatase 169 H Assessment and Plan - Problems (Diagnosis) (1) Balanitis Current Visit: Yes Status: Acute Plan: Patient is 49 years of age admitted with penile discharge with right inguinal adenopathyI CT scan and ultrasound reviewed he does have inguinal adenopathy plan to admit the patient cultured the secretions consult Dr. 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
[2024-04-29] MEDS: INSULIN GLARGINE 100 UNIT/ML SQ SCH (01:30)
[2024-04-29] MEDS: DOXYCYCLINE 100 MG CAP PO SCH (01:30)
[2024-04-29] MEDS: AMLODIPINE 10 MG TAB PO SCH (01:30)
[2024-04-29 04:59] LABS: Absolute Eosinophils 0.1 K/uL (0-0.5); Absolute Monocytes 0.8 K/uL (0.1-1.3); Absolute Neutrophil 4.6 K/uL (1.8-8.0); Basophils % 0.5 % (0-1.3); Eosinophils % 1.3 % (0-4.4); Hematocrit 34.4 % (39.6-49.0); Hemoglobin 11.4 g/dL (13.6-17.9); MCH 26.8 pg (27.0-35.0); MCHC 33.2 g/dL (32.0-36.0); MCV 80.6 fL (80-100); MPV 8.5 fL (7.6-11.3); Monocytes % 9.3 % (3.3-12.3); Neutrophils % 53.9 % (41.7-73.7); Nucleated Red Blood Cells % 0.2 % (0-0); Platelets 209 thou/uL (152-406); RBC Red Blood Cell Count 4.26 M/uL (4.33-5.43); Red Cell Distribution Width 14.6 % (12.1-15.2)
[2024-04-29] MEDS ORDERED: PIPER TAZO 3.375 GM in NA CHLORIDE 0.9% 100 ML IV ONE (05:00)
[2024-04-29 05:21] LABS: Anion Gap 7.1 mEq/L (5.0-15.0); Potassium 3.1 mEq/L (3.5-5.1)
[2024-04-29 05:22] LABS: Albumin 2.9 g/dL (3.4-5.0); Albumin/Globulin Ratio 0.8 (1.1-1.8); Bilirubin Total 0.4 mg/dL (0.2-1.0); Globulin 3.5 g/dL (2.3-3.5); Protein, Total 6.4 g/dL (6.4-8.2)
[2024-04-29] MEDS ORDERED: D10W 125 ML IV PRN (05:28)
[2024-04-29] MEDS: METFORMIN HCL 500 MG TAB PO SCH (08:00)
[2024-04-29] MEDS: NA CHLORIDE 0.9% 1,000 ML IV SCH (09:00)
[2024-04-29] MEDS: PIPER TAZO 3.375 GM in NA CHLORIDE 0.9% 100 ML IV SCH (09:00)
[2024-04-29] MEDS: FLUCONAZOLE 100 MG TAB PO SCH (09:00)
[2024-04-29] MEDS: INSULIN REGULAR (HUMAN) 100 UNIT/ML SQ SCH (09:30)
[2024-04-29] MEDS ORDERED: INSULIN REGULAR (HUMAN) 100 UNIT/ML ONE (09:42)
[2024-04-29] MEDS ORDERED: FLUCONAZOLE 100 MG TAB ONE (09:44)
[2024-04-29] MEDS ORDERED: AMLODIPINE 10 MG TAB ONE (09:44)
[2024-04-29] MEDS ORDERED: DOXYCYCLINE 100 MG CAP PO ONE (09:44)
[2024-04-29] MEDS ORDERED: INSULIN GLARGINE 100 UNIT/ML SQ ONE (09:44)
[2024-04-29] MEDS ORDERED: METFORMIN HCL 500 MG TAB ONE (09:44)
[2024-04-29] MEDS ORDERED: NA CHLORIDE 0.9% 1,000 ML ONE (09:45)
[2024-04-29] MEDS ORDERED: NA CHLORIDE 0.9% 100 ML ONE (09:45)
[2024-04-29] MEDS ORDERED: PIPERACIL/TAZO 3.375 GM VIAL IV ONE (09:45)
[2024-04-29 09:50] VITALS: BMI 31.6
[2024-04-29] MEDS: MORPHINE 2 MG/ML SYR IV PRN (12:57)
--- NOTE | 2024-04-29 15:11 | P.CNS ---
Date of Consult: 04/29/24 Chief Complaint: Pain and swelling in the right groin and penile discharge History of Present Illness: Patient with PMH of HTN, DM presented with right scrotal/groin are pain, cardiology was consulted for mild troponin leak and preoperative clearance, patient denies having chest pain, no palpitations, no syncope. although he report JACOBSON. no tobacco use, no drugs, occasional ETOH use. Allergies No Known Allergies Allergy (Unverified 04/29/24 03:19) Home medications list reviewed: Yes Home Medications: Amlodipine [Norvasc*] 10 mg PO ONCE 04/29/24 Atorvastatin Calcium 10 mg PO ONCE 04/29/24 Glipizide [Glipizide Xl] 10 mg PO ONCE 04/29/24 Lisinopril [Zestril] 30 mg PO ONCE 04/29/24 Loratadine [Claritin] 10 mg PO ONCE 04/29/24 Metformin ER [Glucophage ER*] 1,000 mg PO BID 04/29/24 - Past Medical/Surgical History Diabetic: Yes -: Diabetes -: Hypertension -: Schizophrenia - Social History Place of Residence: Home Review of Systems 10-point ROS is otherwise unremarkable Physical Examination Temp Pulse Resp BP Pulse Ox 97.8 F 74 16 165/95 H 98 04/29/24 13:21 04/29/24 13:21 04/29/24 13:21 04/29/24 13:21 04/29/24 13:21 General: Alert, In no apparent distress HEENT: Atraumatic, PERRLA, Mucous membr. moist/pink, EOMI, Sclerae nonicteric Neck: Supple, 2+ carotid pulse no bruit, No LAD, Without JVD or thyroid abnormality Respiratory: Clear to auscultation bilaterally, Normal air movement Cardiovascular: Regular rate/rhythm, Normal S1 S2 Gastrointestinal: Normal bowel sounds, No tenderness Musculoskeletal: No tenderness Integumentary: No rashes Neurological: Normal gait, Normal speech, Normal tone, Normal affect Lymphatics: No axilla or inguinal lymphadenopathy Laboratory Data (last 24 hrs) 04/28/24 04/28/24 20:25 20:25 WBC 10.50 Hgb 12.4 L Hct 37.2 L Plt Count 240 Sodium 139 Potassium 3.1 L BUN 12 Creatinine 1.31 H Glucose 337 H Total Bilirubin 0.5 AST 18 ALT 20 Alkaline Phosphatase 169 H - Problems (1) Preoperative clearance Current Visit: Yes Status: Acute Plan: Patient is active and denies chest pain, no SOB, no palpitations, no syncope. Patient is cleared as low cardiac risk for procedure. (2) Type 2 IA (myocardial infarction) Current Visit: Yes Status: Acute Plan: Troponin leak is mild and no significant delta, most likely type 2 IA from acute infection, hypertensive urgency and EULALIO continue to trend troponin x 3 sets. get echo (3) HTN (hypertension) Current Visit: Yes Status: Acute Plan: continue Norvasc 10 mg daily add Losartan 25 mg daily (may uptitrate if needed)
[2024-04-29] MEDS: ACETAMINOPHEN 500 MG TAB PO PRN (16:40)
--- NOTE | 2024-04-29 18:12 | CON ---
Date of Consultation: 04/29/2024 Diagnoses: Right groin abscess, cellulitis. History Of Present Illness: This is the case of a 49-year-old patient with multiple problems, admitt ed to the hospital with a right groin abscess. He stated that it started about 3 days ago, started w ith tenderness and got warm and eventually started to put purulent discharge. The patient was admitt ed to the hospital for IV antibiotics and a surgical consult was drawn for I and D. Allergies: INCLUDE NONE. Past Medical History: Hypertension, diabetes, depression, anxiety, hyperlipidemia, schizophrenia. Past Surgical History: None. Social History: He does not smoke. He does not drink alcohol. Family History: Noncontributory. Review of Systems: No shortness of breath. No chest pain. No fever. 10 points are otherwise unremarkable. See HPI. Tenderness of the right groin area with purulent discharge. Physical Examination: Vital Signs: Reviewed. General: The patient is awake, alert, oriented x3. HEENT: Pupils are equal and reactive. Anicteric. Neck: Supple. Chest: Clear. Heart: S1, S2. Abdomen: Soft and depressible. No guarding or rebound. No peritoneal signs. Skin: The right groin area and suprapubic and extending lateral to the scrotum and medial to the thi gh, patient has an abscess. It is a large area of cellulitis, which is about 12 x 3 cm at least. Th ere is a small open wound in the center with purulent discharge present consistent with abscess. Extremities: Good capillary refill. Laboratory Data: Blood work shows a WBC count of 8.6 with hemoglobin 11.4, platelets of 209. Potass ium 3.1. Total bilirubin of 0.4. There is good flow to abdomen and pelvis shows stranding with a sm all amount of ill-defined fluid on the right upper inguinal region canal, mild right inguinal lymphad enopathy. Assessment: This is a 49-year-old patient with abscess, need an incision and drainage. The benefits , alternatives, and risks were fully explained, which include, but not limited to infection, bleeding , damage to adjacent structures, anesthesia complication, recurrence, CA, and even . He also un derstands this may not relieve the symptoms. He might need more than one surgical intervention. I d iscussed the case with the primary doctor. I know the troponin is 1416. He is trying to figure out what that means on the medical standpoint. We suggest if anything within cardiac evaluation might be needed. He is trying to decide if that is the case or not. Still I believe we should do incision a nd drainage. Obviously the patient wants anesthesia because it is very tender area. MOLINA/NABEEL Voice ID: [id number] Report ID: [id number]
--- NOTE | 2024-04-29 18:41 | P.PN ---
Subjective Date of Service: 04/29/24 Chief Complaint: Pain and swelling in the right groin and penile discharge Patient reports pain in the left pubic area. He also has whitish discharge around the glans penis. He denies any fever. He also denies any shortness of breath or chest pain. Physical Examination - Vital Signs Temperature: 97.5 F Blood Pressure: 157/85 Pulse: 72 Respirations: 16 Pulse Ox (%): 96 - Physical Exam General: Alert, In no apparent distress, Oriented x3, Obese HEENT: Mucous membr. moist/pink, Sclerae nonicteric Neck: Supple, JVD not distended Respiratory: Clear to auscultation bilaterally, Normal air movement Cardiovascular: No edema, Regular rate/rhythm, Normal S1 S2 Gastrointestinal: Normal bowel sounds, Soft and benign, Non-distended, No tenderness Musculoskeletal: No swelling, No tenderness Integumentary: Other (Swelling-right pubic area, tender, rubbery, with purulent drainage from a small opening) Neurological: Normal speech, Normal strength at 5/5 x4 extr, Cranial nerves 3-12 intact - Studies Laboratory Data (last 24 hrs) 04/28/24 04/28/24 20:25 20:25 WBC 10.50 Hgb 12.4 L Hct 37.2 L Plt Count 240 Sodium 139 Potassium 3.1 L BUN 12 Creatinine 1.31 H Glucose 337 H Total Bilirubin 0.5 AST 18 ALT 20 Alkaline Phosphatase 169 H Assessment And Plan - Current Problems (Diagnosis) (1) Abscess of pubic region Current Visit: Yes Status: Acute (2) NSTEMI (non-ST elevated myocardial infarction) Current Visit: Yes Status: Acute (3) Balanitis Current Visit: Yes Status: Acute (4) Diabetes Current Visit: Yes Status: Acute Qualifiers: Diabetes mellitus type: type 2 Diabetes mellitus director long term care insulin use: [facility] intermediate use Diabetes mellitus complication status: without complication Qualified Code(s): E11.9 - Type 2 diabetes mellitus without complications (5) HTN (hypertension) Current Visit: Yes Status: Acute - Plan Pubic abscess IV Zosyn and doxycycline Analgesics as needed General surgery Dr. Woods consulted and he is considering I&D under general anesthesia. Deedee Gandara. Obtain Urethral smear/glans penis discharge Gram stain and culture. NSTEMI Troponin trended flat. Cardiology consult for preop clearance for I&D. Diabetes mellitus type 2 Aggressive blood sugar control Lantus insulin and insulin sliding scale. Hold metformin given IV contrast use. Essential hypertension Resume home antihypertensives. Hydralazine as needed for BP spikes. DVT prophylaxis: Heparin SQ
[2024-04-30] MEDS: MAGNES/ALUMIN/SIMET 30ML UCUP PO PRN (00:04)
[2024-04-30] MEDS: HYDRALAZINE HCL 20 MG/ML VIAL IV PRN (05:09)
[2024-04-30 06:30] LABS: Absolute Eosinophils 0.1 K/uL (0-0.5); Absolute Lymphocytes (CBC) 2.5 K/uL (0.7-4.9); Absolute Monocytes 0.6 K/uL (0.1-1.3); Absolute Neutrophil 3.8 K/uL (1.8-8.0); Basophils % 0.3 % (0-1.3); Eosinophils % 1.7 % (0-4.4); Hematocrit 37.3 % (39.6-49.0); Hemoglobin 12.2 g/dL (13.6-17.9); Lymphocytes % 35.5 % (15.3-44.8); MCH 26.5 pg (27.0-35.0); MCHC 32.8 g/dL (32.0-36.0); MCV 80.8 fL (80-100); MPV 8.8 fL (7.6-11.3); Monocytes % 8.3 % (3.3-12.3); Neutrophils % 54.2 % (41.7-73.7); Platelets 236 thou/uL (152-406); RBC Red Blood Cell Count 4.61 M/uL (4.33-5.43); Red Cell Distribution Width 14.5 % (12.1-15.2)
[2024-04-30 06:37] LABS: Anion Gap 8.2 mEq/L (5.0-15.0); Potassium 3.2 mEq/L (3.5-5.1)
[2024-04-30] MEDS ORDERED: LIDOCAINE 2% MPF 5 ML VIAL ONE (10:35)
[2024-04-30] MEDS ORDERED: propofoL 200 MG/20 ML VIAL IV ONE (10:35)
[2024-04-30] MEDS ORDERED: FENTANYL CITR 100 MCG/2 ML ONE (10:35)
[2024-04-30] MEDS ORDERED: MIDAZOLAM HCL 2 MG/2 ML INJ ONE (10:35)
[2024-04-30] MEDS ORDERED: ONDANSETRON 4 MG/2 ML VIAL ONE (10:53)
--- NOTE | 2024-04-30 10:58 | P.BOP ---
Preoperative diagnosis: right groin abscess Postoperative diagnosis: same Primary procedure: Incision and drainage of complex deep right groin abscess [id number] Estimated blood loss: <10cc Specimen: pus, tissue culture Findings: abscess with multiple loculations Anesthesia: General Complications: None Drain(s): Other (/" iodoform) Transferred to: Recovery Room Condition: Good
[2024-04-30] MEDS: NA CHLORIDE 0.9% 1,000 ML ONE (11:07)
--- NOTE | 2024-04-30 12:03 | OP ---
Date of Procedure: 04/30/2024 Surgeon: Nick Woods MD Preoperative Diagnoses: Right groin abscess and cellulitis. Postoperative Diagnoses: Right groin abscess and cellulitis and a right complex deep abscess. Procedure: Incision and drainage of complex deep right groin abscess, 4 x 3 x 2 cm. Estimated Blood Loss: Less than 10 cc. Specimen: Pus and tissue culture. Findings: Abscess with loculations. There was induration of the tissue in that area so that tissue was sent for biopsy. Anesthesia: General plus local. Complications: None. Packing: Iodoform quarter of an inch. Indications: This is a case of a 49-year-old patient, comes to us with a fluctuance and a cellulitis over the right groin region, diagnosed with cellulitis and abscess. The benefits, alternatives, and risks of incision and drainage fully explained, which include, but not limited to infection, bleedin g, damage to adjacent structures, anesthesia complication, recurrence, TN, and even . He also u nderstands this may not relieve any symptoms. He might need more than one surgical intervention. He understood, signed a consent. Procedure In Detail: The area of concern was marked by me and the patient in the holding room. The patient was brought to the operating room and placed in supine position. Anesthesia was done without complication. Right groin was prepped and draped in a sterile fashion. Local anesthesia was applie d after time-out and an incision was made in that area. Immediately, we noticed pus, but within this patient's abscess deeper and with multiple loculations. There was also induration of the tissue in that area, so we sent that piece of that tissue for biopsy. After that, we explored locul ations. The abscess was at least 4 x 3 x 2 cm. All the loculations were explored. Pus was cultured . The area was irrigated and hemostasis was obtained. Local anesthetic was applied once again and t hen the quarter of an inch iodoform was placed in that area after hemostasis was obtained. The patie nt tolerated the procedure well. Sterile gauze was placed in that area. The patient was sent [facility] in stable condition. MOLNIA/NABEEL Voice ID: [id number] Report ID: [id number]
[2024-04-30] MEDS: HYDROCODONE/APAP 5/325 MG TAB PO PRN (12:33)
--- NOTE | 2024-04-30 13:21 | P.PN ---
Subjective Date of Service: 04/30/24 Chief Complaint: Pain and swelling in the right groin and penile discharge No changes from yesterday. Patient has been afebrile. 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 Woods IV Zosyn and doxycycline Analgesics as needed Follow deep tissue culture. Balanitis Yassinelucan. Obtain Urethral smear/glans penis discharge Gram stain and culture if possible. NSTEMI Troponin trended flat. Elevated troponin likely secondary to demand ischemia. Cardiology input appreciated. Diabetes mellitus type 2 Aggressive blood sugar control Continue Lantus insulin and insulin sliding scale. Hold metformin given IV contrast use. Essential hypertension Continue home antihypertensives. Hydralazine as needed for BP spikes. DVT prophylaxis: Heparin SQ
[2024-04-30 22:48] VITALS: O2SAT 97
[2024-05-01 05:47] LABS: Absolute Eosinophils 0.1 K/uL (0-0.5); Absolute Lymphocytes (CBC) 2.4 K/uL (0.7-4.9); Absolute Monocytes 0.5 K/uL (0.1-1.3); Absolute Neutrophil 3.3 K/uL (1.8-8.0); Basophils % 0.5 % (0-1.3); Eosinophils % 1.9 % (0-4.4); Hematocrit 36.5 % (39.6-49.0); Hemoglobin 12.1 g/dL (13.6-17.9); Lymphocytes % 37.2 % (15.3-44.8); MCH 26.8 pg (27.0-35.0); MCHC 33.1 g/dL (32.0-36.0); MCV 81.1 fL (80-100); MPV 8.7 fL (7.6-11.3); Monocytes % 8.5 % (3.3-12.3); Neutrophils % 51.9 % (41.7-73.7); Nucleated Red Blood Cells % 0.1 % (0-0); Platelets 243 thou/uL (152-406); Red Cell Distribution Width 14.7 % (12.1-15.2)
[2024-05-01 06:02] LABS: Anion Gap 7.3 mEq/L (5.0-15.0); Potassium 3.3 mEq/L (3.5-5.1)
[2024-05-01] MEDS ORDERED: NYSTATIN OINT 15 GM TUBE TOP SCH (11:00)
--- NOTE | 2024-05-01 11:55 | P.DS ---
Admission Date: 04/28/24 Discharge Date: 05/01/24 Disposition: ROUTINE DISCHARGE Discharge Condition: FAIR Reason for Admission: Pain and swelling in the right groin and penile discharge - Problems (1) Abscess of pubic region Current Visit: Yes Status: Acute (2) NSTEMI (non-ST elevated myocardial infarction) Current Visit: Yes Status: Acute (3) Balanitis Current Visit: Yes Status: Acute (4) Diabetes Current Visit: Yes Status: Acute Qualifiers: Diabetes mellitus type: type 2 Diabetes mellitus terminal manager insulin use: without terminal manager use Diabetes mellitus complication status: without complication Qualified Code(s): E11.9 - Type 2 diabetes mellitus without c omplications (5) HTN (hypertension) Current Visit: Yes Status: Acute Brief History of Present Illness: 49-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 Patient also reported whitish discharge from his glans penis area with skin cracks, present for about 2 to 3 weeks. Patient denied any fever, he is sexually active but denies any promiscuous behavior. He also denied any history of urinary tract infection. Patient was assessed in the ED, there was concern for right groin abscess and balanitis. Patient was hospitalized for further management. Hospital Course: Pubic abscess Patient was admitted to the medical floor and started on IV Zosyn and doxycycline. Patient seen and evaluated by surgery Dr. Woods Status post I&D by Dr. Woods Deep tissue wound culture showing gram-negative rods. Patient deemed stable for discharge per Dr. Woods. Patient need coverage for chlamydia given a groin abscess and a penile discharge He is discharged with oral Augmentin and doxycycline Balanitis Treated with oral Diflucan and nystatin cream. NSTEMI Troponin trended flat. Patient seen by cardiology, elevated troponin deemed secondary to demand ischemia. No further intervention recommended by cardiology Diabetes mellitus type 2 Hemoglobin A1c of 10.9 Blood sugar was managed with insulin sliding scale and Lantus insulin. Continue Lantus insulin and insulin sliding scale. Home diabetes regimen resumed on discharge. Essential hypertension Continued home antihypertensives. Vital Signs/Physical Exam: Temp Pulse Resp BP Pulse Ox 97.8 F 78 22 H 167/84 H 96 05/01/24 08:00 05/01/24 08:00 05/01/24 08:00 05/01/24 08:00 05/01/24 08:00 General: Alert, In no apparent distress, Oriented x3 HEENT: Mucous membr. moist/pink Neck: Supple, JVD not distended Respiratory: Clear to auscultation bilaterally, Normal air movement Cardiovascular: No edema, Regular rate/rhythm, Normal S1 S2 Gastrointestinal: Normal bowel sounds, Soft and benign, Non-distended, No tenderness Musculoskeletal: No swelling, No tenderness Integumentary: Other (Right groin I&D wound looked clean and packed) Neurological: Normal strength at 5/5 x4 extr, Cranial nerves 3-12 intact Laboratory Data at Discharge: WBC 6.30 thou/uL (4.3-10.9) 05/01/24 04:48 Hgb 12.1 g/dL (13.6-17.9) L 05/01/24 04:48 Hct 36.5 % (39.6-49.0) L 05/01/24 04:48 Plt Count 243 thou/uL (152-406) 05/01/24 04:48 Sodium 136 mEq/L (136-145) 05/01/24 04:48 Potassium 3.3 mEq/L (3.5-5.1) L 05/01/24 04:48 BUN 13 mg/dL (7-18) 05/01/24 04:48 Creatinine 1.21 mg/dL (0.70-1.30) 05/01/24 04:48 Glucose 275 mg/dL (74-106) H 05/01/24 04:48 Total Bilirubin 0.4 mg/dL (0.2-1.0) 04/29/24 04:45 AST 11 U/L (15-37) L 04/29/24 04:45 ALT 16 U/L (16-61) 04/29/24 04:45 Alkaline Phosphatase 143 U/L (45-117) H 04/29/24 04:45 Triglycerides Cancelled 04/29/24 05:00 Cholesterol Cancelled 04/29/24 05:00 HDL Cholesterol Cancelled 04/29/24 05:00 Cholesterol/HDL Ratio Cancelled 04/29/24 05:00 Home Medications: Atorvastatin Calcium 10 mg PO ONCE 04/29/24 Glipizide [Glipizide Xl] 10 mg PO ONCE 04/29/24 Lisinopril [Zestril] 30 mg PO ONCE 04/29/24 Loratadine [Claritin] 10 mg PO ONCE 04/29/24 Metformin ER [Glucophage ER*] 1,000 mg PO BID 04/29/24 Amlodipine [Norvasc*] 10 mg PO DAILY #30 tab 05/01/24 Amox/Clavulanate [Augmentin 875-125 Tab] 1 each PO BID #20 tab 05/01/24 Doxycycline Hyclate 100 mg PO BID #20 cap 05/01/24 Fluconazole 200 mg PO DAILY #11 tab 05/01/24 Hydrocodone 5/APAP 325 [[place] 5/325*] 1 tab PO Q4H PRN #20 tab 05/01/24 Nystatin Oint [Mycostatin 100 Mu/Gm Oint*] 1 appl TOP BID #1 tube 05/01/24 New Medications: Amox/Clavulanate [Augmentin 875-125 Tab] 1 each PO BID #20 tab Doxycycline Hyclate 100 mg PO BID #20 cap Fluconazole 200 mg PO DAILY #11 tab Nystatin Oint [Mycostatin 100 Mu/Gm Oint*] 1 appl TOP BID #1 tube Hydrocodone 5/APAP 325 [[place] 5/325*] 1 tab PO Q4H PRN #20 tab PRN Reason: Pain Scale 5-7 (Moderate) Amlodipine [Norvasc*] 10 mg PO DAILY #30 tab Physician Discharge Instructions: Wound care: Clean wound with soap and water, pack with iodoform gauze daily. Diet: ADA Activity: Ad erasto Followup: Nick Woods MD [ACTIVE - CAN ADMIT] - (Next week Thursday05/04/2024 [facility]) Larry Troncoso PA [Primary Care Provider] - 1 Week Time spent managing pt's care (in minutes): 38
--- NOTE | 2024-05-01 13:14 | PN ---
Date of Progress Note: 05/01/2024 Reason For Service: Status post I and D of right groin abscess. Subjective: The patient is doing well. No complaint. No nausea. No vomiting. No fever. No short ness of breath. No chest pain. The patient is afebrile. Objective: Vital Signs: Reviewed. Chest: Clear. Abdomen: Soft and depressible. Extremities: Good capillary refill. Laboratory Data: Microbiology is still pending. Plan: From the surgical standpoint, iodoform packing once a day. [facility] here at [facility] and Thursday afternoon at [facility]. Whatever he prefer he has to call tomorrow for the appointment. Continue the antibiotics that will be prescribed by the primary docto r and also the pain medication. We will see him in the next 48 to 72 hours. MOLINA/NABEEL Voice ID: [id number] Report ID: [id number]
[2024-05-01 13:24] VITALS: BP 187/93; TEMP 97.7
--- NOTE | 2024-05-02 17:08 | EKG ---
Test Date: 2024-04-28 Test Time: 21:06:24 Generating Station Mechanic: YAHAIRA MEASUREMENT RESULTS: Intervals: Rate: 94 CT: 188 QRSD: 102 QT: 370 QTc: 462 [place]: P: 76 CT: 188 QRS: 30 T: 69 INTERPRETIVE STATEMENTS: Normal sinus rhythm Biatrial enlargement Cannot rule out Anterior infarct, age undetermined Abnormal ECG Compared to ECG 03/29/2023 10:44:46 Atrial abnormality now present Myocardial infarct finding now present Left ventricular hypertrophy no longer present Early repolarization no longer present Electronically Signed On 05-02-24 17:05:16 CDT by Kali Post
== END 2024-05-01 14:17 | disposition home or self-care (01) | DRG 602 ==
LOC: ER 19:29 → ERHOLD 22:23 → EEVIPCON 22:23 → 2ND 04-29 12:00
PROVIDERS: ADMIT Internal Medicine Sleep Medicine; ATTEND Internal Medicine
PROC: 0J9C0ZZ Drainage of Pelvic Region Subcutaneous Tissue and Fascia, Open Approach (ICD-10-PCS; principal; 2024-04-30 10:30)
DX: L02.214 Cutaneous abscess of groin (principal); I21.A1 Myocardial infarction type 2; R64 Cachexia; N17.9 Acute kidney failure, unspecified; L03.314 Cellulitis of groin; N48.1 Balanitis; I10 Essential (primary) hypertension; E78.5 Hyperlipidemia, unspecified; E87.6 Hypokalemia; I16.0 Hypertensive urgency; F20.9 Schizophrenia, unspecified; E11.65 Type 2 diabetes mellitus with hyperglycemia; E66.9 Obesity, unspecified; Z68.31 Body mass index [BMI] 31.0-31.9, adult; Z79.84 Long term (current) use of oral hypoglycemic drugs; Z28.310 Unvaccinated for COVID-19; Z79.899 Other long term (current) drug therapy
CPT/HCPCS: 36415; 71045; 74177; 76870; 80048; 80053; 80061; 81003; 82947; 83036; 83880; 84484; 85025; 87070; 87075; 87077; 87186; 87205; 88304; 93005; 94010; 96365; 96366; 96372; 96375; 99285; J0360; J2001; J2250; J2270; J2405; J2543; J2704; J3010; J7030; Q9967

== ENCOUNTER 2024-12-04 18:50 | Inpatient (IN) | payer OTHER ==
--- OUTSIDE RECORDS SUMMARY | 2024-12-04 18:57 | XMS REPORT | Continuity of Care Document ---
Author Name Unknown Address [address] [facility] [address] [place] [address] [facility] thconnect Address [address] [facility] 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 Name Role Phone HALKIRSTENJohn Primary Care Physician Unavailab DEMETRIA Banerjee Attending Clinician Unavailable DENILSON BOOTH Attending Clinician Unavailable KRISTINA PICKETT Attending Clinician Unavailab LUL Espino Attending Clinician Unanikos dunne Doctor Unassigned, [place] Attending Clinician U navailable LUZ LE Attending Clinician Unavailable Zach Moffett DO Attending Clinician [phone] Luz Le MD Attending Clinician [phone] ELISEO MACK Attending Clinician Unavailable Elisoe Mack NP Attending Clinician [phone] Zoe DUNLAP Attending Clinician Unavailable Zoe Johnson Attending Clinician [phone] ADDIE PAT Attending Clinician Unavailable JANIE WERNER Attending Clinician Unavailable Janie Werner MD Attending Clinician [phone] Addie Boles Attending Clinician [phone] GARY CLARKE Attending Clinician Unavaila ble Ibikunle ENGINEERING SURVEYOR, Folusho F Attending Clinician [phone] Nurse, Adc Pob Immunization Attending Clinician Unavailable Moustapha Vela DO Attending Clinician [phone] MOUSTAPHA VELA Attending Clinician Unavail able KRISTINA OSUNA Attending Clinician Unavailable Lab, Adc Fam Pob I Attending Clinician Unavailab le Agatha-Mbayo_A_AH Attending Clinician Unavailable Zoe DUNLAP Admitting Clinician Unavailable Agatha-Mbayo_A_AH Admitting Clinician Unavailable Payers Payer Name Policy Type Policy Number Effective Date Expirati on Date Source CIGNA II [id number] 2022 00:00:00 CIGNA 2 [id number] 2023 00:00:00 [facility] H[facility] D SNP [id number] 2021 00:00:00 AMERIVANTAGE [id number] 2013 00:00:00 [employer] (MEDICARE REPLACEMENT/ADVANTAG E - HMO) [id number] Problems Condition Name Condition Details Condition Category Status Onset Date Resolution Date Last Treatment Date Treating Clinician Comments Source No known active problems No known active problems Disease [facility] Allergies, Adverse Reactions, Alerts Allergy Name Allergy Type Status Severity Reaction(s) Onset Date Inactive Date Treating Clinician Comments Source NO KNOWN ALLERGIE S Drug Class Active [facility] Social History Social Habit Start Date Stop Date Quantity Comments Source [facility] Exposure to SARS-CoV-2 (event) 2022-04-04 00:00:00 2022-04-14 16:35:00 Not sure [facility] History of Social function 2021-11-06 00:00:00 2021-11-06 00:00:00 [facility] Tobacco use and exposure 2021-11-06 00:00:00 2021-11-06 00:00:00 Smokeless tobacco non-user [facility] Sex Assigned At 1975 00:00:00 1975 00:00:00 [facility] Smoking Status Start Date Stop Date Source Never smoked tobacco [facility] Medications Ordered Medication Name Filled Medication Name Start Date Stop Date Current Medication? Ordering Clinician Indication Dosage Frequency Signature (SIG) Comments Components Source sildenafil 100 mg tablet 2023-10 00:00: 00 Yes mg Sanjeev Helms telmisartan 80 mg tablet 2023-10 00:00: 00 Yes 1mg Sanjeev Helms metformin 1,000 mg tablet 2023-10 00:00: 00 Yes 1mg Sanjeev Helms sildenafil 100 mg tablet 2023-10 00:00: 00 Yes mg Sanjeev Helms amlodipine 10 mg tablet 06-22 00:00: 00 Yes 1mg Sanjeev Helms carvedilol 25 mg tablet 06-22 00:00: 00 Yes 1mg Sanjeev Helms sildenafil 100 mg tablet 05-25 00:00: 00 Yes mg Sanjeev Helms amlodipine 10 mg tablet 05-25 00:00: 00 Yes 1mg Sanjeev Helms telmisartan 80 mg tablet 05-25 00:00: 00 Yes 1mg Sanjeev Helms sildenafil 50 mg tablet 05-23 00:00: 00 Yes 1mg Sanjeev Helms glipizide 5 mg-metformi n 500 mg tablet 05-19 00:00: 00 Yes 2mg Sanjeev Helms TAKE 1 TABLET DAILY 1 HOUR BEFORE NEEDED 2022-10 00:00: 00 Yes 50 Sanjeev Helms TAKE 2 TABLETS BY MOUTH ONCE A DAY 2022-10 00:00: 00 02-04 00:00 :00 No 5500 Sanjeev Helms TAKE 1 TABLET DAILY. 07-02 00:00: 00 02-04 00:00 :00 No 40 Sanjeev Helms TAKE 2 TABLETS ONCE A DAY 07-02 00:00: 00 02-04 00:00 :00 No 5500 Sanjeev Helms TAKE 1 TABLET DAILY. 07-02 00:00: 00 02-04 00:00 :00 No 50 Sanjeev Helms TAKE 1 TABLET DAILY. 07-02 00:00: 00 02-04 00:00 :00 No 10 Sanjeev Helms TAKE 1 TABLET DAILY. 9-28 00:00: 00 02-04 00:00 :00 No 30 Sanjeevjay Helms TAKE 1 TABLET DAILY. 8-23 00:00: 00 02-04 00:00 :00 No 30 Sanjeev Helms TAKE 1 TABLET DAILY. 8- 00:00: 00 02-04 00:00 :00 No 10 Sanjeev Helms TAKE 1 TABLET DAILY. 8 00:00: 00 02-04 00:00 :00 No 50 Sanjeevjay Helms TAKE 1 TABLET DAILY. 8 00:00: 00 02-04 00:00 :00 No 30 Sanjeev Helms TAKE 1 TABLET DAILY. 8 00:00: 00 02-04 00:00 :00 No 40 Sanjeev Helms TAKE 1 TABLET DAILY 1 HOUR BEFORE NEEDED - 00:00: 00 02-04 00:00 :00 No 50 Sanjeev Helms TAKE 1 TABLET DAILY. 8 00:00: 00 02-04 00:00 :00 No 10 Sanjeevjay Helms TAKE 1 TABLET DAILY. 2- 00:00: 00 02-04 00:00 :00 No 150 Sanjeev Helms TAKE 1 TABLET DAILY 1 HOUR BEFORE NEEDED 2- 00:00: 00 02-04 00:00 :00 No 50 Sanjeev Sabine Scooter chlorthalid one 50 mg tablet 1-25 00:00: 00 02-04 00:00 :00 No Sanjeev [place]ooter amlodipine 10 mg tablet 1-25 00:00: 00 02-04 00:00 :00 No Sanjeev Helms 10 ML Q 4 TO 6 HOURS PRN COUGH FOR 5 DAYS 1-18 00:00: 00 02-04 00:00 :00 No [id number] Sanjeev Sabine Scooter TAKE 1 TABLET BY MOUTH FOUR TIMES DAILY 2021-10 2- 00:00: 00 Yes Sanjeev Helms NAPROXEN 500 MG TABS 2021-10 2-15 00:00: 00 Yes Sanjeev Helms BUPROPION HYDROCHLORI DE ER (XL) 150 MG TB24 2021-10 2-15 00:00: 00 Yes Sanjeev Helms Dose Unknown 2021-10 2-15 00:00: 00 Yes Sanjeev Helms Dose Unknown 2021-10 2-15 00:00: 00 Yes Sanjeev Helms LISINOPRIL/ HYDROCHLORO THIAZIDE 20-25 MG TABS 2021-10 2-15 00:00: 00 Yes Sanjeev Helms CHLORTHALID ONE 25 MG TABS 2021-10 2-15 00:00: 00 Yes Sanjeev Helms Dose Unknown 2021-10 2- 00:00: 00 Yes Sanjeev Helms Dose Unknown 2021-10 2 00:00: 00 Yes Sanjeev Helms Dose Unknown 2021-10 2 00:00: 00 Yes Sanjeev Helms CHLORTHALID ONE 50 MG TABS 2021-10 2- 00:00: 00 02-04 00:00 :00 No Sanjeev Helms ATORVASTATI N CALCIUM 40 MG TABS 2021-10 2-15 00:00: 00 02-04 00:00 :00 No Sanjeev Helms LISINOPRIL 20 MG TABS 2021-10 2-15 00:00: 00 02-04 00:00 :00 No Sanjeev Helms GLIPIZIDE 10 MG TABS 2021-10 2-15 00:00: 00 02-04 00:00 :00 No Sanjeev Helms Dose Unknown 2021-10 2- 00:00: 00 02-04 00:00 :00 No Sanjeev Helms Dose Unknown 2021-10 2-15 00:00: 00 02-04 00:00 :00 No Sanjeev Helms FLUCONAZOLE 150 MG TABS 2021-10 2- 00:00: 00 Yes Sanjeev Helms TAKE 1 TABLET TWICE DAILY. 2021-10 2- 00:00: 00 02-04 00:00 :00 No 1000arminda Helms APPLY SPARINGLY TO AFFECTED AREA(S) TWICE DAILY 2021-10 2- 00:00: 00 02-04 00:00 :00 No 1 Sanjeev Helms TAKE 1 TABLET DAILY 1 HOUR BEFORE NEEDED 2021-10 2 00:00: 00 02-04 00:00 :00 No 50 Sanjeev F Scooter TAKE 1 TABLET DAILY. 2021-10 00:00: 00 02-04 00:00 :00 No 50 Sanjeev F Scooter TAKE 1 TABLET DAILY. 2021-10 2 00:00: 00 02-04 00:00 :00 No 10 Sanjeev F Scooter TAKE 1 TABLET DAILY. 2021-10 00:00: 00 02-04 00:00 :00 No 20 Sanjeev F Scooter TAKE 1 TABLET DAILY. 2021-10 00:00: 00 02-04 00:00 :00 No 40 Sanjeev F Scooter TAKE 1 TABLET DAILY. 2021-10 00:00: 00 02-04 00:00 :00 No 10 Sanjeev F Scooter Dose Unknown 2021-0 9-15 00:00: 00 02-04 00:00 :00 No Sanjeev F Scooter TAKE 1 TABLET BY MOUTH TWICE DAILY WITH MEALS 2021-0 8-10 00:00: 00 Yes 500 Sanjeev F Scooter &lt 2022-0 8-10 00:00: 00 Yes 50 Sanjeev F Scooter &lt 2022-0 8-10 00:00: 00 Yes 1000 Sanjeev F Scooter &lt 2022-0 8-10 00:00: 00 Yes 40 Sanjeev F Scooter TAKE 1 AND 1/2 TABLETS BY MOUTH TWICE DAILY WITH MEALS FOR 14 DAYS 2021-0 8-10 00:00: 00 Yes 500 Sanjeev F Scooter Dose Unknown 2-0 8-10 00:00: 00 Yes 117 Sanjeev F Scooter &lt 2022-0 8-10 00:00: 00 Yes 10 Sanjeev F Scooter &lt 2022-0 8-10 00:00: 00 Yes 20 Sanjeev F Scooter &lt 2022-0 8-10 00:00: 00 Yes 100 Sanjeev F Scooter &lt 2022-0 8-09 00:00: 00 Yes 117 Sanjeev F Scooter &lt 2022-0 8-09 00:00: 00 Yes 40 Sanjeev F Scooter &lt 2022-0 7-26 00:00: 00 Yes 20 Sanjeev F Scooter &lt 2022-0 7-26 00:00: 00 Yes 10 Sanjeev Helms &lt 2021-0 04-29 00:00: 00 Yes 500 Sanjeev Helms &lt 0 04-29 00:00: 00 Yes 50 Sanjeev Helms &lt 2021-0 04-29 00:00: 00 Yes 500 Sanjeev Helms &lt 0 04-24 00:00: 00 Yes 50 Sanjeev Helms &lt 0 04-24 00:00: 00 Yes 500 Sanjeev Helms &lt 0 04-23 00:00: 00 Yes 100 Sanjeev Helms &lt 2021-0 04-23 00:00: 00 Yes 25 Sanjeev Helms insulin regular human (HUMULIN R) injection 10 Units 04-15 01:42: 00 04-15 01:45 :00 No 10U 10 Units, Subcutaneo us, ONCE, 1 dose, On Thu04/14/22 at 2045, Routine [facility] insulin regular human (HUMULIN R) injection 5 Units 04-15 00:45: 00 04-15 00:47 :00 No 5U 5 Units, Subcutaneo us, ONCE, 1 dose, On Thu04/14/22 at 2000, Routine [facility] &lt 04-15 00:00: 00 Yes 150 Sanjeev Helms insulin regular human (HUMULIN R) injection 9 Units 04-14 23:30: 00 04-14 22:25 :00 No 9U 9 Units, Subcutaneo us, ONCE, 1 dose, On Thu04/14/22 at 1830, Routine [facility] glipiZIDE 10 mg tablet 04-14 00:00: 00 Yes [id number] 10mg Take 1 tablet by mouth in the morning. [facility] &lt 0 04-14 00:00: 00 Yes Sanjeev Helms &lt 0 04-14 00:00: 00 Yes Sanjeev Helms Dose Unknown 04-14 00:00: 00 Yes 20 Sanjeev Helms &lt 0 04-14 00:00: 00 Yes 500 Sanjeev Helms metFORMIN 1,000 mg tablet 04-14 00:00: 00 05-15 04:59 :00 No [id number] 1000mg Take 1 tablet by mouth in the morning and 1 tablet in the evening. Take with meals. Do all this for 30 days. [facility] insulin regular human (HUMULIN R) injection 11.52 Units 04-12 07:45: 00 04-12 06:47 :00 No .1U/kg 11.52 Units (0.1 Units/kg ?115.2 kg), Subcutaneo us, ONCE, 1 dose, On 04/12/22 at 0245, Routine [facility] NaCl 0.9% (NS) bolus infusion 500 mL 04-12 06:45: 00 04-12 08:49 :00 No 500mL at 999 mL/hr, 500 mL, IV Infusion, ONCE, 1 dose, On 04/12/22 at 0145, STAT [facility] insulin regular human (HUMULIN R) injection 11.52 Units 04-12 05:30: 00 04-12 05:04 :00 No .1U/kg 11.52 Units (0.1 Units/kg ?115.2 kg), Subcutaneo us, ONCE, 1 dose, On 04/12/22 at 0030, Routine [facility] NaCl 0.9% (NS) bolus infusion 1,000 mL 04-12 05:30: 00 04-12 06:22 :00 No 1000mL at 999 mL/hr, 1,000 mL, IV Infusion, ONCE, 1 dose, On 04/12/22 at 0030, LAURE [facility] METFORMIN HYDROCHLORI DE 500 MG TABS 04-12 00:00: 00 Yes Sanjeev Helms metFORMIN 500 mg tablet 04-12 00:00: 00 04-27 04:59 :00 No [id number] 750mg Take 1.5 tablets by mouth 2 (two) times daily with meals for 14 days. [facility] chlorthalid one 50 mg tablet 03-27 00:00: 00 Yes 1mg Sanjeev Helms lisinopril 20 mg tablet 03-27 00:00: 00 Yes 1mg Sanjeev Helms &lt 03-27 00:00: 00 Yes Sanjeev Helms &lt 03-26 00:00: 00 Yes Sanjeev Helms atorvastati n 40 mg tablet 02-03 00:00: 00 Yes 1mg Sanjeev Helms metformin 500 mg tablet 02-03 00:00: 00 Yes 1mg Sanjeev Helms amLODIPine (NORVASC) tablet 5 mg 02-02 03:21: 00 02-02 03:26 :00 No 5mg 5 mg, Oral, ONCE, 1 dose, On 02/01/22 at 2230, Routine [facility] hydroCHLORO thiazide (ESIDRIX) tablet 25 mg 02-02 03:21: 00 02-02 03:25 :00 No 25mg 25 mg, Oral, ONCE, 1 dose, On 02/01/22 at 2230, Routine [facility] lisinopriL (PRINIVIL,Z ESTRIL) tablet 20 mg 02-02 03:20: 00 02-02 03:25 :00 No 20mg 20 mg, Oral, ONCE, 1 dose, On 02/01/22 at 2230, Routine [facility] methocarbam oL (ROBAXIN) tablet 500 mg 02-02 03:00: 00 02-02 02:07 :00 No 500mg 500 mg, Oral, ONCE, 1 dose, On 02/01/22 at 2200, Routine [facility] HYDROcodone -acetaminop hen (NORCO) 10-325 mg tablet 1 tablet 02-02 03:00: 00 02-02 02:07 :00 No 1{tbl} 1 tablet, Oral, ONCE, 1 dose, On 02/01/22 at 2200, Routine [facility] naproxen (NAPROSYN) 500 mg tablet 02-01 00:00: 00 Yes [id number] 500mg Take 1 tablet by mouth 2 (two) times daily with meals. [facility] mg tablet 2021-0 4-30 00:00: 00 Yes [id number] 500mg Take 1 tablet by mouth 4 (four) times daily. [facility] METHOCARBAM OL 500 MG TABS 2021-0 4-30 00:00: 00 Yes Sanjeev Helms Dose Unknown 0 4-20 00:00: 00 Yes Sanjeev Helms amlodipine 10 mg tablet 0 4-19 00:00: 00 Yes 1mg Sanjeev Helms Dose Unknown 0 4-19 00:00: 00 Yes Sanjeev Helms Dose Unknown 0 4-19 00:00: 00 Yes Sanjeev Helms sertraline 50 mg tablet 0 3-16 00:00: 00 Yes 1mg Sanjeev Helms trazodone 100 mg tablet 0 3-16 00:00: 00 Yes 2mg Sanjeev Helms Dose Unknown 0 3-16 00:00: 00 Yes Sanjeev Helms lisinopril 20 mg tablet 2021-0 3-16 00:00: 00 Yes 1mg Sanjeev Helms Dose Unknown 2021-0 3-16 00:00: 00 Yes Sanjeev Helms Dose Unknown 0 3-16 00:00: 00 Yes Sanjeev Helms Dose Unknown 2021-0 3-16 00:00: 00 Yes Sanjeev Helms LISINOPRIL/ HYDROCHLORO THIAZIDE 20-25 MG TABS 2021-0 3-16 00:00: 00 Yes Sanjeev Helms Dose Unknown 0 2-03 00:00: 00 Yes Sanjeev Helms Dose Unknown 0 2-03 00:00: 00 Yes Sanjeev Helms Invega Sustenna 117 mg/0.75 mL intramuscul ar syringe 2021-0 2-03 00:00: 00 Yes mg/0.75 mL Sanjeev Helms INVEGA SUSTENNA 117 mg/0.75 mL syringe 2021-0 1-17 00:00: 00 Yes [facility] SERTraline 50 mg tablet 2021-0 1-17 00:00: 00 Yes [facility] traZODone 100 mg tablet 10-21 00:00: 00 [facility] 10-08 00:00: 00 Yes 2mg Sanjeev Helms sertraline 50 mg tablet 10-08 00:00: 00 Yes 1mg Sanjeev Helms Invega Sustenna 117 mg/0.75 mL intramuscul ar syringe 10-08 00:00: 00 Yes mg/0.75 mL Sanjeev Helms trazodone 100 mg tablet 2020-10 00:00: 00 Yes 2mg Sanjeev Helms sertraline 50 mg tablet 2020-10 00:00: 00 Yes 1mg Sanjeev Helms Invega Sustenna 117 mg/0.75 mL intramuscul ar syringe 2020-10 00:00: 00 Yes mg/0.75 mL Sanjeev Helms Dose Unknown 2020-10 00:00: 00 Yes Sanjeev Helms metoprolol succinate ER 50 mg tablet,exte nded release 24 hr 2020-10 00:00: 00 Yes 1mg Sanjeev Helms Dose Unknown 2020-10 00:00: 00 Yes Sanjeev Helms Dose Unknown 2020-10 00:00: 00 Yes Sanjeev Helms atorvastati n 40 mg tablet 2020-10 00:00: 00 Yes 1mg Sanjeev Helms lisinopril 20 mg-hydrochl orothiazide 25 mg tablet 2020-10 00:00: 00 Yes 1mg Sanjeev Helms lisinopril 20 mg tablet 2020-10 00:00: 00 Yes 1mg Sanjeev Helms metformin 500 mg tablet 2020-10 00:00: 00 Yes 1mg Sanjeev Helms sertraline 50 mg tablet 2020-10 00:00: 00 Yes 1mg Sanjeev Helms Wellbutrin XL 150 mg 24 hr tablet, extended release 2020-10 00:00: 00 Yes 1mg Sanjeev Helms trazodone 100 mg tablet 2020-10 00:00: 00 Yes 2mg Sanjeev Helms Invega Sustenna 117 mg/0.75 mL intramuscul ar syringe 2020-10- 00:00: 00 Yes mg/0.75 mL Sanjeev Helms trazodone 100 mg tablet 2020-10 0-08 00:00: 00 Yes 2mg Sanjeev Helms Wellbutrin XL 150 mg 24 hr tablet, extended release 2020-10 0- 00:00: 00 Yes 1mg Sanjeev Helms sertraline 50 mg tablet 2020-10 0- 00:00: 00 Yes 1mg Sanjeev Helms Invega Sustenna 117 mg/0.75 mL intramuscul ar syringe 2020-10 00:00: 00 Yes mg/0.75 mL Sanjeev Helms lisinopril 20 mg-hydrochl orothiazide 12.5 mg tablet 05-28 00:00: 00 Yes 1mg Sanjeev Helms Dose Unknown 05-28 00:00: 00 Yes Sanjeev Helms amlodipine 10 mg tablet 8 00:00: 00 Yes 1mg Sanjeev Helms sertraline 50 mg tablet 8 00:00: 00 Yes 1mg Sanjeev Helms Wellbutrin XL 150 mg 24 hr tablet, extended release 8 00:00: 00 Yes 1mg Sanjeev Helms trazodone 100 mg tablet 05-21 00:00: 00 Yes 2mg Sanjeev Helms Invega Sustenna 117 mg/0.75 mL intramuscul ar syringe 05-21 00:00: 00 Yes mg/0.75 mL Sanjeev Helms trazodone 100 mg tablet 04-24 00:00: 00 Yes 2mg Sanjeev Helms Wellbutrin XL 150 mg 24 hr tablet, extended release 04-24 00:00: 00 Yes 1mg Sanjeev Helms sertraline 50 mg tablet 04-24 00:00: 00 Yes 1mg Sanjeev Helms Viagra 50 mg tablet 7- 00:00: 00 Yes 1mg Sanjeev Helms Invega Sustenna 117 mg/0.75 mL intramuscul ar syringe 7- 00:00: 00 Yes mg/0.75 mL Sanjeev Helms Augmentin 875 mg-125 mg tablet 04-12 00:00: 00 Yes 1mg Sanjeev Helms sertraline 50 mg tablet 03-27 00:00: 00 Yes 1mg Sanjeev Helms trazodone 100 mg tablet 03-27 00:00: 00 Yes 2mg Sanjeev Helms Wellbutrin XL 150 mg 24 hr tablet, extended release 03-27 00:00: 00 Yes 1mg Sanjeev Helms Invega Sustenna 117 mg/0.75 mL intramuscul ar syringe 03-27 00:00: 00 Yes mg/0.75 mL Sanjeev Helms sertraline 50 mg tablet 03-05 00:00: 00 Yes 1mg Sanjeev Helms trazodone 100 mg tablet 03-05 00:00: 00 Yes 2mg Sanjeev Helms Wellbutrin XL 150 mg 24 hr tablet, extended release 03-05 00:00: 00 Yes 1mg Sanjeev Helms Invega Sustenna 117 mg/0.75 mL intramuscul ar syringe 03-05 00:00: 00 Yes mg/0.75 mL Sanjeev Helms amlodipine 10 mg tablet 02-26 00:00: 00 Yes 1mg Sanjeev Helms lisinopril 20 mg-hydrochl orothiazide 12.5 mg tablet 02-26 00:00: 00 Yes 1mg Sanjeev Helms lisinopril 20 mg tablet 02-26 00:00: 00 Yes 1mg Sanjeev Helms metformin 500 mg tablet 02-16 00:00: 00 Yes 1mg Sanjeev Helms Wellbutrin XL 150 mg 24 hr tablet, extended release 02-15 00:00: 00 Yes 1mg Sanjeev Helms trazodone 100 mg tablet 02-15 00:00: 00 Yes 2mg Sanjeev Helms sertraline 50 mg tablet 02-15 00:00: 00 Yes 1mg Sanjeev Helms amlodipine 10 mg tablet 02-15 00:00: 00 Yes 1mg Sanjeev Helms lisinopril 20 mg-hydrochl orothiazide 12.5 mg tablet 2021-0 5-14 00:00: 00 Yes 1mg Sanjeev Helms lisinopril 20 mg tablet 0 -14 00:00: 00 Yes 1mg Sanjeev Helms Invega Sustenna 117 mg/0.75 mL intramuscul ar syringe 0 -14 00:00: 00 Yes mg/0.75 mL Sanjeev Helms lisinopril 20 mg-hydrochl orothiazide 12.5 mg tablet 0 - 00:00: 00 Yes 1mg Sanjeev Helms lisinopril 20 mg-hydrochl orothiazide 25 mg tablet 0 - 00:00: 00 Yes 1mg Sanjeev Helms trazodone 100 mg tablet 0 -16 00:00: 00 Yes 2mg Sanjeev Helms sertraline 50 mg tablet 0 -16 00:00: 00 Yes 1mg Sanjeev Helms Wellbutrin XL 150 mg 24 hr tablet, extended release -16 00:00: 00 Yes 1mg Sanjeev Helms Invega Sustenna 117 mg/0.75 mL intramuscul ar syringe 0 -16 00:00: 00 Yes mg/0.75 mL Sanjeev Helms trazodone 100 mg tablet 0 3-19 00:00: 00 Yes 2mg Sanjeev Helms Wellbutrin XL 150 mg 24 hr tablet, extended release 0 -19 00:00: 00 Yes 1mg Sanjeev Helms sertraline 50 mg tablet 0 3-19 00:00: 00 Yes 1mg Sanjeev Helms Invega Sustenna 117 mg/0.75 mL intramuscul ar syringe 0 -19 00:00: 00 Yes mg/0.75 mL Sanjeev Helms azithromyci n 500 mg tablet 0 3- 00:00: 00 Yes 2mg Sanjeev Helms sertraline 50 mg tablet 0 2- 00:00: 00 Yes 1mg Sanjeev Helms trazodone 100 mg tablet 0 2- 00:00: 00 Yes 2mg Sanjeev Helms Wellbutrin XL 150 mg 24 hr tablet, extended release 0 2- 00:00: 00 Yes 1mg Sanjeev Helms Invega Sustenna 117 mg/0.75 mL intramuscul ar syringe 2- 00:00: 00 Yes mg/0.75 mL Sanjeev Helms Cialis 2.5 mg tablet 2- 00:00: 00 Yes 1mg Sanjeev Helms trazodone 100 mg tablet 2- 00:00: 00 Yes 2mg Sanjeev Helms sertraline 50 mg tablet 2- 00:00: 00 Yes 1mg Sanjeev Helms Wellbutrin XL 150 mg 24 hr tablet, extended release 2- 00:00: 00 Yes 1mg Sanjeev Helms Invega Sustenna 117 mg/0.75 mL intramuscul ar syringe 2- 00:00: 00 Yes mg/0.75 mL Sanjeev Helms trazodone 100 mg tablet 1- 00:00: 00 Yes 2mg Sanjeev Helms sertraline 50 mg tablet 1- 00:00: 00 Yes 1mg Sanjeev Helms Wellbutrin XL 150 mg 24 hr tablet, extended release 1- 00:00: 00 Yes 1mg Sanjeev Helms Invega Sustenna 117 mg/0.75 mL intramuscul ar syringe 1- 00:00: 00 Yes mg/0.75 mL Sanjeev Helms lisinopril 20 mg-hydrochl orothiazide 12.5 mg tablet 2019-10 00:00: 00 Yes 1mg Sanjeev Helms amlodipine 10 mg tablet 2019-10 00:00: 00 Yes 1mg Sanjeev Helms atorvastati n 40 mg tablet 2019-10 00:00: 00 Yes 1mg Sanjeev Helms lisinopril 20 mg tablet 2019-10 00:00: 00 Yes 1mg Sanjeev Helms sertraline 50 mg tablet 2019-10 00:00: 00 Yes 1mg Sanjeev Helms trazodone 100 mg tablet 2019-10 00:00: 00 Yes 2mg Sanjeev Helms Wellbutrin XL 150 mg 24 hr tablet, extended release 2019-10 00:00: 00 Yes 1mg Sanjeev Helms Invega Sustenna 117 mg/0.75 mL intramuscul ar syringe 2019-10 00:00: 00 Yes mg/0.75 mL Sanjeev Helms Wellbutrin XL 150 mg 24 hr tablet, extended release 2019-10 00:00: 00 Yes 1mg Sanjeev Helms sertraline 50 mg tablet 2019-10 00:00: 00 Yes 1mg Sanjeev Helms trazodone 100 mg tablet 2019-10 00:00: 00 Yes 2mg Sanjeev Helms Invega Sustenna 117 mg/0.75 mL intramuscul ar syringe 2019-10 00:00: 00 Yes mg/0.75 mL Sanjeev Helms sertraline 50 mg tablet 07-02 00:00: 00 Yes 1mg Sanjeev Helms trazodone 100 mg tablet 07-02 00:00: 00 Yes 2mg Sanjeev Helms Wellbutrin XL 150 mg 24 hr tablet, extended release 07-02 00:00: 00 Yes 1mg Sanjeev Canasega Sustenna 117 mg/0.75 mL intramuscul ar syringe 07-02 00:00: 00 Yes mg/0.75 mL Sanjeev Helms sertraline 50 mg tablet 06-18 00:00: 00 Yes 1mg Sanjeev Helms trazodone 100 mg tablet 06-18 00:00: 00 Yes 2mg Sanjeev Helms Wellbutrin XL 150 mg 24 hr tablet, extended release 06-18 00:00: 00 Yes 1mg Sanjeev Helms Invega Sustenna 117 mg/0.75 mL intramuscul ar syringe 06-18 00:00: 00 Yes mg/0.75 mL Sanjeev Helms sertraline 50 mg tablet 06-02 00:00: 00 Yes 1mg Sanjeev Helms trazodone 100 mg tablet 06-02 00:00: 00 Yes 2mg Sanjeev Helms Invega Sustenna 117 mg/0.75 mL intramuscul ar syringe 06-02 00:00: 00 Yes mg/0.75 mL Sanjeev Helms lisinopril 20 mg-hydrochl orothiazide 12.5 mg tablet 2020-0 8-12 00:00: 00 Yes 1mg Sanjeev Helms lisinopril 20 mg tablet 2019-0 8-12 00:00: 00 Yes 1mg Sanjeev Helms atorvastati n 40 mg tablet 2019-0 8-12 00:00: 00 Yes 1mg Sanjeev Helms amlodipine 10 mg tablet 2019-0 8-12 00:00: 00 Yes 1mg Sanjeev Helms hydroxyzine HCl 25 mg tablet 2019-0 8-12 00:00: 00 Yes 1mg Sanjeev Helms atorvastati n 40 mg tablet 2019-0 6-29 00:00: 00 Yes 1mg Sanjeev Helms amlodipine 10 mg tablet 2019-0 6-29 00:00: 00 Yes 1mg Sanjeev Helms lisinopril 20 mg-hydrochl orothiazide 12.5 mg tablet 2019-0 6-29 00:00: 00 Yes 1mg Sanjeev Helms lisinopril 20 mg tablet 2019-0 6-29 00:00: 00 Yes 1mg Sanjeev Helms hydroxyzine HCl 25 mg tablet 2019-0 6-29 00:00: 00 Yes 1mg Sanjeev Helms atorvastati n 40 mg tablet 2019-0 4-21 00:00: 00 Yes 1mg Sanjeev Helms amlodipine 10 mg tablet 2019-0 4-21 00:00: 00 Yes 1mg Sanjeev Helms lisinopril 20 mg tablet 2019-0 4-21 00:00: 00 Yes 1mg Sanjeev Helms lisinopril 20 mg-hydrochl orothiazide 12.5 mg tablet 2019-0 4-21 00:00: 00 Yes 1mg Sanjeev Helms hydroxyzine HCl 25 mg tablet 2019-0 4-21 00:00: 00 Yes 1mg Sanjeev Helms lisinopril 40 mg tablet 2019-0 2-24 00:00: 00 Yes 1mg Sanjeev Helms sertraline 50 mg tablet 2019-0 2-24 00:00: 00 Yes 1mg Sanjeev Helms trazodone 100 mg tablet 2019-0 2-24 00:00: 00 Yes 2mg Sanjeev Helsm Invega Sustenna 117 mg/0.75 mL intramuscul ar syringe 2020-0 2-24 00:00: 00 Yes mg/0.75 mL Sanjeev Helms atorvastati n 40 mg tablet 2020-0 2-05 00:00: 00 Yes 1mg Sanjeev Helms amlodipine 10 mg tablet 11-09 00:00: 00 Yes 1mg Sanjeev Helms hydroxyzine HCl 25 mg tablet 11-09 00:00: 00 Yes 1mg Sanjeev Helms trazodone 100 mg tablet 10-25 00:00: 00 Yes 2mg Sanjeev Helms sertraline 50 mg tablet 10-25 00:00: 00 Yes 1mg Sanjeev Helms Invega Sustenna 117 mg/0.75 mL intramuscul ar syringe 10-25 00:00: 00 Yes mg/0.75 mL Sanjeev Helms Zeasorb AF 2 % topical powder 2018-10 00:00: 00 Yes % Sanjeev Helms clotrimazol e 1 % topical cream 2018-10 00:00: 00 Yes 1% Sanjeev Helms Wellbutrin XL 150 mg 24 hr tablet, extended release 2018-10 00:00: 00 Yes 1mg Sanjeev Helms trazodone 100 mg tablet 2018-10 00:00: 00 Yes 2mg Sanjeev Helms sertraline 50 mg tablet 2018-10 00:00: 00 Yes 1mg Sanjeev Helms atorvastati n 40 mg tablet 2018-10 00:00: 00 Yes 1mg Sanjeev Helms amlodipine 10 mg tablet 2018-10 00:00: 00 Yes 1mg Sanjeev Helms sertraline 50 mg tablet 2018-10 00:00: 00 Yes 1mg Sanjeev Helms trazodone 100 mg tablet 2018-10 00:00: 00 Yes 2mg Sanjeev Helms Wellbutrin XL 150 mg 24 hr tablet, extended release 2018-10 00:00: 00 Yes 1mg Sanjeev Helms Wellbutrin XL 150 mg 24 hr tablet, extended release 06-28 00:00: 00 Yes 1mg Sanjeev Helms sertraline 50 mg tablet 06-28 00:00: 00 Yes 1mg Sanjeev Helms trazodone 100 mg tablet 06-28 00:00: 00 Yes 2mg Sanjeev Helms Invega 6 mg tablet,exte nded release 06-14 00:00: 00 Yes 1mg Sanjeev Helms sertraline 50 mg tablet 06-14 00:00: 00 Yes 1mg Sanjeev Helms trazodone 100 mg tablet 06-14 00:00: 00 Yes 2mg Sanjeev Helms Wellbutrin XL 150 mg 24 hr tablet, extended release 06-14 00:00: 00 Yes 1mg Sanjeev Helms hydroxyzine HCl 25 mg tablet 06-14 00:00: 00 Yes 1mg Sanjeev Helms clotrimazol e 1 % topical cream 02-09 00:00: 00 Yes 1% Sanjeev Helms bupropion HCl SR 150 mg tablet,12 hr sustained-r elease 02-09 00:00: 00 Yes 1mg Sanjeev Helms trazodone 100 mg tablet 02-09 00:00: 00 Yes 2mg Sanjeev Helms amlodipine 10 mg tablet 02-09 00:00: 00 Yes 1mg Sanjeev Helms sertraline 50 mg tablet 02-09 00:00: 00 Yes 1mg Sanjeev Helms hydroxyzine HCl 25 mg tablet 02-09 00:00: 00 Yes 1mg Sanjeev Helms lisinopril 20 mg-hydrochl orothiazide 12.5 mg tablet 02-09 00:00: 00 Yes 1mg Sanjeev Helms hydroxyzine HCl 25 mg tablet 02-08 00:00: 00 Yes 1mg Sanjeev Helms amlodipine 10 mg tablet 01-31 00:00: 00 Yes 1mg Sanjeev Helms sertraline 50 mg tablet 01-31 00:00: 00 Yes 1mg Sanjeev Helms trazodone 100 mg tablet 01-31 00:00: 00 Yes 2mg Sanjeev Helms bupropion HCl SR 150 mg tablet,12 hr sustained-r elease 01-31 00:00: 00 Yes 1mg Sanjeev Helms lisinopril 20 mg-hydrochl orothiazide 12.5 mg tablet 01-31 00:00: 00 Yes 1mg Sanjeev Helms hydroxyzine pamoate 25 mg capsule 01-31 00:00: 00 Yes 1mg Sanjeev Helms bupropion HCl SR 150 mg tablet,12 hr sustained-r elease 12-06 00:00: 00 Yes 1mg Sanjeev Helms trazodone 100 mg tablet 12-06 00:00: 00 Yes 2mg Sanjeev Helms amlodipine 10 mg tablet 12-06 00:00: 00 Yes 1mg Sanjeev Helms sertraline 50 mg tablet 12-06 00:00: 00 Yes 1mg Sanjeev Helms lisinopril 20 mg-hydrochl orothiazide 12.5 mg tablet 12-06 00:00: 00 Yes 1mg Sanjeev Helms metformin 1,000 mg tablet 12-06 00:00: 00 Yes 1mg Sanjeev Helms hydroxyzine pamoate 25 mg capsule 12-06 00:00: 00 Yes 1mg Sanjeev Helms metformin 1,000 mg tablet 10-06 00:00: 00 Yes 1mg Sanjeev Helms bupropion HCl SR 150 mg tablet,12 hr sustained-r elease 2017-10 00:00: 00 Yes 1mg Sanjeev Helms clonazepam 0.5 mg tablet 2017-10 00:00: 00 Yes 1mg Sanjeev Helms sertraline 50 mg tablet 2017-10 00:00: 00 Yes 1mg Sanjeev Helms simvastatin 20 mg tablet 2017-10 00:00: 00 Yes 1mg Sanjeev Helms amlodipine 10 mg tablet 2017-10 00:00: 00 Yes 1mg Sanjeev Helms trazodone 100 mg tablet 2017-10 00:00: 00 Yes 2mg Sanjeev Helms lisinopril 20 mg-hydrochl orothiazide 12.5 mg tablet 2017-10 00:00: 00 Yes 1mg Sanjeev Helms hydroxyzine pamoate 25 mg capsule 2017-10 00:00: 00 Yes 1mg Sanjeev Helms lisinopril 20 mg-hydrochl orothiazide 12.5 mg tablet 03-12 00:00: 00 Yes 2mg Sanjeev Helms metformin 500 mg tablet 03-12 00:00: 00 Yes 1mg Sanjeev Helms simvastatin 20 mg tablet 03-12 00:00: 00 Yes 1mg Sanjeev Helms lisinopril 20 mg-hydrochl orothiazide 12.5 mg tablet 2014-10 00:00: 00 Yes 2mg Sanjeev Helms naproxen 500 mg tablet 05-15 00:00: 00 Yes 1mg Sanjeev Helms predniSONE (DELTASONE) 20 mg tablet 05-14 00:00: 00 11-06 00:00 :00 No 40mg Take 2 Tabs by mouth every morning. [facility] traMADOL (ULTRAM) 50 mg tablet 05-14 00:00: 00 11-06 00:00 :00 No 50mg Take 1 Tab by mouth every 6 (six) hours as needed for Pain unrelieved by non-narcot ic analgesics . [facility] simvastatin 20 mg tablet 05-11 00:00: 00 Yes 1mg Sanjeev Helms amlodipine 10 mg tablet 05-02 00:00: 00 Yes 1mg Sanjeev Helms lisinopril 20 mg-hydrochl orothiazide 12.5 mg tablet 05-02 00:00: 00 Yes 2mg Sanjeev Helms lisinopril 20 mg-hydrochl orothiazide 12.5 mg tablet 05-01 00:00: 00 Yes 2mg Sanjeev Helms amlodipine 10 mg tablet 05-01 00:00: 00 Yes 1mg Sanjeev Helms bupropion HCl XL 300 mg 24 hr tablet, extended release 12-07 00:00: 00 Yes 1mg Sanjeev Helms trazodone 100 mg tablet 12-07 00:00: 00 Yes 2mg Sanjeev Helms lisinopril 20 mg-hydrochl orothiazide 12.5 mg tablet 11-17 00:00: 00 Yes 2mg Sanjeev Helms cetirizine 10 mg tablet 11-17 00:00: 00 Yes 1mg Sanjeev Helms trazodone 100 mg tablet 11-17 00:00: 00 Yes 1mg Sanjeev Helms Immunizations Ordered Immunization Name Filled Immunization Name Date Status Comments Source Influenza, injectable, Madin Shiloh Canine Kidney, preservative-free, quadrivalent Influenza, injectable, Madin Sonya Canine Kidney, preservative-free, quadrivalent 2023-07-02 00:00:00 Completed Sanjeev Helms SARS-COV-2 COVID-19 NEVAEH/J&J VACCINE 2021-10-09 00:00:00 Completed [facility] SARS-COV-2 COVID-19 NEVAEH/J&J VACCINE 2021-10-09 00:00:00 Completed [facility] SARS-COV-2 COVID-19 NEVAEH/J&J VACCINE 2021-10-09 00:00:00 Completed [facility] SARS-COV-2 COVID-19 NEVAEH/J&J VACCINE 2021-10-09 00:00:00 Completed [facility] SARS-COV-2 COVID-19 NEVAEH/J&J VACCINE 2021-10-09 00:00:00 Completed [facility] SARS-COV-2 COVID-19 NEVAEH/J&J VACCINE 2021-10-09 00:00:00 Completed [facility] SARS-COV-2 COVID-19 NEVAEH/J&J VACCINE 2021-10-09 00:00:00 Completed [facility] SARS-COV-2 COVID-19 NEVAEH/J&J VACCINE 2021-10-09 00:00:00 Completed [facility] SARS-COV-2 COVID-19 NEVAEH/J&J VACCINE 2021-10-09 00:00:00 Completed [facility] SARS-COV-2 COVID-19 NEVAEH/J&J VACCINE 2021-10-09 00:00:00 Completed [facility] SARS-COV-2 COVID-19 NEVAEH/J&J VACCINE 2021-10-09 00:00:00 Completed [facility] Influenza, seasonal, inj Influenza, seasonal, inj 2020-09-19 00:00:00 Completed Sanjeev Helms Influenza, seasonal, inj Influenza, seasonal, inj 2019-11-16 00:00:00 Completed Sanjeev Helms SARS-COV-2 COVID-19 NEVAEH/J&J VACCINE Unknown Completed [facility] Vital Signs Vital Name Observation Time Observation Value Comments S ource Systolic blood pressure 2022-04-15 02:00:00 132 mm[Hg] Kenneth marquez [facility] Diastolic blood pressure 2022-04-15 02:00:00 73 mm[Hg] [facility] Heart rate 2022-04-15 02:00:00 76 /min Un[facility] Respiratory rate 2022-04-15 02:00:00 16 /min [facility] Oxygen saturation in Arterial blood by Pulse oximetry 2022-04-15 02:00:00 98 /min [facility] Body temperature 2022-04-14 21:43:00 36.94 Britany [facility] Body height 2022-04-14 21:42:00 188 [facility] Body weight 2022-04-14 21:42:00 116.121 [facility] BMI 2022-04-14 21:42:00 32.87 kg/m2 [facility] Systolic blood pressure 2022-04-12 08:00:00 155 mm[Hg] [facility] Diastolic blood pressure 2022-04-12 08:00:00 97 mm[Hg] [facility] Heart rate 2022-04-12 08:00:00 91 /min Unive [facility] Respiratory rate 2022-04-12 08:00:00 17 /min [facility] Oxygen saturation in Arterial blood by Pulse oximetry 2022-04-12 08:00:00 98 /min [facility] Body temperature 2022-04-12 03:54:00 36.61 Britany [facility] Body height 2022-04-12 03:54:00 188 cm [facility] Body weight 2022-04-12 03:54:00 115.214 kg [facility] BMI 2022-04-12 03:54:00 32.61 kg/m2 [facility] Body temperature 2022-02-02 04:35:00 35.89 Britany [facility] Systolic blood pressure 2022-02-02 04:00:00 153 mm[Hg] [facility] Diastolic blood pressure 2022-02-02 04:00:00 84 mm[Hg] [facility] Heart rate 2022-02-02 04:00:00 55 /min [facility] Respiratory rate 2022-02-02 04:00:00 12 /min [facility] Oxygen saturation in Arterial blood by Pulse oximetry 2022-02-02 04:00:00 92 /min [facility] Body height 2022-02-02 02:11:06 188 cm [facility] Body weight 2022-02-02 02:11:06 117.935 kg [facility] BMI 2022-02-02 02:11:06 33.38 kg/m2 [facility] Systolic blood pressure 2021-11-06 14:41:00 168 mm[Hg] [facility] Diastolic blood pressure 2021-11-06 14:41:00 91 mm[Hg] [facility] Heart rate 2021-11-06 14:41:00 76 /min [facility] Body temperature 2021-11-06 14:40:00 36.17 Britany [facility] Respiratory rate 2021-11-06 14:40:00 16 /min [facility] Body height 2021-11-06 14:40:00 188 cm [facility] Body weight 2021-11-06 14:40:00 118.207 kg [facility] BMI 2021-11-06 14:40:00 33.46 kg/m2 [facility] Oxygen saturation in Arterial blood by Pulse oximetry 2021-11-06 14:40:00 97 /min [facility] BP Systolic 2024-07-26 17:13:00 188 mm[Hg] Step hen F [facility] BP Diastolic 2024-07-26 17:13:00 113 mm[Hg] Yousif phen F [facility] Weight Measured 2024-07-26 17:13:00 236.60 pounds Sanjeev F [facility] Height Measured 2024-07-26 17:13:00 73.32 inches Sanjeev F [facility] Body Temperature 2024-07-26 17:13:00 Sanjeev F [facility] Heart Rate 2024-07-26 17:13:00 75.00 /min Paige en F [facility] Respiratory Rate 2024-07-26 17:13:00 16.00 /min Sanjeev F [facility] BP Systolic 2024-07-26 16:26:00 188 mm[Hg] Step hen F [facility] BP Diastolic 2024-07-26 16:26:00 113 mm[Hg] Yousif phen F [facility] Weight Measured 2024-07-26 16:26:00 236.60 pounds Sanjeev F [facility] Height Measured 2024-07-26 16:26:00 73.32 inches Sanjeev F [facility] Body Temperature 2024-07-26 16:26:00 Sanjeev F [facility]ooter Heart Rate 2024-07-26 16:26:00 75.00 /min Paige en F [facility] Respiratory Rate 2024-07-26 16:26:00 16.00 /min Sanjeev F Scooter BP Systolic 2024-06-22 18:12:00 205 mm[Hg] Step hen F Scooter BP Diastolic 2024-06-22 18:12:00 110 mm[Hg] Yousif phen F [facility] Weight Measured 2024-06-22 18:12:00 244.60 pounds Sanjeev F Scooter Height Measured 2024-06-22 18:12:00 73.32 inches Sanjeev F [facility] Body Temperature 2024-06-22 18:12:00 98.20 degrees Sanjeev F Scooetr Heart Rate 2024-06-22 18:12:00 89.00 /min Paige en F [facility] Respiratory Rate 2024-06-22 18:12:00 18.00 /min Sanjeev F Scooter BP Systolic 2024-05-25 10:33:00 173 mm[Hg] Step hen F Scooter BP Diastolic 2024-05-25 10:33:00 102 mm[Hg] Yousif phen F [facility] Weight Measured 2024-05-25 10:33:00 241.40 pounds Sanjeev F Scooter Height Measured 2024-05-25 10:33:00 73.32 inches Sanjeev F [facility] Body Temperature 2024-05-25 10:33:00 97.70 degrees Sanjeev F Scooter Heart Rate 2024-05-25 10:33:00 78.00 /min Paige en F [facility] Respiratory Rate 2024-05-25 10:33:00 20.00 /min Sanjeev F Scooter BP Systolic 2023-08-03 17:28:00 154 mm[Hg] Step hen F Scooter BP Diastolic 2023-08-03 17:28:00 97 mm[Hg] Yousif phen F [facility] Weight Measured 2023-08-03 17:28:00 237.80 pounds Sanjeev F Scooter Height Measured 2023-08-03 17:28:00 73.32 inches Sanjeev F Scooter Body Temperature 2023-08-03 17:28:00 97.40 degrees Sanjeev F Scooter Heart Rate 2023-08-03 17:28:00 95.00 /min Paige en F Sc[facility] Respiratory Rate 2023-08-03 17:28:00 Sanjeev F Scooter BP Systolic 2023-07-02 17:21:00 130 mm[Hg] Step hen F Scooter BP Diastolic 2023-07-02 17:21:00 84 mm[Hg] Yousif phen F [facility] Weight Measured 2023-07-02 17:21:00 240.60 pounds Sanjeev F Scooter Height Measured 2023-07-02 17:21:00 28.87 inches Sanjeev F Scooter Body Temperature 2023-07-02 17:21:00 97.40 degrees Sanjeev F Scooter Heart Rate 2023-07-02 17:21:00 92.00 /min Paige en F [facility] Respiratory Rate 2023-07-02 17:21:00 Sanjeev F Scooter BP Systolic 2023-05-27 17:16:00 143 mm[Hg] Step hen F Scooter BP Diastolic 2023-05-27 17:16:00 86 mm[Hg] Yousif phen F [facility] Weight Measured 2023-05-27 17:16:00 246.60 pounds Sanjeev F Scooter Height Measured 2023-05-27 17:16:00 73.32 inches Sanjeev F Scooter Body Temperature 2023-05-27 17:16:00 97.40 degrees Sanjeev F Scooter Heart Rate 2023-05-27 17:16:00 99.00 /min Paige en F Sc[facility] Respiratory Rate 2023-05-27 17:16:00 25.00 /min Sanjeev F Scooter BP Systolic 2023-05-19 17:27:00 189 mm[Hg] Step hen F Scooter BP Diastolic 2023-05-19 17:27:00 91 mm[Hg] Yousif phen F [facility] Weight Measured 2023-05-19 17:27:00 252.20 pounds Sanjeev F Scooter Height Measured 2023-05-19 17:27:00 73.32 inches Sanjeev F Scooter Body Temperature 2023-05-19 17:27:00 97.80 degrees Sanjeev F Scooter Heart Rate 2023-05-19 17:27:00 87.00 /min Paige en F Scooter Respiratory Rate 2023-05-19 17:27:00 Sanjeev F Scooter BP Systolic 2022-11-05 10:41:00 141 mm[Hg] Step hen F Scooter BP Diastolic 2022-11-05 10:41:00 92 mm[Hg] Yousif phen F [facility] Weight Measured 2022-11-05 10:41:00 252.80 pounds Sanjeev F Scooter Height Measured 2022-11-05 10:41:00 73.32 inches Sanjeev F Scooter Body Temperature 2022-11-05 10:41:00 97.70 degrees Sanjeev F Scooter Heart Rate 2022-11-05 10:41:00 73.00 /min Paige en F Scooter Respiratory Rate 2022-11-05 10:41:00 Sanjeev F Scooter BP Systolic 2022-10-22 16:43:00 142 mm[Hg] Step hen F Scooter BP Diastolic 2022-10-22 16:43:00 80 mm[Hg] Yousif phen F [facility] Weight Measured 2022-10-22 16:43:00 254.00 pounds Sanjeev F Scooter Height Measured 2022-10-22 16:43:00 73.32 inches Sanjeev F Scooter Body Temperature 2022-10-22 16:43:00 97.90 degrees Sanjeev F Scooter Heart Rate 2022-10-22 16:43:00 94.00 /min Paige en F Scooter Respiratory Rate 2022-10-22 16:43:00 18.00 /min Sanjeev F Scooter BP Systolic 2022-09-09 14:25:00 183 mm[Hg] Step hen F Scooter BP Diastolic 2022-09-09 14:25:00 96 mm[Hg] Yousif phen F [facility] Weight Measured 2022-09-09 14:25:00 259.60 pounds Sanjeev F Scooter Height Measured 2022-09-09 14:25:00 73.32 inches Sanjeev F Scooter Body Temperature 2022-09-09 14:25:00 97.50 degrees Sanjeev F Scooter Heart Rate 2022-09-09 14:25:00 72.00 /min Paige en F Scooter Respiratory Rate 2022-09-09 14:25:00 25.00 /min Sanjeev Helms BP Systolic 2022-09-09 14:07:00 183 mm[Hg] Jose Helms BP Diastolic 2022-09-09 14:07:00 96 mm[Hg] Yousif Helms Weight Measured 2022-09-09 14:07:00 259.60 pounds Sanjeev Helms Height Measured 2022-09-09 14:07:00 73.32 inches Sanjeev Helms Body Temperature 2022-09-09 14:07:00 97.50 degrees Sanjeev Helms Heart Rate 2022-09-09 14:07:00 72.00 /min Paige en Sabine Helms Respiratory Rate 2022-09-09 14:07:00 25.00 /min Sanjeev Helms Procedures Procedure Date / Time Performed Performing Clinician Source REFERRAL- REQUEST/RESPONSE 2023-07-03 05:01:00 Doctor Unassigned, [place] [facility] AUTHORIZATION FOR RELEASE OF PHI 2022-08-12 06:01:00 Doctor Unassigned, [place] [facility] REFERRAL- REQUEST/RESPONSE 2022-05-15 05:01:00 Doctor Unassigned, [place] [facility] POCT GLUCOSE (AUTOMATED) 2022-04-15 02:32:00 Armani Moffett [facility] POCT GLUCOSE (AUTOMATED) 2022-04-15 01:39:00 Armani Moffett [facility] POCT GLUCOSE (AUTOMATED) 2022-04-15 00:42:00 Armani Moffett [facility] POCT GLUCOSE (AUTOMATED) 2022-04-14 23:21:00 Armani Moffett [facility] POCT GLUCOSE (AUTOMATED) 2022-04-14 21:42:00 Doc tor Unassigned, [place] [facility] CONSENT/REFUSAL FOR DIAGNOSIS AND TREATMENT 2022-04-14 21:35:48 Doctor Unassigned, [place] [facility] POCT GLUCOSE (AUTOMATED) 2022-04-12 07:46:00 Armani Mack [facility] POCT GLUCOSE (AUTOMATED) 2022-04-12 06:20:00 Armani Mack [facility] POCT GLUCOSE (AUTOMATED) 2022-04-12 05:03:00 Armani Mack [facility] COMP. METABOLIC PANEL (82708) 2022-04-12 04:45:00 Eliseo Mack [facility] CBC WITH DIFF 2022-04-12 04:45:00 Eliseo Mack [facility] GLYCOSYLATED HEMOGLOBIN (A1C) 2022-04-12 04:45:00 Eliseo Mack [facility] URINALYSIS 2022-04-12 04:45:00 Eliseo [facility] ACUTE CARE VENOUS BLOOD GAS 2022-04-12 04:44:00 Eliseo Mack [facility] POCT GLUCOSE (AUTOMATED) 2022-04-12 03:59:00 Armani Mack [facility] NOTICE OF PRIVACY PRACTICES 2022-04-12 03:38:19 Doctor Unassigned, [place] [facility] CONSENT/REFUSAL FOR DIAGNOSIS AND TREATMENT 2022-04-12 03:37:44 Doctor Unassigned, [place] [facility] AUTHORIZATION FOR RELEASE OF PHI 2022-03-12 05:01:00 Doctor Unassigned, [place] [facility] MEDICATION CORRESPONDENCE 2022-02-14 05:01:00 Do ctor Unassigned, [place] [facility] XR LUMBAR SPINE 2 2022-02-02 03:04:02 Zoe Dunlap [facility] XR SPINE THORACIC 2 2022-02-02 03:04:02 Zoe Dunlap [facility] XR CERVICAL SPINE 3 2022-02-02 03:04:02 Zoe Dunlap [facility] POCT URINALYSIS AUTO 2021-11-06 14:39:00 Addie Pat [facility] Ekg 2018-10-04 00:00:00 Sanjeev Helms Encounters Start Date/Time End Date/Time Encounter Type Admission Type Attending [facility] Care Facility Care Department Encounter ID Source 2024-07-26 16:15:56 2024-07-26 16:15:56 Outpatient SFA [facility] [id number] Sanjeev Helms 2024-07-26 00:00:00 2024-07-26 00:00:00 Outpatient Visit [facility] [id number] Sanjeev Helms 2024-06-22 18:04:56 2024-06-22 18:04:56 Outpatient SFA [facility] [id number] Sanjeev Helms 2024-06-22 00:00:00 2024-06-22 00:00:00 Outpatient Visit [facility] [id number] Sanjeev Helms 2024-05-25 10:29:12 2024-05-25 10:29:12 Outpatient SFA [facility] [id number] Sanjeev Helms 2023-11-13 09:00:00 2023-11-13 09:00:00 Outpatient [facility] [id number] [facility] 2023-10-29 11:00:00 2023-10-29 11:00:00 Outpatient [facility] [id number] [facility] 2023-10-14 13:30:00 2023-10-14 13:30:00 Outpatient DENILSON BOOTH [id number] [facility] 2023-10-13 14:30:00 2023-10-13 14:30:00 Outpatient KRISTINA PICKETT [id number] [facility] 2023-10-07 14:00:00 2023-10-07 14:00:00 Outpatient KRISTINA PICKETT [id number] [facility] 2023-09-30 13:40:00 2023-09-30 13:40:00 [facility] [id number] 2023-09-16 15:20:00 2023-09-16 15:20:00 Outpatient [facility] [id number] [facility] 2023-08-20 15:20:00 2023-08-20 15:20:00 Outpatient R DEMETRIA YADAV [facility] [id number] [facility] 2023-08-03 17:27:56 2023-08-03 17:27:56 Outpatient SFA [facility] [id number] Sanjeev Helms 2023-07-23 14:40:00 2023-07-23 14:40:00 Outpatient DEMETRIA HUMPHREYS [facility] [id number] [facility] 2023-07-07 14:30:00 2023-07-07 14:30:00 Outpatient R LUL BURNETTE [facility] [id number] [facility] 2023-07-03 00:00:00 2023-07-03 00:00:00 Orders Only Doctor Unassigned, [place] [facility] [id number] 350.1.13.10 4.2.7.2.686 [id number] [facility] 2023-07-02 17:18:19 2023-07-02 17:18:19 Outpatient SFA [facility] [id number] Sanjeev Regalado Scooter 2023-05-29 17:30:03 2023-05-29 17:30:03 Outpatient SFA [facility] [id number] Sanjeev Regalado Scooter 2023-05-27 17:16:01 2023-05-27 17:16:01 Outpatient SFA [facility] [id number] Sanjeev Helms 2023-05-19 17:23:37 2023-05-19 17:23:37 Outpatient SFA [facility] [id number] Sanjeev Helms 2022-11-05 10:35:42 2022-11-05 10:35:42 Outpatient SFA [facility] [id number] Sanjeev Helms 2022-10-22 16:38:30 2022-10-22 16:38:30 Outpatient SFA [facility] [id number] Sanjeev Helms 2022-09-10 13:24:47 2022-09-10 13:24:47 Outpatient SFA [facility] [id number] Sanjeev Helms 2022-09-09 14:06:35 2022-09-09 14:06:35 Outpatient [facility] [id number] Sanjeev Helms 2022-08-12 00:00:00 2022-08-12 00:00:00 Orders Only Doctor Unassigned, [place] [facility] [id number] 350.1.13.10 4.2.7.2.686 [id number] [facility] 2022-05-15 00:00:00 2022-05-15 00:00:00 Orders Only Doctor Unassigned, [place] [facility] [id number] 350.1.13.10 4.2.7.2.686 [id number] [facility] 2022-04-14 16:43:00 2022-04-14 21:51:00 Emergency X LUZ LE [facility] ERT [id number] [facility] 2022-04-14 16:43:00 2022-04-14 21:51:00 Emergency Zach Moffett Donnell [facility] [id number] 350.1.13.10 4.2.7.2.686 [id number] [facility] 2022-04-11 23:02:00 2022-04-12 03:55:00 Emergency ELISEO BARRIOS [facility] ERT [id number] [facility] 2022-04-11 23:02:00 2022-04-12 03:55:00 Emergency Eliseo Mack [facility] [id number] 350.1.13.10 4.2.7.2.686 [id number] [facility] 2022-03-12 00:00:00 2022-03-12 00:00:00 Orders Only Doctor Unassigned, [place] [facility] [id number] 350.1.13.10 4.2.7.2.686 [id number] [facility] 2022-02-14 00:00:00 2022-02-14 00:00:00 Orders Only Doctor Unassigned, [place] [facility] 1.84.114 350.1.13.10 4.2.7.2.686 [id number] [facility] 2022-02-01 21:02:00 2022-02-01 23:47:00 Emergency X FABI Zoe [facility] [id number] [facility] 2022-02-01 21:02:00 2022-02-01 23:47:00 Emergency Zoe Dunlap Juany [facility] 1.840.114 350.1.13.10 4.2.7.2.686 [id number] [facility] 2021-12-04 00:00:00 2021-12-04 00:00:00 Outpatient R ADDIE PAT [facility] [id number] [facility] 2021-12-02 15:30:00 2021-12-02 15:30:00 [facility] [id number] 2021-11-28 14:30:00 2021-11-28 14:30:00 Outpatient R ALPHONSO [facility] [id number] [facility] 2021-11-28 00:00:00 2021-11-28 00:00:00 Letter (Out) Doctor Unassigned, [place] [facility] 1..114 350.1.13.10 4.2.7.2.686 [id number] [facility] 2021-11-20 00:00:00 2021-11-20 00:00:00 Telephone Alphonso [facility] 1.84.114 350.1.13.10 4.2.7.2.686 [id number] [facility] 2021-11-11 00:00:00 2021-11-11 00:00:00 Telephone Addie Pat [facility] 1.2.840.114 350.1.13.10 4.2.7.2.686 [id number] [facility] 2021-11-06 08:00:00 2021-11-06 08:53:05 Outpatient R ADDIE PAT [facility] [id number] [facility] 2021-11-06 08:00:00 2021-11-06 08:53:05 Outpatient R ADDIE PAT [facility] [id number] [facility] 2021-11-06 08:00:00 2021-11-06 08:53:05 Office Visit Addie Pat [facility] 1..840.114 350.1.13.10 4.2.7.2.686 [id number] [facility] 2021-10-29 09:30:00 2021-10-29 09:30:00 Outpatient R ADDIE PAT [facility] [id number] [facility] 2021-10-29 09:30:00 2021-10-29 09:30:00 Outpatient R ADDIE PAT [facility] [id number] [facility] 2021-10-26 18:10:00 2021-10-26 20:26:00 Emergency X GARY CL[facility]KE [facility] E[facility] [id number] [facility] 2021-10-26 18:10:00 2021-10-26 20:26:00 Emergency Gary Clarke [facility] 1..840.114 350.1.13.10 4.2.7.2.686 [id number] [facility] 2021-10-09 13:00:00 2021-10-09 13:00:00 Imm/Inj Visit Nurse, Elias Poscott ImmunizatiMoustapha Fisher [facility] 1.2.840.114 350.1.13.10 4.2.7.2.686 [id number] [facility] [id number] [facility] 2021-10-09 13:00:00 2021-10-09 12:43:20 Outpatient MOUSTAPHA ROGEL [facility] [id number] [facility] 2021-10-09 13:00:00 2021-10-09 12:43:20 [id number] 2020-06-01 09:00:00 2020-06-01 09:00:00 Outpatient KRISTINA HARRISON [facility] [id number] [facility] 2020-05-31 13:07:33 2020-05-31 13:27:33 Laboratory Only Lab, [facility] I [facility] Office Building One [id number] [id number] [id number] [id number] 2020-05-31 13:20:00 2020-05-31 13:20:00 Outpatient KRISTINA HARRISON [facility] [id number] [facility] 2020-05-31 00:00:00 2020-05-31 00:00:00 Letter (Out) Doctor Unassigned, [place] [facility] 1..840.114 350.1.13.10 [id number] [id number] 2020-01-04 12:51:00 2020-01-04 12:51:00 Outpatient Agatha-Mbayo _A_AH VFP VFP [id number] [facility] 2020-01-04 12:51:00 2020-01-04 12:51:00 Outpatient Agatha-Mbayo _A_AH VFP VFP [id number] [facility] Results Test Description Test Time Test Comments Results Result Co mments Source Sanjeev HelmsNOTE: [ADDED]2024-06-30 00:00:00* Test Item Value Reference Range Interpretation Comme nts NOTE: (test code = 998) (NOTE) Sanjeev HelmsHEMOGLOBIN A1c [ADDED]2024-06-29 00:00:00* Test Item Value Reference Range Interpretation Comme nts HEMOGLOBIN A1c (test code = 34727) 11.1 % Sanjeev HelsmHEMOGLOBIN A1c [ADDED]2024-06-29 00:00:00* Test Item Value Reference Range Interpretation Comme nts HEMOGLOBIN A1c (test code = 46153) 11.1 % Sanjeev Regalado AustinVITAMIN D, 25 [id number] 00:00:00* Test Item Value Reference Range Interpretation Comme nts VITAMIN D, 25 OH (test code = 4958) 16 NG/ML Sanjeev Regalado AustinHEMOGLOBIN [id number] 00:00:00* Test Item Value Reference Range Interpretation Comme nts HEMOGLOBIN A1c (test code = 48719) 8.7 % Sanjeev HelmsINTACT [id number] 00:00:00* Test Item Value Reference Range Interpretation Comme nts INTACT PTH (test code = 5005) 47 PG/ML Sanjeev Regalado [id number] 00:00:00* Test Item Value Reference Range Interpretation Comme nts GGT (test code = 2216) 19 U/L Sanjeev HelmsLIPID [id number] 00:00:00* Test Item Value Reference Range Interpretation Comme nts CHOLESTEROL (test code = 2210) 229 MG/DL TRIGLYCERIDES (test code = 2232) 220 MG/DL HDL CHOLESTEROL (test code = 2220) 38 MG/DL CALC LDL CHOL (test code = 2237) 152 MG/DL RISK RATIO LDL/HDL (test cod e = 2238) 4.00 RATIO Sanjeev HelmsVITAMIN D, 25 [id number] 00:00:00* Test Item Value Reference Range Interpretation Comme nts VITAMIN D, 25 OH (test code = 4958) 16 NG/ML Sanjeev Regalado AustinHEMOGLOBIN [id number] 00:00:00* Test Item Value Reference Range Interpretation Comme nts HEMOGLOBIN A1c (test code = 67204) 8.7 % Sanjeev HelmsINTACT [id number] 00:00:00* Test Item Value Reference Range Interpretation Comme nts INTACT PTH (test code = 5005) 47 PG/ML Sanjeev Regalado [id number] 00:00:00* Test Item Value Reference Range Interpretation Comme nts GGT (test code = 2216) 19 U/L Sanjeev HelmsLIPID [id number] 00:00:00* Test Item Value Reference Range Interpretation Comme nts CHOLESTEROL (test code = 2210) 229 MG/DL TRIGLYCERIDES (test code = 2232) 220 MG/DL HDL CHOLESTEROL (test code = 2220) 38 MG/DL CALC LDL CHOL (test code = 2237) 152 MG/DL RISK RATIO LDL/HDL (test cod e = 2238) 4.00 RATIO Sanjeev Regalado NalcrestPOCT GLUCOSE (AUTOMATED)2022-04-15 02:34:32* Test Item Value Reference Range Interpretation Comme nts POCT GLU (test code = 3434932606) 380 mg/dL 70-110 H Lab Interpretation (test cod e = 62283-4) Abnormal [facility] GLUCOSE (AUTOMATED)2022-04-15 01:41:12* Test Item Value Reference Range Interpretation Comme nts POCT GLU (test code = 4572141513) 421 mg/dL 70-110 H Lab Interpretation (test cod e = 64331-8) Abnormal [facility] GLUCOSE (AUTOMATED)2022-04-15 00:44:10* Test Item Value Reference Range Interpretation Comme nts POCT GLU (test code = 3707305705) 412 mg/dL 70-110 H Lab Interpretation (test cod e = 32066-2) Abnormal [facility] GLUCOSE (AUTOMATED)2022-04-14 23:23:25* Test Item Value Reference Range Interpretation Comme nts POCT GLU (test code = 9336323232) 506 mg/dL 70-110 HH Lab Interpretation (test cod e = 54604-0) Abnormal [facility] GLUCOSE (AUTOMATED)2022-04-14 21:45:07* Test Item Value Reference Range Interpretation Comme nts POCT GLU (test code = 8862056672) 545 mg/dL 70-110 HH Lab Interpretation (test cod e = 69569-2) Abnormal [facility] GLUCOSE (AUTOMATED)2022-04-12 07:49:02* Test Item Value Reference Range Interpretation Comme nts POCT GLU (test code = 3885868693) 376 mg/dL 70-110 H Lab Interpretation (test cod e = 53199-8) Abnormal [facility] GLUCOSE (AUTOMATED)2022-04-12 06:22:59* Test Item Value Reference Range Interpretation Comme [facility] POCT GLU (test code = 2833970617) 445 mg/dL 70-110 H Lab Interpretation (test cod e = 75553-9) Abnormal [facility] GLUCOSE (AUTOMATED)2022-04-12 05:08:47* Test Item Value Reference Range Interpretation Comme [facility] POCT GLU (test code = 2080227472) 506 mg/dL 70-110 HH Lab Interpretation (test cod e = 24644-1) [facility]-12 05:08:27* Test Item Value Reference Range Interpretation Comme [facility] HGB A1C (test code = 4548-4) 13.6 % 4.0-5.7 H RANJITH (test code = RANJITH) Reference RangesNormal: <5.7%Prediabetes: 5.7 - 6.4%Diabetes: > 6.5% Lab Interpretation (test code = 85539-4) Abnormal [facility]. METABOLIC PANEL (98243)2022-04-12 05:08:01* Test Item Value Reference Range Interpretation Comme [facility] NA (test code = 9330746570) 126 mmol/L 135-145 L K (test code = 1320927907) 3.7 mmol/L 3.5-5.0 CL (test code = 3653727628) 79 mmol/L 98-108 L CO2 TOTAL (test code = 3608277490) 31 mmol/L 23-31 AGAP (test code = 7075682748) 2-16 BUN (test code = 5080329841) 20 mg/dL 7-23 GLUCOSE (test code = 9546130137) 575 mg/dL 70-110 HH CREATININE (test code = 8991473773) 1.15 mg/dL 0.60-1.25 TOTAL BILI (test code = 6093442534) 1.0 mg/dL 0.1-1.1 CALCIUM (test code = 3312942266) 11.0 mg/dL 8.6-10.6 H T PROTEIN (test code = 2986278759) 7.9 g/dL 6.3-8.2 ALBUMIN (test code = 1452367754) 4.7 g/dL 3.5-5.0 ALK PHOS (test code = 2363510119) 286 U/L 34-122 H ALTv (test code = 1742-6) 40 U/L 5-50 AST(SGOT) (test code = 0930346250) 45 U/L 13-40 H eGFR (test code = 6674801822) mL/min/1.73m2 RANJITH (test code = RANJITH) Association [...] imaging tests). Lab Interpretation (test code = 23562-5) Abnormal [facility] WITH [id number] 04:52:23* Test Item Value Reference Range Interpretation Comme nts WBC (test code = 6690-2) See_Comment [Automated [employer]] The system which generated this result transmitted reference range: 4.20 - 10.70 10*3/?L. The reference range was not used to interpret this result as normal/abnormal. RBC (test code = 789-8) See_Comment [Automated Novavax ABa ge] The system which generated this result [...] 34.0 g/dL 31.2-35.0 RDW-SD (test code = 94886-4) 39.4 fL 38.5-51.6 RDW-CV (test code = 788-0) 13.9 % 12.1-15.4 PLT (test code = 777-3) See_Comment [Automated Novavax ABa ge] The system which generated this result transmitted reference range: 150 - 328 10*3/?L. The reference range was not used to interpret this result as normal/abnormal. MPV (test code = 69709-5) 10.4 fL 9.8-13.0 NRBC/100 WBC (test code = 5329139726) See_Comment [Automated [employer] ssage] The system which generated this result transmitted reference range: 0.0 - 10.0 /100 WBCs. The reference range was not used to interpret this result as normal/abnormal. NRBC x10^3 (test code = 0006224552) <0.01 See_Comment [Automated messa ge] The system which generated this result transmitted reference range: 10*3/?L. The reference range was not used to interpret this result as normal/abnormal. GRAN MAT (NEUT) % (test code = 770-8) 47.8 % IMM GRAN % (test code = 8334542481) 0.20 % LYMPH % (test code = 736-9) 41.8 % MONO % (test code = 5905-5) 9.5 % EOS % (test code = 713-8) 0.5 % BASO % (test code = 706-2) 0.2 % GRAN MAT x10^3(ANC) (test code = 2356871220) 4.06 10*3/uL 1.99-6.95 IMM GRAN x10^3 (test code = 3528637489) <0.03 0.00-0.06 LYMPH x10^3 (test code = 731-0) 3.56 10*3/uL 1.09-3.23 H MONO x10^3 (test code = 742-7) 0.81 10*3/uL 0.36-1.02 EOS x10^3 (test code = 711-2) 0.04 10*3/uL 0.06-0.53 L BASO x10^3 (test code = 704-7) <0.03 0.01-0.09 Lab Interpretation (test code = 35398-1) [facility] 04:04:52* Test Item Value Reference Range Interpretation Comme nts POCT GLU (test code = 9396680096) 560 mg/dL 70-110 HH Lab Interpretation (test cod e = 02942-7) [facility]normal [facility] [id number] 04:06:50* Test Item Value Reference Range Interpretation [...] SPECIMENS. FOR MOREINFORMATION, SEE CLIENT ANNOUNCEMENT AT [email or web address] RISK RATIO LDL/HDL (test code = 2238) 3.59 RATIO <3.55 H COMPREHENSIVE METABOLIC [id number] 04:06:50* Test Item Value Reference Range Interpretation Comme nts GLUCOSE (test code = 2217) 173 MG/DL 70-99 H BUN (test code = 2207) 14 MG/DL 6-20 CREATININE (test code = 2213) 1.09 MG/DL 0.80-1.40 eGFR (2020 CKD-EPI) (test code = 83744) 84 ML/MIN/1.73 >60 CALC BUN/CREAT (test code [...] G/DL 3.5-5.2 CALC GLOBULIN (test code = 2239) 3.2 G/DL 1.9-3.7 CALC A/G RATIO (test code = 2233) 1.5 RATIO 1.0-2.6 BILIRUBIN, TOTAL (test code = 2206) 0.4 MG/DL See_Comment [Automated me ssage] The system which generated this result transmitted reference range: <=1.2. The reference range was not used to interpret this result as normal/abnormal. ALKALINE PHOSPHATASE (test code = 2203) 186 U/L 40-118 H AST (test code = 2217) 17 U/L 9-50 ALT (test code = 9) 17 U/L 5-50 UNLESS OTHERWISE INDICATED, ALL TESTING PERFORMED [employer] [address] [place] [id number] DIE ATTACHING MACHINE TENDER: GRIFFIN KERN M.D. CLIA NUMBER [id number] [facility]. [id number] HEMOGLOBIN [id number] 03:47:07* Test Item Value Reference Range Interpretation Comme nts HEMOGLOBIN A1c (test code = 76533) 9.3 % 4.2-5.6 H [employer] GUIDELINES FOR HGB A1C: [...] ETC.). CONSIDER ALTERNATE TESTING OR LABORATORY CONSULTATION. HEMOGLOBIN [id number] 00:00:00* Test Item Value Reference Range Interpretation Comme [facility] HEMOGLOBIN A1c (test code = 84164) 9.3 % Sanjeev HelmsLIPID [id number] 00:00:00* Test Item Value Reference Range Interpretation Comme nts CHOLESTEROL (test code = 2210) 269 MG/DL TRIGLYCERIDES (test code = 2232) 237 MG/DL HDL CHOLESTEROL (test code = 2220) 49 MG/DL CALC LDL CHOL (test code = 2237) 176 MG/DL RISK RATIO LDL/HDL (test cod e = 2238) 3.59 RATIO Sanjeev HelmsCOMPREHENSIVE METABOLIC [id number] 00:00:00* Test Item Value Reference Range Interpretation Comme nts GLUCOSE (test code = 2217) 173 MG/DL BUN (test code = 2208) 14 MG/DL CREATININE (test code = 2214) 1.09 MG/DL eGFR (2020 CKD-EPI) (test co de = 78359) 84 ML/MIN/1.73 CALC BUN/CREAT (test code = 2235) 13 RATIO SODIUM (test code = 2231) 139 MEQ/L POTASSIUM (test code = 2228) 3.6 MEQ/L CHLORIDE (test code = 2215) 92 MEQ/L CARBON DIOXIDE (test code = 2206) 34 MEQ/L CALCIUM (test code = 2209) 10.1 MG/DL PROTEIN, TOTAL (test code = 2229) 7.9 G/DL ALBUMIN (test code = 2201) 4.7 G/DL CALC GLOBULIN (test code = 2240) 3.2 G/DL CALC A/G RATIO (test code = 2234) 1.5 RATIO BILIRUBIN, TOTAL (test code = 2207) 0.4 MG/DL ALKALINE PHOSPHATASE (test code = 2204) 186 U/L AST (test code = 2218) 17 U/L ALT (test code = 2219) 17 U/L Sanjeev HelmsHEMOGLOBIN [id number] 00:00:00* Test Item Value Reference Range Interpretation Comme nts HEMOGLOBIN A1c (test code = 96649) 9.3 % Sanjeev HelmsLIPID [id number] 00:00:00* Test Item Value Reference Range Interpretation Comme nts CHOLESTEROL (test code = 2210) 269 MG/DL TRIGLYCERIDES (test code = 2232) 237 MG/DL HDL CHOLESTEROL (test code = 2220) 49 MG/DL CALC LDL CHOL (test code = 2237) 176 MG/DL RISK RATIO LDL/HDL (test cod e = 2238) 3.59 RATIO Sanjeev HelmsCOMPREHENSIVE METABOLIC [id number] 00:00:00* Test Item Value Reference Range Interpretation Comme nts GLUCOSE (test code = 2217) 173 MG/DL BUN (test code = 2208) 14 MG/DL CREATININE (test code = 2214) 1.09 MG/DL eGFR (2020 CKD-EPI) (test co de = 45903) 84 ML/MIN/1.73 CALC BUN/CREAT (test code = 2235) 13 RATIO SODIUM (test code = 2231) 139 MEQ/L POTASSIUM (test code = 2228) 3.6 MEQ/L CHLORIDE (test code = 2215) 92 MEQ/L CARBON DIOXIDE (test code = 2206) 34 MEQ/L CALCIUM (test code = 2209) 10.1 MG/DL PROTEIN, TOTAL (test code = 2229) 7.9 G/DL ALBUMIN (test code = 2201) 4.7 G/DL CALC GLOBULIN (test code = 2240) 3.2 G/DL CALC A/G RATIO (test code = 2234) 1.5 RATIO BILIRUBIN, TOTAL (test code = 2207) 0.4 MG/DL ALKALINE PHOSPHATASE (test code = 2204) 186 U/L AST (test code = 2218) 17 U/L ALT (test code = 2219) 17 U/L Sanjeev HelmsPOCT URINALYSIS, [id number] 14:39:00* Test Item Value Reference Range Interpretation [...] Clear Lab Interpretation (test cod e = 46934-3) Abnormal [facility] [id number] 00:00:00* Test Item Value Reference Range Interpretation Comme nts GLUCOSE (test code = 2217) 154 MG/DL BUN (test code = 2208) 12 MG/DL CREATININE (test code = 2214) 1.01 MG/DL eGFR AMER. (test cod e = 21328) 101 ML/MIN/1.73 eGFR NON- AMER. (test code = 48852) 88 ML/MIN/1.73 CALC BUN/CREAT (test code = 2235) 12 RATIO SODIUM (test code = 2231) 143 MEQ/L POTASSIUM (test code = 2228) 3.8 MEQ/L CHLORIDE (test code = 2215) 103 MEQ/L CARBON DIOXIDE (test code = 2206) 29 MEQ/L CALCIUM (test code = 2209) 9.8 MG/DL PROTEIN, TOTAL (test code = 2229) 7.4 G/DL ALBUMIN (test code = 2201) 4.5 G/DL CALC GLOBULIN (test code = 2240) 2.9 G/DL CALC A/G RATIO (test code = 2234) 1.6 RATIO BILIRUBIN, TOTAL (test code = 2207) 0.3 MG/DL ALKALINE PHOSPHATASE (test code = 2204) 155 U/L AST (test code = 2218) 16 U/L ALT (test code = 2219) 14 U/L Sanjeev F AustinLIPID [id number] 00:00:00* Test Item Value Reference Range Interpretation Comme nts CHOLESTEROL (test code = 2210) 250 MG/DL TRIGLYCERIDES (test code = 2232) 156 MG/DL HDL CHOLESTEROL (test code = 2220) 48 MG/DL CALC LDL CHOL (test code = 2237) 172 MG/DL RISK RATIO LDL/HDL (test cod e = 2238) 3.58 RATIO Sanjeev HelmsHEMOGLOBIN [id number] 00:00:00* Test Item Value Reference Range Interpretation Comme nts HEMOGLOBIN A1c (test code = 17586) 7.6 % Sanjeev HelmsCOMPREHENSIVE METABOLIC [id number] 00:00:00* Test Item Value Reference Range Interpretation Comme nts GLUCOSE (test code = 2217) 154 MG/DL BUN (test code = 2208) 12 MG/DL CREATININE (test code = 2214) 1.01 MG/DL eGFR AMER. (test cod e = 74024) 101 ML/MIN/1.73 eGFR NON- AMER. (test code = 27732) 88 ML/MIN/1.73 CALC BUN/CREAT (test code = 2235) 12 RATIO SODIUM (test code = 2231) 143 MEQ/L POTASSIUM (test code = 2228) 3.8 MEQ/L CHLORIDE (test code = 2215) 103 MEQ/L CARBON DIOXIDE (test code = 2206) 29 MEQ/L CALCIUM (test code = 2209) 9.8 MG/DL PROTEIN, TOTAL (test code = 2229) 7.4 G/DL ALBUMIN (test code = 2201) 4.5 G/DL CALC GLOBULIN (test code = 2240) 2.9 G/DL CALC A/G RATIO (test code = 2234) 1.6 RATIO BILIRUBIN, TOTAL (test code = 2207) 0.3 MG/DL ALKALINE PHOSPHATASE (test code = 2204) 155 U/L AST (test code = 2218) 16 U/L ALT (test code = 2219) 14 U/L Sanjeev HelmsLIPID [id number] 00:00:00* Test Item Value Reference Range Interpretation Comme nts CHOLESTEROL (test code = 2210) 250 MG/DL TRIGLYCERIDES (test code = 2232) 156 MG/DL HDL CHOLESTEROL (test code = 2220) 48 MG/DL CALC LDL CHOL (test code = 2237) 172 MG/DL RISK RATIO LDL/HDL (test cod e = 2238) 3.58 RATIO Sanjeev HelmsHEMOGLOBIN [id number] 00:00:00* Test Item Value Reference Range Interpretation Comme nts HEMOGLOBIN A1c (test code = 71954) 7.6 % Sanjeev HelmsFSH + LH [id number] 00:00:00* Test Item Value Reference Range Interpretation Comme nts FOLLICLE STIM HORMONE (test code = 2700) 3.5 IU/L LUTEINIZING HORMONE (test co de = 2776) 4.8 IU/L Sanjeev HelmsPSA, [id number] 00:00:00* Test Item Value Reference Range Interpretation Comme nts PSA, TOTAL (test code = 2606) 0.49 NG/ML Sanjeev Regalado [id number] 00:00:00* Test Item Value Reference Range Interpretation Comme nts TESTOSTERONE (test code = 2830) 380 NG/DL Sanjeev HelmsFSH + LH [id number] 00:00:00* Test Item Value Reference Range Interpretation Comme nts FOLLICLE STIM HORMONE (test code = 2700) 3.5 IU/L LUTEINIZING HORMONE (test co de = 2776) 4.8 IU/L Sanjeev HelmsPSA, [id number] 00:00:00* Test Item Value Reference Range Interpretation Comme nts PSA, TOTAL (test code = 2606) 0.49 NG/ML Sanjeev Regalado [id number] 00:00:00* Test Item Value Reference Range Interpretation Comme nts TESTOSTERONE (test code = 2830) 380 NG/DL Sanjeev Regalado [id number] 00:00:00* Test Item Value Reference Range Interpretation Comme nts PROLACTIN (test code = 2800) 20.1 NG/ML Sanjeev Regalado [id number] 00:00:00* Test Item Value Reference Range Interpretation Comme nts TESTOSTERONE (test code = 2830) 139 NG/DL Sanjeev HelmsCBC W/AUTO [id number] 00:00:00* Test Item Value Reference Range Interpretation Comme nts WBC (test code = 1001) 7.5 K/UL [...] = 1013) 0.3 % IMMATURE GRANULOCYTES (test code = 1036) 0.5 % NUCLEATED RBCS (test code = 1065) 0.0 /100WBC'S PLATELET COUNT (test code = 1015) 277 K/UL ABSOLUTE NEUTROPHILS (test c ode = 1066) 3.35 K/UL ABSOLUTE LYMPHOCYTES (test c ode = 1067) 3.50 K/UL ABSOLUTE MONOCYTES (test cod e = 1068) 0.53 K/UL ABSOLUTE EOSINOPHILS (test c ode = 1040) 0.08 K/UL ABSOLUTE BASOPHILS (test cod e = 1069) 0.02 K/UL ABS IMMATURE GRANULOCYTES (t est code = 1020) 0.04 K/UL ABS NUCLEATED RBCS (test cod e = 20421) 0.00 K/UL Sanjeev [id number] 00:00:00* Test Item Value Reference Range Interpretation Comme nts TSH, THIRD GENERATION (test code = 2821) 1.640 UIU/ML Sanjeev [id number] 00:00:00* Test Item Value Reference Range Interpretation Comme nts PROLACTIN (test code = 2800) 20.1 NG/ML Sanjeev [id number] 00:00:00* Test Item Value Reference Range Interpretation Comme nts TESTOSTERONE (test code = 2830) 139 NG/DL Sanjeev HelmsCBC W/AUTO [id number] 00:00:00* Test Item Value Reference Range Interpretation Comme nts WBC (test code = 1001) 7.5 K/UL [...] = 1013) 0.3 % IMMATURE GRANULOCYTES (test code = 1036) 0.5 % NUCLEATED RBCS (test code = 1065) 0.0 /100WBC'S PLATELET COUNT (test code = 1015) 277 K/UL ABSOLUTE NEUTROPHILS (test c ode = 1066) 3.35 K/UL ABSOLUTE LYMPHOCYTES (test c ode = 1067) 3.50 K/UL ABSOLUTE MONOCYTES (test cod e = 1068) 0.53 K/UL ABSOLUTE EOSINOPHILS (test c ode = 1040) 0.08 K/UL ABSOLUTE BASOPHILS (test cod e = 1069) 0.02 K/UL ABS IMMATURE GRANULOCYTES (t est code = 1020) 0.04 K/UL ABS NUCLEATED RBCS (test cod e = 70682) 0.00 K/UL Sanjeev [id number] 00:00:00* Test Item Value Reference Range Interpretation Comme nts TSH, THIRD GENERATION (test code = 2821) 1.640 UIU/ML Sanjeev HelmsGC, AMPLIFIED, [id number] 00:00:00* Test Item Value Reference Range Interpretation Comme nts GONORRHEA, NAAT (test code = 71076) NEGATIVE Sanjeev HelmsGC, AMPLIFIED, [id number] 00:00:00* Test Item Value Reference Range Interpretation Comme nts GONORRHEA, NAAT (test code = 47476) NEGATIVE Sanjeev HelmsHEMOGLOBIN [id number] 00:00:00* Test Item Value Reference Range Interpretation Comme nts HEMOGLOBIN A1c (test code = 87485) 6.2 % Sanjeev HelmsHEMOGLOBIN [id number] 00:00:00* Test Item Value Reference Range Interpretation Comme nts HEMOGLOBIN A1c (test code = 97898) 6.2 % Sanjeev Regalado ScooterCULTURE, URINE [ADDED]2020-12-01 00:00:00* Test Item Value Reference Range Interpretation Comme nts CULTURE, URINE (test code = 33148) SPECIMEN NUMBER: [id number] Sanjeev HelmsCULTURE, URINE [ADDED]2020-12-01 00:00:00* Test Item Value Reference Range Interpretation Comme nts CULTURE, URINE (test code = 35892) SPECIMEN NUMBER: [id number] Sanjeev HelmsHEPATITIS PROFILE (A,B,C)2020-11-30 00:00:00* Test Item Value Reference Range Interpretation Comme nts HEPATITIS A TOTAL AB (test c ode = 2725) NON-REACTIVE HEPATITIS B SURF AG (test co de = 2739) NON-REACTIVE HEP B CORE TOTAL AB (test co de = 2729) NON-REACTIVE HEPATITIS B SURFACE AB (test code = 2737) NON-REACTIVE HEPATITIS C ANTIBODY (test c ode = 4675) NON-REACTIVE INTERPRETATION HEPATITIS A: (test code = 2552) (NOTE) INTERPRETATION HEPATITIS B: (test code = 37822) (NOTE) INTERPRETATION HEPATITIS C: (test code = 27623) (NOTE) Sanjeev HelmsGC AND CHLAMYDIA, AMPLIFIED, [id number] 00:00:00* Test Item Value Reference Range Interpretation Comme nts GONORRHEA, NAAT (test code = 70857) POSITIVE CHLAMYDIA, NAAT (test code = 86373) NEGATIVE Sanjeev HelmsHIV AB/AG COMBO RFLX [id number] 00:00:00* Test Item Value Reference Range Interpretation Comme nts HIV 1/2 4TH GEN, RFLX CONF ( test code = 3514) NON-REACTIVE Sanjeev Regalado ScooterRPR REFLEX TO [id number] 00:00:00* Test Item Value Reference Range Interpretation Comme nts RPR (test code = 77807) NON-REACTIVE RPR TITER (test code = 3500) NOT INDIC. TITER Sanjeev HelmsHEPATITIS PROFILE (A,B,C)2020-11-30 00:00:00* Test Item Value Reference Range Interpretation Comme nts HEPATITIS A TOTAL AB (test c ode = 2725) NON-REACTIVE HEPATITIS B SURF AG (test co de = 2739) NON-REACTIVE HEP B CORE TOTAL AB (test co de = 2729) NON-REACTIVE HEPATITIS B SURFACE AB (test code = 2737) NON-REACTIVE HEPATITIS C ANTIBODY (test c ode = 4675) NON-REACTIVE INTERPRETATION HEPATITIS A: (test code = 2552) (NOTE) INTERPRETATION HEPATITIS B: (test code = 36294) (NOTE) INTERPRETATION HEPATITIS C: (test code = 74077) (NOTE) Sanjeev Pate AND CHLAMYDIA, AMPLIFIED, [id number] 00:00:00* Test Item Value Reference Range Interpretation Comme nts GONORRHEA, NAAT (test code = 08144) POSITIVE CHLAMYDIA, NAAT (test code = 92384) NEGATIVE Sanjeev HelmsHIV AB/AG COMBO RFLX [id number] 00:00:00* Test Item Value Reference Range Interpretation Comme nts HIV 1/2 4TH GEN, RFLX CONF ( test code = 3514) NON-REACTIVE Sanjeev HelmsRPR REFLEX TO [id number] 00:00:00* Test Item Value Reference Range Interpretation Comme nts RPR (test code = 96341) NON-REACTIVE RPR TITER (test code = 3500) NOT INDIC. TITER Sanjeev HelmsCOMPREHENSIVE METABOLIC [id number] 00:00:00* Test Item Value Reference Range Interpretation Comme nts GLUCOSE (test code = 2217) 99 MG/DL BUN (test code = 2208) 14 MG/DL CREATININE (test code = 2214) 1.10 MG/DL eGFR AMER. (test cod e = 72270) 92 ML/MIN/1.73 eGFR NON- AMER. (test code = 09587) 80 ML/MIN/1.73 CALC BUN/CREAT (test code = 2235) 13 RATIO SODIUM (test code = 2231) 145 MEQ/L POTASSIUM (test code = 2228) 3.2 MEQ/L CHLORIDE (test code = 2215) 100 MEQ/L CARBON DIOXIDE (test code = 2206) 33 MEQ/L CALCIUM (test code = 2209) 10.1 MG/DL PROTEIN, TOTAL (test code = 2229) 7.5 G/DL ALBUMIN (test code = 2201) 4.7 G/DL CALC GLOBULIN (test code = 2240) 2.8 G/DL CALC A/G RATIO (test code = 2234) 1.7 RATIO BILIRUBIN, TOTAL (test code = 2207) 0.6 MG/DL ALKALINE PHOSPHATASE (test code = 2204) 131 U/L AST (test code = 2218) 21 U/L ALT (test code = 2219) 21 U/L Sanjeev Regalado AustinLIPID [id number] 00:00:00* Test Item Value Reference Range Interpretation Comme nts CHOLESTEROL (test code = 2210) 138 MG/DL TRIGLYCERIDES (test code = 2232) 93 MG/DL HDL CHOLESTEROL (test code = 2220) 48 MG/DL CALC LDL CHOL (test code = 2237) 72 MG/DL RISK RATIO LDL/HDL (test cod e = 2238) 1.50 RATIO Sanjeev Regalado AustinHEMOGLOBIN [id number] 00:00:00* Test Item Value Reference Range Interpretation Comme nts HEMOGLOBIN A1c (test code = 84441) 5.5 % Sanjeev Regalado AustinCOMPREHENSIVE METABOLIC [id number] 00:00:00* Test Item Value Reference Range Interpretation Comme nts GLUCOSE (test code = 2217) 99 MG/DL BUN (test code = 2208) 14 MG/DL CREATININE (test code = 2214) 1.10 MG/DL eGFR AMER. (test cod e = 04937) 92 ML/MIN/1.73 eGFR NON- AMER. (test code = 63556) 80 ML/MIN/1.73 CALC BUN/CREAT (test code = 2235) 13 RATIO SODIUM (test code = 2231) 145 MEQ/L POTASSIUM (test code = 2228) 3.2 MEQ/L CHLORIDE (test code = 2215) 100 MEQ/L CARBON DIOXIDE (test code = 2206) 33 MEQ/L CALCIUM (test code = 2209) 10.1 MG/DL PROTEIN, TOTAL (test code = 2229) 7.5 G/DL ALBUMIN (test code = 2201) 4.7 G/DL CALC GLOBULIN (test code = 2240) 2.8 G/DL CALC A/G RATIO (test code = 2234) 1.7 RATIO BILIRUBIN, TOTAL (test code = 2207) 0.6 MG/DL ALKALINE PHOSPHATASE (test code = 2204) 131 U/L AST (test code = 2218) 21 U/L ALT (test code = 2219) 21 U/L Sanjeev Regalado AustinLIPID [id number] 00:00:00* Test Item Value Reference Range Interpretation Comme nts CHOLESTEROL (test code = 2210) 138 MG/DL TRIGLYCERIDES (test code = 2232) 93 MG/DL HDL CHOLESTEROL (test code = 2220) 48 MG/DL CALC LDL CHOL (test code = 2237) 72 MG/DL RISK RATIO LDL/HDL (test cod e = 2238) 1.50 RATIO Sanjeev HelmsHEMOGLOBIN [id number] 00:00:00* Test Item Value Reference Range Interpretation Comme nts HEMOGLOBIN A1c (test code = 87770) 5.5 % Sanjeev Regalado AustinMICROALBUMIN/CREATININE, RANDOM AND [id number] 00:00:00* Test Item Value Reference Range Interpretation Comme nts CREATININE, URINE, CONC. (te st code = 2072) 113.2 MG/DL ALBUMIN, URINE, RANDOM (test code = 04212) 0.3 MG/DL CALC ALBUMIN/CREAT, RND (angie t code = 03730) 3 MG/G Sanjeev Regalado AustinLIPID [id number] 00:00:00* Test Item Value Reference Range Interpretation Comme nts CHOLESTEROL (test code = 2210) 209 MG/DL TRIGLYCERIDES (test code = 2232) 212 MG/DL HDL CHOLESTEROL (test code = 2220) 47 MG/DL CALC LDL CHOL (test code = 2237) 120 MG/DL RISK RATIO LDL/HDL (test cod e = 2238) 2.54 RATIO Sanjeev HelmsHEMOGLOBIN [id number] 00:00:00* Test Item Value Reference Range Interpretation Comme nts HEMOGLOBIN A1c (test code = 75335) 5.9 % Sanjeev HelmsCOMPREHENSIVE METABOLIC [id number] 00:00:00* Test Item Value Reference Range Interpretation Comme nts GLUCOSE (test code = 2217) 83 MG/DL BUN (test code = 2208) 12 MG/DL CREATININE (test code = 2214) 1.03 MG/DL eGFR AMER. (test cod e = 42251) 100 ML/MIN/1.73 eGFR NON- AMER. (test code = 58585) 87 ML/MIN/1.73 CALC BUN/CREAT (test code = 2235) 12 RATIO SODIUM (test code = 2231) 142 MEQ/L POTASSIUM (test code = 2228) 3.6 MEQ/L CHLORIDE (test code = 2215) 98 MEQ/L CARBON DIOXIDE (test code = 2206) 31 MEQ/L CALCIUM (test code = 2209) 10.1 MG/DL PROTEIN, TOTAL (test code = 2229) 7.7 G/DL ALBUMIN (test code = 2201) 4.6 G/DL CALC GLOBULIN (test code = 2240) 3.1 G/DL CALC A/G RATIO (test code = 2234) 1.5 RATIO BILIRUBIN, TOTAL (test code = 2207) 0.3 MG/DL ALKALINE PHOSPHATASE (test code = 2204) 133 U/L AST (test code = 2218) 17 U/L ALT (test code = 2219) 11 U/L Sanjeev Regalado AustinMICROALBUMIN/CREATININE, RANDOM AND [id number] 00:00:00* Test Item Value Reference Range Interpretation Comme nts CREATININE, URINE, CONC. (te st code = 2072) 113.2 MG/DL ALBUMIN, URINE, RANDOM (test code = 72743) 0.3 MG/DL CALC ALBUMIN/CREAT, RND (angie t code = 88722) 3 MG/G Sanjeev HelmsLIPID [id number] 00:00:00* Test Item Value Reference Range Interpretation Comme nts CHOLESTEROL (test code = 2210) 209 MG/DL TRIGLYCERIDES (test code = 2232) 212 MG/DL HDL CHOLESTEROL (test code = 2220) 47 MG/DL CALC LDL CHOL (test code = 2237) 120 MG/DL RISK RATIO LDL/HDL (test cod e = 2238) 2.54 RATIO Sanjeev HelmsHEMOGLOBIN [id number] 00:00:00* Test Item Value Reference Range Interpretation Comme nts HEMOGLOBIN A1c (test code = 05293) 5.9 % Sanjeev HelmsCOMPREHENSIVE METABOLIC [id number] 00:00:00* Test Item Value Reference Range Interpretation Comme nts GLUCOSE (test code = 2217) 83 MG/DL BUN (test code = 8) 12 MG/DL CREATININE (test code = 2214) 1.03 MG/DL eGFR AMER. (test cod e = 69241) 100 ML/MIN/1.73 eGFR NON- AMER. (test code = 56553) 87 ML/MIN/1.73 CALC BUN/CREAT (test code = 2235) 12 RATIO SODIUM (test code = 2231) 142 MEQ/L POTASSIUM (test code = 2228) 3.6 MEQ/L CHLORIDE (test code = 2215) 98 MEQ/L CARBON DIOXIDE (test code = 2206) 31 MEQ/L CALCIUM (test code = 2209) 10.1 MG/DL PROTEIN, TOTAL (test code = 2229) 7.7 G/DL ALBUMIN (test code = 2201) 4.6 G/DL CALC GLOBULIN (test code = 2240) 3.1 G/DL CALC A/G RATIO (test code = 2234) 1.5 RATIO BILIRUBIN, TOTAL (test code = 2207) 0.3 MG/DL ALKALINE PHOSPHATASE (test code = 2204) 133 U/L AST (test code = 2218) 17 U/L ALT (test code = 2219) 11 U/L Sanjeev Regalado AustinHEMOGLOBIN [id number] 00:00:00* Test Item Value Reference Range Interpretation Comme nts HEMOGLOBIN A1c (test code = 08509) 5.7 % Sanjeev Regalado AustinHEMOGLOBIN [id number] 00:00:00* Test Item Value Reference Range Interpretation Comme nts HEMOGLOBIN A1c (test code = 87151) 5.7 % Sanjeev Regalado NalcrestCOMPREHENSIVE METABOLIC [id number] 00:00:00* Test Item Value Reference Range Interpretation Comme nts GLUCOSE (test code = 2217) 76 MG/DL BUN (test code = 2208) 16 MG/DL CREATININE (test code = 2214) 1.06 MG/DL eGFR AMER. (test cod e = 61805) 98 ML/MIN/1.73 eGFR NON- AMER. (test code = 50957) 84 ML/MIN/1.73 CALC BUN/CREAT (test code = 2235) 15 RATIO SODIUM (test code = 2231) 143 MEQ/L POTASSIUM (test code = 2228) 4.1 MEQ/L CHLORIDE (test code = 2215) 98 MEQ/L CARBON DIOXIDE (test code = 2206) 33 MEQ/L CALCIUM (test code = 2209) 10.2 MG/DL PROTEIN, TOTAL (test code = 2229) 7.7 G/DL ALBUMIN (test code = 2201) 4.6 G/DL CALC GLOBULIN (test code = 2240) 3.1 G/DL CALC A/G RATIO (test code = 2234) 1.5 RATIO BILIRUBIN, TOTAL (test code = 2207) 0.7 MG/DL ALKALINE PHOSPHATASE (test code = 2204) 107 U/L AST (test code = 2218) 22 U/L ALT (test code = 2219) 19 U/L Sanjeev HelmsHEMOGLOBIN [id number] 00:00:00* Test Item Value Reference Range Interpretation Comme santa HEMOGLOBIN A1c (test code = 91108) 5.6 % Sanjeev HelmsCBC W/AUTO [id number] 00:00:00* Test Item Value Reference Range Interpretation Comme nts WBC (test code = 1001) 6.0 K/UL [...] COUNT (test code = 1015) 231 K/UL Sanjeev HelmsLIPID [id number] 00:00:00* Test Item Value Reference Range Interpretation Comme nts CHOLESTEROL (test code = 2210) 242 MG/DL TRIGLYCERIDES (test code = 2232) 91 MG/DL HDL CHOLESTEROL (test code = 2220) 66 MG/DL CALC LDL CHOL (test code = 2237) 158 MG/DL RISK RATIO LDL/HDL (test cod e = 2238) 2.39 RATIO Sanjeev HelmsMICROALBUMIN/CREATININE, RANDOM AND [id number] 00:00:00* Test Item Value Reference Range Interpretation Comme nts CREATININE, URINE, CONC. (te st code = 2072) 74.8 MG/DL ALBUMIN, URINE, RANDOM (test code = 37254) <0.2 MG/DL CALC ALBUMIN/CREAT, RND (angie t code = 39872) <3 MG/G Sanjeev HelmsCOMPREHENSIVE METABOLIC [id number] 00:00:00* Test Item Value Reference Range Interpretation Comme nts GLUCOSE (test code = 2217) 76 MG/DL BUN (test code = 2208) 16 MG/DL CREATININE (test code = 2214) 1.06 MG/DL eGFR AMER. (test cod e = 03068) 98 ML/MIN/1.73 eGFR NON- AMER. (test code = 47145) 84 ML/MIN/1.73 CALC BUN/CREAT (test code = 2235) 15 RATIO SODIUM (test code = 2231) 143 MEQ/L POTASSIUM (test code = 2228) 4.1 MEQ/L CHLORIDE (test code = 2215) 98 MEQ/L CARBON DIOXIDE (test code = 2206) 33 MEQ/L CALCIUM (test code = 2209) 10.2 MG/DL PROTEIN, TOTAL (test code = 2229) 7.7 G/DL ALBUMIN (test code = 2201) 4.6 G/DL CALC GLOBULIN (test code = 2240) 3.1 G/DL CALC A/G RATIO (test code = 2234) 1.5 RATIO BILIRUBIN, TOTAL (test code = 2207) 0.7 MG/DL ALKALINE PHOSPHATASE (test code = 2204) 107 U/L AST (test code = 2218) 22 U/L ALT (test code = 2219) 19 U/L Sanjeev HelmsHEMOGLOBIN [id number] 00:00:00* Test Item Value Reference Range Interpretation Comme santa HEMOGLOBIN A1c (test code = 46362) 5.6 % Sanjeev HelmsCBC W/AUTO [id number] 00:00:00* Test Item Value Reference Range Interpretation Comme santa WBC (test code = 1001) 6.0 K/UL [...] COUNT (test code = 1015) 231 K/UL Sanjeev HelmsLIPID [id number] 00:00:00* Test Item Value Reference Range Interpretation Comme nts CHOLESTEROL (test code = 2210) 242 MG/DL TRIGLYCERIDES (test code = 2232) 91 MG/DL HDL CHOLESTEROL (test code = 2220) 66 MG/DL CALC LDL CHOL (test code = 2237) 158 MG/DL RISK RATIO LDL/HDL (test cod e = 2238) 2.39 RATIO Sanjeev HelmsMICROALBUMIN/CREATININE, RANDOM AND [id number] 00:00:00* Test Item Value Reference Range Interpretation Comme nts CREATININE, URINE, CONC. (te st code = 2072) 74.8 MG/DL ALBUMIN, URINE, RANDOM (test code = 49518) <0.2 MG/DL CALC ALBUMIN/CREAT, RND (angie t code = 03832) <3 MG/G Sanjeev HelmsHEMOGLOBIN [id number] 00:00:00* Test Item Value Reference Range Interpretation Comme nts HEMOGLOBIN A1c (test code = 37627) 6.7 % aSnjeev [id number] 00:00:00* Test Item Value Reference Range Interpretation Comme nts TSH (test code = 2821) 0.8 UIU/ML Sanjeev HelmsCOMPREHENSIVE METABOLIC [id number] 00:00:00* Test Item Value Reference Range Interpretation Comme nts GLUCOSE (test code = 2217) 82 MG/DL BUN (test code = 2208) 13 MG/DL CREATININE (test code = 2214) 1.12 MG/DL eGFR AMER. (test cod e = 87558) 93 ML/MIN/1.73 eGFR NON- AMER. (test code = 67253) 80 ML/MIN/1.73 CALC BUN/CREAT (test code = 2235) 12 RATIO SODIUM (test code = 2231) 145 MEQ/L POTASSIUM (test code = 2228) 3.3 MEQ/L CHLORIDE (test code = 2215) 102 MEQ/L CARBON DIOXIDE (test code = 2206) 30 MEQ/L CALCIUM (test code = 2209) 9.7 MG/DL PROTEIN, TOTAL (test code = 2229) 6.7 G/DL ALBUMIN (test code = 2201) 4.4 G/DL CALC GLOBULIN (test code = 2240) 2.3 G/DL CALC A/G RATIO (test code = 2234) 1.9 RATIO BILIRUBIN, TOTAL (test code = 2207) 0.4 MG/DL ALKALINE PHOSPHATASE (test code = 2204) 90 U/L AST (test code = 2218) 14 U/L ALT (test code = 2219) 6 U/L Sanjeev HelmsLIPID [id number] 00:00:00* Test Item Value Reference Range Interpretation Comme nts CHOLESTEROL (test code = 2210) 144 MG/DL TRIGLYCERIDES (test code = 2232) 127 MG/DL HDL CHOLESTEROL (test code = 2220) 44 MG/DL CALC LDL CHOL (test code = 2237) 75 MG/DL RISK RATIO LDL/HDL (test cod e = 2238) 1.70 RATIO Sanjeev Regalado ScooterCBC W/AUTO [id number] 00:00:00* Test Item Value Reference Range Interpretation Comme nts WBC (test code = 1001) 7.1 K/UL [...] EOSINOPHILS (test code = 1012) 1 % PLATELET COUNT (test code = 1015) 241 K/UL Sanjeev HelmsHEMOGLOBIN [id number] 00:00:00* Test Item Value Reference Range Interpretation Comme nts HEMOGLOBIN A1c (test code = 25919) 6.7 % Sanjeev Regalado [id number] 00:00:00* Test Item Value Reference Range Interpretation Comme nts TSH (test code = 2821) 0.8 UIU/ML Sanjeev HelmsCOMPREHENSIVE METABOLIC [id number] 00:00:00* Test Item Value Reference Range Interpretation Comme nts GLUCOSE (test code = 2217) 82 MG/DL BUN (test code = 2208) 13 MG/DL CREATININE (test code = 2214) 1.12 MG/DL eGFR AMER. (test cod e = 13888) 93 ML/MIN/1.73 eGFR NON- AMER. (test code = 50174) 80 ML/MIN/1.73 CALC BUN/CREAT (test code = 2235) 12 RATIO SODIUM (test code = 2231) 145 MEQ/L POTASSIUM (test code = 2228) 3.3 MEQ/L CHLORIDE (test code = 2215) 102 MEQ/L CARBON DIOXIDE (test code = 2206) 30 MEQ/L CALCIUM (test code = 2209) 9.7 MG/DL PROTEIN, TOTAL (test code = 2229) 6.7 G/DL ALBUMIN (test code = 2201) 4.4 G/DL CALC GLOBULIN (test code = 2240) 2.3 G/DL CALC A/G RATIO (test code = 2234) 1.9 RATIO BILIRUBIN, TOTAL (test code = 2207) 0.4 MG/DL ALKALINE PHOSPHATASE (test code = 2204) 90 U/L AST (test code = 2218) 14 U/L ALT (test code = 2219) 6 U/L Sanjeev HelmsLIPID [id number] 00:00:00* Test Item Value Reference Range Interpretation Comme nts CHOLESTEROL (test code = 2210) 144 MG/DL TRIGLYCERIDES (test code = 2232) 127 MG/DL HDL CHOLESTEROL (test code = 2220) 44 MG/DL CALC LDL CHOL (test code = 2237) 75 MG/DL RISK RATIO LDL/HDL (test cod e = 2238) 1.70 RATIO Sanjeev HelmsCBC W/AUTO [id number] 00:00:00* Test Item Value Reference Range Interpretation Comme nts WBC (test code = 1001) 7.1 K/UL [...] EOSINOPHILS (test code = 1012) 1 % PLATELET COUNT (test code = 1015) 241 K/UL Sanjeev Regalado AustinDRUG SCREEN, [id number] 00:00:00* Test Item Value Reference Range Interpretation Comme nts AMPHETAMINES (test code = 69969) Negative BARBITURATES (test code = 27199) Negative BENZODIAZEPINES (test code = 51544) Negative COCAINE METABOLITE (test cod e = 64193) Negative METHADONE (test code = 88635) Negative OPIATES (test code = 141971) Negative PHENCYCLIDINE (test code = 118490) Negative PROPOXYPHENE (test code = 242871) Negative THC (CANNABIS) (test code = 536144) Negative ETHANOL (test code = 502821) Negative Sanjeev HelmsDRUG SCREEN, [id number] 00:00:00* Test Item Value Reference Range Interpretation Comme nts AMPHETAMINES (test code = 52677) Negative BARBITURATES (test code = 64778) Negative BENZODIAZEPINES (test code = 75512) Negative COCAINE METABOLITE (test cod e = 43138) Negative METHADONE (test code = 91649) Negative OPIATES (test code = 363820) Negative PHENCYCLIDINE (test code = 436311) Negative PROPOXYPHENE (test code = 706812) Negative THC (CANNABIS) (test code = 868957) Negative ETHANOL (test code = 400803) Negative Sanjeev HelmsCOMPREHENSIVE METABOLIC [id number] 00:00:00* Test Item Value Reference Range Interpretation Comme nts GLUCOSE (test code = 2217) 110 MG/DL BUN (test code = 2208) 19 MG/DL CREATININE (test code = 2214) 1.13 MG/DL eGFR AMER. (test cod e = 69709) 92 ML/MIN/1.73 eGFR NON- AMER. (test code = 89412) 80 ML/MIN/1.73 CALCULATED BUN/CREAT (test code = 2235) 17 RATIO SODIUM (test code = 2231) 140 MEQ/L POTASSIUM (test code = 2228) 3.7 MEQ/L CHLORIDE (test code = 2215) 102 MEQ/L CARBON DIOXIDE (test code = 2206) 30 MEQ/L CALCIUM (test code = 2209) 9.4 MG/DL PROTEIN, TOTAL (test code = 2229) 7.1 G/DL ALBUMIN (test code = 2201) 4.3 G/DL CALCULATED GLOBULIN (test co de = 2240) 2.8 G/DL CALCULATED A/G RATIO (test code = 2234) 1.5 RATIO BILIRUBIN, TOTAL (test code = 2207) 0.7 MG/DL ALKALINE PHOSPHATASE (test code = 2204) 97 U/L SGOT (AST) (test code = 2218) 24 U/L SGPT (ALT) (test code = 2219) 17 U/L Sanjeev HelmsLIPID [id number] 00:00:00* Test Item Value Reference Range Interpretation Comme nts CHOLESTEROL (test code = 2210) 193 MG/DL TRIGLYCERIDES (test code = 2232) 130 MG/DL HDL CHOLESTEROL (test code = 2220) 41 MG/DL CALCULATED LDL CHOL (test co de = 2237) 126 MG/DL RISK RATIO LDL/HDL (test cod e = 2238) 3.07 RATIO Sanjeev HelmsCBC W/AUTO [id number] 00:00:00* Test Item Value Reference Range Interpretation Comme nts WBC (test code = 1001) 4.8 K/UL [...] EOSINOPHILS (test code = 1012) 1 % PLATELET COUNT (test code = 1015) 258 K/UL Sanjeev HelmsHEMOGLOBIN [id number] 00:00:00* Test Item Value Reference Range Interpretation Comme nts HEMOGLOBIN A1c (test code = 00430) 7.0 % Sanjeev HelmsTHYROID II PROFILE (T3U, T4, T7, TSH)[id number] 00:00:00* Test Item Value Reference Range Interpretation Comme nts T3 UPTAKE (test code = 2817) 29.2 % T4 (THYROXINE) (test code = 2819) 6.0 UG/DL CALCULATED T7 (FTI) (test co de = 2820) 1.75 TSH (test code = 2821) 0.7 UIU/ML Sanjeev HelmsCOMPREHENSIVE METABOLIC [id number] 00:00:00* Test Item Value Reference Range Interpretation Comme nts GLUCOSE (test code = 2217) 110 MG/DL BUN (test code = 2208) 19 MG/DL CREATININE (test code = 2214) 1.13 MG/DL eGFR AMER. (test cod e = 69684) 92 ML/MIN/1.73 eGFR NON- AMER. (test code = 14820) 80 ML/MIN/1.73 CALCULATED BUN/CREAT (test code = 2235) 17 RATIO SODIUM (test code = 2231) 140 MEQ/L POTASSIUM (test code = 2228) 3.7 MEQ/L CHLORIDE (test code = 2215) 102 MEQ/L CARBON DIOXIDE (test code = 2206) 30 MEQ/L CALCIUM (test code = 2209) 9.4 MG/DL PROTEIN, TOTAL (test code = 2229) 7.1 G/DL ALBUMIN (test code = 2201) 4.3 G/DL CALCULATED GLOBULIN (test co de = 2240) 2.8 G/DL CALCULATED A/G RATIO (test code = 2234) 1.5 RATIO BILIRUBIN, TOTAL (test code = 2207) 0.7 MG/DL ALKALINE PHOSPHATASE (test code = 2204) 97 U/L SGOT (AST) (test code = 2218) 24 U/L SGPT (ALT) (test code = 2219) 17 U/L Sanjeev Regalado AustinLIPID [id number] 00:00:00* Test Item Value Reference Range Interpretation Comme nts CHOLESTEROL (test code = 2210) 193 MG/DL TRIGLYCERIDES (test code = 2232) 130 MG/DL HDL CHOLESTEROL (test code = 2220) 41 MG/DL CALCULATED LDL CHOL (test co de = 2237) 126 MG/DL RISK RATIO LDL/HDL (test cod e = 2238) 3.07 RATIO Sanjeev HelmsCBC W/AUTO [id number] 00:00:00* Test Item Value Reference Range Interpretation Comme nts WBC (test code = 1001) 4.8 K/UL [...] EOSINOPHILS (test code = 1012) 1 % PLATELET COUNT (test code = 1015) 258 K/UL Sanjeev HelmsHEMOGLOBIN [id number] 00:00:00* Test Item Value Reference Range Interpretation Comme nts HEMOGLOBIN A1c (test code = 76327) 7.0 % Sanjeev HelmsTHYROID II PROFILE (T3U, T4, T7, TSH)[id number] 00:00:00* Test Item Value Reference Range Interpretation Comme nts T3 UPTAKE (test code = 2817) 29.2 % T4 (THYROXINE) (test code = 2819) 6.0 UG/DL CALCULATED T7 (FTI) (test co de = 2820) 1.75 TSH (test code = 2821) 0.7 UIU/ML Sanjeev HelmsTHYROID II PROFILE (T3U, T4, T7, TSH)2015-05-03 00:00:00* Test Item Value Reference Range Interpretation Comme nts T3 UPTAKE (test code = 2817) 27.3 % T4 (THYROXINE) (test code = 2819) 5.4 UG/DL CALCULATED T7 (FTI) (test co de = 2820) 1.47 TSH (test code = 2821) 1.3 UIU/ML Sanjeev HelmsCOMPREHENSIVE METABOLIC [id number] 00:00:00* Test Item Value Reference Range Interpretation Comme nts GLUCOSE (test code = 2217) 96 MG/DL BUN (test code = 2208) 14 MG/DL CREATININE (test code = 2214) 1.0 MG/DL eGFR AMER. (test cod e = 10491) 99 ML/MIN/1.73 eGFR NON- AMER. (test code = 71689) 82 ML/MIN/1.73 CALCULATED BUN/CREAT (test code = 2235) 14 RATIO SODIUM (test code = 2231) 137 MEQ/L POTASSIUM (test code = 2228) 4.1 MEQ/L CHLORIDE (test code = 2215) 105 MEQ/L CARBON DIOXIDE (test code = 2206) 25 MEQ/L CALCIUM (test code = 2209) 9.3 MG/DL PROTEIN, TOTAL (test code = 222) 7.2 G/DL ALBUMIN (test code = 220) 4.3 G/DL CALCULATED GLOBULIN (test co de = 2240) 2.9 G/DL CALCULATED A/G RATIO (test code = 2234) 1.5 RATIO BILIRUBIN, TOTAL (test code = 2207) 0.7 MG/DL ALKALINE PHOSPHATASE (test code = 2204) 100 U/L SGOT (AST) (test code = 2218) 23 U/L SGPT (ALT) (test code = 2219) 17 U/L Sanjeev HelmsLIPID [id number] 00:00:00* Test Item Value Reference Range Interpretation Comme nts CHOLESTEROL (test code = 2210) 254 MG/DL TRIGLYCERIDES (test code = 2232) 246 MG/DL HDL CHOLESTEROL (test code = 2220) 40 MG/DL CALCULATED LDL CHOL (test co de = 223) 165 MG/DL RISK RATIO LDL/HDL (test cod e = 2238) 4.12 RATIO Sanjeev HelmsCBC W/AUTO [id number] 00:00:00* Test Item Value Reference Range Interpretation Comme nts WBC (test code = 1001) 6.5 K/UL [...] EOSINOPHILS (test code = 1012) 2 % PLATELET COUNT (test code = 1015) 278 K/UL Sanjeev HelmsTHYROID II PROFILE (T3U, T4, T7, TSH)2015-05-03 00:00:00* Test Item Value Reference Range Interpretation Comme nts T3 UPTAKE (test code = 2817) 27.3 % T4 (THYROXINE) (test code = 2819) 5.4 UG/DL CALCULATED T7 (FTI) (test co de = 2820) 1.47 TSH (test code = 2821) 1.3 UIU/ML Sanjeev HelmsCOMPREHENSIVE METABOLIC [id number] 00:00:00* Test Item Value Reference Range Interpretation Comme nts GLUCOSE (test code = 2217) 96 MG/DL BUN (test code = 2208) 14 MG/DL CREATININE (test code = 2214) 1.0 MG/DL eGFR AMER. (test cod e = 80791) 99 ML/MIN/1.73 eGFR NON- AMER. (test code = 92786) 82 ML/MIN/1.73 CALCULATED BUN/CREAT (test code = 2235) 14 RATIO SODIUM (test code = 2231) 137 MEQ/L POTASSIUM (test code = 2228) 4.1 MEQ/L CHLORIDE (test code = 2215) 105 MEQ/L CARBON DIOXIDE (test code = 2206) 25 MEQ/L CALCIUM (test code = 2209) 9.3 MG/DL PROTEIN, TOTAL (test code = 2229) 7.2 G/DL ALBUMIN (test code = 2201) 4.3 G/DL CALCULATED GLOBULIN (test co de = 2240) 2.9 G/DL CALCULATED A/G RATIO (test code = 2234) 1.5 RATIO BILIRUBIN, TOTAL (test code = 2207) 0.7 MG/DL ALKALINE PHOSPHATASE (test code = 2204) 100 U/L SGOT (AST) (test code = 2218) 23 U/L SGPT (ALT) (test code = 2219) 17 U/L Sanjeev HelmsLIPID [id number] 00:00:00* Test Item Value Reference Range Interpretation Comme nts CHOLESTEROL (test code = 2210) 254 MG/DL TRIGLYCERIDES (test code = 2232) 246 MG/DL HDL CHOLESTEROL (test code = 2220) 40 MG/DL CALCULATED LDL CHOL (test co de = 2237) 165 MG/DL RISK RATIO LDL/HDL (test cod e = 2238) 4.12 RATIO [facility] [id number] 00:00:00* Test Item Value Reference Range Interpretation Comme nts WBC (test code = 1001) 6.5 K/UL [...] EOSINOPHILS (test code = 1012) 2 % PLATELET COUNT (test code = 1015) 278 K/UL Sanjeev Helms Notes Date/Time Note Provider Source Sanjeev Helms [facility]2024-09-18 00:00:00 Sanjeev Helms [facility]"
[2024-12-04 19:46] LABS: Absolute Eosinophils 0.2 K/uL (0-0.5); Absolute Lymphocytes (CBC) 3.1 K/uL (0.7-4.9); Absolute Monocytes 0.6 K/uL (0.1-1.3); Basophils % 0.5 % (0-1.3); Eosinophils % 1.9 % (0-4.4); Hematocrit 39.4 % (39.6-49.0); MCH 26.8 pg (27.0-35.0); MCV 81.1 fL (80-100); MPV 8.4 fL (7.6-11.3); Monocytes % 8.1 % (3.3-12.3); Neutrophils % 50.5 % (41.7-73.7); Nucleated Red Blood Cells % 0.4 % (0-0); Platelets 233 thou/uL (152-406); RBC Red Blood Cell Count 4.86 M/uL (4.33-5.43)
[2024-12-04 20:05] LABS: Albumin 3.4 g/dL (3.4-5.0); Albumin/Globulin Ratio 0.9 (1.1-1.8); Bilirubin Direct 0.2 mg/dL (0-0.2); Bilirubin Indirect, Calculated 0.8 mg/dL (0.2-0.8); Magnesium 2.1 mg/dL (1.6-2.4); Protein, Total 7.4 g/dL (6.4-8.2)
[2024-12-04 20:08] LABS: Troponin High Sensitivity 161.8 pg/mL (<58.9)
--- NOTE | 2024-12-04 20:08 | RAD REPORT ---
EXAMINATION: ONE VIEW CHEST XR CLINICAL INDICATION: Cough;Congestion TECHNIQUE: Frontal chest projection is submitted. Examination is limited by patient positioning and t echnique. COMPARISON: 04/28/2024 FINDINGS: Mild bilateral pulmonary opacities may represent pulmonary edema or pneumonia. The heart is upper gardner it of normal in size. No displaced fractures identified.
[2024-12-04 20:14] LABS: Influenza A Ag Negative; Influenza B Ag Negative; SARS-CoV-2 Antigen Rapid Res Negative (Negative)
[2024-12-04] MEDS ORDERED: POTASSIUM CL SA 10 MEQ TAB PO ONE (20:53)
--- NOTE | 2024-12-04 21:01 | ER ---
Nurse's Notes [facility] Name: Ana Paula Oviedo Age: 49 yrs Sex: Male : 1975 Arrival Date: 12/04/2024 Time: 18:50 Bed 13 Private MD: Diagnosis: NSTEMI;Pulmonary edema Presentation: 12/04 18:56 Chief complaint: Patient states: diff breathing sine last night, worse when laying back iw , had a cough last week, no fever , denies chest pain , hx of diabetes and htn. Coronavirus screen: Client presents with at least one sign or symptom that may indicate coronavirus-19. Ebola Screen: No symptoms or risks identified at this time. Initial Sepsis Screen: Does the patient meet any 2 criteria? No. Patient's initial sepsis screen is negative. Does the patient have a suspected source of infection? No. Patient's initial sepsis screen is negative. Risk Assessment: Do you want to hurt yourself or someone else? Patient reports no desire to harm self or others. Onset of symptoms was December 04, 2024. 18:56 Method Of Arrival: Ambulatory iw 18:56 Acuity: ALIRIO 3 iw Triage Assessment: 19:23 Respiratory: Reports shortness of breath at rest Onset: The symptoms/episode kj2 began/occurred yesterday, the patient has moderate shortness of breath. Historical: - Allergies: 18:58 No Known Allergies; iw - PMHx: 18:58 Hypertension; Depression; Diabetes - IDDM; Anxiety; Hyperlipidemia; Schizophrenia; iw - Immunization history:: Adult Immunizations not up to date. - Infectious Disease History:: Denies. - Social history:: Smoking status: Patient denies any tobacco usage or history of. Screenin:22 [facility] ED Fall Risk Assessment (Adult) History of falling in the last 3 months, kj2 including since admission No falls in past 3 months (0 pts) Confusion or Disorientation No (0 pts) Intoxicated or Sedated No (0 pts) Impaired Gait No (0 pts) Mobility Assist Device Used No (0 pt) Altered Elimination No (0 pt) Score/Fall Risk Level 0 - 2 = Low Risk Maintained a safe environment, Hourly rounding (assess needs \T\ fall precautionary measures) done. Abuse screen: Denies threats or abuse. Denies injuries from another. Nutritional screening: No deficits noted. Tuberculosis screening: No symptoms or risk factors identified. Assessment: 19:19 General: Appears in no apparent distress. Behavior is calm, cooperative. Pain: Denies kj2 pain. Neuro: Level of Consciousness is awake, alert, obeys commands, Oriented to person, place, time, situation. Cardiovascular: Patient's skin is warm and dry. Respiratory: Airway is patent Respiratory effort is labored, on room air. Respiratory: Breath sounds with rhonchi bilaterally. GI: No signs and/or symptoms were reported involving the gastrointestinal system. : No signs and/or symptoms were reported regarding the genitourinary system. 20:11 Reassessment: Patient appears in no apparent distress at this time. Patient and/or kj2 family updated on plan of care and expected duration. Pain level reassessed. Patient is alert, oriented x 3, equal unlabored respirations, skin warm/dry/pink. 20:14 Cardiovascular: Rhythm is sinus rhythm. kj2 Vital Signs: 18:56 BP 208 / 116; Pulse 89; Resp 20; Temp 97.3; Pulse Ox 91% on R/A; Weight 111.13 kg; iw Height 6 ft. 2 in. ; 20:11 BP 192 / 110; Pulse 76; Resp 20; Pulse Ox 98% on 2 lpm NC; kj2 21:44 BP 188 / 90; Pulse 88; Pulse Ox 100% on 2 lpm NC; af3 18:56 Body Mass Index 31.46 (111.13 kg, 187.96 cm) iw ED Course: 18:51 Patient arrived in ED. am2 18:57 Sarah Rasheed FNP-C [facility] kb 18:57 John Ayon MD is Attending Physician. kb 18:57 Triage completed. iw 19:18 Geeta Fernandez, RADHA is Primary Nurse. kj2 19:22 Patient has correct armband on for positive identification. Bed in low position. Call kj2 light in reach. Adult w/ patient. Provided Education on: call light. 19:23 No provider procedures requiring assistance completed. kj2 19:35 Inserted saline lock: 20 gauge in left antecubital area, using aseptic technique. Blood kj2 collected. Flushed with 10 mL NS. 20:05 XRAY Chest (1 view) In Process Unspecified. EDMS 20:08 Notified Nurse Practitioner and/or Physician Luster Applicator of a critical lab result(s), vc1 Troponin 161.8. 20:14 COVID-19 Ag + Flu A+B Ag Sent. kj2 21:00 Prince Dave MD is Hospitalizing Provider. kb 22:18 Arm band placed on Patient placed in the treatment room, in view of staff members, on al5 anesthesiology crna, on pulse oximetry. 22:18 Patient admitted, IV remains in place. al5 Administered Medications: 20:58 Drug: Potassium Chloride PO 40 mEq PO once Route: PO; kj2 22:18 Follow up: Response: No adverse reaction al5 22:36 Drug: Furosemide IVP 40 mg IVP once; give over 2 minutes Route: IVP; Site: left al5 antecubital; 22:37 Follow up: Response: No adverse reaction al5 22:36 Drug: Enoxaparin Sub-Q 1 mg/kg Sub-Q once Route: Sub-Q; Site: left lower abdomen; al5 22:36 Follow up: Response: No adverse reaction al5 23:44 Drug: hydrALAZINE IVP 10 mg IVP once Route: IVP; Site: left antecubital; al5 12/05 00:33 Follow up: Response: No adverse reaction; Blood pressure is lowered al5 Medication: 12/04 19:24 VIS not applicable for this client. kj2 Outcome: 21:01 Decision to Hospitalize by Provider. kb 22:18 Admitted to ER Hold. Please see [facility] for further documentation. al5 22:18 Condition: stable 22:18 Instructed on the need for admit, 12/05 08:10 Patient left the ED. aa5 Signatures: Dispatcher [employer] EDMS Sarah Rasheed, HAND LOOM WEAVER-C HAND LOOM WEAVER-CkTsering Pena RN RN Nelida Chadwick RN RN aa5 Tammy Hardy Vanessa, RN RN vc1 Tammy Andres RN RN al5 Geeta Fernandez RN RN kj2 Nuris Valentin3
--- NOTE | 2024-12-04 21:01 | EDPHYS ---
Physician Documentation [facility] Name: Ana Paula Oviedo Age: 49 yrs Sex: Male : 1975 Arrival Date: 12/04/2024 Time: 18:50 Bed 13 Private MD: ED Physician John Ayon HPI: 12/04 21:53 This 49 yrs old Black Male presents to ER via Ambulatory with complaints of Breathing kb Difficulty, Cough, Chest Congestion. 21:53 Pt is a 49 year old male who presents for shortness of breath and cough that started kb 2-3 days ago and got worse today. States he has tightness in his chest when hes having trouble breathing, but denies actual chest pain. Denies fever, congestion. Historical: - Allergies: 18:58 No Known Allergies; iw - PMHx: 18:58 Hypertension; Depression; Diabetes - IDDM; Anxiety; Hyperlipidemia; Schizophrenia; iw - Immunization history:: Adult Immunizations not up to date. - Infectious Disease History:: Denies. - Social history:: Smoking status: Patient denies any tobacco usage or history of. ROS: 20:37 Constitutional: As per HPI kb Exam: 20:36 Constitutional: This is a well developed, well nourished patient who is awake, alert, kb and in no acute distress. Head/Face: Normocephalic, atraumatic. ENT: Moist Mucous membranes Cardiovascular: Regular rate Respiratory: Respirations even and unlabored. No increased work of breathing. Talking in full sentences Abdomen/GI: Soft, non-tender. No distention Skin: Warm, dry with normal turgor. Normal color. MS/ Extremity: Pulses equal, no cyanosis. Neurovascular intact. Full, normal range of motion. Neuro: Awake and alert, GCS 15, oriented to person, place, time, and situation. 20:36 ECG was reviewed by the Attending Physician. Vital Signs: 18:56 BP 208 / 116; Pulse 89; Resp 20; Temp 97.3; Pulse Ox 91% on R/A; Weight 111.13 kg; iw Height 6 ft. 2 in. ; 20:11 BP 192 / 110; Pulse 76; Resp 20; Pulse Ox 98% on 2 lpm NC; kj2 21:44 BP 188 / 90; Pulse 88; Pulse Ox 100% on 2 lpm NC; af3 18:56 Body Mass Index 31.46 (111.13 kg, 187.96 cm) iw MDM: 18:57 Medical Screening Exam initiated kb 20:37 Differential diagnosis: Myocardial Infarction pneumonia, pulmonary edema. Data kb reviewed: vital signs, nurses notes. Consideration of Admission/Observation Patient was admitted/placed on observation. Escalation of care including admission/observation considered. Management of patient was discussed with the following: Near Eastern Archaeology Lecturer: Dr Browning accepts pt for consult, wants pt NPO after midnight and lovenox started. Historians other than the Patient: Spouse/Significant Other: spouse. Counseling: I had a detailed discussion with the patient and/or guardian regarding the historical points, exam findings, and any diagnostic results supporting the discharge/admit diagnosis, lab results, radiology results, the need for further work-up and treatment in the hospital. 21:53 Management of patient was discussed with the following: Hospitalist: Dr Dave accepts kb pt for admission. 12/04 19:02 Order name: Basic Metabolic Panel; Complete Time: 20:30 kb 12/04 19:02 Order name: CBC with Diff; Complete Time: 19:51 kb 12/04 19:02 Order name: LFT's; Complete Time: 20:30 kb 12/04 19:02 Order name: Magnesium; Complete Time: 20:30 kb 12/04 19:02 Order name: NT PRO-BNP; Complete Time: 20:30 kb 12/04 19:02 Order name: Troponin HS; Complete Time: 20:30 kb 12/04 19:02 Order name: COVID-19 Ag + Flu A+B Ag; Complete Time: 20:30 kb 12/04 21:45 Order name: Magnesium EDMS 12/04 21:45 Order name: Phosphorus EDMS 12/04 21:45 Order name: Basic Metabolic Panel EDMS 12/04 21:45 Order name: Basic Metabolic Panel EDMS 12/04 21:45 Order name: CBC with Automated Diff EDMS 12/04 21:45 Order name: CBC with Automated Diff EDMS 12/04 21:45 Order name: Lipid Profile EDMS 12/04 21:45 Order name: Lipid Profile EDMS 12/04 21:45 Order name: Troponin High Sensitivity EDMS 12/04 21:45 Order name: Troponin High Sensitivity EDMS 12/04 21:45 Order name: Troponin High Sensitivity EDMS 12/04 21:45 Order name: Troponin High Sensitivity EDMS 12/05 05:13 Order name: Phosphorus EDMS 12/05 05:13 Order name: Troponin High Sensitivity EDMS 12/05 05:13 Order name: Magnesium EDMS 12/05 05:24 Order name: LDL, Direct EDMS 12/05 06:43 Order name: Urinalysis w/ reflexes EDMS 12/04 19:02 Order name: XRAY Chest (1 view); Complete Time: 20:30 kb 12/04 21:45 Order name: Echo with Doppler EDMS 12/04 19:02 Order name: Cardiac monitoring; Complete Time: 20:14 kb 12/04 19:02 Order name: EKG - Nurse/Tech; Complete Time: 20:14 kb 12/04 19:02 Order name: IV Saline Lock; Complete Time: 20:14 kb 12/04 19:02 Order name: Labs collected and sent; Complete Time: 20:14 kb 12/04 19:02 Order name: O2 Per Protocol; Complete Time: 20:14 kb 12/04 19:02 Order name: O2 Sat Monitoring; Complete Time: 20:14 kb 12/04 21:00 Order name: Vital Signs; Complete Time: 21:44 kb EC:36 Rate is 76 beats/min. Rhythm is regular. QRS Duncan is Normal. MI interval is normal at kb 186 msec. QRS interval is normal at 114 msec. QT interval is normal at 427 msec. Administered Medications: 20:58 Drug: Potassium Chloride PO 40 mEq PO once Route: PO; kj2 22:18 Follow up: Response: No adverse reaction al5 22:36 Drug: Furosemide IVP 40 mg IVP once; give over 2 minutes Route: IVP; Site: left al5 antecubital; 22:37 Follow up: Response: No adverse reaction al5 22:36 Drug: Enoxaparin Sub-Q 1 mg/kg Sub-Q once Route: Sub-Q; Site: left lower abdomen; al5 22:36 Follow up: Response: No adverse reaction al5 23:44 Drug: hydrALAZINE IVP 10 mg IVP once Route: IVP; Site: left antecubital; al5 12/05 00:33 Follow up: Response: No adverse reaction; Blood pressure is lowered al5 Disposition: 00:00 Critical Care:. kb Disposition Summary: 12/04/24 21:01 Hospitalization Ordered Notes: Hospitalization Status: Inpatient Admission kb Provider: Prince smooth Dave Condition: Stable smooth Problem: new kb Symptoms: are unchanged kb Bed/Room Type: Standard kb Location: Telemetry/MedSurg (Inpatient)(12/05/24 07:06) vc1 Room Assignment: 205(12/05/24 07:06) vc1 Diagnosis - NSTEMI kb - Pulmonary edema kb Forms: - Medication Reconciliation Form kb - SBAR form kb - Leadership Thank You Letter kb Critical care time excluding procedures: 00:00 Critical care time: Bedside Care: 15 minutes, Consultation: 15 minutes. Total time: 30 kb minutes Addendum: 12/07/2024 10:51 Co-signature as Attending Physician, John Ayon MD I reviewed the patient's care r t provided by the Advanced Practice Provider and agree with the diagnosis and treatment plan. Signatures: Dispatcher [employer] EDMI Sarah Rasheed, SOLAR MANUFACTURER'S REPRESENTATIVE-C SOLAR MANUFACTURER'S REPRESENTATIVE-Ckb Tsering Womack, RADHA GARCIA iw Maryjane Carter RN RN cg Opal Cardoza RN RN vc1 John Ayon MD MD rt Tammy Andres RN RN al5 Geeta Fernandez, RADHA RN kj2 Corrections: (The following items were deleted from the chart) 03 19:03 19:02 BASIC METABOLIC PANEL+C.LAB.BRZ ordered. EDMS EDMS 19:03 19:02 CBC+H.LAB.BRZ ordered. EDMS EDMS 19:03 19:02 HEPATIC FUNCTION+C.LAB.BRZ ordered. EDMS EDMS 19:03 19:02 MAGNESIUM+C.LAB.BRZ ordered. EDMS EDMS 19:03 19:02 PROBNP+C.LAB.BRZ ordered. EDMS EDMS 19:03 19:02 Troponin High Sensitivity+C.LAB.BRZ ordered. EDMS EDMS 19:03 19:02 COVID-19 Ag + Flu A+B Ag+I.LAB.BRZ ordered. EDMS EDMS 19:03 19:03 Chest Single View+RAD.RAD.BRZ ordered. EDMS EDMS 21:01 20:37 Management of patient was discussed with the following: Near Eastern Archaeology Lecturer: Dr Nallely rebollar accepts pt for consult, wants pt NPO after midnight. . kb :44 21:01 Telemetry/MedSurg (Inpatient) kb cg :44 21:01 kb 12/05 07:12/04 21:44 [facility] ER HOLD vc1 12/05 07:06 12/04 21:44 ERHOLD- vc1
[2024-12-04] MEDS ORDERED: ONDANSETRON 4 MG/2 ML VIAL IV PRN (21:41)
[2024-12-04] MEDS ORDERED: NITROGLYCERIN 0.4 MG/TAB SL PRN (21:41)
--- NOTE | 2024-12-04 21:47 | P.HP ---
Certification for Inpatient Patient admitted to: Inpatient With expected LOS: >2 Midnights Practitioner: I am a practitioner with admitting privileges, knowledge of patient current condition, hospital course, and medical plan of care. Services: Services provided to patient in accordance with Admission requirements found in Title 42 Section 412.3 of the Code of Federal Regulations Patient History Date of Service: 12/04/24 Reason for admission: NSTEMI History of Present Illness: Patient is a 49-year-old -Romanian male with a past medical history of hypertension, type 2 diabetes mellitus, schizophrenia and depression. She is presenting to the ER complaining of difficulty breathing. Patient denies any chest pain or lower extremity edema. Associated symptoms include orthopnea. He has no history of coronary artery disease. Allergies No Known Allergies Allergy (Unverified 04/29/24 03:19) Home Medications: Atorvastatin Calcium 10 mg PO ONCE 04/29/24 Glipizide [Glipizide Xl] 10 mg PO ONCE 04/29/24 Loratadine [Claritin] 10 mg PO ONCE 04/29/24 Metformin ER [Glucophage ER*] 1,000 mg PO BID 04/29/24 lisinopriL [Zestril] 30 mg PO ONCE 04/29/24 Amlodipine [Norvasc*] 10 mg PO DAILY #30 tab 05/01/24 Amox/Clavulanate [Augmentin 875-125 Tab] 1 each PO BID #20 tab 05/01/24 Doxycycline Hyclate 100 mg PO BID #20 cap 05/01/24 Fluconazole 200 mg PO DAILY #11 tab 05/01/24 Hydrocodone 5/APAP 325 [Rusk 5/325*] 1 tab PO Q4H PRN #20 tab 05/01/24 Nystatin Oint [Mycostatin 100 Mu/Gm Oint*] 1 appl TOP BID #1 tube 05/01/24 - Past Medical/Surgical History Diabetic: Yes -: Diabetes -: Hypertension -: Schizophrenia Physical Examination - Physical Exam General: Acute distress HEENT: Atraumatic, Normocephalic Cardiovascular: No edema, Normal pulses, Regular rate/rhythm, Normal S1 S2 Neurological: Normal speech - Studies Laboratory Data (last 24 hrs) 12/04/24 12/04/24 19:35 19:35 WBC 7.90 Hgb 13.0 L Hct 39.4 L Plt Count 233 Sodium 141 Potassium 3.0 L BUN 21 H Creatinine 1.21 Glucose 146 H Magnesium 2.1 Total Bilirubin 1.0 AST 46 H ALT 41 Alkaline Phosphatase 173 H Assessment and Plan - Problems (Diagnosis) (1) Diabetes Current Visit: No Status: Acute Qualifiers: (2) HTN (hypertension) Current Visit: No Status: Acute (3) NSTEMI (non-ST elevated myocardial infarction) Current Visit: No Status: Acute (4) Type 2 UT (myocardial infarction) Current Visit: No Status: Acute - Plan Assessment Patient is 49-year -Romanian male with a past medical history of hypertension, type 2 diabetes mellitus and hyperlipidemia. He is being admitted for NSTEMI after he presented with shortness of breath and orthopnea. He has no lower extremity edema or chest pain. His presenting troponin was 168. Cardiology has been consulted and recommended full dose Lovenox x 1. Patient to be n.p.o. after midnight for cardiac catheter tomorrow NSTEMI Pulmonary edema versus pneumonia hypokalemia Hypertension Hyperlipidemia Type 2 diabetes mellitus Plan: Will admit inpatient with telemetry N.p.o. after midnight for cardiac cath tomorrow Trend troponin Will obtain a 2D echo as well Cardiology has been consulted Patient received a dose of IV Lasix in the ER for possible pulmonary edema Will also treat with empiric Unasyn Potassium has been replaced Resume rest of home medications upon reconciliation Monitor for blood pressure as patient has borderline blood pressure at this time Resume rest of home medication upon reconciliation and if indicated - Advance Directives Does patient have a Living Will: No Does patient have a Durable POA for Healthcare: No
[2024-12-04] MEDS ORDERED: FUROSEMIDE 40 MG/4 ML VIAL ONE (22:24)
[2024-12-04] MEDS ORDERED: ENOXAPARIN 100 MG/ML SYR SQ ONE (22:24)
[2024-12-04] MEDS ORDERED: HYDRALAZINE HCL 20 MG/ML VIAL ONE (23:41)
[2024-12-05 00:35] VITALS: BMI 31.4
[2024-12-05] MEDS: AMPICILLIN/SULBACT 3 GM in NA CHLORIDE 0.9% 100 ML IVPB SCH (02:00)
[2024-12-05] MEDS ORDERED: NA CHLORIDE 0.9% 100 ML ONE (02:01)
[2024-12-05] MEDS ORDERED: AMPICILLIN/SULBACTAM 3GM/VIAL ONE (02:01)
[2024-12-05 04:33] LABS: Absolute Basophils 0.1 K/uL (0-0.5); Absolute Eosinophils 0.1 K/uL (0-0.5); Absolute Lymphocytes (CBC) 2.7 K/uL (0.7-4.9); Absolute Monocytes 0.6 K/uL (0.1-1.3); Absolute Neutrophil 4.2 K/uL (1.8-8.0); Basophils % 0.8 % (0-1.3); Eosinophils % 1.7 % (0-4.4); Hematocrit 37.2 % (39.6-49.0); Hemoglobin 12.9 g/dL (13.6-17.9); Lymphocytes % 34.5 % (15.3-44.8); MCH 27.7 pg (27.0-35.0); MCHC 34.8 g/dL (32.0-36.0); MCV 79.6 fL (80-100); MPV 8.7 fL (7.6-11.3); Monocytes % 7.9 % (3.3-12.3); Neutrophils % 55.1 % (41.7-73.7); Nucleated Red Blood Cells % 0.1 % (0-0); Platelets 230 thou/uL (152-406); RBC Red Blood Cell Count 4.67 M/uL (4.33-5.43); Red Cell Distribution Width 15.3 % (12.1-15.2)
[2024-12-05 05:00] LABS: Anion Gap 7.1 mEq/L (5.0-15.0); BUN Blood Urea Nitrogen 19 mg/dL (7-18); Bicarbonate 31 mEq/L (21-32); Glomerular Filtration Rate 87 ml/min (=/>90); Glucose Level 171 mg/dL (74-106); HDL Cholesterol 41 mg/dL (40-60); Phosphorus 1.8 mg/dL (2.5-4.9); Sodium Level 141 mEq/L (136-145)
[2024-12-05 05:12] LABS: Magnesium 1.7 mg/dL (1.6-2.4); Potassium 3.1 mEq/L (3.5-5.1)
[2024-12-05 05:13] LABS: Troponin High Sensitivity 148.2 pg/mL (<58.9)
[2024-12-05 05:24] LABS: LDL, Direct 118 mg/dL (100-129)
[2024-12-05 06:43] LABS: Specific Gravity 1.019 (1.005-1.030); Sqamous Epithelial <5 /HPF (None Seen); Urine Bacteria None Seen /HPF (<20); Urine Bilirubin NEGATIVE (Negative); Urine Blood Negative (Negative); Urine Clarity Clear (Clear); Urine Color Light-Yellow (Yellow); Urine Culture Reflex Order NOT NEEDED; Urine Glucose 2+ (Negative); Urine Ketones NEGATIVE (Negative); Urine Microscopic Reflex YN ORDER UMIC; Urine Mucus Slight /HPF (None Seen); Urine Nitrite NEGATIVE (Negative); Urine Protein NEGATIVE (Negative); Urine RBC None Seen /HPF (None Seen); Urine Urobilinogen Normal (Normal); Urine WBC <5 /HPF (<5)
[2024-12-05] MEDS: ASPIRIN EC 81 MG TAB PO SCH (08:31)
--- NOTE | 2024-12-05 09:07 | P.CNS ---
Date of Consult: 12/05/24 Chief Complaint: NSTEMI History of Present Illness: Patient with PMH of HTN, DM, HLD, Family history of premature CAD presented with worsening SOB, JACOBSON and back pain that got worse Thursday, also report dizziness, denies any other cardiac symptoms. Allergies No Known Allergies Allergy (Unverified 04/29/24 03:19) Home medications list reviewed: Yes Home Medications: Atorvastatin Calcium 10 mg PO ONCE 04/29/24 Glipizide [Glipizide Xl] 10 mg PO ONCE 04/29/24 Metformin ER [Glucophage ER*] 1,000 mg PO BID 04/29/24 lisinopriL [Zestril] 30 mg PO ONCE 04/29/24 Amlodipine [Norvasc*] 10 mg PO DAILY #30 tab 05/01/24 - Past Medical/Surgical History Diabetic: Yes -: Diabetes -: Hypertension -: Schizophrenia - Social History Place of Residence: Home Review of Systems 10-point ROS is otherwise unremarkable Physical Examination Temp Pulse Resp BP Pulse Ox 97.3 F 88 20 188/90 H 145 12/05/24 08:12 12/05/24 08:20 12/05/24 08:14 12/05/24 08:20 12/05/24 08:00 General: Alert, In no apparent distress HEENT: Atraumatic, PERRLA, Mucous membr. moist/pink, EOMI, Sclerae nonicteric Neck: Supple, 2+ carotid pulse no bruit, No LAD, Without JVD or thyroid abnormality Respiratory: Clear to auscultation bilaterally, Normal air movement Cardiovascular: Regular rate/rhythm, Normal S1 S2 Gastrointestinal: Normal bowel sounds, No tenderness Musculoskeletal: No tenderness Integumentary: No rashes Neurological: Normal gait, Normal speech, Normal tone, Normal affect Lymphatics: No axilla or inguinal lymphadenopathy Laboratory Data (last 24 hrs) 12/04/24 12/04/24 19:35 19:35 WBC 7.90 Hgb 13.0 L Hct 39.4 L Plt Count 233 Sodium 141 Potassium 3.0 L BUN 21 H Creatinine 1.21 Glucose 146 H Magnesium 2.1 Total Bilirubin 1.0 AST 46 H ALT 41 Alkaline Phosphatase 173 H - Problems (1) SOB (shortness of breath) Current Visit: Yes Status: Acute Plan: get echo place patient on lasix 40 mg daily resume his home medications monitor input and output and electrolytes (2) HTN (hypertension) Current Visit: No Status: Acute Plan: reconcile and resume his home medications. (3) NSTEMI (non-ST elevated myocardial infarction) Current Visit: No Status: Acute Plan: troponin mild elevated with multiple risk factors NPO for coronary angiogram ASA 81 mg daily Lipitor 80 mg daily add fenofibrate for high TG
[2024-12-05] MEDS: NA CHLORIDE 0.9% 500 ML ONE (09:40)
[2024-12-05] MEDS ORDERED: HEPA 1000U/500MLS 2,000 UNIT/1,000 ML BAG IV ONE (10:13)
[2024-12-05] MEDS ORDERED: LIDOCAINE 1% 20 ML MDV ONE (10:13)
[2024-12-05] MEDS ORDERED: HEPARIN 5000 UNIT/ML 1 ML VIAL ONE (10:14)
[2024-12-05] MEDS ORDERED: HEPARIN 10,000 UNIT/10 ML VIAL IV ONE (10:14)
[2024-12-05] MEDS ORDERED: FENTANYL CITR 100 MCG/2 ML ONE (10:43)
[2024-12-05] MEDS ORDERED: MIDAZOLAM HCL 2 MG/2 ML INJ ONE (10:44)
[2024-12-05] MEDS ORDERED: TICAGRELOR 90 MG TABLET PO ONE (11:19)
[2024-12-05] MEDS ORDERED: HYDRALAZINE HCL 20 MG/ML VIAL ONE (11:26)
--- NOTE | 2024-12-05 12:04 | EKG ---
Test Date: 2024-12-04 Test Time: 20:08:17 Applications Programmer: SHADY MEASUREMENT RESULTS: Intervals: Rate: 76 AL: 186 QRSD: 114 QT: 380 QTc: 427 [place]: P: -9 AL: 186 QRS: 50 T: -39 INTERPRETIVE STATEMENTS: Normal sinus rhythm Normal ECG Compared to ECG 04/28/2024 21:06:24 Atrial abnormality no longer present Myocardial infarct finding no longer present Electronically Signed On 12-05-24 12:02:24 PRORATE CLERK by Alton Browning
[2024-12-05] MEDS: HYDRALAZINE HCL 20 MG/ML VIAL ONE (13:38)
[2024-12-05] MEDS: HYDRALAZINE HCL 20 MG/ML VIAL IV ONE (13:39)
[2024-12-05] MEDS: METOPROLOL TARTRATE 5 MG/5 ML INJ IV SCH (14:29)
[2024-12-05] MEDS: ACETAMIN/CAFFEINE/BUTALB TAB PO PRN (14:29)
[2024-12-05] MEDS: ATORVASTATIN 20 MG TAB PO SCH (21:27)
--- NOTE | 2024-12-05 21:59 | OP ---
Date of Procedure: 12/05/2024 Surgeon: Alton Browning Procedure Performed: Selective coronary angiogram. Indication For Procedure: [id number]. Complications: None. Estimated Blood Loss: Less than 50 cc. Access: Right radial, closed by TR band. Sedation Time: 20 minutes with 1 of Versed and 50 of fentanyl. Description Of Procedure: After risks, benefits, and alternatives were explained to the patient, the patient agreed to proceed with procedure and signed informed consent. The patient was brought back to the r and d lab technician, prepped and draped in sterile fashion. Time-out was performed. Sedation was admini stered. Next, right radial access was obtained using ultrasound-guided micropuncture technique. Tig er 4 catheter was advanced over a J-wire to the aortic root. Selective angiogram was done using the same catheter. After that, catheter was removed over a J-wire. Sheath was removed. TR band was jim lied. Hemostasis was achieved, and the patient was moved back to Recovery in stable condition. Findings: 1. Left main: Normal. 2. LAD: Large with proximal mild luminal irregularities, then mid diffuse long 50% to 60% disease wi th distal mild luminal irregularities. 3. Left circ: Mild luminal irregularities. 4. RCA: Proximal 50% disease, then mid 40% disease, then distal mild luminal irregularities. 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 Plan: Recommend aggressive medical treatment for CAD and outpatient evaluations by stress test. KELLIE/NABEEL Voice ID: [id number] Report ID: [id number]
[2024-12-06] MEDS: cloNIDine HCL 0.1 MG TAB PO ONE (07:20)
--- NOTE | 2024-12-06 10:17 | P.PN ---
Subjective Date of Service: 12/06/24 Chief Complaint: NSTEMI Subjective: No new changes, No C/O voiced, Tolerating diet, Ambulating, Improving Review of Systems 10-point ROS is otherwise unremarkable Physical Examination - Vital Signs Temperature: 98.1 F Blood Pressure: 183/97 Pulse: 72 Respirations: 16 Pulse Ox (%): 100 - Physical Exam General: Alert, In no apparent distress HEENT: Atraumatic, PERRLA, EOMI Neck: Supple, JVD not distended Respiratory: Clear to auscultation bilaterally, Normal air movement Cardiovascular: Regular rate/rhythm, Normal S1 S2 Gastrointestinal: Normal bowel sounds, No tenderness Musculoskeletal: No tenderness Integumentary: No rashes Neurological: Normal speech, Normal tone, Normal affect Lymphatics: No axilla or inguinal lymphadenopathy - Studies Medications List Reviewed: Yes Assessment And Plan - Current Problems (Diagnosis) (1) SOB (shortness of breath) Current Visit: Yes Status: Acute Plan: Echo is pending place patient on lasix 40 mg daily on discharge. add Aldactone 25 mg daily add Jardiance 10 mg daily on discharge. monitor input and output and electrolytes (2) HTN (hypertension) Current Visit: No Status: Acute Plan: Coreg 6.25 mg po BID Lisinopril 30 mg daily (3) NSTEMI (non-ST elevated myocardial infarction) Current Visit: No Status: Acute Plan: Patient coronary angiogram shows moderate LAD and RCA disease ASA 81 mg daily Plavix 75 mg daily Lipitor 80 mg daily fenofibrate 145 mg daily for high TG
[2024-12-06] MEDS: LOSARTAN POTASSIUM 50 MG TABLET PO ONE (11:44)
[2024-12-06] MEDS: METOPROLOL TAR 50 MG TAB PO ONE (11:44)
[2024-12-06] MEDS: METOPROLOL TAR 50 MG TAB PO SCH (17:51)
[2024-12-06] MEDS: POTASS/SODIUM PHOSPHATE 1 PKT POWD.PACK PO ONE (20:51)
[2024-12-06] MEDS: LOSARTAN POTASSIUM 50 MG TABLET PO SCH (20:52)
[2024-12-07 04:11] VITALS: O2SAT 98
[2024-12-07 05:52] LABS: Anion Gap 8.2 mEq/L (5.0-15.0); Phosphorus 3.2 mg/dL (2.5-4.9); Potassium 3.2 mEq/L (3.5-5.1)
[2024-12-07] MEDS: POTASSIUM CL SA 10 MEQ TAB PO ONE (06:09)
--- NOTE | 2024-12-07 06:40 | ECHO ---
HEIGHT: 6 ft 2 in WEIGHT: 245 lb 0 oz DATE OF STUDY: 12/06/[address]: Prince Carlos Dave MD 2-DIMENSIONAL: YES M.MODE: YES DOPPLER: YES COLOR FLOW: YES TDS: PORTABLE: YES DEFINITY: BUBBLE STUDY: DIAGNOSIS: NON ST ELEVATION MYOCARDIAL INFARCTION CARDIAC HISTORY: CATHERIZATION: YES SURGERY: NO PROSTHETIC VALVE: NO PACEMAKER: NO MEASUREMENTS (cm) DIASTOLIC (NORMALS) SYSTOLIC (NORMALS) IVSd 1.6 (0.6-1.2) LA Diam 3.9 (1.9-4.0) LVEF 60-65% LVIDd 4.4 (3.5-5.7) LVIDs 3.0 (2.0-3.5) %FS 33% LVPWd 1.6 (0.6-1.2) Ao Diam 3.1 (2.0-3.7) 2 DIMENSIONAL ASSESSMENT: RIGHT ATRIUM: NORMAL LEFT ATRIUM: NORMAL RIGHT VENTRICLE: NORMAL LEFT VENTRICLE: MODERATE LEFT VENTRICULAR HYPERTROPHY TRICUSPID VALVE: TRACE TRICUSPID REGURGITATION MITRAL VALVE: TRACE MITRAL REGURGITATION PULMONIC VALVE: NORMAL AORTIC VALVE: NORMAL PERICARDIAL EFFUSION: NONE AORTIC ROOT: NORMAL LEFT VENTRICULAR WALL MOTION: NORMAL DOPPLER/COLOR FLOW: IMPAIRED RELAXATION COMMENTS: 1. MODERATE CONCENTRIC LEFT VENTRICULAR HYPERTROPHY 2. NORMAL LEFT VENTRICULAR SYSTOLIC FUNCTION, EJECTION FRACTION 60-65%, NORMAL WALL MOTION 3. IMPAIRED RELAXATION DIASTOLIC FUNCTION TECHNOLOGIST: KERRY CAGE
[2024-12-07 08:42] VITALS: BP 168/93; TEMP 98.4
[2024-12-07] MEDS: FUROSEMIDE 40 MG TABLET PO SCH (08:56)
[2024-12-07] MEDS: SPIRONOLACTONE 25 MG TABLET PO SCH (08:56)
[2024-12-07] MEDS: FENOFIBRATE 160 MG TAB PO SCH (08:57)
[2024-12-07] MEDS: GLIPIZIDE S.A. 5 MG TAB PO SCH (08:57)
[2024-12-07] MEDS ORDERED: HOME MED 1 EA UNK (Glipizide [Glipizide Xl] 10 MG Tab.Er.24) PO SCH (09:00)
== END 2024-12-07 09:32 | disposition home or self-care (01) | DRG 282 ==
LOC: ER 18:50 → ERHOLD 21:41 → 2ND 12-05 07:51
PROVIDERS: ADMIT Internal Medicine; ATTEND Hospitalist
PROC: 4A023N7 Measurement of Cardiac Sampling and Pressure, Left Heart, Percutaneous Approach (ICD-10-PCS; principal; 2024-12-05)
PROC: B2111ZZ Fluoroscopy of Multiple Coronary Arteries using Low Osmolar Contrast (ICD-10-PCS; 2024-12-05)
DX: I21.4 Non-ST elevation (NSTEMI) myocardial infarction (principal); E87.6 Hypokalemia; I10 Essential (primary) hypertension; E78.5 Hyperlipidemia, unspecified; E11.9 Type 2 diabetes mellitus without complications; I25.10 Atherosclerotic heart disease of native coronary artery without angina pectoris; Z11.52 Encounter for screening for COVID-19; Z79.84 Long term (current) use of oral hypoglycemic drugs; Z79.899 Other long term (current) drug therapy
CPT/HCPCS: 36415; 71045; 76937; 80048; 80061; 80076; 81001; 82947; 83735; 83880; 84100; 84484; 85025; 87428; 93005; 93306; 93454; 96372; 96374; 96375; 99152; 99153; 99285; C1893; J0295; J0360; J1644; J1650; J1940; J2003; J2250; J3010; J7040; Q9966

== ENCOUNTER 2025-05-21 20:07 | Emergency (ER) | payer OTHER ==
--- OUTSIDE RECORDS SUMMARY | 2025-05-21 20:19 | XMS REPORT | Continuity of Care Document ---
Author Name Unknown Address [address] [place] [address] [facility] [place] Address [address] [place] [address] Care Team Providers Care Plasma Processing Technician Name Role Phone PCP, PATIENT DOES NOT HAVE A Primary Care Physic loretta Unavailable DEMETRIA YADAV Attending Clinician Unavailable DENILSON BOOTH Attending Clinician Unavailable KRISTINA PICKETT Attending Clinician Unavailab LUL Espino Attending Clinician Unanikos dunne Doctor Unassigned, Adelino Attending Clinician U navailable LUZ LE Attending Clinician Unavailable Zach Moffett DO Attending Clinician [phone] Luz Le MD Attending Clinician [phone] ELISEO MACK Attending Clinician Unavailable Eliseo Mack NP Attending Clinician [phone] Zoe DUNLAP Attending Clinician Unavailable Zoe Johnson Attending Clinician [phone] ADDIE PAT Attending Clinician Unavailable JANIE WERNER Attending Clinician Unavailable Janie Werner MD Attending Clinician [phone] Addie Boles Attending Clinician [phone] GARY CLARKE Attending Clinician Unavaila ble Ibikunle CHAIRMAN & CEO, Folusho F Attending Clinician [phone] Nurse, Adc Pob Immunization Attending Clinician Unavailable Moustapha Vela DO Attending Clinician [phone] MOUSTAPHA VELA Attending Clinician Unavail able KRISTINA OSUNA Attending Clinician Unavailable Lab, Adc Fam Pob I Attending Clinician Unavailab le Agatha-Mbayo_A_AH Attending Clinician Unavailable Zoe DUNLAP Admitting Clinician Unavailable Agatha-Mbayo_A_AH Admitting Clinician Unavailable Payers Payer Name Policy Type Policy Number Effective Date Expirati on Date Source CIGNA II [id number] 2022 00:00:00 CIGNA 2 [id number] 2023 00:00:00 [facility] DUAL COMP HMO D SNP [id number] 2021 00:00:00 [employer] [id number] 2013 00:00:00 [employer] [facility] (MEDICARE REPLACEMENT/ADVANTAG E - HMO) [id number] Problems Condition Name Condition Details Condition Category Status Onset Date Resolution Date Last Treatment Date Treating Clinician Comments Source No known active problems No known active problems Disease [facility] Allergies, Adverse Reactions, Alerts Allergy Name Allergy Type Status Severity Reaction(s) Onset Date Inactive Date Treating Clinician Comments Source NO KNOWN ALLERGIE S Drug Class Active [facility] Social History Social Habit Start Date Stop Date Quantity Comments Source [facility] Exposure to SARS-CoV-2 (event) 2022-04-04 00:00:00 2022-04-14 16:35:00 Not sure [facility] History of Social function 2021-11-06 00:00:00 2021-11-06 00:00:00 [facility] Tobacco use and exposure 2021-11-06 00:00:00 2021-11-06 00:00:00 Smokeless tobacco non-user [facility] Sex Assigned At 1975 00:00:00 1975 00:00:00 [facility] Smoking Status Start Date Stop Date Source Never smoked tobacco [facility] Medications Ordered Medication Name Filled Medication Name Start Date Stop Date Current Medication? Ordering Clinician Indication Dosage Frequency Signature (SIG) Comments Components Source furosemide 40 mg tablet 04-21 00:00: 00 Yes mg Sanjeev Helms hydrochloro thiazide 25 mg tablet 18 00:00: 00 Yes mg Sanjeev Helms Viagra 100 mg tablet 04-21 00:00: 00 Yes mg Sanjeev Helms glipizide 5 mg tablet 04-21 00:00: 00 Yes mg Sanjeev Helms Novolin 70/30 U-100 Insulin 100 unit/mL subcutaneou s suspension 18 00:00: 00 Yes unit/mL (70-30) Sanjeev Helms carvedilol 25 mg tablet 18 00:00: 00 Yes 1mg Sanjeev Helms tramadol 50 mg tablet - 00:00: 00 Yes mg Sanjeev Helms carvedilol 25 mg tablet -26 00:00: 00 Yes 1mg Sanjeev Helsm Novolin 70/30 U-100 Insulin 100 unit/mL subcutaneou s suspension -20 00:00: 00 Yes unit/mL (70-30) Sanjeev Helms Viagra 100 mg tablet -14 00:00: 00 Yes mg Sanjeev Helms hydrochloro thiazide 25 mg tablet 6-04 00:00: 00 Yes mg Sanjeev Helms glipizide 5 mg tablet 30 00:00: 00 Yes mg Sanjeev Helms losartan 50 mg tablet - 00:00: 00 Yes mg Sanjeev Helms furosemide 40 mg tablet - 00:00: 00 Yes mg Sanjeev Helms aspirin 81 mg tablet,ruthie yed release 02-28 00:00: 00 Yes mg Sanjeev Helms carvedilol 25 mg tablet -19 00:00: 00 Yes mg Sanjeev Helms lisinopril 2.5 mg tablet 4-30 00:00: 00 Yes 1mg Sanjeev Helms fenofibrate 160 mg tablet -30 00:00: 00 Yes 1mg Sanjeev Helms Viagra 100 mg tablet 01-25 00:00: 00 Yes mg Sanjeev Helms amlodipine 10 mg tablet 01-25 00:00: 00 Yes 1mg Sanjeev Helms telmisartan 80 mg tablet 01-25 00:00: 00 Yes 1mg Sanjeev Helms glipizide 5 mg tablet 01-25 00:00: 00 Yes 1mg Sanjeev Helms metformin 1,000 mg tablet 01-25 00:00: 00 Yes 1mg Sanjeev Helms sildenafil 100 mg tablet 2023-10 00:00: 00 Yes mg Sanjeev Helms telmisartan 80 mg tablet 2023-10 00:00: 00 Yes 1mg Sanjeev Helms metformin 1,000 mg tablet 2023-10 00:00: 00 Yes 1mg Sanjeev Helms sildenafil 100 mg tablet 2023-10 0 00:00: 00 Yes mg Sanjeev Helms amlodipine 10 mg tablet 06-22 00:00: 00 Yes 1mg Sanjeev eHlms carvedilol 25 mg tablet 06-22 00:00: 00 [...] 00:00: 00 02-04 00:00 :00 No 40 Sanjeevjay Helms TAKE 2 TABLETS ONCE A DAY 07-02 00:00: 00 02-04 00:00 :00 No 5500 Sanjeevjay Helms TAKE 1 TABLET DAILY. 07-02 00:00: 00 02-04 00:00 :00 No 50 Sanjeevjay Helms TAKE 1 TABLET DAILY. 07-02 00:00: 00 02-04 00:00 :00 No 10 Sanjeevjay Helms TAKE 1 TABLET DAILY. 07-02 00:00: 00 02-04 00:00 :00 No 30 Sanjeev F Scooter TAKE 1 TABLET DAILY. 05-27 00:00: 00 02-04 00:00 :00 No 30 Sanjeevjay Helms TAKE 1 TABLET DAILY. 8- 00:00: 00 02-04 00:00 :00 No 10 Sanjeev Helms TAKE 1 TABLET DAILY. 8- 00:00: 00 02-04 00:00 :00 No 50 Sanjeev Helms TAKE 1 TABLET DAILY. 8- 00:00: 00 02-04 00:00 :00 No 30 Sanjeev Helms TAKE 1 TABLET DAILY. 8- 00:00: 00 02-04 00:00 :00 No 40 Sanjeev Helms TAKE 1 TABLET DAILY 1 HOUR BEFORE NEEDED 8- 00:00: 00 02-04 00:00 :00 No 50 Sanjeev Helms TAKE 1 TABLET DAILY. 8-15 00:00: 00 02-04 00:00 :00 No 10 Sanjeev Helms TAKE 1 TABLET DAILY. 2- 00:00: 00 02-04 00:00 :00 No 150 Sanjeev Helms TAKE 1 TABLET DAILY 1 HOUR BEFORE NEEDED 2- 00:00: 00 02-04 00:00 :00 No 50 Sanjeevjay Helms chlorthalid one 50 mg tablet 1-25 00:00: 00 02-04 00:00 :00 No Sanjeev Regalado Scooter amlodipine 10 mg tablet 1-25 00:00: 00 02-04 00:00 :00 No Sanjeev Helms 10 ML Q 4 TO 6 HOURS PRN COUGH FOR 5 DAYS 1-18 00:00: 00 02-04 00:00 :00 No [id number] Sanjeev Sabine Helms TAKE 1 TABLET BY MOUTH FOUR TIMES DAILY 2021-10 2-15 00:00: 00 Yes Sanjeev Helms NAPROXEN 500 [...] Helms CHLORTHALID ONE 50 MG TABS 2021-10 2-15 00:00: 00 02-04 [...] 02-04 00:00 :00 No Sanjeev F Scooter FLUCONAZOLE 150 MG TABS 2021-10 00:00: 00 Yes Sanjeev F Scooter TAKE 1 TABLET TWICE DAILY. 2021-10 00:00: 00 02-04 00:00 :00 No 1000uni t Sanjeev F Scooter APPLY SPARINGLY TO AFFECTED AREA(S) TWICE DAILY 2021-10 00:00: 00 02-04 00:00 :00 No 1 Sanjeev F Scooter TAKE 1 TABLET DAILY 1 HOUR BEFORE NEEDED 2021-10 00:00: 00 02-04 00:00 :00 No [...] No 10 Sanjeev F Scooter Dose Unknown 9-15 00:00: 00 02-04 00:00 :00 No Sanjeev F Scooter TAKE 1 TABLET BY MOUTH TWICE DAILY WITH MEALS 8-10 00:00: 00 Yes 500 Sanjeev F Scooter &lt 2021-0 8-10 00:00: 00 Yes 50 Sanjeev F Scooter &lt 2021-0 8-10 00:00: 00 Yes 1000 Sanjeev F Scooter &lt 2-0 8-10 00:00: 00 Yes 40 Sanjeev F Scooter TAKE 1 AND 1/2 TABLETS BY MOUTH TWICE DAILY WITH MEALS FOR 14 DAYS 8-10 00:00: 00 Yes 500 Sanjeev F Scooter Dose Unknown 0 8-10 00:00: 00 Yes 117 Sanjeev F Scooter &lt 2021-0 8-10 00:00: 00 Yes 10 Sanjeev F Scooter &lt 2-0 8-10 00:00: 00 Yes 20 Sanjeev Regalado Scooter &lt 2022-0 8-10 00:00: 00 Yes 100 Sanjeev F Scooter &lt 2022-0 8-09 00:00: 00 Yes 117 Sanjeev Regalado Scooter &lt 2022-0 8-09 00:00: 00 Yes 40 Sanjeev Regalado Scooter &lt 2022-0 7-26 00:00: 00 Yes 20 Sanjeev Regalado Scooter &lt 2022-0 7-26 00:00: 00 Yes 10 Sanjeev Regalado Scooter &lt 2022-0 7-26 00:00: 00 Yes 500 Sanjeev Regalado Scooter &lt 2022-0 7-26 00:00: 00 Yes 50 Sanjeev Regalado Scooter &lt 2022-0 7- 00:00: 00 Yes 500 Sanjeev Regalado Scooter &lt 2022-0 7-21 00:00: 00 Yes 50 Sanjeev Regalado Scooter &lt 2022-0 7-21 00:00: 00 Yes 500 Sanjeev Regalado Scooter &lt 2022-0 7-20 00:00: 00 Yes 100 Sanjeev Regalado Scooter &lt 2022-0 7-20 00:00: 00 Yes 25 Sanjeev Helms insulin regular human (HUMULIN R) injection 10 Units 2021-0 712 01:42: 00 04-15 01:45 :00 No 10U 10 Units, Subcutaneo us, ONCE, 1 dose, On Thu04/14/22 at 2045, Routine [facility] insulin regular human (HUMULIN R) injection 5 Units 04-15 00:45: 00 04-15 00:47 :00 No 5U 5 Units, Subcutaneo us, ONCE, 1 dose, On Thu04/14/22 at 2000, Routine [facility] &lt 2021-0 -12 00:00: 00 Yes 150 Sanjeev Helms insulin regular human (HUMULIN R) injection 9 Units 0 04-14 23:30: 00 04-14 22:25 :00 No 9U 9 Units, Subcutaneo us, ONCE, 1 dose, On Thu04/14/22 at 1830, Routine [facility] glipiZIDE 10 mg tablet 04-14 00:00: 00 Yes [id number] 10mg Take 1 tablet by mouth in the morning. [facility] &lt 04-14 00:00: 00 Yes Sanjeev Helms &lt 04-14 00:00: 00 Yes Sanjeev Helms Dose Unknown 04-14 00:00: 00 Yes 20 Sanjeev Helms &lt 04-14 00:00: 00 Yes 500 Sanjeev Helms metFORMIN 1,000 mg tablet 04-14 00:00: 00 05-15 04:59 :00 No [id number] 1000mg Take 1 tablet by mouth in the morning and 1 tablet in the evening. Take with meals. Do all this for 30 days. [facility] insulin regular human (HUMULIN R) injection 11.52 Units 04-12 07:45: 00 04-12 06:47 :00 No .1U/kg 11.52 Units (0.1 Units/kg ?115.2 kg), Subcutaneo us, ONCE, 1 dose, On 04/12/22 at 0245, Routine [facility] NaCl 0.9% (NS) bolus infusion 500 mL 04-12 06:45: 00 04-12 08:49 :00 No 500mL at 999 mL/hr, 500 mL, IV Infusion, ONCE, 1 dose, On 04/12/22 at 0145, STAT [facility] insulin regular human (HUMULIN R) injection 11.52 Units 04-12 05:30: 00 04-12 05:04 :00 No .1U/kg 11.52 Units (0.1 Units/kg ?115.2 kg), Subcutaneo us, ONCE, 1 dose, On 04/12/22 at 0030, Routine [facility] NaCl 0.9% (NS) bolus infusion 1,000 mL 04-12 05:30: 00 04-12 06:22 :00 No 1000mL at 999 mL/hr, 1,000 mL, IV Infusion, ONCE, 1 dose, On 04/12/22 at 0030, LAURE [facility] METFORMIN HYDROCHLORI DE 500 MG TABS 04-12 00:00: 00 Yes Sanjeev Helms metFORMIN 500 mg tablet 04-12 00:00: 00 04-27 04:59 :00 No [id number] 750mg Take 1.5 tablets by mouth 2 (two) times daily with meals for 14 days. [facility] chlorthalid one 50 mg tablet 03-27 00:00: [...] 1 dose, On 02/01/22 at 2230, Routine [facility] hydroCHLORO thiazide (ESIDRIX) tablet 25 mg 02-02 03:21: 00 02-02 03:25 :00 No 25mg 25 mg, Oral, ONCE, 1 dose, On 02/01/22 at 2230, Routine [facility] lisinopriL (PRINIVIL,Z ESTRIL) tablet 20 mg 02-02 03:20: 00 02-02 03:25 :00 No 20mg 20 mg, Oral, ONCE, 1 dose, On 02/01/22 at 2230, Routine [facility] methocarbam oL (ROBAXIN) tablet 500 mg 02-02 03:00: 00 02-02 02:07 :00 No 500mg 500 mg, Oral, ONCE, 1 dose, On 02/01/22 at 2200, Routine [facility] HYDROcodone -acetaminop hen (NORCO) 10-325 mg tablet 1 tablet 5- 03:00: 00 05 02:07 :00 No 1{tbl} 1 tablet, Oral, ONCE, 1 dose, On 02/01/22 at 2200, Routine [facility] naproxen (NAPROSYN) 500 mg tablet 4-30 00:00: 00 Yes [id number] 500mg Take 1 tablet by mouth 2 (two) times daily with meals. [facility] methocarbam oL 500 mg tablet 30 00:00: 00 Yes [id number] 500mg Take 1 tablet by mouth 4 (four) times daily. [facility] METHOCARBAM OL 500 MG TABS 30 00:00: 00 Yes Sanjeev Regalado Scooter Dose Unknown 0 4-20 00:00: 00 Yes Sanjeev Helms amlodipine 10 mg tablet 4-19 00:00: 00 Yes 1mg Sanjeev Regalado Scooter Dose Unknown 0 4-19 00:00: 00 Yes Sanjeev Sabine Scooter Dose Unknown 0 4-19 00:00: 00 Yes Sanjeev Helms sertraline 50 mg tablet 0 3-16 00:00: 00 Yes 1mg Sanjeev Helms trazodone 100 mg tablet 0 3-16 00:00: 00 Yes 2mg Sanjeev Sabine Scooter Dose Unknown 0 3-16 00:00: 00 Yes Sanjeev Helms lisinopril 20 mg tablet 0 3-16 00:00: 00 Yes 1mg Sanjeev Sabine Scooter Dose Unknown 0 3-16 00:00: 00 Yes Sanjeev F Scooter Dose Unknown 0 3-16 00:00: 00 Yes Sanjeev F Scooter Dose Unknown 0 3-16 00:00: 00 Yes Sanjeev Helms LISINOPRIL/ HYDROCHLORO THIAZIDE 20-25 MG TABS 2021-0 3-16 00:00: 00 Yes Sanjeev F Scooter Dose Unknown 0 2-03 00:00: 00 Yes Sanjeev F Scooter Dose Unknown 0 2-03 00:00: 00 Yes Sanjeev F Scooter Invega Sustenna 117 mg/0.75 mL intramuscul ar syringe 2- 00:00: 00 Yes mg/0.75 mL Sanjeev Helms INVEGA SUSTENNA 117 mg/0.75 mL syringe 10-21 00:00: 00 Yes [facility] SERTraline 50 mg tablet - 00:00: 00 Yes [facility] traZODone 100 mg tablet 10-21 00:00: 00 Yes [facility] trazodone 100 mg tablet 10-08 [...] 2020-10 00:00: 00 Yes 2mg Sanjeev Helms Wellbutrin [...] Yes Sanjeev Helms amlodipine 10 mg tablet 05-28 00:00: 00 Yes 1mg Sanjeev Helms sertraline 50 mg tablet 05-21 00:00: 00 Yes 1mg Sanjeev Helms Wellbutrin XL 150 mg 24 hr tablet, extended release 05-21 00:00: 00 Yes 1mg Sanjeev Helms trazodone [...] 1mg Sanjeev Helms sertraline 50 mg tablet - 00:00: 00 Yes 1mg Sanjeev Helms Viagra 50 mg tablet 04-24 00:00: 00 Yes 1mg Sanjeev Helms Invega Sustenna 117 mg/0.75 mL intramuscul ar syringe 04-24 00:00: 00 Yes mg/0.75 mL Sanjeev Helms [...] lisinopril 20 mg-hydrochl orothiazide 12.5 mg tablet - 00:00: 00 Yes 1mg Sanjeev Helms lisinopril 20 mg tablet 02-26 00:00: 00 Yes 1mg Sanjeev Helms metformin 500 mg tablet -15 00:00: 00 Yes 1mg Sanjeev Helms Wellbutrin XL 150 mg 24 hr tablet, extended release -14 00:00: 00 Yes 1mg Sanjeev Helms trazodone 100 mg tablet 0 5-14 00:00: 00 Yes 2mg Sanjeev Helms sertraline 50 mg tablet 0 -14 00:00: 00 Yes 1mg Sanjeev Helms amlodipine 10 mg tablet 0 -14 00:00: 00 Yes 1mg Sanjeev Helms lisinopril 20 mg-hydrochl orothiazide 12.5 mg tablet 0 -14 00:00: 00 Yes 1mg Sanjeev Helms lisinopril 20 mg tablet 0 14 00:00: 00 Yes 1mg Sanjeev Helms Invega Sustenna 117 mg/0.75 mL intramuscul ar syringe 0 -14 00:00: 00 Yes mg/0.75 mL Sanjeev Helms lisinopril 20 mg-hydrochl orothiazide 12.5 mg tablet 0 - 00:00: 00 Yes 1mg Sanjeev Helms lisinopril 20 mg-hydrochl orothiazide 25 mg tablet 0 - 00:00: 00 Yes 1mg Sanjeev Helms trazodone 100 mg tablet 0 4-16 00:00: 00 Yes 2mg Sanjeev Helms sertraline 50 mg tablet 0 4-16 00:00: 00 Yes 1mg Sanjeev Helms Wellbutrin XL 150 mg 24 hr tablet, extended release 0 4-16 00:00: 00 Yes 1mg Sanjeev Helms Invega Sustenna 117 mg/0.75 mL intramuscul ar syringe 0 4-16 00:00: 00 Yes mg/0.75 mL Sanjeev Helms trazodone 100 mg tablet 0 3-19 00:00: 00 Yes 2mg Sanjeev Helms Wellbutrin XL 150 mg 24 hr tablet, extended release 0 3-19 00:00: 00 Yes 1mg Sanjeev Helms sertraline 50 mg tablet 0 3-19 00:00: 00 Yes 1mg Sanjeev Helms Invega Sustenna 117 mg/0.75 mL intramuscul ar syringe 2020-0 3-19 00:00: 00 Yes mg/0.75 mL Sanjeev Helms azithromyci n 500 mg tablet 3 00:00: 00 Yes 2mg Sanjeev Helms sertraline 50 mg tablet 2- 00:00: 00 Yes 1mg Sanjeev Helms trazodone 100 mg tablet 11-30 00:00: 00 Yes 2mg Sanjeev Helms Wellbutrin XL 150 mg 24 hr tablet, extended release - 00:00: 00 Yes 1mg Sanjeev Helms Invega Sustenna 117 mg/0.75 mL intramuscul ar syringe 11-30 00:00: 00 Yes mg/0.75 mL Sanjeev Helms Cialis 2.5 mg tablet 11-10 00:00: 00 Yes 1mg Sanjeev Helms trazodone [...] 2mg Sanjeev Helms sertraline 50 mg tablet 1-05 00:00: 00 Yes 1mg Sanjeev Helms Wellbutrin XL 150 mg 24 hr tablet, extended release 1-05 00:00: 00 Yes 1mg Sanjeev Helms Invega Sustenna 117 mg/0.75 mL intramuscul ar syringe 1-05 00:00: 00 Yes mg/0.75 mL Sanjeev Helms lisinopril 20 mg-hydrochl orothiazide 12.5 mg tablet 2019-10- 00:00: 00 Yes 1mg Sanjeev Helms amlodipine 10 mg tablet 2019-10- 00:00: 00 Yes 1mg Sanjeev Helms atorvastati n 40 mg tablet 2019-10- 00:00: 00 Yes 1mg Sanjeev Helms lisinopril 20 mg tablet 2019-1016 00:00: 00 Yes 1mg Sanjeev Helms sertraline [...] release 07-02 00:00: 00 Yes 1mg Sanjeev Helms Invega [...] mL Sanjeev Helms sertraline 50 mg tablet -29 00:00: 00 Yes 1mg Sanjeev Helms trazodone 100 mg tablet 2019-0 06-02 00:00: 00 Yes 2mg Sanjeev Helms Invega Sustenna 117 mg/0.75 mL intramuscul ar syringe 0 06-02 00:00: 00 Yes mg/0.75 mL Sanjeev Helms lisinopril 20 mg-hydrochl orothiazide 12.5 mg tablet 2019-0 05-16 00:00: 00 Yes 1mg Sanjeev Helms lisinopril 20 mg tablet 0 05-16 00:00: 00 Yes 1mg Sanjeev Helms atorvastati n 40 mg tablet 2019-0 05-16 00:00: 00 Yes 1mg Sanjeev Helms amlodipine 10 mg tablet 2019-0 05-16 00:00: 00 Yes 1mg Sanjeev Helms hydroxyzine HCl 25 mg tablet 2019-0 05-16 00:00: 00 Yes 1mg Sanjeev Helms atorvastati n 40 mg tablet 0 04-02 00:00: 00 Yes 1mg Sanjeev Helms amlodipine 10 mg tablet 0 6 00:00: 00 Yes 1mg Sanjeev Helms lisinopril 20 mg-hydrochl orothiazide 12.5 mg tablet 2019-0 6 00:00: 00 Yes 1mg Sanjeev Helms lisinopril 20 mg tablet 0 6 00:00: 00 Yes 1mg Sanjeev Helms hydroxyzine HCl 25 mg tablet 2019-0 629 00:00: 00 Yes 1mg Sanjeev Helms atorvastati n 40 mg tablet 0 01-23 00:00: 00 Yes 1mg Sanjeev Helms amlodipine 10 mg tablet 0 - 00:00: 00 Yes 1mg Sanjeev Helms lisinopril 20 mg tablet 2019-0 - 00:00: 00 Yes 1mg Sanjeev Helms lisinopril 20 mg-hydrochl orothiazide 12.5 mg tablet 2019-0 -21 00:00: 00 Yes 1mg Sanjeev Helms hydroxyzine HCl 25 mg tablet 2019-0 4-21 00:00: 00 Yes 1mg Sanjeev Helms lisinopril 40 mg tablet 2019-0 2-24 00:00: 00 Yes 1mg Sanjeev Helms sertraline 50 mg tablet 11-28 00:00: 00 Yes 1mg Sanjeev Helms trazodone 100 mg tablet 11-28 00:00: 00 Yes 2mg Sanjeev Helms Invega Sustenna 117 mg/0.75 mL intramuscul ar syringe 11-28 00:00: 00 Yes mg/0.75 mL Sanjeev Helms atorvastati n 40 mg tablet 11-09 00:00: 00 Yes 1mg Sanjeev Helms amlodipine [...] mg tablet 10-06 00:00: 00 Yes 1mg Sanejev Helms bupropion HCl SR 150 mg tablet,12 [...] Take 2 Tabs by mouth every morning. [facility] traMADOL (ULTRAM) 50 mg tablet 05-14 00:00: 00 11-06 00:00 :00 No 50mg Take 1 Tab by mouth every 6 (six) hours as needed for Pain unrelieved by non-narcot ic analgesics . [facility] simvastatin 20 mg tablet 05-11 00:00: 00 [...] Date Status Comments Source Influenza, injectable, Madin Sonya Canine Kidney, preservative-free, quadrivalent Influenza, injectable, Madin [place] Canine Kidney, preservative-free, quadrivalent 2023-07-02 00:00:00 Completed Sanjeev Helms SARS-COV-2 COVID-19 NEVAEH/J&J VACCINE 2021-10-09 00:00:00 Completed [facility] SARS-COV-2 COVID-19 NEVAEH/J&J VACCINE 2021-10-09 00:00:00 Completed [facility] SARS-COV-2 COVID-19 NEVAEH/J&J VACCINE 2021-10-09 00:00:00 Completed [facility] SARS-COV-2 COVID-19 NEVAEH/J&J VACCINE 2021-10-09 00:00:00 Completed [facility] SARS-COV-2 COVID-19 NEVAEH/J&J VACCINE 2021-10-09 00:00:00 Completed [facility] SARS-COV-2 COVID-19 NEVAEH/J&J VACCINE 2021-10-09 00:00:00 Completed [facility] SARS-COV-2 COVID-19 NEVAEH/J&J VACCINE 2021-10-09 00:00:00 Completed [facility] SARS-COV-2 COVID-19 NEVAEH/J&J VACCINE 2021-10-09 00:00:00 Completed [facility] SARS-COV-2 COVID-19 NEVAEH/J&J VACCINE 2021-10-09 00:00:00 Completed [facility] SARS-COV-2 COVID-19 NEVAEH/J&J VACCINE 2021-10-09 00:00:00 Completed [facility] SARS-COV-2 COVID-19 NEVAEH/J&J VACCINE 2021-10-09 00:00:00 Completed [facility] Influenza, seasonal, inj Influenza, seasonal, inj 2020-09-19 00:00:00 Completed Sanjeev Helms Influenza, seasonal, inj Influenza, seasonal, inj 2019-11-16 00:00:00 Completed Sanjeev Helms SARS-COV-2 COVID-19 NEVAEH/J&J VACCINE Unknown Completed [facility] Vital Signs Vital Name Observation Time Observation Value Comments S ourbrayden Systolic blood pressure 2022-04-15 02:00:00 132 mm[Hg] [facility] Diastolic blood pressure 2022-04-15 02:00:00 73 mm[Hg] [facility] Heart rate 2022-04-15 02:00:00 76 /min [facility] Respiratory rate 2022-04-15 02:00:00 16 /min [facility] Oxygen saturation in Arterial blood by Pulse oximetry 2022-04-15 02:00:00 98 /min [facility] Body temperature 2022-04-14 21:43:00 36.94 Britany [facility] Body height 2022-04-14 21:42:00 188 cm [facility] Body weight 2022-04-14 21:42:00 116.121 kg [facility] BMI 2022-04-14 21:42:00 32.87 kg/m2 [facility] Systolic blood pressure 2022-04-12 08:00:00 155 mm[Hg] [facility] Diastolic blood pressure 2022-04-12 08:00:00 97 mm[Hg] [facility] Heart rate 2022-04-12 08:00:00 91 /min [facility] Respiratory rate 2022-04-12 08:00:00 17 /min [facility] Oxygen saturation in Arterial blood by Pulse oximetry 2022-04-12 08:00:00 98 /min [facility] Body temperature 2022-04-12 03:54:00 36.61 Britany [facility] Body height 2022-04-12 03:54:00 188 cm [facility] Body weight 2022-04-12 03:54:00 115.214 kg [facility] BMI 2022-04-12 03:54:00 32.61 kg/m2 [facility] Body temperature 2022-02-02 04:35:00 35.89 Britany [facility] Systolic blood pressure 2022-02-02 04:00:00 153 mm[Hg] [facility] Diastolic blood pressure 2022-02-02 04:00:00 84 mm[Hg] [facility] Heart rate 2022-02-02 04:00:00 55 /min [facility] Respiratory rate 2022-02-02 04:00:00 12 /min [facility] Oxygen saturation in Arterial blood by Pulse oximetry 2022-02-02 04:00:00 92 /min [facility] Body height 2022-02-02 02:11:06 188 cm [facility] Body weight 2022-02-02 02:11:06 117.935 kg [facility] BMI 2022-02-02 02:11:06 33.38 kg/m2 [facility] Systolic blood pressure 2021-11-06 14:41:00 168 mm[Hg] [facility] Diastolic blood pressure 2021-11-06 14:41:00 91 mm[Hg] [facility] Heart rate 2021-11-06 14:41:00 76 /min [facility] Body temperature 2021-11-06 14:40:00 36.17 Britany [facility] Respiratory rate 2021-11-06 14:40:00 16 /min [facility] Body height 2021-11-06 14:40:00 188 cm [facility] Body weight 2021-11-06 14:40:00 118.207 kg [facility] BMI 2021-11-06 14:40:00 33.46 kg/m2 [facility] Oxygen saturation in Arterial blood by Pulse oximetry 2021-11-06 14:40:00 97 /min [facility] BP Systolic 2025-04-21 14:26:00 144 mm[Hg] Step hen Sabine Helms BP Diastolic 2025-04-21 14:26:00 90 mm[Hg] Yousif phen Sabine Helms Weight Measured 2025-04-21 14:26:00 240.00 pounds Sanjeev F Scooter Height Measured 2025-04-21 14:26:00 73.32 inches Sanjeev F Scooter Body Temperature 2025-04-21 14:26:00 98.40 degrees Sanjeev F Scooter Heart Rate 2025-04-21 14:26:00 94.00 /min Paige en F Scooter Respiratory Rate 2025-04-21 14:26:00 18.00 /min Sanjeev F Scooter BP Systolic 2025-01-25 13:31:00 138 mm[Hg] Step hen F Scooter BP Diastolic 2025-01-25 13:31:00 86 mm[Hg] Yousif phen F Scooter Weight Measured 2025-01-25 13:31:00 238.80 pounds Sanjeev F Scooter Height Measured 2025-01-25 13:31:00 73.32 inches Sanjeev F Scooter Body Temperature 2025-01-25 13:31:00 97.40 degrees Sanjeev F Scooter Heart Rate 2025-01-25 13:31:00 69.00 /min Paige en F Scooter Respiratory Rate 2025-01-25 13:31:00 16.00 /min Sanjeev F [facility] BP Systolic 2024-07-26 17:13:00 188 mm[Hg] Step [...] Temperature 2024-06-22 18:12:00 98.20 degrees Sanjeev F [facility] Heart Rate 2024-06-22 18:12:00 89.00 /min Paige en F [facility] Respiratory Rate 2024-06-22 18:12:00 18.00 /min Sanjeev F [facility] BP Systolic 2024-05-25 10:33:00 173 mm[Hg] Step hen F C[facility] BP Diastolic 2024-05-25 10:33:00 102 mm[Hg] Yousif [...] Respiratory Rate 2022-09-09 14:25:00 25.00 /min Sanjeev F [facility] BP Systolic 2022-09-09 14:07:00 183 mm[Hg] Step hen F [facility] BP Diastolic 2022-09-09 14:07:00 96 mm[Hg] Yousif phen F [facility] Weight Measured 2022-09-09 14:07:00 259.60 pounds Sanjeev F [facility] Height Measured 2022-09-09 14:07:00 73.32 inches Sanjeev Helms Body Temperature 2022-09-09 14:07:00 97.50 degrees Sanjeev Helms Heart Rate 2022-09-09 14:07:00 72.00 /min Paige Helms Respiratory Rate 2022-09-09 14:07:00 25.00 /min Sanjeev Helms Procedures Procedure Date / Time Performed Performing Clinician Source REFERRAL- REQUEST/RESPONSE 2023-07-03 05:01:00 Doctor Unassigned, Adelino [facility] AUTHORIZATION FOR RELEASE OF PHI 2022-08-12 06:01:00 Doctor Unassigned, Adelino [facility] REFERRAL- REQUEST/RESPONSE 2022-05-15 05:01:00 Doctor Unassigned, Adelino [facility] POCT GLUCOSE (AUTOMATED) 2022-04-15 02:32:00 Armani Moffett [facility] POCT GLUCOSE (AUTOMATED) 2022-04-15 01:39:00 Armani Moffett [facility] POCT GLUCOSE (AUTOMATED) 2022-04-15 00:42:00 Armani Moffett [facility] POCT GLUCOSE (AUTOMATED) 2022-04-14 23:21:00 Armani Moffett [facility] POCT GLUCOSE (AUTOMATED) 2022-04-14 21:42:00 Doc tor Unassigned, Adelino [facility] CONSENT/REFUSAL FOR DIAGNOSIS AND TREATMENT 2022-04-14 21:35:48 Doctor Unassigned, Adelino [facility] POCT GLUCOSE (AUTOMATED) 2022-04-12 07:46:00 Armani Mack [facility] POCT GLUCOSE (AUTOMATED) 2022-04-12 06:20:00 Armani Mack [facility] POCT GLUCOSE (AUTOMATED) 2022-04-12 05:03:00 Armani Mack [facility] COMP. METABOLIC PANEL (37838) 2022-04-12 04:45:00 Eliseo Mack [facility] CBC WITH DIFF 2022-04-12 04:45:00 Eliseo [facility] GLYCOSYLATED HEMOGLOBIN (A1C) 2022-04-12 04:45:00 Eliseo Mack [facility] URINALYSIS 2022-04-12 04:45:00 Eliseo [facility] ACUTE CARE VENOUS BLOOD GAS 2022-04-12 04:44:00 Eliseo Mack [facility] POCT GLUCOSE (AUTOMATED) 2022-04-12 03:59:00 Armani Mack [facility] NOTICE OF PRIVACY PRACTICES 2022-04-12 03:38:19 Doctor Unassigned, Adelino [facility] CONSENT/REFUSAL FOR DIAGNOSIS AND TREATMENT 2022-04-12 03:37:44 Doctor Unassigned, Adelino [facility] AUTHORIZATION FOR RELEASE OF PHI 2022-03-12 05:01:00 Doctor Unassigned, Adelino [facility] MEDICATION CORRESPONDENCE 2022-02-14 05:01:00 Do ctor Unassigned, Adelino [facility] XR LUMBAR SPINE 2 VW 2022-02-02 03:04:02 Zoe Dunlap [facility] XR SPINE THORACIC 2 2022-02-02 03:04:02 Zoe Dunlap [facility] XR CERVICAL SPINE 3 VW 2022-02-02 03:04:02 Zoe Dunlap [facility] POCT URINALYSIS AUTO 2021-11-06 14:39:00 Addie Pat [facility] Ekg 2018-10-04 00:00:00 Sanjeev Helms Encounters Start Date/Time End Date/Time Encounter Type Admission Type Attending [facility] Care Department Encounter ID Source 2025-04-21 14:17:15 2025-04-21 14:17:15 Outpatient S[facility] [id number] Sanjeev Helms 2025-04-21 00:00:00 2025-04-21 00:00:00 Outpatient Visit [facility] [id number] Sanjeev Helms 2025-01-25 13:21:10 2025-01-25 13:21:10 Outpatient [facility] [id number] Sanjeev Helms 2025-01-25 00:00:00 2025-01-25 00:00:00 Outpatient Visit [facility] [id number] Sanjeev Helms 2024-07-26 16:15:56 2024-07-26 16:15:56 Outpatient [facility] [id number] Sanjeev Helms 2024-07-26 00:00:00 2024-07-26 00:00:00 Outpatient Visit [facility] [id number] Sanjeev Helms 2024-06-22 18:04:56 2024-06-22 18:04:56 Outpatient [facility] [id number] Sanjeev Helms 2024-06-22 00:00:00 2024-06-22 00:00:00 Outpatient Visit [facility] [id number] Sanjeev Helms 2024-05-25 10:29:12 2024-05-25 10:29:12 Outpatient [facility] [id number] Sanjeev Helms 2023-11-13 09:00:00 2023-11-13 09:00:00 Outpatient ROJELIO HUMPHREYSJOSEANTHONY [facility] [id number] [facility] 2023-10-29 11:00:00 2023-10-29 11:00:00 Outpatient DEMETRIA HUMPHREYS [facility] [id number] [facility] 2023-10-14 13:30:00 2023-10-14 13:30:00 Outpatient DENILSON BOOTH [id number] [facility] 2023-10-13 14:30:00 2023-10-13 14:30:00 Outpatient KRISTINA PICKETT [id number] [facility] 2023-10-07 14:00:00 2023-10-07 14:00:00 Outpatient KRISTINA PICKETT [id number] [facility] 2023-09-30 13:40:00 2023-09-30 13:40:00 Outpatient R DEMETRIA YADAV [facility] [id number] [facility] 2023-09-16 15:20:00 2023-09-16 15:20:00 [facility] [id number] 2023-08-20 15:20:00 2023-08-20 15:20:00 [facility] [id number] [facility] 2023-08-03 17:27:56 2023-08-03 17:27:56 Outpatient SFA [facility] [id number] Sanjeev Helms 2023-07-23 14:40:00 2023-07-23 14:40:00 [facility] [id number] [facility] 2023-07-07 14:30:00 2023-07-07 14:30:00 Outpatient R LUL BURNETTE [facility] [id number] [facility] 2023-07-03 00:00:00 2023-07-03 00:00:00 Orders Only Doctor Unassigned, Adelino [facility] 1.2.840.114 350.1.13.10 4.2.7.2.686 [id number] [facility] 2023-07-02 17:18:19 2023-07-02 17:18:19 Outpatient SFA [facility] [id number] Sanjeev Regalado [place] 2023-05-29 17:30:03 2023-05-29 17:30:03 Outpatient S[facility] [id number] Sanjeev Sabine [place] 2023-05-27 17:16:01 2023-05-27 17:16:01 Outpatient [facility] [id number] Sanjeev Regalado [place] 2023-05-19 17:23:37 2023-05-19 17:23:37 Outpatient SFA [facility] [id number] Sanjeev Sabine [place] 2022-11-05 10:35:42 2022-11-05 10:35:42 Outpatient SFA [facility] [id number] Sanjeev Regalado [place] 2022-10-22 16:38:30 2022-10-22 16:38:30 Outpatient [facility] [id number] Sanjeev Regalado [place] 2022-09-10 13:24:47 2022-09-10 13:24:47 Outpatient [facility] [id number] Sanjeev Regalado [place] 2022-09-09 14:06:35 2022-09-09 14:06:35 Outpatient [facility] [id number] Sanjeev Regalado [place] 2022-08-12 00:00:00 2022-08-12 00:00:00 Orders Only Doctor Unassigned, Adelino [facility] 1.84.114 350.1.13.10 4.2.7.2.686 [id number] [id number] [facility] 2022-05-15 00:00:00 2022-05-15 00:00:00 Orders Only Doctor Unassigned, Adelino [facility] 1..114 350.1.13.10 4.2.7.2.686 [id number] [facility] 2022-04-14 16:43:00 2022-04-14 21:51:00 Emergency X LUZ LE [facility] ERT [id number] [facility] 2022-04-14 16:43:00 2022-04-14 21:51:00 Emergency Zach Moffett Donnell [facility] 1.840.114 350.1.13.10 4.2.7.2.686 [id number] [facility] 2022-04-11 23:02:00 2022-04-12 03:55:00 Emergency ELISEO BARRIOS [facility] ERT [id number] [facility] 2022-04-11 23:02:00 2022-04-12 03:55:00 Emergency Eliseo Mack [facility] 1.840.114 350.1.13.10 4.2.7.2.686 [id number] [facility] 2022-03-12 00:00:00 2022-03-12 00:00:00 Orders Only Doctor Unassigned, Adelino [facility] 1.2.840.114 350.1.13.10 4.2.7.2.686 [id number] [facility] 2022-02-14 00:00:00 2022-02-14 00:00:00 Orders Only Doctor Unassigned, Adelino [facility] 1.2.840.114 350.1.13.10 4.2.7.2.686 [id number] [facility] 2022-02-01 21:02:00 2022-02-01 23:47:00 Emergency X Zoe DUNLAP [facility] ERT [id number] [facility] 2022-02-01 21:02:00 2022-02-01 23:47:00 Emergency Zoe Dunlapge [facility] 1.2.840.114 350.1.13.10 4.2.7.2.686 [id number] [facility] 2021-12-04 00:00:00 2021-12-04 00:00:00 Outpatient ADDIE OTERO [facility] [id number] [facility] 2021-12-04 00:00:00 2021-12-04 00:00:00 Outpatient ADDIE OTERO [facility] [id number] [facility] 2021-12-02 15:30:00 2021-12-02 15:30:00 Outpatient JANIE DIAZ [facility] [id number] [facility] 2021-11-28 14:30:00 2021-11-28 14:30:00 Outpatient JANIE DIAZ [facility] [id number] [facility] 2021-11-28 00:00:00 2021-11-28 00:00:00 Letter (Out) Doctor Unassigned, Adelino [facility] 1.2.840.114 350.1.13.10 4.2.7.2.686 [id number] [facility] 2021-11-20 00:00:00 2021-11-20 00:00:00 Telephone Janie Werner [facility] 1.2.840.114 350.1.13.10 4.2.7.2.686 [id number] [facility] 2021-11-11 00:00:00 2021-11-11 00:00:00 Telephone Addie Pat [facility] 1.2.840.114 350.1.13.10 4.2.7.2.686 [id number] [facility] 2021-11-06 08:00:00 2021-11-06 08:53:05 Outpatient R ADDIE PAT [facility] [id number] [facility] 2021-11-06 08:00:00 2021-11-06 08:53:05 Outpatient R ADDIE PAT [facility] [id number] [facility] 2021-11-06 08:00:00 2021-11-06 08:53:05 Office Visit Addie Pat [facility] 1..840.114 350.1.13.10 4.2.7.2.686 [id number] [facility] 2021-10-29 09:30:00 2021-10-29 09:30:00 Outpatient R ADDIE PAT [facility] [id number] [facility] 2021-10-29 09:30:00 2021-10-29 09:30:00 Outpatient ADDIE OTERO [facility] [id number] [facility] 2021-10-26 18:10:00 2021-10-26 20:26:00 Emergency X AGRY CLARKE [facility] ERT [id number] [facility] 2021-10-26 18:10:00 2021-10-26 20:26:00 Emergency Gary Clarke [facility] 1..114 350.1.13.10 4.2.7.2.686 [id number] [facility] 2021-10-09 13:00:00 2021-10-09 13:00:00 Imm/Inj Visit Nurse, Elias Pob Immunizatio Moustapha Marinelli [facility] 1..114 350.1.13.10 4.2.7.2.686 [id number] [facility] 2021-10-09 13:00:00 2021-10-09 12:43:20 [facility] [id number] [facility] 2021-10-09 13:00:00 2021-10-09 12:43:20 Outpatient MOUSTAPHA ROGEL [facility] [id number] [facility] 2020-06-01 09:00:00 2020-06-01 09:00:00 Outpatient KRISTINA HARRISON [facility] [id number] [facility] 2020-05-31 13:07:33 2020-05-31 13:27:33 Laboratory Only Lab, Elias [facility] Pob I [facility] [address] 1..114 350.1.13.10 4.2.7.2.686 [id number] 2020-05-31 13:20:00 2020-05-31 13:20:00 Outpatient KRISTINA HARRISON [facility] [id number] [facility] 2020-05-31 00:00:00 2020-05-31 00:00:00 Letter (Out) Doctor Unassigned, Adelino [facility] 1..114 350.1.13.10 4.2.7.2.686 [id number] Results Test Description Test Time Test Comments Results Result Co mments Source Sanjeev HelmsMICROALBUMIN, RANDOM URINE (W/CREATININE)2025-01-26 00:00:00* Test Item Value Reference Range Interpretation Comme nts CREATININE, RANDOM URINE (te st code = 2161-8) 50 mg/dL ALBUMIN, URINE (test code = 30964-4) 0.3 mg/dL ALBUMIN/CREATININE RATIO, RA NDOM URINE (test code = 9318-7) 6 mg/gcreat Sanjeev HelmsCOMPREHENSIVE METABOLIC [id number] 00:00:00* Test Item Value Reference Range Interpretation Comme nts GLUCOSE (test code = 2345-7) 462 mg/dL UREA NITROGEN (BUN) (test code = 3094-0) 42 mg/dL CREATININE (test code = 2160-0) 2.42 mg/dL EGFR (test code = 39981-8) 32 mL/min/1.73m2 BUN/CREATININE RATIO (test code = 3097-3) 17 (calc) SODIUM (test code = 2951-2) 133 mmol/L POTASSIUM (test code = 2823-3) 3.5 mmol/L CHLORIDE (test code = 5-0) 86 mmol/L CARBON DIOXIDE (test code = 2027-9) 32 mmol/L CALCIUM (test code = 84934-3) 9.9 mg/dL PROTEIN, TOTAL (test code = 2885-2) 7.9 g/dL ALBUMIN (test code = 1751-7) 4.7 g/dL GLOBULIN (test code = 35089-9) 3.2 g/dL(calc) ALBUMIN/GLOBULIN RATIO (test code = 1759-0) 1.5 (calc) BILIRUBIN, TOTAL (test code = 1975-2) 0.5 mg/dL ALKALINE PHOSPHATASE (test code = 6768-6) 171 U/L AST (test code = 1920-8) 13 U/L ALT (test code = 1742-6) 13 U/L Sanjeev HelmsHEMOGLOBIN [id number] 00:00:00* Test Item Value Reference Range Interpretation Comme santa HEMOGLOBIN A1c (test code = 4548-4) 9.5 % Sanjeev HelmsLIPID [id number] 00:00:00* Test Item Value Reference Range Interpretation Comme nts CHOLESTEROL, TOTAL (test cod e = 2093-3) 176 mg/dL HDL CHOLESTEROL (test code = 2085-9) 42 mg/dL TRIGLYCERIDES (test code = 2571-8) 356 mg/dL LDL-CHOLESTEROL (test code = 20784-7) 87 mg/dL(calc) CHOL/HDLC RATIO (test code = 9830-1) 4.2 (calc) NON HDL CHOLESTEROL (test code = 67894-8) 134 mg/dL(calc) Sanjeev PiersonROALBUMIN, RANDOM URINE (W/CREATININE)2025-01-26 00:00:00* Test Item Value Reference Range Interpretation Comme nts CREATININE, RANDOM URINE (te st code = 2161-8) 50 mg/dL ALBUMIN, URINE (test code = 94864-9) 0.3 mg/dL ALBUMIN/CREATININE RATIO, RA NDOM URINE (test code = 9318-7) 6 mg/gcreat Sanjeev Regalado [place] (INCLUDES DIFF/PLT)2025-01-26 00:00:00* Test Item Value Reference Range Interpretation Comme nts WHITE BLOOD CELL COUNT (test code = 6690-2) 8.3 Thousand/uL RED BLOOD CELL COUNT (test code = 789-8) 5.47 Million/uL HEMOGLOBIN (test code = 718-7) 14.2 g/dL HEMATOCRIT (test code = 4544-3) 45.5 % MCV (test code = 787-2) 83.2 fL MCH (test code = 785-6) 26.0 pg MCHC (test code = 786-4) 31.2 g/dL RDW (test code = 788-0) 13.6 % PLATELET COUNT (test code = 777-3) 305 Thousand/uL MPV (test code = 776-5) 12.2 fL ABSOLUTE NEUTROPHILS (test code = 751-8) 4499 cells/uL ABSOLUTE BAND NEUTROPHILS (test code = 48176-4) DNR cells/uL ABSOLUTE METAMYELOCYTES (angie t code = 69664-7) DNR cells/uL ABSOLUTE MYELOCYTES (test code = 13299-1) DNR cells/uL ABSOLUTE PROMYELOCYTES (test code = 01353-6) DNR cells/uL ABSOLUTE LYMPHOCYTES (test code = 731-0) 3038 cells/uL ABSOLUTE MONOCYTES (test cod e = 742-7) 623 cells/uL ABSOLUTE EOSINOPHILS (test code = 711-2) 100 cells/uL ABSOLUTE BASOPHILS (test cod e = 704-7) 42 cells/uL ABSOLUTE BLASTS (test code = 26023-6) DNR cells/uL ABSOLUTE NUCLEATED RBC (test code = 27490-0) DNR cells/uL NEUTROPHILS (test code = 770-8) 54.2 % BAND NEUTROPHILS (test code = 764-1) DNR % METAMYELOCYTES (test code = 740-1) DNR % MYELOCYTES (test code = 749-2) DNR % PROMYELOCYTES (test code = 783-1) DNR % LYMPHOCYTES (test code = 736-9) 36.6 % REACTIVE LYMPHOCYTES (test code = 35996-4) DNR % MONOCYTES (test code = 5905-5) 7.5 % EOSINOPHILS (test code = 713-8) 1.2 % BASOPHILS (test code = 706-2) 0.5 % BLASTS (test code = 709-6) DNR % NUCLEATED RBC (test code = 65063-5) DNR /100WBC COMMENT(S) (test code = 8251-1) DNR Sanjeev F ScooterCOMPREHENSIVE METABOLIC [id number] 00:00:00* Test Item Value Reference Range Interpretation Comme nts GLUCOSE (test code = 2345-7) 462 mg/dL UREA NITROGEN (BUN) (test code = 3094-0) 42 mg/dL CREATININE (test code = 2160-0) 2.42 mg/dL EGFR (test code = 30914-5) 32 mL/min/1.73m2 BUN/CREATININE RATIO (test code = 3097-3) 17 (calc) SODIUM (test code = 2951-2) 133 mmol/L POTASSIUM (test code = 2823-3) 3.5 mmol/L CHLORIDE (test code = 2075-0) 86 mmol/L CARBON DIOXIDE (test code = 8-9) 32 mmol/L CALCIUM (test code = 63514-4) 9.9 mg/dL PROTEIN, TOTAL (test code = 2885-2) 7.9 g/dL ALBUMIN (test code = 1751-7) 4.7 g/dL GLOBULIN (test code = 29174-5) 3.2 g/dL(calc) ALBUMIN/GLOBULIN RATIO (test code = 1759-0) 1.5 (calc) BILIRUBIN, TOTAL (test code = 1975-2) 0.5 mg/dL ALKALINE PHOSPHATASE (test code = 6768-6) 171 U/L AST (test code = 1920-8) 13 U/L ALT (test code = 1742-6) 13 U/L Sanjeev HelmsHEMOGLOBIN [id number] 00:00:00* Test Item Value Reference Range Interpretation Comme nts HEMOGLOBIN A1c (test code = 4548-4) 9.5 % Sanjeev HelmsLIPID [id number] 00:00:00* Test Item Value Reference Range Interpretation Comme nts CHOLESTEROL, TOTAL (test cod e = 2093-3) 176 mg/dL HDL CHOLESTEROL (test code = 2085-9) 42 mg/dL TRIGLYCERIDES (test code = 2571-8) 356 mg/dL LDL-CHOLESTEROL (test code = 39349-7) 87 mg/dL(calc) CHOL/HDLC RATIO (test code = 9830-1) 4.2 (calc) NON HDL CHOLESTEROL (test code = 21974-8) 134 mg/dL(calc) Sanjeev Regalado AustinNOTE: [ADDED]2024-06-30 00:00:00* Test Item Value Reference Range Interpretation Comme nts NOTE: (test code = 998) (NOTE) Sanjeev Regalado AustinNOTE: [ADDED]2024-06-30 00:00:00* Test Item Value Reference Range Interpretation Comme nts NOTE: (test code = 998) (NOTE) Sanjeev Regalado AustinNOTE: [ADDED]2024-06-30 00:00:00* Test Item Value Reference Range Interpretation Comme nts NOTE: (test code = 998) (NOTE) Sanjeev Regalado AustinNOTE: [ADDED]2024-06-30 00:00:00* Test Item Value Reference Range Interpretation Comme nts NOTE: (test code = 998) (NOTE) Sanjeev HelmsHEMOGLOBIN A1c [ADDED]2024-06-29 00:00:00* Test Item Value Reference Range Interpretation Comme nts HEMOGLOBIN A1c (test code = 80463) 11.1 % Sanjeev F AustinHEMOGLOBIN A1c [ADDED]2024-06-29 00:00:00* Test Item Value Reference Range Interpretation Comme nts HEMOGLOBIN A1c (test code = 40146) 11.1 % Sanjeev Regalado AustinHEMOGLOBIN A1c [ADDED]2024-06-29 00:00:00* Test Item Value Reference Range Interpretation Comme nts HEMOGLOBIN A1c (test code = 70177) 11.1 % Sanjeev Regalado AustinHEMOGLOBIN A1c [ADDED]2024-06-29 00:00:00* Test Item Value Reference Range Interpretation Comme nts HEMOGLOBIN A1c (test code = 92845) 11.1 % Sanjeev Regalado [id number] 00:00:00* Test Item Value Reference Range Interpretation Comme nts GGT (test code = 2216) 19 U/L Sanjeev HelmsLIPID [id number] 00:00:00* Test Item Value Reference Range Interpretation Comme nts CHOLESTEROL (test code = 2210) 229 MG/DL TRIGLYCERIDES (test code = 2232) 220 MG/DL HDL CHOLESTEROL (test code = 2220) 38 MG/DL CALC LDL CHOL (test code = 2237) 152 MG/DL RISK RATIO LDL/HDL (test cod e = 2238) 4.00 RATIO Sanjeev HelmsVITAMIN D, 25 [id number] 00:00:00* Test Item Value Reference Range Interpretation Comme nts VITAMIN D, 25 OH (test code = 4958) 16 NG/ML Sanjeev HelmsHEMOGLOBIN [id number] 00:00:00* Test Item Value Reference Range Interpretation Comme nts HEMOGLOBIN A1c (test code = 50345) 8.7 % Sanjeev HelmsINTACT [id number] 00:00:00* Test Item Value Reference Range Interpretation Comme nts INTACT PTH (test code = 5005) 47 PG/ML Sanjeev Regalado [id number] 00:00:00* Test Item Value Reference Range Interpretation Comme nts GGT (test code = 2216) 19 U/L Sanjeev Regalado AustinLIPID [id number] 00:00:00* Test Item Value Reference Range Interpretation Comme nts CHOLESTEROL (test code = 2210) 229 MG/DL TRIGLYCERIDES (test code = 2232) 220 MG/DL HDL CHOLESTEROL (test code = 2220) 38 MG/DL CALC LDL CHOL (test code = 2237) 152 MG/DL RISK RATIO LDL/HDL (test cod e = 2238) 4.00 RATIO Sanjeev Regalado AustinVITAMIN D, 25 [id number] 00:00:00* Test Item Value Reference Range Interpretation Comme nts VITAMIN D, 25 OH (test code = 4958) 16 NG/ML Sanjeev Regalado AustinHEMOGLOBIN [id number] 00:00:00* Test Item Value Reference Range Interpretation Comme nts HEMOGLOBIN A1c (test code = 89059) 8.7 % Sanjeev Regalado AustinINTACT [id number] 00:00:00* Test Item Value Reference Range Interpretation Comme nts INTACT PTH (test code = 5005) 47 PG/ML Sanjeev Regalado [id number] 00:00:00* Test Item Value Reference Range Interpretation Comme nts GGT (test code = 2216) 19 U/L Sanjeev Regalado AustinLIPID [id number] 00:00:00* Test Item Value Reference Range Interpretation Comme nts CHOLESTEROL (test code = 2210) 229 MG/DL TRIGLYCERIDES (test code = 2232) 220 MG/DL HDL CHOLESTEROL (test code = 2220) 38 MG/DL CALC LDL CHOL (test code = 2237) 152 MG/DL RISK RATIO LDL/HDL (test cod e = 2238) 4.00 RATIO Sanjeev HelmsVITAMIN D, 25 [id number] 00:00:00* Test Item Value Reference Range Interpretation Comme nts VITAMIN D, 25 OH (test code = 4958) 16 NG/ML Sanjeev Regalado AustinHEMOGLOBIN [id number] 00:00:00* Test Item Value Reference Range Interpretation Comme nts HEMOGLOBIN A1c (test code = 39755) 8.7 % Sanjeev Regalado AustinINTACT [id number] 00:00:00* Test Item Value Reference Range Interpretation Comme nts INTACT PTH (test code = 5005) 47 PG/ML Sanjeev Regalado [id number] 00:00:00* Test Item Value Reference Range Interpretation Comme nts GGT (test code = 2216) 19 U/L Sanjeev Regalado AustinLIPID [id number] 00:00:00* Test Item Value Reference Range Interpretation Comme nts CHOLESTEROL (test code = 2210) 229 MG/DL TRIGLYCERIDES (test code = 2232) 220 MG/DL HDL CHOLESTEROL (test code = 2220) 38 MG/DL CALC LDL CHOL (test code = 2237) 152 MG/DL RISK RATIO LDL/HDL (test cod e = 2238) 4.00 RATIO Sanjeev HelmsVITAMIN D, 25 [id number] 00:00:00* Test Item Value Reference Range Interpretation Comme santa VITAMIN D, 25 OH (test code = 4958) 16 NG/ML Sanjeev HelmsHEMOGLOBIN [id number] 00:00:00* Test Item Value Reference Range Interpretation Comme santa HEMOGLOBIN A1c (test code = 31941) 8.7 % Sanjeev HelmsINTACT [id number] 00:00:00* Test Item Value Reference Range Interpretation Comme santa INTACT PTH (test code = 5005) 47 PG/ML [place]2022[place]15 02:34:32* Test Item Value Reference Range Interpretation Comme nts POCT GLU (test code = 1198025693) 380 mg/dL 70-110 H Lab Interpretation (test cod e = 86043-0) Abnormal [facility] GLUCOSE (AUTOMATED)2022-04-15 01:41:12* Test Item Value Reference Range Interpretation Comme nts POCT GLU (test code = 8960857877) 421 mg/dL 70-110 H Lab Interpretation (test cod e = 15455-9) Abnormal [facility] GLUCOSE (AUTOMATED)2022-04-15 00:44:10* Test Item Value Reference Range Interpretation Comme nts POCT GLU (test code = 9772780324) 412 mg/dL 70-110 H Lab Interpretation (test cod e = 58365-8) Abnormal [facility] GLUCOSE (AUTOMATED)2022-04-14 23:23:25* Test Item Value Reference Range Interpretation Comme nts POCT GLU (test code = 9696527548) 506 mg/dL 70-110 HH Lab Interpretation (test cod e = 35423-1) Abnormal [facility] GLUCOSE (AUTOMATED)2022-04-14 21:45:07* Test Item Value Reference Range Interpretation Comme nts POCT GLU (test code = 0833224310) 545 mg/dL 70-110 HH Lab Interpretation (test cod e = 18704-0) Abnormal [facility] GLUCOSE (AUTOMATED)2022-04-12 07:49:02* Test Item Value Reference Range Interpretation Comme nts POCT GLU (test code = 4020539066) 376 mg/dL 70-110 H Lab Interpretation (test cod e = 49657-3) Abnormal [facility] GLUCOSE (AUTOMATED)2022-04-12 06:22:59* Test Item Value Reference Range Interpretation Comme nts POCT GLU (test code = 8332902420) 445 mg/dL 70-110 H Lab Interpretation (test cod e = 90216-1) Abnormal [facility] GLUCOSE (AUTOMATED)2022-04-12 05:08:47* Test Item Value Reference Range Interpretation Comme nts POCT GLU (test code = 6543246575) 506 mg/dL 70-110 HH Lab Interpretation (test cod e = 36896-3) [facility] 05:08:27* Test Item Value Reference Range Interpretation Comme nts HGB A1C (test code = 4548-4) 13.6 % 4.0-5.7 H RANJITH (test code = RANJITH) Reference RangesNormal: <5.7%Prediabetes: 5.7 - 6.4%Diabetes: > 6.5% Lab Interpretation (test code = 13676-2) Abnormal [facility]. METABOLIC PANEL (22159)2022-04-12 05:08:01* Test Item Value Reference Range Interpretation Comme nts NA (test code = 7069102515) 126 mmol/L 135-145 L K (test code = 6764658774) 3.7 mmol/L 3.5-5.0 CL (test code = 8659984630) 79 mmol/L 98-108 L CO2 TOTAL (test code = 9554349710) 31 mmol/L 23-31 AGAP (test code = 0616542078) 2-16 BUN (test code = 8640530044) 20 mg/dL 7-23 GLUCOSE (test code = 0331219465) 575 mg/dL 70-110 HH CREATININE (test code = 1006899962) 1.15 mg/dL 0.60-1.25 TOTAL BILI (test code = 4977532605) 1.0 mg/dL 0.1-1.1 CALCIUM (test code = 0610462400) 11.0 mg/dL 8.6-10.6 H T PROTEIN (test code = 8443109086) 7.9 g/dL 6.3-8.2 ALBUMIN (test code = 1119949617) 4.7 g/dL 3.5-5.0 ALK PHOS (test code = 7082132169) 286 U/L 34-122 H ALTv (test code = 1742-6) 40 U/L 5-50 AST(SGOT) (test code = 4320947249) 45 U/L 13-40 H eGFR (test code = 1938958745) mL/min/1.73m2 RANJITH (test code = RANJITH) Association [...] imaging tests). Lab Interpretation (test code = 93436-7) Abnormal [facility] WITH [id number] 04:52:23* Test Item Value Reference Range Interpretation Comme nts WBC (test code = 6690-2) See_Comment [Automated messa ge] The system which generated this result transmitted reference range: 4.20 - 10.70 10*3/?L. The reference range was not used to interpret this result as normal/abnormal. RBC (test code = 789-8) See_Comment [Automated messa ge] The system which [...] 34.0 g/dL 31.2-35.0 RDW-SD (test code = 31300-7) 39.4 fL 38.5-51.6 RDW-CV (test code = 788-0) 13.9 % 12.1-15.4 PLT (test code = 777-3) See_Comment [Automated messa ge] The system which generated this result transmitted reference range: 150 - 328 10*3/?L. The reference range was not used to interpret this result as normal/abnormal. MPV (test code = 36949-6) 10.4 fL 9.8-13.0 NRBC/100 WBC (test code = 6091506187) See_Comment [Automated [employer] ssage] The system which generated this result transmitted reference range: 0.0 - 10.0 /100 WBCs. The reference range was not used to interpret this result as normal/abnormal. NRBC x10^3 (test code = 9835226065) <0.01 See_Comment [Automated messa ge] The system which generated this result transmitted reference range: 10*3/?L. The reference range was not used to interpret this result as normal/abnormal. GRAN MAT (NEUT) % (test code = 770-8) 47.8 % IMM GRAN % (test code = 7362213832) 0.20 % LYMPH % (test code = 736-9) 41.8 % MONO % (test code = 5905-5) 9.5 % EOS % (test code = 713-8) 0.5 % BASO % (test code = 706-2) 0.2 % GRAN MAT x10^3(ANC) (test code = 7915510409) 4.06 10*3/uL 1.99-6.95 IMM GRAN x10^3 (test code = 8231368143) <0.03 0.00-0.06 LYMPH x10^3 (test code = 731-0) 3.56 10*3/uL 1.09-3.23 H MONO x10^3 (test code = 742-7) 0.81 10*3/uL 0.36-1.02 EOS x10^3 (test code = 711-2) 0.04 10*3/uL 0.06-0.53 L BASO x10^3 (test code = 704-7) <0.03 0.01-0.09 Lab Interpretation (test code = 24086-6) [facility]:04:52* Test Item Value Reference Range Interpretation Comme [facility] POCT GLU (test code = 3679505498) 560 mg/dL 70-110 Lab Interpretation (test cod e = 28449-1) [facility] [id number] 04:06:50* Test Item Value Reference Range Interpretation [...] SPECIMENS. FOR MOREINFORMATION, SEE CLIENT ANNOUNCEMENT AT [email or web address] RISK RATIO LDL/HDL (test code = 2238) 3.59 RATIO <3.55 H COMPREHENSIVE METABOLIC [id number] 04:06:50* Test Item Value Reference Range Interpretation Comme nts GLUCOSE (test code = 2216) 173 MG/DL 70-99 H BUN (test code = 2207) 14 MG/DL 6-20 CREATININE (test code = 2213) 1.09 MG/DL 0.80-1.40 eGFR (2020 CKD-EPI) (test code = ) 84 ML/MIN/1.73 >60 CALC BUN/CREAT (test code [...] U/L 40-118 H AST (test code = 8) 17 U/L 9-50 ALT (test code = 2219) 17 U/L 5-50 UNLESS OTHERWISE INDICATED, ALL TESTING PERFORMED [facility] [address] [place] [id number] MANAGER LAUNDRY: GRIFFIN KERN M.D. CLIA NUMBER [id number] [place]. [id number] HEMOGLOBIN [id number] 03:47:07* Test Item Value Reference Range Interpretation Comme nts HEMOGLOBIN A1c (test code = 67297) 9.3 % 4.2-5.6 H [employer] GUIDELINES FOR HGB A1C: [...] ETC.). CONSIDER ALTERNATE TESTING OR LABORATORY CONSULTATION. LIPID [id number] 00:00:00* Test Item Value Reference Range Interpretation Comme nts CHOLESTEROL (test code = 2210) 269 MG/DL TRIGLYCERIDES (test code = 2232) 237 MG/DL HDL CHOLESTEROL (test code = 2220) 49 MG/DL CALC LDL CHOL (test code = 2237) 176 MG/DL RISK RATIO LDL/HDL (test cod e = 2238) 3.59 RATIO Sanjeev HelmsCOMPREHENSIVE METABOLIC [id number] 00:00:00* Test Item Value Reference Range Interpretation Comme nts GLUCOSE (test code = 2217) 173 MG/DL BUN (test code = 2208) 14 MG/DL CREATININE (test code = 2214) 1.09 MG/DL eGFR (2020 CKD-EPI) (test co de = 69767) 84 ML/MIN/1.73 CALC BUN/CREAT (test code = [...] code = 2219) 17 U/L Sanjeev HelmsHEMOGLOBIN [id number] 00:00:00* Test Item Value Reference Range Interpretation Comme nts HEMOGLOBIN A1c (test code = 57977) 9.3 % Sanjeev HelmsLIPID [id number] 00:00:00* Test Item Value Reference Range Interpretation Comme nts CHOLESTEROL (test code = 2210) 269 MG/DL TRIGLYCERIDES (test code = 2232) 237 MG/DL HDL CHOLESTEROL (test code = 2220) 49 MG/DL CALC LDL CHOL (test code = 2237) 176 MG/DL RISK RATIO LDL/HDL (test cod e = 2238) 3.59 RATIO Sanjeev HelmsCOMPREHENSIVE METABOLIC [id number] 00:00:00* Test Item Value Reference Range Interpretation Comme nts GLUCOSE (test code = 2217) 173 MG/DL BUN (test code = 2208) 14 MG/DL CREATININE (test code = 2214) 1.09 MG/DL eGFR (2020 CKD-EPI) (test co de = 27070) 84 ML/MIN/1.73 CALC BUN/CREAT (test code = [...] code = 2219) 17 U/L Sanjeev HelmsHEMOGLOBIN [id number] 00:00:00* Test Item Value Reference Range Interpretation Comme nts HEMOGLOBIN A1c (test code = 32968) 9.3 % Sanjeev HelmsLIPID [id number] 00:00:00* Test Item Value Reference Range Interpretation Comme nts CHOLESTEROL (test code = 2210) 269 MG/DL TRIGLYCERIDES (test code = 2232) 237 MG/DL HDL CHOLESTEROL (test code = 2220) 49 MG/DL CALC LDL CHOL (test code = 2237) 176 MG/DL RISK RATIO LDL/HDL (test cod e = 2238) 3.59 RATIO Sanjeev HelmsCOMPREHENSIVE METABOLIC [id number] 00:00:00* Test Item Value Reference Range Interpretation Comme nts GLUCOSE (test code = 2217) 173 MG/DL BUN (test code = 2208) 14 MG/DL CREATININE (test code = 2214) 1.09 MG/DL eGFR (2020 CKD-EPI) (test co de = 65556) 84 ML/MIN/1.73 CALC BUN/CREAT (test code = [...] code = 2219) 17 U/L Sanjeev HelmsHEMOGLOBIN [id number] 00:00:00* Test Item Value Reference Range Interpretation Comme nts HEMOGLOBIN A1c (test code = 70247) 9.3 % Sanjeev HelmsLIPID [id number] 00:00:00* Test Item Value Reference Range Interpretation Comme nts CHOLESTEROL (test code = 2210) 269 MG/DL TRIGLYCERIDES (test code = 2232) 237 MG/DL HDL CHOLESTEROL (test code = 2220) 49 MG/DL CALC LDL CHOL (test code = 2237) 176 MG/DL RISK RATIO LDL/HDL (test cod e = 2238) 3.59 RATIO Sanjeev HelmsCOMPREHENSIVE METABOLIC [id number] 00:00:00* Test Item Value Reference Range Interpretation Comme nts GLUCOSE (test code = 2217) 173 MG/DL BUN (test code = 2208) 14 MG/DL CREATININE (test code = 2214) 1.09 MG/DL eGFR (2020 CKD-EPI) (test co de = 85552) 84 ML/MIN/1.73 CALC BUN/CREAT (test code = [...] code = 2219) 17 U/L Sanjeev HelmsHEMOGLOBIN [id number] 00:00:00* Test Item Value Reference Range Interpretation Comme [facility] HEMOGLOBIN A1c (test code = 62980) 9.3 % Sanjeev HelmsPOCT URINALYSIS, [id number] 14:39:00* Test Item Value Reference Range Interpretation Comme [facility] POCT U SP GRAV (test code = [...] Clear Lab Interpretation (test cod e = 98649-9) [facility]normal [facility] [id number] 00:00:00* Test Item Value Reference Range Interpretation Comme nts CHOLESTEROL (test code = 2210) 250 MG/DL TRIGLYCERIDES (test code = 2232) 156 MG/DL HDL CHOLESTEROL (test code = 2220) 48 MG/DL CALC LDL CHOL (test code = 2237) 172 MG/DL RISK RATIO LDL/HDL (test cod e = 2238) 3.58 RATIO Sanjeev HelmsHEMOGLOBIN [id number] 00:00:00* Test Item Value Reference Range Interpretation Comme nts HEMOGLOBIN A1c (test code = 90615) 7.6 % Sanjeev HelmsCOMPREHENSIVE METABOLIC [id number] 00:00:00* Test Item Value Reference Range Interpretation Comme nts GLUCOSE (test code = 2217) 154 MG/DL BUN (test code = 2208) 12 MG/DL CREATININE (test code = 2214) 1.01 MG/DL eGFR AMER. (test cod e = 20030) 101 ML/MIN/1.73 eGFR NON- AMER. (test code = 40330) 88 ML/MIN/1.73 CALC BUN/CREAT (test code = [...] code = 2219) 14 U/L Sanjeev HelmsLIPID [id number] 00:00:00* Test Item Value Reference Range Interpretation Comme nts CHOLESTEROL (test code = 2210) 250 MG/DL TRIGLYCERIDES (test code = 2232) 156 MG/DL HDL CHOLESTEROL (test code = 2220) 48 MG/DL CALC LDL CHOL (test code = 2237) 172 MG/DL RISK RATIO LDL/HDL (test cod e = 2238) 3.58 RATIO Sanjeev HelmsHEMOGLOBIN [id number] 00:00:00* Test Item Value Reference Range Interpretation Comme nts HEMOGLOBIN A1c (test code = 47674) 7.6 % Sanjeev HelmsCOMPREHENSIVE METABOLIC [id number] 00:00:00* Test Item Value Reference Range Interpretation Comme nts GLUCOSE (test code = 2217) 154 MG/DL BUN (test code = 2208) 12 MG/DL CREATININE (test code = 2214) 1.01 MG/DL eGFR AMER. (test cod e = 53061) 101 ML/MIN/1.73 eGFR NON- AMER. (test code = 86168) 88 ML/MIN/1.73 CALC BUN/CREAT (test code = [...] code = 2219) 14 U/L Sanjeev HelmsLIPID [id number] 00:00:00* Test Item Value Reference Range Interpretation Comme nts CHOLESTEROL (test code = 2210) 250 MG/DL TRIGLYCERIDES (test code = 2232) 156 MG/DL HDL CHOLESTEROL (test code = 2220) 48 MG/DL CALC LDL CHOL (test code = 2237) 172 MG/DL RISK RATIO LDL/HDL (test cod e = 2238) 3.58 RATIO Sajneev HelmsHEMOGLOBIN [id number] 00:00:00* Test Item Value Reference Range Interpretation Comme nts HEMOGLOBIN A1c (test code = 60037) 7.6 % Sanjeev HelmsCOMPREHENSIVE METABOLIC [id number] 00:00:00* Test Item Value Reference Range Interpretation Comme nts GLUCOSE (test code = 2217) 154 MG/DL BUN (test code = 2208) 12 MG/DL CREATININE (test code = 2214) 1.01 MG/DL eGFR AMER. (test cod e = 33039) 101 ML/MIN/1.73 eGFR NON- AMER. (test code = 06515) 88 ML/MIN/1.73 CALC BUN/CREAT (test code = [...] code = 2219) 14 U/L Sanjeev HelmsLIPID [id number] 00:00:00* Test Item Value Reference Range Interpretation Comme nts CHOLESTEROL (test code = 2210) 250 MG/DL TRIGLYCERIDES (test code = 2232) 156 MG/DL HDL CHOLESTEROL (test code = 2220) 48 MG/DL CALC LDL CHOL (test code = 2237) 172 MG/DL RISK RATIO LDL/HDL (test cod e = 2238) 3.58 RATIO Sanjeev HelmsHEMOGLOBIN [id number] 00:00:00* Test Item Value Reference Range Interpretation Comme nts HEMOGLOBIN A1c (test code = 79766) 7.6 % Sanjeev HelmsCOMPREHENSIVE METABOLIC [id number] 00:00:00* Test Item Value Reference Range Interpretation Comme nts GLUCOSE (test code = 2217) 154 MG/DL BUN (test code = 2208) 12 MG/DL CREATININE (test code = 2214) 1.01 MG/DL eGFR AMER. (test cod e = 76252) 101 ML/MIN/1.73 eGFR NON- AMER. (test code = 60176) 88 ML/MIN/1.73 CALC BUN/CREAT (test code = [...] (test code = 2219) 14 U/L Sanjeev HelmsPSA, [id number] 00:00:00* Test Item Value Reference Range Interpretation Comme nts PSA, TOTAL (test code = 2606) 0.49 NG/ML Sanjeev [id number] 00:00:00* Test Item Value Reference Range Interpretation Comme nts TESTOSTERONE (test code = 2830) 380 NG/DL Sanjeev HelmsFSH + LH [id number] 00:00:00* Test Item Value Reference Range Interpretation Comme nts FOLLICLE STIM HORMONE (test code = 2700) 3.5 IU/L LUTEINIZING HORMONE (test co de = 9446) 4.8 IU/L Sanjeev HelmsPSA, [id number] 00:00:00* Test Item Value Reference Range Interpretation Comme nts PSA, TOTAL (test code = 2606) 0.49 NG/ML Sanjeev Regalado [id number] 00:00:00* Test Item Value Reference Range Interpretation Comme nts TESTOSTERONE (test code = 2830) 380 NG/DL Sanjeev HelmsFSH + LH [id number] 00:00:00* Test Item Value Reference Range Interpretation Comme nts FOLLICLE STIM HORMONE (test code = 2700) 3.5 IU/L LUTEINIZING HORMONE (test co de = 2776) 4.8 IU/L Sanjeev HelmsPSA, [id number] 00:00:00* Test Item Value Reference Range Interpretation Comme nts PSA, TOTAL (test code = 2606) 0.49 NG/ML Sanjeev Regalado [id number] 00:00:00* Test Item Value Reference Range Interpretation Comme nts TESTOSTERONE (test code = 2830) 380 NG/DL Sanjeev HelmsFSH + LH [id number] 00:00:00* Test Item Value Reference Range Interpretation Comme nts FOLLICLE STIM HORMONE (test code = 2700) 3.5 IU/L LUTEINIZING HORMONE (test co de = 2776) 4.8 IU/L Sanjeev HelmsPSA, [id number] 00:00:00* Test Item Value Reference Range Interpretation Comme nts PSA, TOTAL (test code = 2606) 0.49 NG/ML Sanjeev [id number] 00:00:00* Test Item Value Reference Range Interpretation Comme nts TESTOSTERONE (test code = 2830) 380 NG/DL Sanjeev HelmsFSH + LH [id number] 00:00:00* Test Item Value Reference Range Interpretation Comme nts FOLLICLE STIM HORMONE (test code = 2700) 3.5 IU/L LUTEINIZING HORMONE (test co de = 2776) 4.8 IU/L Sanjeev HelmsCBC W/AUTO [id number] 00:00:00* Test Item Value Reference Range Interpretation [...] ABS NUCLEATED RBCS (test cod e = 14219) 0.00 K/UL Sanjeev Regalado [id number] 00:00:00* Test Item Value Reference Range Interpretation Comme nts TSH, THIRD GENERATION (test code = 2821) 1.640 UIU/ML Sanjeev [id number] 00:00:00* Test Item Value Reference Range Interpretation Comme nts PROLACTIN (test code = 2800) 20.1 NG/ML Sanjeev [id number] 00:00:00* Test Item Value Reference Range Interpretation Comme nts TESTOSTERONE (test code = 2830) 139 NG/DL Sanjeev HelmsCBC W/AUTO [id number] 00:00:00* Test Item Value Reference Range Interpretation [...] ABS NUCLEATED RBCS (test cod e = 97237) 0.00 K/UL Sanjeev [id number] 00:00:00* Test Item Value Reference Range Interpretation Comme nts TSH, THIRD GENERATION (test code = 2821) 1.640 UIU/ML Sanjeev [id number] 00:00:00* Test Item Value Reference Range Interpretation Comme nts PROLACTIN (test code = 2800) 20.1 NG/ML Sanjeev [id number] 00:00:00* Test Item Value Reference Range Interpretation Comme nts TESTOSTERONE (test code = 2830) 139 NG/DL Sanjeev HelmsCBC W/AUTO [id number] 00:00:00* Test Item Value Reference Range Interpretation [...] ABS NUCLEATED RBCS (test cod e = 95868) 0.00 K/UL Sanjeev Regalado [id number] 00:00:00* Test Item Value Reference Range Interpretation Comme nts TSH, THIRD GENERATION (test code = 2821) 1.640 UIU/ML Sanjeev [id number] 00:00:00* Test Item Value Reference Range Interpretation Comme nts PROLACTIN (test code = 2800) 20.1 NG/ML Sanjeev [id number] 00:00:00* Test Item Value Reference Range Interpretation Comme nts TESTOSTERONE (test code = 2830) 139 NG/DL Sanjeev HelmsCBC W/AUTO [id number] 00:00:00* Test Item Value Reference Range Interpretation [...] ABS NUCLEATED RBCS (test cod e = 94352) 0.00 K/UL Sanjeev [id number] 00:00:00* Test Item Value Reference Range Interpretation Comme nts TSH, THIRD GENERATION (test code = 2821) 1.640 UIU/ML Sanjeev [id number] 00:00:00* Test Item Value Reference Range Interpretation Comme nts PROLACTIN (test code = 2800) 20.1 NG/ML Sanjeev HelmsOfcoeuSWHTJVLXKXPQ7234-30-82 00:00:00* Test Item Value Reference Range Interpretation Comme nts TESTOSTERONE (test code = 2830) 139 NG/DL Sanjeev Regalado AustinGC, AMPLIFIED, [id number] 00:00:00* Test Item Value Reference Range Interpretation Comme nts GONORRHEA, NAAT (test code = 96904) NEGATIVE Sanjeev Regalado AustinGC, AMPLIFIED, [id number] 00:00:00* Test Item Value Reference Range Interpretation Comme nts GONORRHEA, NAAT (test code = 45128) NEGATIVE Sanjeev F AustinGC, AMPLIFIED, [id number] 00:00:00* Test Item Value Reference Range Interpretation Comme nts GONORRHEA, NAAT (test code = 83257) NEGATIVE Sanjeev Regalado AustinGC, AMPLIFIED, [id number] 00:00:00* Test Item Value Reference Range Interpretation Comme nts GONORRHEA, NAAT (test code = 86096) NEGATIVE Sanjeev Regalado AustinHEMOGLOBIN [id number] 00:00:00* Test Item Value Reference Range Interpretation Comme nts HEMOGLOBIN A1c (test code = 40294) 6.2 % Sanjeev Regalado AustinHEMOGLOBIN [id number] 00:00:00* Test Item Value Reference Range Interpretation Comme nts HEMOGLOBIN A1c (test code = 44075) 6.2 % Sanjeev Regalado AustinHEMOGLOBIN [id number] 00:00:00* Test Item Value Reference Range Interpretation Comme nts HEMOGLOBIN A1c (test code = 60329) 6.2 % Sanjeev Regalado AustinHEMOGLOBIN [id number] 00:00:00* Test Item Value Reference Range Interpretation Comme nts HEMOGLOBIN A1c (test code = 46508) 6.2 % Sanjeev Regalado AustinCULTURE, URINE [ADDED]2020-12-01 00:00:00* Test Item Value Reference Range Interpretation Comme nts CULTURE, URINE (test code = 93429) SPECIMEN NUMBER: [id number] Sanjeev Regaldao AustinCULTURE, URINE [ADDED]2020-12-01 00:00:00* Test Item Value Reference Range Interpretation Comme nts CULTURE, URINE (test code = 11543) SPECIMEN NUMBER: [id number] Sanjeev Regalado AustinCULTURE, URINE [ADDED]2020-12-01 00:00:00* Test Item Value Reference Range Interpretation Comme nts CULTURE, URINE (test code = 04693) SPECIMEN NUMBER: [id number] Sanjeev Regalado AustinCULTURE, URINE [ADDED]2020-12-01 00:00:00* Test Item Value Reference Range Interpretation Comme nts CULTURE, URINE (test code = 22897) SPECIMEN NUMBER: [id number] Sanjeev HelmsHIV AB/AG COMBO RFLX [id number] 00:00:00* Test Item Value Reference Range Interpretation Comme nts HIV 1/2 4TH GEN, RFLX CONF ( test code = 3514) NON-REACTIVE Sanjeev HelmsRPR REFLEX TO [id number] 00:00:00* Test Item Value Reference Range Interpretation Comme nts RPR (test code = 79479) NON-REACTIVE RPR TITER (test code = 3500) NOT INDIC. TITER Sanjeev F AustinHEPATITIS PROFILE (A,B,C)2020-11-30 00:00:00* Test Item Value Reference [...] (NOTE) INTERPRETATION HEPATITIS B: (test code = 38280) (NOTE) INTERPRETATION HEPATITIS C: (test code = 84196) (NOTE) Sanjeev Regalado ScooterGC AND CHLAMYDIA, AMPLIFIED, [id number] 00:00:00* Test Item Value Reference Range Interpretation Comme nts GONORRHEA, NAAT (test code = 54716) POSITIVE CHLAMYDIA, NAAT (test code = 50302) NEGATIVE Sanjeev HelmsHIV AB/AG COMBO RFLX [id number] 00:00:00* Test Item Value Reference Range Interpretation Comme nts HIV 1/2 4TH GEN, RFLX CONF ( test code = 3514) NON-REACTIVE Sanjeev HelmsRPR REFLEX TO [id number] 00:00:00* Test Item Value Reference Range Interpretation Comme nts RPR (test code = 60598) NON-REACTIVE RPR TITER (test code = 3500) [...] (NOTE) INTERPRETATION HEPATITIS B: (test code = 59902) (NOTE) INTERPRETATION HEPATITIS C: (test code = 44849) (NOTE) Sanjeev Regalado ScooterGC AND CHLAMYDIA, AMPLIFIED, [id number] 00:00:00* Test Item Value Reference Range Interpretation Comme nts GONORRHEA, NAAT (test code = 74379) POSITIVE CHLAMYDIA, NAAT (test code = 65915) NEGATIVE Sanjeev Regalado AustinHIV AB/AG COMBO RFLX [id number] 00:00:00* Test Item Value Reference Range Interpretation Comme nts HIV 1/2 4TH GEN, RFLX CONF ( test code = 3514) NON-REACTIVE Sanjeev Regalado AustinRPR REFLEX TO [id number] 00:00:00* Test Item Value Reference Range Interpretation Comme nts RPR (test code = 45747) NON-REACTIVE RPR TITER (test code = 3500) NOT INDIC. TITER Sanjeev Regalado AustinHEPATITIS PROFILE (A,B,C)2020-11-30 00:00:00* Test Item Value Reference [...] (NOTE) INTERPRETATION HEPATITIS B: (test code = 14481) (NOTE) INTERPRETATION HEPATITIS C: (test code = 19172) (NOTE) Sanjeev HelmsGC AND CHLAMYDIA, AMPLIFIED, [id number] 00:00:00* Test Item Value Reference Range Interpretation Comme nts GONORRHEA, NAAT (test code = 06573) POSITIVE CHLAMYDIA, NAAT (test code = 62745) NEGATIVE Sanjeev Regalado AustinHIV AB/AG COMBO RFLX [id number] 00:00:00* Test Item Value Reference Range Interpretation Comme nts HIV 1/2 4TH GEN, RFLX CONF ( test code = 3514) NON-REACTIVE Sanjeev Regalado AustinRPR REFLEX TO [id number] 00:00:00* Test Item Value Reference Range Interpretation Comme nts RPR (test code = 15251) NON-REACTIVE RPR TITER (test code = 3500) NOT INDIC. TITER Sanjeev Regalado AustinHEPATITIS PROFILE (A,B,C)2020-11-30 00:00:00* Test Item Value Reference Range Interpretation Comme nts HEPATITIS A TOTAL AB (test c ode = 2725) NON-REACTIVE HEPATITIS B SURF AG (test co de = 2739) NON-REACTIVE HEP B CORE TOTAL AB (test co de = 2729) NON-REACTIVE HEPATITIS B SURFACE AB (test code = 2737) NON-REACTIVE HEPATITIS C ANTIBODY (test c ode = 1862) NON-REACTIVE INTERPRETATION HEPATITIS A: (test code = 2552) (NOTE) INTERPRETATION HEPATITIS B: (test code = 70542) (NOTE) INTERPRETATION HEPATITIS C: (test code = 12761) (NOTE) Sanjeev HelmsGC AND CHLAMYDIA, AMPLIFIED, [id number] 00:00:00* Test Item Value Reference Range Interpretation Comme nts GONORRHEA, NAAT (test code = 08589) POSITIVE CHLAMYDIA, NAAT (test code = 73077) NEGATIVE Sanjeev HelmsLIPID [id number] 00:00:00* Test Item Value Reference Range Interpretation Comme nts CHOLESTEROL (test code = 2210) 138 MG/DL TRIGLYCERIDES (test code = 2232) 93 MG/DL HDL CHOLESTEROL (test code = 2220) 48 MG/DL CALC LDL CHOL (test code = 2237) 72 MG/DL RISK RATIO LDL/HDL (test cod e = 2238) 1.50 RATIO Sanjeev HelmsHEMOGLOBIN [id number] 00:00:00* Test Item Value Reference Range Interpretation Comme nts HEMOGLOBIN A1c (test code = 38271) 5.5 % Sanjeev HelmsCOMPREHENSIVE METABOLIC [id number] 00:00:00* Test Item Value Reference Range Interpretation Comme nts GLUCOSE (test code = 2217) 99 MG/DL BUN (test code = 2208) 14 MG/DL CREATININE (test code = 2214) 1.10 MG/DL eGFR AMER. (test cod e = 38521) 92 ML/MIN/1.73 eGFR NON- AMER. (test code = 40947) 80 ML/MIN/1.73 CALC BUN/CREAT (test code = [...] (test code = 2219) 21 U/L Sanjeev HelmsLIPID [id number] 00:00:00* Test Item Value Reference Range Interpretation Comme nts CHOLESTEROL (test code = 2210) 138 MG/DL TRIGLYCERIDES (test code = 2232) 93 MG/DL HDL CHOLESTEROL (test code = 2220) 48 MG/DL CALC LDL CHOL (test code = 2237) 72 MG/DL RISK RATIO LDL/HDL (test cod e = 223) 1.50 RATIO Sanjeev HelmsHEMOGLOBIN [id number] 00:00:00* Test Item Value Reference Range Interpretation Comme nts HEMOGLOBIN A1c (test code = 14094) 5.5 % Sanjeev HelmsCOMPREHENSIVE METABOLIC [id number] 00:00:00* Test Item Value Reference Range Interpretation Comme nts GLUCOSE (test code = 2217) 99 MG/DL BUN (test code = 2208) 14 MG/DL CREATININE (test code = 2214) 1.10 MG/DL eGFR AMER. (test cod e = 10141) 92 ML/MIN/1.73 eGFR NON- AMER. (test code = 41305) 80 ML/MIN/1.73 CALC BUN/CREAT (test code = [...] (test code = 2219) 21 U/L Sanjeev HelmsLIPID [id number] 00:00:00* Test Item Value Reference Range Interpretation Comme nts CHOLESTEROL (test code = 2210) 138 MG/DL TRIGLYCERIDES (test code = 2232) 93 MG/DL HDL CHOLESTEROL (test code = 2220) 48 MG/DL CALC LDL CHOL (test code = 2237) 72 MG/DL RISK RATIO LDL/HDL (test cod e = 223) 1.50 RATIO Sanjeev HelmsHEMOGLOBIN [id number] 00:00:00* Test Item Value Reference Range Interpretation Comme nts HEMOGLOBIN A1c (test code = 87509) 5.5 % Sanjeev HelmsCOMPREHENSIVE METABOLIC [id number] 00:00:00* Test Item Value Reference Range Interpretation Comme nts GLUCOSE (test code = 2217) 99 MG/DL BUN (test code = 2208) 14 MG/DL CREATININE (test code = 2214) 1.10 MG/DL eGFR AMER. (test cod e = 70427) 92 ML/MIN/1.73 eGFR NON- AMER. (test code = 35787) 80 ML/MIN/1.73 CALC BUN/CREAT (test code = [...] = 2219) 21 U/L Sanjeev Regalado AustinLIPID [id number] 00:00:00* Test Item Value Reference Range Interpretation Comme nts CHOLESTEROL (test code = 2210) 138 MG/DL TRIGLYCERIDES (test code = 2232) 93 MG/DL HDL CHOLESTEROL (test code = 2220) 48 MG/DL CALC LDL CHOL (test code = 2237) 72 MG/DL RISK RATIO LDL/HDL (test cod e = 2238) 1.50 RATIO Sanjeev Regalado AustinHEMOGLOBIN [id number] 00:00:00* Test Item Value Reference Range Interpretation Comme nts HEMOGLOBIN A1c (test code = 33760) 5.5 % Sanjeev HelmsCOMPREHENSIVE METABOLIC [id number] 00:00:00* Test Item Value Reference Range Interpretation Comme nts GLUCOSE (test code = 2217) 99 MG/DL BUN (test code = 2208) 14 MG/DL CREATININE (test code = 2214) 1.10 MG/DL eGFR AMER. (test cod e = 47080) 92 ML/MIN/1.73 eGFR NON- AMER. (test code = 97251) 80 ML/MIN/1.73 CALC BUN/CREAT (test code = [...] (test code = 2219) 21 U/L Sanjeev HelmsHEMOGLOBIN [id number] 00:00:00* Test Item Value Reference Range Interpretation Comme nts HEMOGLOBIN A1c (test code = 72123) 5.9 % Sanjeev HelmsCOMPREHENSIVE METABOLIC [id number] 00:00:00* Test Item Value Reference Range Interpretation Comme nts GLUCOSE (test code = 2217) 83 MG/DL BUN (test code = 2208) 12 MG/DL CREATININE (test code = 2214) 1.03 MG/DL eGFR AMER. (test cod e = 40439) 100 ML/MIN/1.73 eGFR NON- AMER. (test code = 40732) 87 ML/MIN/1.73 CALC BUN/CREAT (test code = [...] (test code = 2219) 11 U/L Sanjeev HelmsMICROALBUMIN/CREATININE, RANDOM AND [id number] 00:00:00* Test Item Value Reference Range Interpretation Comme nts CREATININE, URINE, CONC. (te st code = 207) 113.2 MG/DL ALBUMIN, URINE, RANDOM (test code = 10691) 0.3 MG/DL CALC ALBUMIN/CREAT, RND (angie t code = 77247) 3 MG/G Sanjeev Regalado AustinLIPID [id number] 00:00:00* Test Item Value Reference Range Interpretation Comme nts CHOLESTEROL (test code = 2210) 209 MG/DL TRIGLYCERIDES (test code = 2232) 212 MG/DL HDL CHOLESTEROL (test code = 2220) 47 MG/DL CALC LDL CHOL (test code = 2237) 120 MG/DL RISK RATIO LDL/HDL (test cod e = 2238) 2.54 RATIO Sanjeev HelmsHEMOGLOBIN [id number] 00:00:00* Test Item Value Reference Range Interpretation Comme santa HEMOGLOBIN A1c (test code = 97709) 5.9 % Sanjeev HelmsCOMPREHENSIVE METABOLIC [id number] 00:00:00* Test Item Value Reference Range Interpretation Comme nts GLUCOSE (test code = 2217) 83 MG/DL BUN (test code = 2208) 12 MG/DL CREATININE (test code = 2214) 1.03 MG/DL eGFR AMER. (test cod e = 77154) 100 ML/MIN/1.73 eGFR NON- AMER. (test code = 72572) 87 ML/MIN/1.73 CALC BUN/CREAT (test code = [...] (test code = 2219) 11 U/L Sanjeev HelmsMICROALBUMIN/CREATININE, RANDOM AND [id number] 00:00:00* Test Item Value Reference Range Interpretation Comme nts CREATININE, URINE, CONC. (te st code = 2072) 113.2 MG/DL ALBUMIN, URINE, RANDOM (test code = 77976) 0.3 MG/DL CALC ALBUMIN/CREAT, RND (angie t code = 52355) 3 MG/G Sanjeev HelmsLIPID [id number] 00:00:00* Test Item Value Reference Range Interpretation Comme nts CHOLESTEROL (test code = 2210) 209 MG/DL TRIGLYCERIDES (test code = 2232) 212 MG/DL HDL CHOLESTEROL (test code = 2220) 47 MG/DL CALC LDL CHOL (test code = 2237) 120 MG/DL RISK RATIO LDL/HDL (test cod e = 2238) 2.54 RATIO Sanjeev HelmsHEMOGLOBIN [id number] 00:00:00* Test Item Value Reference Range Interpretation Comme santa HEMOGLOBIN A1c (test code = 16397) 5.9 % Sanjeev HelmsCOMPREHENSIVE METABOLIC [id number] 00:00:00* Test Item Value Reference Range Interpretation Comme nts GLUCOSE (test code = 2217) 83 MG/DL BUN (test code = 2208) 12 MG/DL CREATININE (test code = 2214) 1.03 MG/DL eGFR AMER. (test cod e = 68093) 100 ML/MIN/1.73 eGFR NON- AMER. (test code = 52104) 87 ML/MIN/1.73 CALC BUN/CREAT (test code = [...] (test code = 2219) 11 U/L Sanjeev HelmsMICROALBUMIN/CREATININE, RANDOM AND [id number] 00:00:00* Test Item Value Reference Range Interpretation Comme santa CREATININE, URINE, CONC. (te st code = 2072) 113.2 MG/DL ALBUMIN, URINE, RANDOM (test code = 83425) 0.3 MG/DL CALC ALBUMIN/CREAT, RND (angie t code = 86440) 3 MG/G Sanjeev HelmsLIPID [id number] 00:00:00* Test Item Value Reference Range Interpretation Comme nts CHOLESTEROL (test code = 2210) 209 MG/DL TRIGLYCERIDES (test code = 2232) 212 MG/DL HDL CHOLESTEROL (test code = 2220) 47 MG/DL CALC LDL CHOL (test code = 2237) 120 MG/DL RISK RATIO LDL/HDL (test cod e = 2238) 2.54 RATIO Sanjeev HelmsHEMOGLOBIN [id number] 00:00:00* Test Item Value Reference Range Interpretation Comme santa HEMOGLOBIN A1c (test code = 84269) 5.9 % Sanjeev HelmsCOMPREHENSIVE METABOLIC [id number] 00:00:00* Test Item Value Reference Range Interpretation Comme nts GLUCOSE (test code = 2217) 83 MG/DL BUN (test code = 2208) 12 MG/DL CREATININE (test code = 2214) 1.03 MG/DL eGFR AMER. (test cod e = 37162) 100 ML/MIN/1.73 eGFR NON- AMER. (test code = 71029) 87 ML/MIN/1.73 CALC BUN/CREAT (test code = [...] (test code = 2219) 11 U/L Sanjeev HelmsMICROALBUMIN/CREATININE, RANDOM AND [id number] 00:00:00* Test Item Value Reference Range Interpretation Comme santa CREATININE, URINE, CONC. (te st code = 2072) 113.2 MG/DL ALBUMIN, URINE, RANDOM (test code = 16362) 0.3 MG/DL CALC ALBUMIN/CREAT, RND (angie t code = 92043) 3 MG/G Sanjeev Regalado AustinLIPID [id number] 00:00:00* Test Item Value Reference Range Interpretation Comme nts CHOLESTEROL (test code = 2210) 209 MG/DL TRIGLYCERIDES (test code = 2232) 212 MG/DL HDL CHOLESTEROL (test code = 2220) 47 MG/DL CALC LDL CHOL (test code = 2237) 120 MG/DL RISK RATIO LDL/HDL (test cod e = 2238) 2.54 RATIO Sanjeev Regalado AustinHEMOGLOBIN [id number] 00:00:00* Test Item Value Reference Range Interpretation Comme nts HEMOGLOBIN A1c (test code = 41180) 5.7 % Sanjeev Regalado AustinHEMOGLOBIN [id number] 00:00:00* Test Item Value Reference Range Interpretation Comme nts HEMOGLOBIN A1c (test code = 19442) 5.7 % Sanjeev Regalado AustinHEMOGLOBIN [id number] 00:00:00* Test Item Value Reference Range Interpretation Comme nts HEMOGLOBIN A1c (test code = 84357) 5.7 % Sanjeev Regalado AustinHEMOGLOBIN [id number] 00:00:00* Test Item Value Reference Range Interpretation Comme nts HEMOGLOBIN A1c (test code = 86500) 5.7 % Sanjeev Regalado AustinLIPID [id number] 00:00:00* Test Item Value Reference Range Interpretation Comme nts CHOLESTEROL (test code = 2210) 242 MG/DL TRIGLYCERIDES (test code = 2232) 91 MG/DL HDL CHOLESTEROL (test code = 2220) 66 MG/DL CALC LDL CHOL (test code = 2237) 158 MG/DL RISK RATIO LDL/HDL (test cod e = 2238) 2.39 RATIO Sanjeev Regalado AustinMICROALBUMIN/CREATININE, RANDOM AND [id number] 00:00:00* Test Item Value Reference Range Interpretation Comme nts CREATININE, URINE, CONC. (te st code = 2072) 74.8 MG/DL ALBUMIN, URINE, RANDOM (test code = 58852) <0.2 MG/DL CALC ALBUMIN/CREAT, RND (angie t code = 52942) <3 MG/G Sanjeev HelmsCOMPREHENSIVE METABOLIC [id number] 00:00:00* Test Item Value Reference Range Interpretation Comme nts GLUCOSE (test code = 2217) 76 MG/DL BUN (test code = 2208) 16 MG/DL CREATININE (test code = 2214) 1.06 MG/DL eGFR AMER. (test cod e = 08374) 98 ML/MIN/1.73 eGFR NON- AMER. (test code = 38872) 84 ML/MIN/1.73 CALC BUN/CREAT (test code = [...] code = 2219) 19 U/L Sanjeev HelmsHEMOGLOBIN [id number] 00:00:00* Test Item Value Reference Range Interpretation Comme nts HEMOGLOBIN A1c (test code = 68107) 5.6 % Sanjeev HelmsCBC W/AUTO [id number] 00:00:00* Test Item Value Reference Range Interpretation [...] (test code = 1015) 231 K/UL Sanjeev Regalado AustinLIPID [id number] 00:00:00* Test Item Value Reference Range Interpretation Comme nts CHOLESTEROL (test code = 2210) 242 MG/DL TRIGLYCERIDES (test code = 2232) 91 MG/DL HDL CHOLESTEROL (test code = 2220) 66 MG/DL CALC LDL CHOL (test code = 2237) 158 MG/DL RISK RATIO LDL/HDL (test cod e = 2238) 2.39 RATIO Sanjeev HelmsMICROALBUMIN/CREATININE, RANDOM AND [id number] 00:00:00* Test Item Value Reference Range Interpretation Comme nts CREATININE, URINE, CONC. (te st code = 2072) 74.8 MG/DL ALBUMIN, URINE, RANDOM (test code = 79654) <0.2 MG/DL CALC ALBUMIN/CREAT, RND (angie t code = 97414) <3 MG/G Sanjeev HelmsCOMPREHENSIVE METABOLIC [id number] 00:00:00* Test Item Value Reference Range Interpretation Comme nts GLUCOSE (test code = 2217) 76 MG/DL BUN (test code = 2208) 16 MG/DL CREATININE (test code = 2214) 1.06 MG/DL eGFR AMER. (test cod e = 93125) 98 ML/MIN/1.73 eGFR NON- AMER. (test code = 83847) 84 ML/MIN/1.73 CALC BUN/CREAT (test code = [...] code = 2219) 19 U/L Sanjeev HelmsHEMOGLOBIN [id number] 00:00:00* Test Item Value Reference Range Interpretation Comme santa HEMOGLOBIN A1c (test code = 35672) 5.6 % Sanjeev HelmsCBC W/AUTO [id number] 00:00:00* Test Item Value Reference Range Interpretation [...] code = 1015) 231 K/UL Sanjeev HelmsLIPID [id number] 00:00:00* Test Item Value Reference Range Interpretation Comme nts CHOLESTEROL (test code = 2210) 242 MG/DL TRIGLYCERIDES (test code = 2232) 91 MG/DL HDL CHOLESTEROL (test code = 2220) 66 MG/DL CALC LDL CHOL (test code = 2237) 158 MG/DL RISK RATIO LDL/HDL (test cod e = 2238) 2.39 RATIO Sanjeev HelmsMICROALBUMIN/CREATININE, RANDOM AND [id number] 00:00:00* Test Item Value Reference Range Interpretation Comme nts CREATININE, URINE, CONC. (te st code = 2072) 74.8 MG/DL ALBUMIN, URINE, RANDOM (test code = 63747) <0.2 MG/DL CALC ALBUMIN/CREAT, RND (angie t code = 01682) <3 MG/G Sanjeev HelmsCOMPREHENSIVE METABOLIC [id number] 00:00:00* Test Item Value Reference Range Interpretation Comme nts GLUCOSE (test code = 2217) 76 MG/DL BUN (test code = 2208) 16 MG/DL CREATININE (test code = 2214) 1.06 MG/DL eGFR AMER. (test cod e = 15195) 98 ML/MIN/1.73 eGFR NON- AMER. (test code = 95357) 84 ML/MIN/1.73 CALC BUN/CREAT (test code = [...] (test code = 2219) 19 U/L Sanjeev Regalado [place] BeachHEMOGLOBIN [id number] 00:00:00* Test Item Value Reference Range Interpretation Comme nts HEMOGLOBIN A1c (test code = 78433) 5.6 % Sanjeev HelmsC W/AUTO [id number] 00:00:00* Test Item Value Reference Range Interpretation [...] code = 1015) 231 K/UL Sanjeev HelmsLIPID [id number] 00:00:00* Test Item Value Reference Range Interpretation Comme nts CHOLESTEROL (test code = 2210) 242 MG/DL TRIGLYCERIDES (test code = 2232) 91 MG/DL HDL CHOLESTEROL (test code = 2220) 66 MG/DL CALC LDL CHOL (test code = 2237) 158 MG/DL RISK RATIO LDL/HDL (test cod e = 2238) 2.39 RATIO Sanjeev HelmsMICROALBUMIN/CREATININE, RANDOM AND [id number] 00:00:00* Test Item Value Reference Range Interpretation Comme nts CREATININE, URINE, CONC. (te st code = 2072) 74.8 MG/DL ALBUMIN, URINE, RANDOM (test code = 31924) <0.2 MG/DL CALC ALBUMIN/CREAT, RND (angie t code = 95819) <3 MG/G Sanjeev HelmsCOMPREHENSIVE METABOLIC [id number] 00:00:00* Test Item Value Reference Range Interpretation Comme nts GLUCOSE (test code = 2217) 76 MG/DL BUN (test code = 2208) 16 MG/DL CREATININE (test code = 2214) 1.06 MG/DL eGFR AMER. (test cod e = 88877) 98 ML/MIN/1.73 eGFR NON- AMER. (test code = 57655) 84 ML/MIN/1.73 CALC BUN/CREAT (test code = [...] code = 2219) 19 U/L Sanjeev HelmsHEMOGLOBIN [id number] 00:00:00* Test Item Value Reference Range Interpretation Comme nts HEMOGLOBIN A1c (test code = 87356) 5.6 % Sanjeev HelmsCBC W/AUTO [id number] 00:00:00* Test Item Value Reference Range Interpretation [...] code = 1015) 231 K/UL Sanjeev HelmsLIPID [id number] 00:00:00* Test Item Value Reference Range Interpretation Comme nts CHOLESTEROL (test code = 2210) 144 MG/DL TRIGLYCERIDES (test code = 2232) 127 MG/DL HDL CHOLESTEROL (test code = 2220) 44 MG/DL CALC LDL CHOL (test code = 2237) 75 MG/DL RISK RATIO LDL/HDL (test cod e = 2238) 1.70 RATIO Sanjeev HelmsCBC W/AUTO [id number] 00:00:00* Test Item Value Reference Range Interpretation [...] code = 1015) 241 K/UL Sanjeev HelmsHEMOGLOBIN [id number] 00:00:00* Test Item Value Reference Range Interpretation Comme santa HEMOGLOBIN A1c (test code = 63414) 6.7 % Sanjeev Regalado [id number] 00:00:00* Test Item Value Reference Range Interpretation Comme nts TSH (test code = 2821) 0.8 UIU/ML Sanjeev HelmsCOMPREHENSIVE METABOLIC [id number] 00:00:00* Test Item Value Reference Range Interpretation Comme nts GLUCOSE (test code = 2217) 82 MG/DL BUN (test code = 2208) 13 MG/DL CREATININE (test code = 2214) 1.12 MG/DL eGFR AMER. (test cod e = 97230) 93 ML/MIN/1.73 eGFR NON- AMER. (test code = 55719) 80 ML/MIN/1.73 CALC BUN/CREAT (test code = [...] code = 2219) 6 U/L Sanjeev HelmsLIPID [id number] 00:00:00* Test Item Value Reference Range Interpretation Comme nts CHOLESTEROL (test code = 2210) 144 MG/DL TRIGLYCERIDES (test code = 2232) 127 MG/DL HDL CHOLESTEROL (test code = 2220) 44 MG/DL CALC LDL CHOL (test code = 2237) 75 MG/DL RISK RATIO LDL/HDL (test cod e = 2238) 1.70 RATIO Sanjeev HelmsCBC W/AUTO [id number] 00:00:00* Test Item Value Reference Range Interpretation [...] code = 1015) 241 K/UL Sanjeev HelmsHEMOGLOBIN [id number] 00:00:00* Test Item Value Reference Range Interpretation Comme [facility] HEMOGLOBIN A1c (test code = 44701) 6.7 % Sanjeev [id number] 00:00:00* Test Item Value Reference Range Interpretation Comme nts TSH (test code = 2821) 0.8 UIU/ML Sanjeev HelmsCOMPREHENSIVE METABOLIC [id number] 00:00:00* Test Item Value Reference Range Interpretation Comme nts GLUCOSE (test code = 2217) 82 MG/DL BUN (test code = 2208) 13 MG/DL CREATININE (test code = 2214) 1.12 MG/DL eGFR AMER. (test cod e = 94133) 93 ML/MIN/1.73 eGFR NON- AMER. (test code = 60936) 80 ML/MIN/1.73 CALC BUN/CREAT (test code = [...] code = 2219) 6 U/L Sanjeev HelmsLIPID [id number] 00:00:00* Test Item Value Reference Range Interpretation Comme nts CHOLESTEROL (test code = 2210) 144 MG/DL TRIGLYCERIDES (test code = 2232) 127 MG/DL HDL CHOLESTEROL (test code = 2220) 44 MG/DL CALC LDL CHOL (test code = 2237) 75 MG/DL RISK RATIO LDL/HDL (test cod e = 2238) 1.70 RATIO Sanjeev HelmsCBC W/AUTO [id number] 00:00:00* Test Item Value Reference Range Interpretation [...] code = 1015) 241 K/UL Sanjeev HelmsHEMOGLOBIN [id number] 00:00:00* Test Item Value Reference Range Interpretation Comme [facility] HEMOGLOBIN A1c (test code = 91338) 6.7 % Sanjeev [id number] 00:00:00* Test Item Value Reference Range Interpretation Comme nts TSH (test code = 2821) 0.8 UIU/ML Sanjeev Regalado ScooterCOMPREHENSIVE METABOLIC [id number] 00:00:00* Test Item Value Reference Range Interpretation Comme nts GLUCOSE (test code = 2217) 82 MG/DL BUN (test code = 2208) 13 MG/DL CREATININE (test code = 2214) 1.12 MG/DL eGFR AMER. (test cod e = 47699) 93 ML/MIN/1.73 eGFR NON- AMER. (test code = 63649) 80 ML/MIN/1.73 CALC BUN/CREAT (test code = [...] code = 2219) 6 U/L Sanjeev HelmsLIPID [id number] 00:00:00* Test Item Value Reference Range Interpretation Comme nts CHOLESTEROL (test code = 2210) 144 MG/DL TRIGLYCERIDES (test code = 2232) 127 MG/DL HDL CHOLESTEROL (test code = 2220) 44 MG/DL CALC LDL CHOL (test code = 2237) 75 MG/DL RISK RATIO LDL/HDL (test cod e = 2238) 1.70 RATIO Sanjeev HelmsCBC W/AUTO [id number] 00:00:00* Test Item Value Reference Range Interpretation [...] code = 1015) 241 K/UL Sanjeev HelmsHEMOGLOBIN [id number] 00:00:00* Test Item Value Reference Range Interpretation Comme [facility] HEMOGLOBIN A1c (test code = 72364) 6.7 % Sanjeev Regalado [id number] 00:00:00* Test Item Value Reference Range Interpretation Comme nts TSH (test code = 2821) 0.8 UIU/ML Sanjeev HelmsCOMPREHENSIVE METABOLIC [id number] 00:00:00* Test Item Value Reference Range Interpretation Comme nts GLUCOSE (test code = 2217) 82 MG/DL BUN (test code = 2208) 13 MG/DL CREATININE (test code = 2214) 1.12 MG/DL eGFR AMER. (test cod e = 55744) 93 ML/MIN/1.73 eGFR NON- AMER. (test code = 62080) 80 ML/MIN/1.73 CALC BUN/CREAT (test code = [...] (test code = 2219) 6 U/L Sanjeev HelmsDRUG SCREEN, [id number] 00:00:00* Test Item Value Reference Range Interpretation Comme nts AMPHETAMINES (test code = 56018) Negative BARBITURATES (test code = 70478) Negative BENZODIAZEPINES (test code = 09831) Negative COCAINE METABOLITE (test cod e = 46520) Negative METHADONE (test code = 46128) Negative OPIATES (test code = 608327) Negative PHENCYCLIDINE (test code = 308347) Negative PROPOXYPHENE (test code = 105702) Negative THC (CANNABIS) (test code = 255995) Negative ETHANOL (test code = 127176) Negative Sanjeev F AustinDRUG SCREEN, [id number] 00:00:00* Test Item Value Reference Range Interpretation Comme nts AMPHETAMINES (test code = 87152) Negative BARBITURATES (test code = 99521) Negative BENZODIAZEPINES (test code = 24938) Negative COCAINE METABOLITE (test cod e = 33802) Negative METHADONE (test code = 83516) Negative OPIATES (test code = 564850) Negative PHENCYCLIDINE (test code = 062301) Negative PROPOXYPHENE (test code = 781070) Negative THC (CANNABIS) (test code = 223497) Negative ETHANOL (test code = 492943) Negative Sanjeev F AustinDRUG SCREEN, [id number] 00:00:00* Test Item Value Reference Range Interpretation Comme nts AMPHETAMINES (test code = 07490) Negative BARBITURATES (test code = 22780) Negative BENZODIAZEPINES (test code = 48850) Negative COCAINE METABOLITE (test cod e = 62430) Negative METHADONE (test code = 51212) Negative OPIATES (test code = 394214) Negative PHENCYCLIDINE (test code = 627300) Negative PROPOXYPHENE (test code = 233618) Negative THC (CANNABIS) (test code = 533789) Negative ETHANOL (test code = 776129) Negative Sanjeev F AustinDRUG SCREEN, [id number] 00:00:00* Test Item Value Reference Range Interpretation Comme nts AMPHETAMINES (test code = 94539) Negative BARBITURATES (test code = 23102) Negative BENZODIAZEPINES (test code = 35497) Negative COCAINE METABOLITE (test cod e = 71693) Negative METHADONE (test code = 76335) Negative OPIATES (test code = 559063) Negative PHENCYCLIDINE (test code = 769871) Negative PROPOXYPHENE (test code = 624621) Negative THC (CANNABIS) (test code = 920109) Negative ETHANOL (test code = 181349) Negative Sanjeev HelmsHEMOGLOBIN [id number] 00:00:00* Test Item Value Reference Range Interpretation Comme [facility] HEMOGLOBIN A1c (test code = 00195) 7.0 % Sanjeev HelmsTHYROID II PROFILE (T3U, T4, T7, TSH)2015-11-23 00:00:00* Test Item Value Reference Range Interpretation Comme nts T3 UPTAKE (test code = 2817) 29.2 % T4 (THYROXINE) (test code = 2819) 6.0 UG/DL CALCULATED T7 (FTI) (test co de = 2820) 1.75 TSH (test code = 2821) 0.7 UIU/ML Sanjeev HelmsCOMPREHENSIVE METABOLIC [id number] 00:00:00* Test Item Value Reference Range Interpretation Comme nts GLUCOSE (test code = 2217) 110 MG/DL BUN (test code = 2208) 19 MG/DL CREATININE (test code = 2214) 1.13 MG/DL eGFR AMER. (test cod e = 69247) 92 ML/MIN/1.73 eGFR NON- AMER. (test code = 45313) 80 ML/MIN/1.73 CALCULATED BUN/CREAT (test code = [...] code = 2219) 17 U/L Sanjeev HelmsLIPID [id number] 00:00:00* Test Item Value Reference Range Interpretation Comme nts CHOLESTEROL (test code = 2210) 193 MG/DL TRIGLYCERIDES (test code = 2232) 130 MG/DL HDL CHOLESTEROL (test code = 2220) 41 MG/DL CALCULATED LDL CHOL (test co de = 2237) 126 MG/DL RISK RATIO LDL/HDL (test cod e = 2238) 3.07 RATIO Sanjeev HelmsCBC W/AUTO [id number] 00:00:00* Test Item Value Reference Range Interpretation [...] code = 1015) 258 K/UL Sanjeev HelmsHEMOGLOBIN [id number] 00:00:00* Test Item Value Reference Range Interpretation Comme [facility] HEMOGLOBIN A1c (test code = 07399) 7.0 % Sanjeev HelmsTHYROID II PROFILE (T3U, T4, T7, TSH)2015-11-23 00:00:00* Test Item Value Reference Range Interpretation Comme [facility] T3 UPTAKE (test code = 2817) 29.2 % T4 (THYROXINE) (test code = 2819) 6.0 UG/DL CALCULATED T7 (FTI) (test co de = 2820) 1.75 TSH (test code = 2821) 0.7 UIU/ML Sanjeev HelmsCOMPREHENSIVE METABOLIC [id number] 00:00:00* Test Item Value Reference Range Interpretation Comme nts GLUCOSE (test code = 2217) 110 MG/DL BUN (test code = 2208) 19 MG/DL CREATININE (test code = 2214) 1.13 MG/DL eGFR AMER. (test cod e = 57473) 92 ML/MIN/1.73 eGFR NON- AMER. (test code = 68297) 80 ML/MIN/1.73 CALCULATED BUN/CREAT (test code = [...] 97 U/L SGOT (AST) (test code = 221) 24 U/L SGPT (ALT) (test code = 221) 17 U/L Sanjeev HelmsLIPID [id number] 00:00:00* Test Item Value Reference Range Interpretation Comme nts CHOLESTEROL (test code = 2210) 193 MG/DL TRIGLYCERIDES (test code = 2232) 130 MG/DL HDL CHOLESTEROL (test code = 2220) 41 MG/DL CALCULATED LDL CHOL (test co de = 2237) 126 MG/DL RISK RATIO LDL/HDL (test cod e = 2238) 3.07 RATIO Sanjeev HelmsCBC W/AUTO [id number] 00:00:00* Test Item Value Reference Range Interpretation [...] code = 1015) 258 K/UL Sanjeev HelmsHEMOGLOBIN [id number] 00:00:00* Test Item Value Reference Range Interpretation Comme [facility] HEMOGLOBIN A1c (test code = 19814) 7.0 % Sanjeev HelmsTHYROID II PROFILE (T3U, T4, T7, TSH)2015-11-23 00:00:00* Test Item Value Reference Range Interpretation Comme nts T3 UPTAKE (test code = 2817) 29.2 % T4 (THYROXINE) (test code = 2819) 6.0 UG/DL CALCULATED T7 (FTI) (test co de = 2820) 1.75 TSH (test code = 2821) 0.7 UIU/ML Sanjeev HelmsCOMPREHENSIVE METABOLIC [id number] 00:00:00* Test Item Value Reference Range Interpretation Comme nts GLUCOSE (test code = 2217) 110 MG/DL BUN (test code = 2208) 19 MG/DL CREATININE (test code = 2214) 1.13 MG/DL eGFR AMER. (test cod e = 37287) 92 ML/MIN/1.73 eGFR NON- AMER. (test code = 12807) 80 ML/MIN/1.73 CALCULATED BUN/CREAT (test code = [...] code = 2219) 17 U/L Sanjeev HelmsLIPID [id number] 00:00:00* Test Item Value Reference Range Interpretation Comme nts CHOLESTEROL (test code = 2210) 193 MG/DL TRIGLYCERIDES (test code = 2232) 130 MG/DL HDL CHOLESTEROL (test code = 2220) 41 MG/DL CALCULATED LDL CHOL (test co de = 2237) 126 MG/DL RISK RATIO LDL/HDL (test cod e = 2238) 3.07 RATIO Sanjeev HelmsCBC W/AUTO [id number] 00:00:00* Test Item Value Reference Range Interpretation [...] code = 1015) 258 K/UL Sanjeev HelmsHEMOGLOBIN [id number] 00:00:00* Test Item Value Reference Range Interpretation Comme nts HEMOGLOBIN A1c (test code = 39984) 7.0 % Sanjeev HelmsTHYROID II PROFILE (T3U, T4, T7, TSH)2015-11-23 00:00:00* Test Item Value Reference Range Interpretation Comme nts T3 UPTAKE (test code = 2817) 29.2 % T4 (THYROXINE) (test code = 2819) 6.0 UG/DL CALCULATED T7 (FTI) (test co de = 2820) 1.75 TSH (test code = 2821) 0.7 UIU/ML Sanjeev HelmsCOMPREHENSIVE METABOLIC [id number] 00:00:00* Test Item Value Reference Range Interpretation Comme nts GLUCOSE (test code = 2217) 110 MG/DL BUN (test code = 2208) 19 MG/DL CREATININE (test code = 2214) 1.13 MG/DL eGFR AMER. (test cod e = 30181) 92 ML/MIN/1.73 eGFR NON- AMER. (test code = 75676) 80 ML/MIN/1.73 CALCULATED BUN/CREAT (test code = [...] = 2219) 17 U/L Sanjeev Regalado AustinLIPID [id number] 00:00:00* Test Item Value Reference Range Interpretation Comme nts CHOLESTEROL (test code = 2210) 193 MG/DL TRIGLYCERIDES (test code = 2232) 130 MG/DL HDL CHOLESTEROL (test code = 2220) 41 MG/DL CALCULATED LDL CHOL (test co de = 2237) 126 MG/DL RISK RATIO LDL/HDL (test cod e = 2238) 3.07 RATIO Sanjeev HelmsCBC W/AUTO [id number] 00:00:00* Test Item Value Reference Range Interpretation [...] (test code = 1015) 258 K/UL Sanjeev Regalado AustinLIPID [id number] 00:00:00* Test Item Value Reference Range Interpretation Comme nts CHOLESTEROL (test code = 2210) 254 MG/DL TRIGLYCERIDES (test code = 2232) 246 MG/DL HDL CHOLESTEROL (test code = 2220) 40 MG/DL CALCULATED LDL CHOL (test co de = 2237) 165 MG/DL RISK RATIO LDL/HDL (test cod e = 2238) 4.12 RATIO Sanjeev HelmsCBC W/AUTO [id number] 00:00:00* Test Item Value Reference Range Interpretation [...] (test code = 2821) 1.3 UIU/ML Sanjeev Regalado ScooterCOMPREHENSIVE METABOLIC [id number] 00:00:00* Test Item Value Reference Range Interpretation Comme nts GLUCOSE (test code = 2217) 96 MG/DL BUN (test code = 2208) 14 MG/DL CREATININE (test code = 2214) 1.0 MG/DL eGFR AMER. (test cod e = 37863) 99 ML/MIN/1.73 eGFR NON- AMER. (test code = 62211) 82 ML/MIN/1.73 CALCULATED BUN/CREAT (test code = [...] code = 2219) 17 U/L Sanjeev HelmsLIPID [id number] 00:00:00* Test Item Value Reference Range Interpretation Comme nts CHOLESTEROL (test code = 2210) 254 MG/DL TRIGLYCERIDES (test code = 2232) 246 MG/DL HDL CHOLESTEROL (test code = 2220) 40 MG/DL CALCULATED LDL CHOL (test co de = 2237) 165 MG/DL RISK RATIO LDL/HDL (test cod e = 2238) 4.12 RATIO Sanjeev HelmsCBC W/AUTO [id number] 00:00:00* Test Item Value Reference Range Interpretation [...] = 2821) 1.3 UIU/ML Sanjeev HelmsCOMPREHENSIVE METABOLIC [id number] 00:00:00* Test Item Value Reference Range Interpretation Comme nts GLUCOSE (test code = 2217) 96 MG/DL BUN (test code = 2208) 14 MG/DL CREATININE (test code = 2214) 1.0 MG/DL eGFR AMER. (test cod e = 30643) 99 ML/MIN/1.73 eGFR NON- AMER. (test code = 35317) 82 ML/MIN/1.73 CALCULATED BUN/CREAT (test code = [...] code = 2219) 17 U/L Sanjeev HelmsLIPID [id number] 00:00:00* Test Item Value Reference Range Interpretation Comme nts CHOLESTEROL (test code = 2210) 254 MG/DL TRIGLYCERIDES (test code = 2232) 246 MG/DL HDL CHOLESTEROL (test code = 2220) 40 MG/DL CALCULATED LDL CHOL (test co de = 2237) 165 MG/DL RISK RATIO LDL/HDL (test cod e = 2238) 4.12 RATIO Sanjeev HelmsCBC W/AUTO [id number] 00:00:00* Test Item Value Reference Range Interpretation [...] (test code = 1015) 278 K/UL Sanjeev Sabine ScooterTHYROID II PROFILE (T3U, T4, T7, TSH)2015-05-03 00:00:00* Test Item Value Reference Range Interpretation Comme nts T3 UPTAKE (test code = 2817) 27.3 % T4 (THYROXINE) (test code = 2819) 5.4 UG/DL CALCULATED T7 (FTI) (test co de = 2820) 1.47 TSH (test code = 2821) 1.3 UIU/ML Sanjeev F ScooterCOMPREHENSIVE METABOLIC [id number] 00:00:00* Test Item Value Reference Range Interpretation Comme nts GLUCOSE (test code = 2217) 96 MG/DL BUN (test code = 2208) 14 MG/DL CREATININE (test code = 2214) 1.0 MG/DL eGFR AMER. (test cod e = 98493) 99 ML/MIN/1.73 eGFR NON- AMER. (test code = 55728) 82 ML/MIN/1.73 CALCULATED BUN/CREAT (test code = [...] code = 2219) 17 U/L Sanjeev HelmsLIPID [id number] 00:00:00* Test Item Value Reference Range Interpretation Comme nts CHOLESTEROL (test code = 2210) 254 MG/DL TRIGLYCERIDES (test code = 2232) 246 MG/DL HDL CHOLESTEROL (test code = 2220) 40 MG/DL CALCULATED LDL CHOL (test co de = 2237) 165 MG/DL RISK RATIO LDL/HDL (test cod e = 2238) 4.12 RATIO Sanjeev HelmsCBC W/AUTO [id number] 00:00:00* Test Item Value Reference Range Interpretation [...] (test code = 1015) 278 K/UL Sanjeev Regalado ScooterTHYROID II PROFILE (T3U, T4, T7, TSH)2015-05-03 00:00:00* Test Item Value Reference Range Interpretation Comme nts T3 UPTAKE (test code = 2817) 27.3 % T4 (THYROXINE) (test code = 2819) 5.4 UG/DL CALCULATED T7 (FTI) (test co de = 2820) 1.47 TSH (test code = 2821) 1.3 UIU/ML Sanjeev Regalado ScooterCOMPREHENSIVE METABOLIC [id number] 00:00:00* Test Item Value Reference Range Interpretation Comme nts GLUCOSE (test code = 2217) 96 MG/DL BUN (test code = 2208) 14 MG/DL CREATININE (test code = 2214) 1.0 MG/DL eGFR AMER. (test cod e = 21929) 99 ML/MIN/1.73 eGFR NON- AMER. (test code = 86297) 82 ML/MIN/1.73 CALCULATED BUN/CREAT (test code = [...] (test code = 2219) 17 U/L Sanjeev Helms Notes Date/Time Note Provider Source Sanjeev Castro [facility]2025-04-23 00:00:00 Sanjeev Castro [facility]2024-10-22 00:00:00 Sanjeev Catsro [facility]2024-09-18 00:00:00 Sanjeev Abraham [facility]"
[2025-05-21 21:03] LABS: Sqamous Epithelial <5 /HPF (None Seen); Urine Culture Reflex Order NOT NEEDED; Urine Microscopic Reflex YN ORDER UMIC; Urine WBC Clump Rare /HPF (None Seen); Urine Yeast (Budding) Trace /HPF (None Seen)
[2025-05-21] MEDS ORDERED: CEFTRIAXONE 1000 MG/VIAL ONE (21:24)
[2025-05-21] MEDS ORDERED: WATER FOR INJ,STERILE 10 ML ONE (21:25)
--- NOTE | 2025-05-21 21:37 | ER ---
Nurse's Notes [facility] Name: Ana Paula Oviedo Age: 50 yrs Sex: Male : 1975 Arrival Date: 05/21/2025 Time: 20:07 Bed 17 Private MD: Diagnosis: Balanitis Presentation: 05/21 20:15 Chief complaint: Patient states: pain, swelling, cuts around penile of and on for the ha1 past 5 months. Recent episode started 2 days ago. Burning with urination. 20:15 Coronavirus screen: Client denies travel out of the [place] in the last 14 days. Ebola ha1 Screen: No symptoms or risks identified at this time. Initial Sepsis Screen: Does the patient meet any 2 criteria? No. Patient's initial sepsis screen is negative. Does the patient have a suspected source of infection? No. Patient's initial sepsis screen is negative. Risk Assessment: Do you want to hurt yourself or someone else? Patient reports no desire to harm self or others. Onset of symptoms was May 19, 2025. 20:15 Method Of Arrival: Ambulatory ha1 20:15 Acuity: ALIRIO 4 ha1 Triage Assessment: 20:32 General: Appears uncomfortable, Behavior is calm, cooperative, appropriate for age. ha1 Pain: Complains of pain in groin Pain currently is 8 out of 10 on a pain scale. Quality of pain is described as burning, throbbing. Neuro: Level of Consciousness is awake, alert, obeys commands, Oriented to person, place, time, situation, Appropriate for age. Cardiovascular: Patient's skin is warm and dry. Respiratory: Airway is patent Respiratory effort is even, unlabored, Respiratory pattern is regular, symmetrical. Historical: - Allergies: 20:32 No Known Allergies; ha1 - PMHx: 20:32 Anxiety; Diabetes - IDDM; Depression; Hyperlipidemia; Hypertension; Myocardial ha1 infarction; Schizophrenia; - Immunization history:: Adult Immunizations up to date. - Infectious Disease History:: Denies. - Social history:: Smoking status: Patient denies any tobacco usage or history of. Screenin:27 [facility] ED Fall Risk Assessment (Adult) History of falling in the last 3 months, cf3 including since admission No falls in past 3 months (0 pts) Confusion or Disorientation No (0 pts) Intoxicated or Sedated No (0 pts) Impaired Gait No (0 pts) Mobility Assist Device Used No (0 pt) Altered Elimination No (0 pt) Score/Fall Risk Level 0 - 2 = Low Risk Oriented to surroundings, Maintained a safe environment, Educated pt \T\ family on fall prevention, incl call for assistance when getting out of bed, Assessed \T\ reinforced patient's understanding of fall precautions. Abuse screen: Denies threats or abuse. Denies injuries from another. Nutritional screening: No deficits noted. Tuberculosis screening: No symptoms or risk factors identified. Assessment: 20:40 General: Appears in no apparent distress. comfortable, Behavior is calm, cooperative. cf3 Pain: Complains of pain in head of penis Pain currently is 9 out of 10 on a pain scale. Quality of pain is described as burning, Pain began Intermittent over several years Is continuous. Neuro: Russ Agitation-Sedation Scale (RASS): 0 - Alert and Calm Level of Consciousness is awake, alert, obeys commands, Oriented to person, place, time, situation. : Lesions noted Reports pain with urination. 22:27 Reassessment: Patient and/or family updated on plan of care and expected duration. Pain cc6 level reassessed. Patient is alert, oriented x 3, equal unlabored respirations, skin warm/dry/pink. Vital Signs: 20:15 BP 162 / 96; Pulse 85; Resp 16; Temp 98.5(O); Pulse Ox 100% on R/A; Weight 108.86 kg; ha1 Height 6 ft. 2 in. ; Pain 8/10; 20:30 BP 162 / 96; Pulse 84; Resp 16; Pulse Ox 100% on R/A; cf3 21:27 BP 150 / 76; Pulse 69; Resp 16; Pulse Ox 100% on R/A; cf3 20:15 Body Mass Index 30.81 (108.86 kg, 187.96 cm) ha1 20:15 Pain Scale: Adult ha1 ED Course: 20:10 Patient arrived in ED. im 20:11 Andrey Strickland PA-C is PHCP. cp 20:11 Jennifer Cooper MD is Attending Physician. cp 20:22 Jhonny Sutton, RADHA is Primary Nurse. cf3 20:32 Triage completed. ha1 21:27 Patient has correct armband on for positive identification. Placed in gown. Bed in low cf3 position. Call light in reach. Side rails up X 1. Provided Education on:. Client placed on continuous cardiac and pulse oximetry monitoring. NIBP monitoring applied. Door closed. Noise minimized. 21:27 No provider procedures requiring assistance completed. cf3 21:35 Zev Chavez MD is Referral Physician. cp 22:00 Report received from RADHA Barry. cc6 22:26 Arm band placed on right wrist. cc6 22:26 Patient did not have IV access during this emergency room visit. cc6 Administered Medications: 21:41 Drug: Rocephin (cefTRIAXone) IM 1 grams IM once Route: IM; Site: left ventrogluteal; cf3 22:27 Follow up: Response: No adverse reaction cc6 Medication: 21:27 VIS not applicable for this client. cf3 Outcome: 21:36 Discharge ordered by . cp 22:26 Discharged to home ambulatory, cc6 22:26 Condition: stable 22:26 Discharge instructions given to patient, Instructed on discharge instructions, follow up and referral plans. medication usage, Demonstrated understanding of instructions, follow-up care, medications, Prescriptions given X 2, 22:28 Patient left the ED. cc6 Signatures: Andrey Strickland, LARY PAGeorgia Connor cp RN RN ha1 Danae Woodruff Susanna Clifford RN RN cc6 Jhonny Sutton, RN RN cf3 Corrections: (The following items were deleted from the chart) 20:32 20:27 Chief complaint: Patient states: pain, swelling, cuts around penile of and on for ha1 the past 5 months. Recent episode started 2 days ago. Burning with urination. ha1 20:34 20:32 Allergies: Aspirin; ha1 ha1
--- NOTE | 2025-05-21 21:37 | EDPHYS ---
Physician Documentation [facility] Name: Ana Paula Oviedo Age: 50 yrs Sex: Male : 1975 Arrival Date: 05/21/2025 Time: 20:07 Bed 17 Private MD: ED Physician Jennifer Cooper HPI: 05/21 20:43 This 50 yrs old Black Male presents to ER via Ambulatory with complaints of Penile cp Problem. 20:43 The patient presents with penile pain. Onset: The symptoms/episode began/occurred cp intermittent for months, worse over past 3 days. Associated signs and symptoms: Pertinent negatives: abdominal pain, fever. 20:43 Severity of symptoms: in the emergency department the symptoms are unchanged, despite cp home interventions. Historical: - Allergies: 20:32 No Known Allergies; ha1 - PMHx: 20:32 Anxiety; Diabetes - IDDM; Depression; Hyperlipidemia; Hypertension; Myocardial ha1 infarction; Schizophrenia; - Immunization history:: Adult Immunizations up to date. - Infectious Disease History:: Denies. - Social history:: Smoking status: Patient denies any tobacco usage or history of. ROS: 20:45 Cardiovascular: Negative for chest pain, palpitations, cp 20:45 Eyes: Negative for injury, pain, redness, and discharge, cp 20:45 Constitutional: Negative for body aches, chills, fever, 20:45 ENT: Negative for drainage from ear(s), ear pain, sore throat, difficulty swallowing, difficulty handling secretions, 20:45 Respiratory: Negative for cough, shortness of breath, wheezing, 20:45 Abdomen/GI: Negative for abdominal pain, vomiting, diarrhea, constipation, 20:45 : Positive for pain, swelling of head penis, Negative for urinary symptoms, penile discharge, testicular pain 20:45 All other systems are negative, Exam: 21:00 Constitutional: The patient appears in no acute distress, alert, awake, non-toxic, well cp developed, well nourished, 21:00 Head/Face: Normocephalic, atraumatic. cp 21:00 Eyes: Periorbital structures: appear normal, Conjunctiva: normal, no exudate, no injection, Sclera: no appreciated abnormality, Lids and lashes: appear normal, bilaterally, 21:00 ENT: External ear(s): are unremarkable, Nose: is normal, Mouth: Lips: moist, Oral mucosa: moist, Posterior pharynx: Airway: no evidence of obstruction, patent, 21:00 Chest/axilla: Inspection: normal, 21:00 Cardiovascular: Rate: normal, Rhythm: regular, 21:00 Respiratory: the patient does not display signs of respiratory distress, 21:00 Abdomen/GI: Inspection: abdomen appears normal, Palpation: abdomen is soft and non-tender, in all quadrants, 21:00 Back: pain, is absent, ROM is normal, 21:00 : Male external genitalia: penile discharge, is absent, uncircumcised male, foreskin with mild swelling but able to be retracted, penile head with erythema and mild swelling, no discharge noted, no lesions or rashes noted, Vital Signs: 20:15 BP 162 / 96; Pulse 85; Resp 16; Temp 98.5(O); Pulse Ox 100% on R/A; Weight 108.86 kg; ha1 Height 6 ft. 2 in. ; Pain 8/10; 20:30 BP 162 / 96; Pulse 84; Resp 16; Pulse Ox 100% on R/A; cf3 21:27 BP 150 / 76; Pulse 69; Resp 16; Pulse Ox 100% on R/A; cf3 20:15 Body Mass Index 30.81 (108.86 kg, 187.96 cm) ha1 20:15 Pain Scale: Adult ha1 MDM: 20:23 Medical Screening Exam initiated cp 21:00 Differential diagnosis: UTI, urethritis, std, balanitis, phimosis. cp 21:35 Data reviewed: vital signs, nurses notes, lab test result(s), urinalysis, and as a cp result, I will discharge patient. 21:36 Care significantly affected by the following chronic conditions: Diabetes, Hypertension.cp 21:36 I considered the following discharge prescriptions or medication management in the emergency department Medications were administered in the Emergency Department. See MAR. Counseling: I had a detailed discussion with the patient and/or guardian regarding the historical points, exam findings, and any diagnostic results supporting the discharge/admit diagnosis, lab results, the need for outpatient follow up, a urologist, to return to the emergency department if symptoms worsen or persist or if there are any questions or concerns that arise at home. 05/21 20:34 Order name: UA Rfx Cole Cult if indicated; Complete Time: 21:09 cp 05/21 21:09 Interpretation: Reviewed. cp Administered Medications: 21:41 Drug: Rocephin (cefTRIAXone) IM 1 grams IM once Route: IM; Site: left ventrogluteal; cf3 22:27 Follow up: Response: No adverse reaction cc6 Disposition Summary: 05/21/25 21:36 Discharge Ordered Notes: Location: Home cp Problem: new cp Symptoms: have improved cp Condition: Stable cp Diagnosis - Balanitis cp Followup: cp - With: Zev Chavez MD - When: 1 week - Reason: Recheck today's complaints Discharge Instructions: - Discharge Summary Sheet cp - Balanitis cp Forms: - Medication Reconciliation Form cp - Antibiotic Education cp - Prescription Opioid Use cp - Patient Portal Instructions cp - Leadership Thank You Letter cp Prescriptions: - nystatin 100,000 unit/gram Topical ointment - apply 1 application TOPICAL route 2-3 times daily; 30 gram tube; Refills: 0, cp Product Selection Permitted - Cephalexin 500 mg Oral Capsule - take 1 capsule ORAL route every 6 hours for 10 days; 40 capsule; Refills: 0, cp Product Selection Permitted Signatures: Dispatcher [employer] EDMS Andrey Strickland PA-C PALizC cp [place] Alberto RN RN ha1 Jhonny Sutton RN RN cf3 Susanna Clifford RN cc6 Corrections: (The following items were deleted from the chart) 20:34 20:32 Allergies: Aspirin; ha1 ha1
[2025-05-22 07:19] VITALS: TEMP 98.5; O2SAT 100
[2025-05-22 07:33] VITALS: BP 150/76
== END 2025-05-21 22:28 ==
LOC: ER 20:07
DX: N48.1 Balanitis (principal)
CPT/HCPCS: 81001; 96372; 99284; J0696